=== PATIENT | female | born 1990 | race Caucasian/White ===

== ENCOUNTER 2016-03-23 18:29 | Inpatient (IN) | payer MEDICAID ==
[2016-03-23 19:55] LABS: APPEARANCE,URINE CLOUDY; BILIRUBIN,URINE NEGATIVE (NEGATIVE); GLUCOSE, URINE NEGATIVE (NEGATIVE); KETONES,URINE NEGATIVE (NEGATIVE); LEUKOCYTE ESTERASE,URINE LARGE (NEGATIVE); NITRITE,URINE NEGATIVE (NEGATIVE); PROTEIN,URINE NEGATIVE (NEGATIVE); UROBILINOGEN,URINE NEGATIVE mg/dL (<2.0)
--- NOTE | 2016-03-23 20:01 | L&D Flow Sheet ---
LD Flowsheet Datetime Report Generated by CPN: 03/23/2016 20:00 Datetime: 03/23/2016 19:44 Vital Signs NBP Sys/Elsa/Mean (mmHg): 134 (QS system process) : 83 (QS system process) : 102 (QS system process) Pulse: 101 (QS system process) Datetime: 03/23/2016 19:29 Vital Signs NBP Sys/[place]a/Mean (mmHg): 134 (QS system process) : 75 (QS system process) : 99 (QS system process) Pulse: 99 (QS system process) Datetime: 03/23/2016 19:22 Uterine Activity Monitor Interventions for UA: [place] Adjusted (Elizabeth Powell, RN) Assessment A Monitor Mode: External US (Elizabeth Paula, RN) Monitor Interventions for FHR: Ultrasound Adjusted (Elizabeth Powell, RN) FHR Baseline Rate : 130 (Elizabeth Paula, RN) Variability: Moderate 6-25 bpm (Elizabeth Powell, RN) Accelerations: 15X15 (Elizabeth Powell, RN) Decelerations: None (Elizabeth Powell, RN) Pain Pain Scale: 0 (Elizabeth Paula, RN) Pain Presence: None/Denies (Elizabeth Powell, RN) Pain Type: N/A (Elizabeth Powell, RN) Pain Goal: 1 (Elizabeth Powell, RN) Pain Relief Measures: Comfort Measures (Elizabeth Powell, RN) Vaginal Exam Vaginal Bleeding: None (Elizabeth Paula, RN) Maternal Assessment Level of Consciousness: Fully Conscious (Elizabeth Powell, RN) DTR's/Clonus: DTRs 2+; No Clonus (Elizabeth Powell, RN) Headache: Denies (Elizabeth Powell, RN) Breath Sounds, Left: Clear and Equal (Elizabeth Paula, RN) Breath Sounds, Right: Clear and Equal (Elizabeth Paula, RN) Nausea/Vomiting: Denies (Elizabeth Powell, RN) RUQ Epigastric Pain: Denies (Elizabeth Paula, RN) Patient Care IV/Blood Work: IV Started; IV Bolus Started; IV Bolus Given ml @; IV Infusing per Order; New IV Bag Hung (Annotations: 500 ml bolus of LR) (Elizabeth Mitchell, FLOR) Oxygen Method: Room Air (Elizabeth Mitchell, FLOR) Procedures: Consents Signed (Elizabeth Mitchell, RN) Patient Position/Activity: Right Tilt; Semi-Fowlers (Elizabeth Mitchell, RN) Comfort Measures: Breathing/Relaxation; Family Support (Elizabeth Mitchell, RN) I/O Interventions: Clear Liquids Given (Elizabeth Mitchell, RN) Teaching Instructional Method: Verbal; Patient Instructed; Family/Support Person Instructed; Verbalized Understanding (Elizabeth Mitchell, FLOR) Plan of Care: Plan of Care Discussed; Vaginal Delivery; Labor; Induction (Elizabeth Mitchell, RN) Unit Routine: [place] to Room; Call Maharaj; Bed; Visiting Policy; Waiting Areas; Infant Security; Phone/Cell Phone Use; Photography; Unit Personnel; Consents Signed; Handwashing; Flu/Illness Precautions; Monitoring; IV Pumps; Safety/Fall Risk Prevention; Diet/Nutrition Services; Bathroom Privileges; Routine Time Outs; Medications (Elizabeth Mitchell, RN) Labor/Induction: Labor Stages; Cervical Ripening; Augmentation; Induction; Antibiotic Use; Interventions (Elizabeth Mitchell, RN) Pain Management: Epidural; PRN Medications; Pain Scale/Goals; Comfort Measures (Elizabeth Mitchell, RN) Medications: Antibiotics; Cervical Ripening (Elizabeth Mitchell, RN) PTL/PROM: Expected Outcomes (Elizabeth Mitchell, RN) Related: Common Discomforts of ; Maternal Physical Changes; Maternal Emotional Changes; Nutrition; Hydration; Activity and Rest (Elizabeth Mitchell, FLOR)
[2016-03-23 20:09] LABS: ABSOLUTE EOSINOPHILS # (AUTO) 0.1 10^3/uL (0.0-0.6); ABSOLUTE LYMPHOCYTES (AUTO) 1.7 10^3/uL (0.5-4.7); ABSOLUTE MONOCYTES (AUTO) 0.8 10^3/uL (0.1-1.4); ABSOLUTE NEUT (AUTO) 7.6 10^3/uL (1.7-8.2); BASOPHILS % (AUTO) 0.2 % (0-2); EOSINOPHILS % (AUTO) 1.1 % (0-6); HEMATOCRIT 39.2 % (36.0-47.0); HEMOGLOBIN 13.2 g/dL (12.0-15.5); HGB HCT DIFFERENCE 0.4; LYMPHOCYTES % (AUTO) 16.3 % (13-45); MEAN CORPUSCULAR HGB CONC 33.7 g/dL (32.0-36.0); MEAN CORPUSCULAR VOLUME 92 fl (80-97); MONOCYTES % (AUTO) 7.7 % (3-13); RED BLOOD COUNT 4.26 10^6/uL (3.72-5.28); RED CELL DISTRIBUTION WIDTH 14.4 % (11.5-14.0); SEGMENTED NEUTROPHILS % (AUTO) 74.7 % (42-78); WHITE BLOOD COUNT 10.2 10^3/uL (4.0-10.5)
[2016-03-23 20:13] LABS: URINE BARBITURATES SCREEN NEGATIVE; URINE METHADONE SCREEN NEGATIVE; URINE PHENCYCLIDINE SCREEN NEGATIVE
[2016-03-23] MEDS ORDERED: DINOPROSTONE 10 MG VAGINAL INSERT.SR ONE (20:19)
[2016-03-23] MEDS ORDERED: PENICILLIN G-K 5 MILLION UNIT VIAL IV PRN (20:47)
[2016-03-23] MEDS ORDERED: ACETAMINOPHEN 325 MG TABLET PO PRN (20:53)
[2016-03-23] MEDS ORDERED: ZOLPIDEM TARTRATE 5 MG TABLET PO PRN (20:53)
[2016-03-23] MEDS ORDERED: MAG HYDROX/AL HYDROX/SIMETH SUSP 30 ML UDCUP PO PRN (20:54)
[2016-03-23] MEDS ORDERED: RINGERS SOLUTION,LACTATED 300 ML IV ONE (21:30)
--- NOTE | 2016-03-24 04:47 | L&D Admission Assessment ---
LD ADM ASMT Datetime Report Generated by CPN: 03/24/2016 04:45 PATIENT ASSESSMENT Assessment Type: Ongoing Assessment (03/23/2016 22:11:Elizabeth Mitchell, RN) Assessment Type: Admission Assessment (03/23/2016 19:22:Elizabeth Mitchell, RN) WEIGHT Weight (lb): 202 (03/23/2016 18:47:QS system process) Weight (kg): 91.8 (03/23/2016 18:47:QS system process) Total Wt Gain (lb): 67 (03/23/2016 18:47:QS system process) Wt Gain (kg): 30.6 (03/23/2016 18:47:QS system process) PAIN Pain Scale: 0 (03/23/2016 19:22:Elizabeth Mitchell RN) Pain Presence: None/Denies (03/23/2016 19:22:Elizabeth Mitchell RN) Pain Type: N/A (03/23/2016 19:22:Elizabeth Mitchell RN) Pain Goal: 1 (03/23/2016 19:22:Elizabeth Mitchell RN) Pain Related to Contraction: No (03/23/2016 19:22:Elizabeth Mitchell RN) CONTRACTIONS Frequency (min): 1-4 (03/24/2016 02:30:Francisca Gottlieb RN) Frequency (min): Irregular (03/24/2016 02:00:Francisca Gottlieb RN) Frequency (min): Irritability (03/24/2016 01:30:Francisca Gottlieb RN) Frequency (min): Irritability (03/24/2016 01:00:Francisca Chery, RN) Frequency (min): 4-9 (03/24/2016 00:30:Francisca Chery, RN) Frequency (min): 3-6 (03/24/2016 00:00:Francisca Chery, RN) Frequency (min): 4-11 (03/23/2016 23:30:Francisca Chery, RN) Frequency (min): 4-11 (03/23/2016 22:59:Francisca Chery, RN) Frequency (min): 4-6 (03/23/2016 22:30:Francisca Chery, RN) Frequency (min): x2 (03/23/2016 22:00:Elizabeth Worcester, RN) Frequency (min): 5-6 (03/23/2016 21:30:Elizabeth Worcester, RN) Frequency (min): x3 (03/23/2016 21:00:Elizabeth Paula, RN) Frequency (min): x2 (03/23/2016 20:30:Elizabeth Worcester, RN) Frequency (min): x2 (03/23/2016 20:00:Elizabeth Paula, RN) Frequency (min): x2 (03/23/2016 19:30:Elizabeth Paula, RN) Duration (sec): 50-80 (03/24/2016 02:30:Francisca Chery, RN) Duration (sec): 60-70 (03/24/2016 02:00:Francisca Chery, RN) Duration (sec): 40-120 (03/24/2016 00:30:Francisca Chery, RN) Duration (sec): 60-90 (03/24/2016 00:00:Francisca Chery, RN) Duration (sec): 60-140 (03/23/2016 23:30:Francisca Chery, RN) Duration (sec): 40-140 (03/23/2016 22:59:Francisca Chery, RN) Duration (sec): 40-130 (03/23/2016 22:30:Francisca Chery, RN) Duration (sec): 80/90 (03/23/2016 22:00:Elizabeth Worcester, RN) Duration (sec): 100-130 (03/23/2016 21:30:Elizabeth Mitchell RN) Duration (sec): 100-130 (03/23/2016 21:00:Elizabeth Mitchell RN) Duration (sec): 100/120 (03/23/2016 20:30:Elizabeth Mitchell RN) Duration (sec): 90/110 (03/23/2016 20:00:Elizabeth Mitchell RN) Duration (sec): 90/120 (03/23/2016 19:30:Elizabeth Mitchell RN) Quality: Mild/Moderate (03/24/2016 02:32:Francisca Gottlieb RN) Quality: Mild/Moderate (03/24/2016 02:30:Francisca Gottlieb RN) Quality: Mild/Moderate (03/24/2016 02:00:Francisca Gottlieb RN) Quality: Mild/Moderate (03/24/2016 01:30:Francisca Gottlieb RN) Quality: Mild/Moderate (03/24/2016 01:00:Francisca Gottlieb RN) Quality: Mild (03/24/2016 00:30:Francisca Gottlieb RN) Quality: Mild (03/24/2016 00:00:Francisca Gottlieb RN) Quality: Mild (03/23/2016 23:30:Francisca Gottlieb RN) Quality: Mild (03/23/2016 22:59:Francisca Gottlieb RN) Quality: Mild (03/23/2016 22:30:Francisca Gottlieb RN) Quality: Mild (03/23/2016 22:00:Elizabeth Mitchell RN) Quality: Mild (03/23/2016 21:30:Elizabeth Mitchell RN) Quality: Mild (03/23/2016 21:00:Elizabeth Mitchell RN) Quality: Mild (03/23/2016 20:30:Elizabeth Mitchell RN) Quality: Mild (03/23/2016 20:00:Elizabeth Mitchell RN) Quality: Mild (03/23/2016 19:30:Elizabeth Mitchell RN) Pattern: Normal: <= 5 Contractions in 10 Minutes (03/23/2016 19:30:Elizabeth Mitchell RN) Resting Tone [place]: Relaxed (03/24/2016 02:30:Francisca Gottlieb RN) Resting Tone [place]: Relaxed (03/24/2016 02:00:Francisca Gottlieb RN) Resting Tone [place]: Relaxed (03/24/2016 01:30:Francisca Gottlieb RN) Resting Tone [place]: Relaxed (03/24/2016 01:00:Francisca Gottlieb RN) Resting Tone [place]: Relaxed (03/24/2016 00:30:Francisca Gottlieb RN) Resting Tone [place]: Relaxed (03/24/2016 00:00:Francisca Gottlieb RN) Resting Tone [place]: Relaxed (03/23/2016 23:30:Francisca Gottlieb RN) Resting Tone [place]: Relaxed (03/23/2016 22:59:Francisca Gottlieb RN) Resting Tone [place]: Relaxed (03/23/2016 22:30:Francisca Gottlieb RN) Resting Tone [place]: Relaxed (03/23/2016 22:00:Elizabeth Mitchell RN) Resting Tone [place]: Relaxed (03/23/2016 21:30:Elizabeth Mitchell RN) Resting Tone [place]: Relaxed (03/23/2016 21:00:Elizabeth Mitchell RN) Resting Tone [place]: Relaxed (03/23/2016 20:30:Elizabeth Mitchell RN) Resting Tone [place]: Relaxed (03/23/2016 20:00:Elizabeth Mitchell RN) Resting Tone [place]: Relaxed (03/23/2016 19:30:Elizabeth Mitchell RN) Contraction Comments: Pt reporting "cramping," in no obvious distress. Ctx palpating mild/mod by RN (03/24/2016 02:32:Francisca Gottlieb RN) Contraction Comments: irregular pattern; patient denies feeling contractions (03/23/2016 21:30:Elizabeth Mitchell RN) Contraction Comments: patient denies feeling contractions at this time. (03/23/2016 21:00:Elizabeth Mitchell RN) Contraction Comments: irregular (03/23/2016 20:30:Elizabeth Mitchell RN) Contraction Comments: irregular (03/23/2016 19:30:Elizabeth Mitchell RN) VAGINAL EXAM Dilatation (cm): 1.0 (03/23/2016 20:34:Elizabeth Mitchell RN) Effacement (%): 50 (03/23/2016 20:34:Elizabeth Mitchell RN) Station: -3 (03/23/2016 20:34:Elizabeth Mitchell RN) NEURO Level of Consciousness: Fully Conscious (03/23/2016 19:22:Elizabeth Mitchell RN) DTR's/Clonus: DTRs 2+; No Clonus (03/23/2016 19:22:Elizabeth Mitchell RN) Headache: Denies (03/23/2016 19:22:Elizabeth Mitchell RN) Dizziness: No (03/23/2016 19:22:Elizabeth Mitchell RN) Blurred Vision: No (03/23/2016 19:22:Elizabeth Mitchell RN) Extremity Numbness/Tingling : None (03/23/2016 19:22:Elizabeth Mitchell RN) Extremity Movement: Full Range of Motion (03/23/2016 19:22:Elizabeth Mitchell RN) CARDIOVASCULAR Heart Rhythm: Regular (03/23/2016 19:22:Elizabeth Mitchell RN) Nailbeds: [place] (03/23/2016 19:22:Elizabeth Mitchell RN) Capillary Refill: Less than 3 Seconds (03/23/2016 19:22:Elizabeth Mitchell RN) Lower Extremities Edema: Bilateral Lower Extremities (03/23/2016 19:22:Elizabeth Mitchell RN) Lower Extremities Edema Degree: 1+ (03/23/2016 19:22:Elizabeth Mitchell RN) Upper Extremities Edema: None (03/23/2016 19:22:Elizabeth Mitchell RN) Upper Extremities Edema Degree: None (03/23/2016 19:22:Elizabeth Mitchell RN) Facial Edema: None (03/23/2016 19:22:Elizabeth Mitchell RN) Titus's Sign Left Leg: Negative (03/23/2016 19:22:Elizabeth Mitchell RN) Titus's Sign Right Leg: Negative (03/23/2016 19:22:Elizabeth Mitchell RN) DVT RISK ASSESSMENT DVT Risk Age: Age less than 41 years (03/23/2016 19:22:Elizabeth Mitchell RN) DVT Risk BMI: BMI<31 (03/23/2016 19:22:Elizabeth Mitchell RN) DVT Risk Surgery: None Applicable (03/23/2016 19:22:Elizabeth Mitchell RN) DVT Risk Other: Women Only- or (<1 month) (03/23/2016 19:22:Elizabeth Mitchell RN) DVT Risk Total: 1 (03/23/2016 19:22:QS system process) DVT Risk Text: Low Risk (<10%) No specific measures, early ambulation (03/23/2016 19:22:QS system process) RESPIRATORY Respiratory Effort: Unlabored; Regular Rhythm (03/23/2016 19:22:Elizabeth Mitchell RN) Breath Sounds, Left: Clear and Equal (03/23/2016 19:22:Elizabeth Mitchell RN) Breath Sounds, Right: Clear and Equal (03/23/2016 19:22:Elizabeth Mitchell RN) Cough Productivity: None (03/23/2016 19:22:Elizabeth Mitchell RN) GASTROINTESTINAL Nausea/Vomiting: Denies (03/23/2016 19:22:Elizabeth Mitchell RN) Bowel Sounds: Normoactive; All Quadrants (03/23/2016 19:22:Elizabeth Mitchell RN) RUQ Epigastric Pain: Denies (03/23/2016 19:22:Elizabeth Mitchell RN) Bowel Patterns: Soft, Formed Stool (03/23/2016 19:22:Elizabeth Mitchell RN) Hemorrhoids: Present (03/23/2016 19:22:Elizabeth Mitchell RN) Diet Type: Regular diet (03/23/2016 19:22:Elizabeth Mitchell RN) Last Meal: 03/23/2016 17:00 (03/23/2016 19:22:Elizabeth Mitchell RN) GENITOURINARY Bladder: Nondistended (03/23/2016 19:22:Elizabeth Mitchell RN) Frequency of Urination: No (03/23/2016 19:22:Elizabeth Mitchell RN) Urination Burning: No (03/23/2016 19:22:Elizabeth Mitchell RN) CVA Tenderness: No (03/23/2016 19:22:Elizabeth Mitchell RN) Vaginal Bleeding: None (03/23/2016 19:22:Elizabeth Mitchell RN) Vaginal Discharge Amount: Small (03/23/2016 19:22:Elizabeth Mitchell RN) Vaginal Discharge Color: White (03/23/2016 19:22:Elizabeth Mitchell RN) Vaginal Discharge Odor: Non-Odorous (03/23/2016 19:22:Elizabeth Mitchell RN) Vaginal Discharge Character: Thin (03/23/2016 19:22:Elizabeth Mitchell RN) INTEGUMENTARY Skin Color: Normal for Race (03/23/2016 19:22:Elizabeth Mitchell RN) Skin Temperature: Warm (03/23/2016 19:22:Elizabeth Mitchell RN) Skin Moisture: Dry (03/23/2016:22:Elizabeth Mitchell RN) HERIBERTO SKIN ASSESSMENT Heriberto Scale Sensory Perception: No Impairment- Responds to verbal commands. Has no sensory deficit which would limit ability to feel or voice pain or discomfort (03/23/2016 19:22:Elizabeth Mitchell RN) Heriberto Scale Moisture: Rarely Moist- Skin is usually dry. Linen only requires changing at routine intervals (03/23/2016 19:22:Elizabeth Mitchell RN) Heriberto Scale Activity: Walks Frequently- Walks outside the room at least twice a day and inside room at least every 2 hours during the day. (03/23/2016 19:22:Elizabeth Mitchell RN) Heriberto Scale Mobility: No Limitations- Makes major and frequent changes in position without assistance (03/23/2016 19:22:Elizabeth Mitchell RN) Heriberto Scale Nutrition: Excellent- Eats most of every meal. Never refuses a meal. Usually eats a total of 4 or more servings of meat and dairy products. Occasionally eats between meals. Does not require supplementation (03/23/2016 19:22:Elizabeth Mitchell RN) Heriberto Scale Friction and Shear: No Apparent Problem- Moves in bed and in chair independently and has sufficient muscle strength to lift up completely during move. Maintains good position in bed or chair at all times (03/23/2016 19:22:Elizabeth Mitchell RN) Heriberto Scale Total: 23 (03/23/2016 19:22:QS system process) Heriberto Scale Risk: No Risk of Pressure Ulcer Noted at this Time (03/23/2016 19:22:QS system process) SUPPORT Family Support: Significant Other supportive, at bedside frequently; Family supportive (03/23/2016 19:22:Elizabeth Mitchell RN) Emotional State: Calm/Relaxed (03/23/2016 19:22:Elizabeth Mitchell RN) SAFETY Call Maharaj Within Reach: Yes (03/23/2016 19:22:Elizabeth Mitchell RN) Side Rails Up: Yes (03/23/2016 19:22:Elizabeth Mitchell RN) Bed Wheels Locked: Yes (03/23/2016 19:22:Elizabeth Mitchell RN) Arm Bands Present: Yes (03/23/2016 19:22:Elizabeth Mitchell RN) Isolation: [place] (03/23/2016 19:22:Elizabeth Mitchell RN) FALL SCREEN Fall Risk History of Falling: (0) No (03/23/2016 19:22:Elizabeth Mitchell RN) Fall Risk Secondary Diagnosis: (0) No (03/23/2016 19:22:Elizabeth Mitchell RN) Fall Risk Ambulatory Aid: (0) None/Bedrest/Wheelchair/Nurse Assist (03/23/2016 19:22:Elizabeth Mitchell RN) Fall Risk IV Therapy: (20) Yes (03/23/2016 19:22:Elizabeth Mitchell RN) Fall Risk Gait: (0) Normal/Bedrest/Immobile (03/23/2016 19:22:Elizabeth Mitchell RN) Fall Risk Mental Status: (0) Oriented to Own Ability (03/23/2016 19:22:Elizabeth Mitchell RN) Fall Risk Score: 20 (03/23/2016 19:22:QS system process) Fall Risk Score Definition: No Risk: No action required (03/23/2016 19:22:QS system process) RECENT TRAVEL/INFECTIOUS DISEASE Recent Exp Communicable Disease: No (03/23/2016 19:22:Elizabeth Mitchell RN) Cough or Fever: No (03/23/2016 19:22:Elizabeth Mitchell RN) Foreign Travel Past 10 Days: No (03/23/2016 19:22:Elizabeth Mitchell RN) Open Wounds or Sores: No (03/23/2016 19:22:Elizabeth Mitchell RN) Prior Antibiotic Resistance Tx: No (03/23/2016 19:22:Elizabeth Mitchell RN) Cultures Obtained: Not Applicable (03/23/2016 19:22:Elizabeth Mitchell RN) Isolation Initiated: No (03/23/2016 19:22:Elizabeth Mitchell RN) Pt/Family Education: Not Applicable (03/23/2016 19:22:Elizabeth Mitchell RN) BABY A FHR Baseline Rate (bpm) Baby A: 145 (03/24/2016 02:30:Francisca Gottlieb RN) FHR Baseline Rate (bpm) Baby A: 135 (03/24/2016 02:00:Francisca Gottlieb RN) FHR Baseline Rate (bpm) Baby A: 140 (03/24/2016 01:30:Francisca Gottlieb RN) FHR Baseline Rate (bpm) Baby A: 125 (03/24/2016 01:00:Francisca Gottlieb RN) FHR Baseline Rate (bpm) Baby A: 145 (03/24/2016 00:30:Francisca Gottlieb RN) FHR Baseline Rate (bpm) Baby A: 135 (03/24/2016 00:00:Francisca Gottlieb RN) FHR Baseline Rate (bpm) Baby A: 120 (03/23/2016 23:30:Francisca Gottlieb RN) FHR Baseline Rate (bpm) Baby A: 120 (03/23/2016 22:59:Francisca Gottlieb RN) FHR Baseline Rate (bpm) Baby A: 130 (03/23/2016 22:30:Francisca Gottlieb RN) FHR Baseline Rate (bpm) Baby A: 135 (03/23/2016 22:00:Elizabeth Mitchell RN) FHR Baseline Rate (bpm) Baby A: 135 (03/23/2016 21:30:Elizabeth Mitchell RN) FHR Baseline Rate (bpm) Baby A: 130 (03/23/2016 21:00:Elizabeth Mitchell RN) FHR Baseline Rate (bpm) Baby A: 135 (03/23/2016 20:30:Elizabeth Mitchell RN) FHR Baseline Rate (bpm) Baby A: 130 (03/23/2016 20:00:Elizabeth Mitchell RN) FHR Baseline Rate (bpm) Baby A: 130 (03/23/2016 19:30:Elizabeth Mitchell RN) FHR Baseline Rate (bpm) Baby A: 130 (03/23/2016 19:22:Elizabeth Mitchell RN) Variability Baby A: Moderate 6-25 bpm (03/24/2016 02:30:Francisca Gottlieb RN) Variability Baby A: Moderate 6-25 bpm (03/24/2016 02:00:Francisca Gottlieb RN) Variability Baby A: Moderate 6-25 bpm (03/24/2016 01:30:Francisca Gottlieb RN) Variability Baby A: Moderate 6-25 bpm (03/24/2016 01:00:Francisca Gottlieb RN) Variability Baby A: Moderate 6-25 bpm (03/24/2016 00:30:Francisca Gottlieb RN) Variability Baby A: Moderate 6-25 bpm (03/24/2016 00:00:Francisca Gottlieb RN) Variability Baby A: Moderate 6-25 bpm (03/23/2016 23:30:Francisca Gottlieb RN) Variability Baby A: Moderate 6-25 bpm (03/23/2016 22:59:Francisca Gottlieb RN) Variability Baby A: Moderate 6-25 bpm (03/23/2016 22:30:Francisca Gottlieb RN) Variability Baby A: Moderate 6-25 bpm (03/23/2016 22:00:Elizabeth Mitchell RN) Variability Baby A: Moderate 6-25 bpm (03/23/2016 21:30:Elizabeth Mitchell RN) Variability Baby A: Moderate 6-25 bpm (03/23/2016 21:00:Elizabeth Mitchell RN) Variability Baby A: Moderate 6-25 bpm (03/23/2016 20:30:Elizabeth Mitchell RN) Variability Baby A: Moderate 6-25 bpm (03/23/2016 20:00:Elizabeth Mitchell RN) Variability Baby A: Moderate 6-25 bpm (03/23/2016 19:30:Elizabeth Mitchell RN) Variability Baby A: Moderate 6-25 bpm (03/23/2016 19:22:Elizabeth Mitchell RN) Accelerations Baby A: 15X15 (03/24/2016 02:30:Francisca Gottlieb RN) Accelerations Baby A: 15X15 (03/24/2016 02:00:Francisca Gottlieb RN) Accelerations Baby A: 10X10 (03/24/2016 01:30:Francisca Gottlieb RN) Accelerations Baby A: 15X15 (03/24/2016 01:00:Francisca Gottlieb RN) Accelerations Baby A: None (03/24/2016 00:30:Francisca Gottlieb RN) Accelerations Baby A: 15X15 (03/24/2016 00:00:Francisca Gottlieb RN) Accelerations Baby A: 15X15 (03/23/2016 23:30:Francisca Gottlieb RN) Accelerations Baby A: 15X15 (03/23/2016 22:59:Francisca Gottlieb RN) Accelerations Baby A: 15X15 (03/23/2016 22:30:Francisca Gottlieb RN) Accelerations Baby A: 15X15 (03/23/2016 22:00:Elizabeth Mitchell RN) Accelerations Baby A: 15X15 (03/23/2016 21:30:Elizabeth Mitchell RN) Accelerations Baby A: 15X15 (03/23/2016 21:00:Elizabeth Mitchell RN) Accelerations Baby A: 15X15 (03/23/2016 20:30:Elizabeth Mitchell RN) Accelerations Baby A: 15X15 (03/23/2016 20:00:Elizabeth Mitchlel RN) Accelerations Baby A: 15X15 (03/23/2016 19:30:Elizabeth Mitchell RN) Accelerations Baby A: 15X15 (03/23/2016 19:22:Elizabeth Mitchell RN) Decelerations Baby A: Variable (03/24/2016 02:30:Francisca Gottlieb RN) Decelerations Baby A: None (03/24/2016 02:00:Francisca Gottlieb RN) Decelerations Baby A: None (03/24/2016 01:30:Francisca Gottlieb RN) Decelerations Baby A: None (03/24/2016 01:00:Francisca Gottlieb RN) Decelerations Baby A: None (03/24/2016 00:30:Francisca Gottlieb RN) Decelerations Baby A: None (03/24/2016 00:00:Francisca Gottlieb RN) Decelerations Baby A: None (03/23/2016 23:30:Francisca Gottlieb RN) Decelerations Baby A: None (03/23/2016 22:59:Francisca Gottlieb RN) Decelerations Baby A: None (03/23/2016 22:30:Francisca Gottlieb RN) Decelerations Baby A: None (03/23/2016 22:00:Elizabeth Mitchell RN) Decelerations Baby A: None (03/23/2016 21:30:Elizabeth Mitchell RN) Decelerations Baby A: None (03/23/2016 21:00:Elizabeth Mitchell RN) Decelerations Baby A: None (03/23/2016 20:30:Elizabeth Mitchell RN) Decelerations Baby A: None (03/23/2016 20:00:Elizabeth Mitchell RN) Decelerations Baby A: None (03/23/2016 19:30:Elizabeth Mitchell RN) Decelerations Baby A: None (03/23/2016 19:22:Elizabeth Mitchell RN) ADDITIONAL COMMENTS Assessment Flag: Admission Assessment (03/23/2016 19:22:QS system process)
--- NOTE | 2016-03-24 04:47 | L&D Flow Sheet ---
LD Flowsheet Datetime Report Generated by CPN: 03/24/2016 04:45 Datetime: 03/24/2016 02:32 Quality: Mild/Moderate (Francisca Gottlieb RN) Contraction Comments: Pt reporting "cramping," in no obvious distress. Ctx palpating mild/mod by RN (Francisca Gottlieb RN) Monitor Interventions for FHR: Ultrasound Adjusted (Francisca Gottlieb RN) Pain Coping: Talking Through Contractions (Francisac Gottlieb, FLOR) Communication Communication: RN at Bedside (Francisca Chery, RN) Datetime: 03/24/2016 02:30 Uterine Activity Monitor Mode: External (Francisca Chery, RN) Frequency (min): 1-4 (Francisca Chery, RN) Quality: Mild/Moderate (Francisca Chery, RN) Duration (sec): 50-80 (Francisca Chery, RN) Resting Tone (Palpate): Relaxed (Francisca Chery, RN) Assessment A Monitor Mode: External US (Francisca Chery, RN) FHR Baseline Rate : 145 (Francisca Chery, RN) Variability: Moderate 6-25 bpm (Francisca Chery, RN) Accelerations: 15X15 (Francisca Chery, RN) Decelerations: Variable (Francisca Chery, RN) Datetime: 03/24/2016 02:00 Uterine Activity Monitor Mode: External (Francisca Chery, RN) Frequency (min): Irregular (Francisca Chery, RN) Quality: Mild/Moderate (Francisca Chery, RN) Duration (sec): 60-70 (Francisca Chery, RN) Resting Tone (Palpate): Relaxed (Francisca Chery, RN) Assessment A Monitor Mode: External US (Francisca Chery, RN) FHR Baseline Rate : 135 (Francisca Chery, RN) Variability: Moderate 6-25 bpm (Francisca Chery, RN) Accelerations: 15X15 (Francisca Chery, RN) Decelerations: None (Francisca Chery, RN) Datetime: 03/24/2016 01:30 Uterine Activity Monitor Mode: External (Francisca Chery, RN) Frequency (min): Irritability (Francisca Chery, RN) Quality: Mild/Moderate (Francisca Chery, RN) Resting Tone (Palpate): Relaxed (Francisca Chery, RN) Assessment A Monitor Mode: External US (Francisca Chery, RN) FHR Baseline Rate : 140 (Francisca Chery, RN) Variability: Moderate 6-25 bpm (Francisca Chery, RN) Accelerations: 10X10 (Francisca Chery, RN) Decelerations: None (Francisca Chery, RN) Datetime: 03/24/2016 01:22 I/O Interventions: Up to BR (Francisca Chery, RN) Datetime: 03/24/2016 01:00 Uterine Activity Monitor Mode: External (Francisca Chery, RN) Frequency (min): Irritability (Francisca Chery, RN) Quality: Mild/Moderate (Francisca Chery, RN) Resting Tone (Palpate): Relaxed (Francisca Chery, RN) Assessment A Monitor Mode: External US (Francisca Chery, RN) FHR Baseline Rate : 125 (Francisca Chery, RN) Variability: Moderate 6-25 bpm (Francisca Chery, RN) Accelerations: 15X15 (Francisca Chery, RN) Decelerations: None (Francisca Chery, RN) Datetime: 03/24/2016 00:41 Monitor Interventions for FHR: Ultrasound Adjusted (Francisca Chery, RN) I/O Interventions: Ice Chips Given (Francisca Chery, RN) Communication Communication: RN at Bedside (Francisca Chery, RN) Datetime: 03/24/2016 00:30 Uterine Activity Monitor Mode: External (Francisca Chery, RN) Frequency (min): 4-9 (Francisca Chery, RN) Quality: Mild (Francisca Chery, RN) Duration (sec): 40-120 (Francisca Chery, RN) Resting Tone (Palpate): Relaxed (Francisca Chery, RN) Assessment A Monitor Mode: External US (Francisca Chery, RN) FHR Baseline Rate : 145 (Francisca Chery, RN) Variability: Moderate 6-25 bpm (Francisca Chery, RN) Accelerations: None (Francisca Chery, RN) Decelerations: None (Francisca Chery, RN) Datetime: 03/24/2016 00:00 Uterine Activity Monitor Mode: External (Francisca Chery, RN) Frequency (min): 3-6 (Francisca Chery, RN) Quality: Mild (Francisca Chery, RN) Duration (sec): 60-90 (Francisca Chery, RN) Resting Tone (Palpate): Relaxed (Francisca Chery, RN) Assessment A Monitor Mode: External US (Francisca Chery, RN) FHR Baseline Rate : 135 (Francisca Chery, RN) Variability: Moderate 6-25 bpm (Francisca Chery, RN) Accelerations: 15X15 (Francisca Chery, RN) Decelerations: None (Francisca Chery, RN) Datetime: 03/23/2016 23:47 Monitor Interventions for FHR: Ultrasound Adjusted (Francisca Chery, RN) Communication Communication: RN at Bedside (Francisca Chery, RN) Datetime: 03/23/2016 23:46 Patient Care IV/Blood Work: New IV Bag Hung; IV Bag Number @ 2 (Francisca Chery, RN) Datetime: 03/23/2016 23:43 I/O Interventions: Up to BR (Francisca Chery, RN) Datetime: 03/23/2016 23:30 Uterine Activity Monitor Mode: External (Francisca Chery, RN) Frequency (min): 4-11 (Francisca Chery, RN) Quality: Mild (Francisca Chery, RN) Duration (sec): 60-140 (Francisca Chery, RN) Resting Tone (Palpate): Relaxed (Francisca Chery, RN) Assessment A Monitor Mode: External US (Francisca Chery, RN) FHR Baseline Rate : 120 (Francisca Chery, RN) Variability: Moderate 6-25 bpm (Francisca Chery, RN) Accelerations: 15X15 (Francisca Chery, RN) Decelerations: None (Francisca Chery, RN) Comments: prolonged accels (Francisca Chery, RN) Datetime: 03/23/2016 23:03 I/O Interventions: Up to BR (Francisca Chery, RN) Datetime: 03/23/2016 22:59 Uterine Activity Monitor Mode: External (Francisca Chery, RN) Frequency (min): 4-11 (Francisca Chery, RN) Quality: Mild (Francisca Chery, RN) Duration (sec): 40-140 (Francisca Chery, RN) Resting Tone (Palpate): Relaxed (Francisca Chery, RN) Assessment A Monitor Mode: External US (Francisca Chery, RN) FHR Baseline Rate : 120 (Francisca Chery, RN) Variability: Moderate 6-25 bpm (Francisca Chery, RN) Accelerations: 15X15 (Francisca Chery, RN) Decelerations: None (Francisca Chery, RN) Datetime: 03/23/2016 22:30 Uterine Activity Monitor Mode: External (Francisca Chery, RN) Frequency (min): 4-6 (Francisca Chery, RN) Quality: Mild (Francisca Chery, RN) Duration (sec): 40-130 (Francisca Chery, RN) Resting Tone (Palpate): Relaxed (Francisca Chery, RN) Assessment A Monitor Mode: External US (Francisca Chery, RN) FHR Baseline Rate : 130 (Francisca Chery, RN) Variability: Moderate 6-25 bpm (Francisca Chery, RN) Accelerations: 15X15 (Francisca Chery, RN) Decelerations: None (Francisca Chery, RN) Datetime: 03/23/2016 22:15 I/O Interventions: Up to BR (Francisca Chery, RN) Datetime: 03/23/2016 22:12 Communication Communication: RN at Bedside (Francisca Chery, RN) Communication Comments: Report from H Hornick RN, care assumed (Francisca Chery, RN) Datetime: 03/23/2016 22:00 Uterine Activity Monitor Mode: External (Elizabeth Paula, RN) Frequency (min): x2 (Elizabeth Hornick, RN) Quality: Mild (Elizabeth Paula, RN) Duration (sec): 80/90 (Elizabeth Paula, RN) Resting Tone (Palpate): Relaxed (Elizabeth Hornick, RN) Assessment A Monitor Mode: External US (Elizabeth Paula, RN) FHR Baseline Rate : 135 (Elizabeth Hornick, RN) FHR Baseline Changes: No Baseline Change (Elizabeth Hornick, RN) Variability: Moderate 6-25 bpm (Elizabeth Hornick, RN) Accelerations: 15X15 (Elizabeth Hornick, RN) Decelerations: None (Elizabeth Agrawalard, RN) Datetime: 03/23/2016 21:45 NBP Sys/Elsa/Mean (mmHg): 120 (QS system process) : 58 (QS system process) : 83 (QS system process) Pulse: 86 (QS system process) LaborFlag: Labor (QS system process) Datetime: 03/23/2016 21:30 Uterine Activity Monitor Mode: External (Elizabeth Mitchell, RN) Frequency (min): 5-6 (Elizabeth Mitchell, RN) Quality: Mild (Elizabeth Hornick, RN) Duration (sec): 100-130 (Elizabeth Paula, RN) Resting Tone (Palpate): Relaxed (Elizabeth Mitchell, RN) Contraction Comments: irregular pattern; patient denies feeling contractions (Elizabeth Paula, RN) Assessment A Monitor Mode: External US (Elizabeth Mitchell, RN) Monitor Interventions for FHR: Ultrasound Adjusted (Elizabeth Mitchell, RN) FHR Baseline Rate : 135 (Elizabeth Mitchell, RN) FHR Baseline Changes: No Baseline Change (Elizabeth Agrawalard, RN) Variability: Moderate 6-25 bpm (Elizabeth Paula, RN) Accelerations: 15X15 (Elizabeth Hornick, RN) Decelerations: None (Elizabeth Hornick, RN) Datetime: 03/23/2016 21:15 Vital Signs Stage of : Labor (Elizabeth Mitchell RN) NBP Sys/Elsa/Mean (mmHg): 121 (QS system process) : 58 (QS system process) : 84 (QS system process) Pulse: 85 (QS system process) Respirations: 12 (Elizabeth Mitchell RN) LaborFlag: Labor (QS system process) Datetime: 03/23/2016 21:00 Uterine Activity Monitor Mode: External (Elizabeth Mitchell RN) Frequency (min): x3 (Elizabeth Mitchell RN) Quality: Mild (Elizabeth Mitchell RN) Duration (sec): 100-130 (Elizabeth Mitchell RN) Resting Tone (Palpate): Relaxed (Elizabeth Mitchell RN) Contraction Comments: patient denies feeling contractions at this time. (Elizabeth Paula, RN) Assessment A Monitor Mode: External US (Elizabeth Paula, RN) FHR Baseline Rate : 130 (Elizabeth Paula, RN) FHR Baseline Changes: No Baseline Change (Elizabeth Paula, RN) Variability: Moderate 6-25 bpm (Elizabeth Hornick, RN) Accelerations: 15X15 (Elizabeth Hornick, RN) Decelerations: None (Elizabeth Paula, RN) Datetime: 03/23/2016 20:43 Vital Signs Stage of : Labor (Elizabeth Mitchell, FLOR) NBP Sys/Elsa/Mean (mmHg): 132 (QS system process) : 73 (QS system process) : 98 (QS system process) Pulse: 83 (QS system process) Respirations: 14 (Elizabeth Mitchell, FLOR) LaborFlag: Labor (QS system process) Datetime: 03/23/2016 20:34 Vaginal Exam Dilatation (cm): 1.0 (Elizabeth Mitchell RN) Effacement (%): 50 (Elizabeth Mitchell, FLOR) Station: -3 (Elizabeth Mitchell, FLOR) Exam by: Sha Mitchell RN (Elizabeth Mitchell, FLOR) Medications Cervical Ripening Agents: Cervidil (Elizabeth Agrawalard, RN) Datetime: 03/23/2016 20:30 Uterine Activity Monitor Mode: External (Elizabeth Mitchell, RN) Frequency (min): x2 (Elizabeth Mitchell, RN) Quality: Mild (Elizabeth Mitchell, RN) Duration (sec): 100/120 (Elizabeth Mitchell, RN) Resting Tone (Palpate): Relaxed (Elizabeth Mitchell, RN) Contraction Comments: irregular (Elizabeth Mitchell, RN) Assessment A Monitor Mode: External US (Elizabeth Hornick, RN) FHR Baseline Rate : 135 (Elizabeth Paula, RN) FHR Baseline Changes: No Baseline Change (Elizabeth Paula, RN) Variability: Moderate 6-25 bpm (Elizabeth Paula, RN) Accelerations: 15X15 (Elizabeth Hornick, RN) Decelerations: None (Elizabeth Hornick, RN) Datetime: 03/23/2016 20:21 I/O Interventions: Up to BR (Elizabeth Hornick, RN) Datetime: 03/23/2016 20:14 Vital Signs Stage of : Labor (Elizabeth Mitchell, RN) NBP Sys/Elsa/Mean (mmHg): 135 (QS system process) : 82 (QS system process) : 102 (QS system process) Pulse: 95 (QS system process) Respirations: 16 (Elizabeth Mitchell, RN) LaborFlag: Labor (QS system process) Datetime: 03/23/2016 20:00 Uterine Activity Monitor Mode: External (Elizabeth Mitchell, RN) Frequency (min): x2 (Elizabeth Mitchell, RN) Quality: Mild (Elizabeth Mitchell, RN) Duration (sec): 90/110 (Elizabeth Mitchell, RN) Resting Tone (Palpate): Relaxed (Elizabeth Mithcell, RN) Assessment A Monitor Mode: External US (Elizabeth Paula, RN) FHR Baseline Rate : 130 (Elizabeth Hornick, RN) FHR Baseline Changes: No Baseline Change (Elizabeth Hornick, RN) Variability: Moderate 6-25 bpm (Elizabeth Hornick, RN) Accelerations: 15X15 (Elizabeth Hornick, RN) Decelerations: None (Elizabeth Hornick, RN) Datetime: 03/23/2016 19:44 Vital Signs Stage of : Labor (Elizabeth Hornick, RN) NBP Sys/Elsa/Mean (mmHg): 134 (QS system process) : 83 (QS system process) : 102 (QS system process) Pulse: 101 (QS system process) Respirations: 14 (Elizabteh Hornick, RN) LaborFlag: Labor (QS system process) Datetime: 03/23/2016 19:41 Vital Signs Stage of : Labor (Elizabeth Hornick, RN) Datetime: 03/23/2016 19:30 Uterine Activity Monitor Mode: External; Palpation (Elizabeth Hornick, RN) Frequency (min): x2 (Elizabeth Hornick, RN) Quality: Mild (Elizabeth Hornick, RN) Duration (sec): 90/120 (Elizabeth Hornick, RN) Duration Criteria: Less than Two 120 Second Contractions (Elizabeth Hornick, RN) Pattern: Normal: <= 5 Contractions in 10 Minutes (Elizabeth Hornick, RN) Resting Tone (Palpate): Relaxed (Elizabeth Hornick, RN) Contraction Comments: irregular (Elizabeth Hornick, RN) Assessment A Monitor Mode: External US (Elizabeth Hornick, RN) FHR Baseline Rate : 130 (Elizabeth Paula, RN) FHR Baseline Changes: No Baseline Change (Elizabeth Hornick, RN) Variability: Moderate 6-25 bpm (Elizabeth Paula, RN) Accelerations: 15X15 (Elizabeth Hornick, RN) Decelerations: None (Elizabeth Hornick, RN) Comments: reports positive movement; audible movement noted (Elizabeth Paula, RN) Datetime: 03/23/2016 19:29 NBP Sys/Elsa/Mean (mmHg): 134 (QS system process) : 75 (QS system process) : 99 (QS system process) Pulse: 99 (QS system process) Datetime: 03/23/2016 19:22 Monitor Interventions for UA: [place] Adjusted (Elizabeth Mitchell, RN) Assessment A Monitor Mode: External US (Elizabeth Mitchell, RN) Monitor Interventions for FHR: Ultrasound Adjusted (Elizabeth Mitchell, RN) FHR Baseline Rate : 130 (Elizabeth Mitchell, RN) Variability: Moderate 6-25 bpm (Elizabeth Mitchell, RN) Accelerations: 15X15 (Elizabeth Hornick, RN) Decelerations: None (Elizabeth Hornick, RN) Pain Pain Scale: 0 (Elizabeth Hornick, RN) Pain Presence: None/Denies (Elizabeth Hornick, RN) Pain Type: N/A (Elizabeth Hornick, RN) Pain Goal: 1 (Elizabeth Paula, RN) Pain Relief Measures: Comfort Measures (Elizabeth Hornick, RN) Vaginal Bleeding: None (Elizabeth Hornick, RN) Maternal Assessment Level of Consciousness: Fully Conscious (Elizabeth Hornick, RN) DTR's/Clonus: DTRs 2+; No Clonus (Elizabeth Hornick, RN) Headache: Denies (Elizabeth Paula, RN) Breath Sounds, Left: Clear and Equal (Elizabeth Hornick, RN) Breath Sounds, Right: Clear and Equal (Elizabeth Paula, RN) Nausea/Vomiting: Denies (Elizabeth Paula, RN) RUQ Epigastric Pain: Denies (Elizabeth Hornick, RN) Patient Care IV/Blood Work: IV Started; IV Bolus Started; IV Bolus Given ml @; IV Infusing per Order; New IV Bag Hung (Annotations: 500 ml bolus of LR) (Elizabeth Mitchell, FLOR) Oxygen Method: Room Air (Elizabeth Mitchell, RN) Procedures: Consents Signed (Elizabeth Mitchell RN) Patient Position/Activity: Right Tilt; Semi-Fowlers (Elizabeth Mitchell, RN) Comfort Measures: Breathing/Relaxation; Family Support (Elizabeth Mitchell, RN) I/O Interventions: Clear Liquids Given (Elizabeth Mitchell, FLOR) Teaching Instructional Method: Verbal; Patient Instructed; Family/Support Person Instructed; Verbalized Understanding (Elizabeth Mitchell, FLOR) Plan of Care: Plan of Care Discussed; Vaginal Delivery; Labor; Induction (Elizabeth Mitchell, FLOR) Unit Routine: [place] to Room; Call Maharaj; Bed; Visiting Policy; Waiting Areas; Security; Phone/Cell Phone Use; Photography; Unit Personnel; Consents Signed; Handwashing; Flu/Illness Precautions; Monitoring; IV Pumps; Safety/Fall Risk Prevention; Diet/Nutrition Services; Bathroom Privileges; Routine Time Outs; Medications (Elizabeth Mitchell, FLOR) Labor/Induction: Labor Stages; Cervical Ripening; Augmentation; Induction; Antibiotic Use; Interventions (Elizabeth Mitchell RN) Pain Management: Epidural; PRN Medications; Pain Scale/Goals; Comfort Measures (Elizabeth Mitchell RN) Medications: Antibiotics; Cervical Ripening (Elizabeth Mitchell RN) PTL/PROM: Expected Outcomes (Elizabeth Mitchell RN) Related: Common Discomforts of ; Maternal Physical Changes; Maternal Emotional Changes; Nutrition; Hydration; Activity and Rest (Elizabeth Mitchell RN)
--- NOTE | 2016-03-24 04:47 | L&D Current Admission ---
Current Admit Datetime Report Generated by CPN: 03/24/2016 04:45 ADMISSION INFORMATION Current Admit Date/Time: 03/23/2016 18:45 (03/23/2016 19:20:Elizabeth Mitchell RN) Reason for Admission: Induction of Labor (03/23/2016 19:20:Elizabeth Mitchell RN) Chief Complaint: Scheduled Induction of Labor (03/23/2016 19:22:Elizabeth Mitchell RN) Chief Complaint: Scheduled Induction of Labor (03/23/2016 19:20:Elizabeth Mitchell RN) Medications During : Vitamin (03/23/2016 19:20:Elizabeth Mitchell RN) EGA per Dates: 41.1 (03/23/2016 19:20:QS system process) Method of Arrival: Ambulatory (03/23/2016 19:20:Elizabeth Mitchell RN) Admitted From: Home (03/23/2016 19:20:Elizabeth Mitchell RN) Reason for Induction: Postterm (03/23/2016 19:20:Elizabeth Mitchell RN) Records Available: Yes (03/23/2016 19:20:Elizabeth Mitchell RN) General Admission Information: Reviewed (03/23/2016 19:20:Elizabeth Mitchell RN) General Admission Reviewed By: Sha Mitchell RN (03/23/2016 19:20:Elizabeth Mitchell RN) BELONGINGS/ADVANCED DIRECTIVES Valuables/Personal Effects: Purse/Wallet; Cell Phone; Eyeglasses (03/23/2016 19:20:Elizabeth Mitchell RN) Other Belongings: See [facility] belongings form (03/23/2016 19:20:Elizabeth Mitchell RN) Disposition of Belongings: Kept with Patient (03/23/2016 19:20:Elizabeth Mitchell RN) Advance Direct for Healthcare: No, and Wants No Information (03/23/2016 19:20:Elizabeth Mitchell RN) Durable Power of Supervisor Scrap Preparation: No (03/23/2016 19:20:Elizabeth Mitchell RN) Living Will: No (03/23/2016 19:20:Elizabeth Mitchell RN) Organ Donor: No (03/23/2016 19:20:Elizabeth Mitchell RN) Pt Rights Information Given: Yes (03/23/2016 19:20:Elizabeth Mitchell RN) Pt Understands Pt Rights: Yes (03/23/2016 19:20:Elizabeth Mitchell RN) LEARNING ASSESSMENT Knowledge Level: Understands L_D Process; Understands Care Activities; Had Pre-Hospital Education; Understands Diagnosis (03/23/2016 19:20:Elizabeth Mitchell RN) Barriers to Learning: None (03/23/2016 19:20:Elizabeth Mitchell RN) Learning Readiness: Motivated (03/23/2016 19:20:Elizabeth Mitchell RN) Learns Best By: 1 to 1 Instruction (03/23/2016 19:20:Elizabeth Mitchell RN) Learning Needs: Labor and Delivery Process; Pain Management; Symptoms to Report; Treatment Plan; Medication; Diagnosis; Nutrition; Equipment; Infant Care; Community Resources (03/23/2016 19:20:Elizabeth Mitchell RN) DOMESTIC VIOLANCE SCREENING Dom Viol Threatened/Hurt: No (03/23/2016 19:20:Elizabeth Mitchell RN) Hx of Abuse/Neglect past 2yrs: No (03/23/2016 19:20:Elizabeth Mitchell RN) Feel Unsafe Going Home: No (03/23/2016 19:20:Elizabeth Mitchell RN) Addt'l Observ Indicating Abuse: No (03/23/2016 19:20:Elizabeth Mitchell RN) Reason Unable to Complete Screen: N/A, Screen Completed (03/23/2016 19:20:Elizabeth Mitchell RN) Considered Personal Harm/Suicide: No (03/23/2016 19:20:Elizabeth Mitchell RN) NUTRITIONAL/FUNCTIONAL SCREENING Problem with Appetite >5 Days: No (03/23/2016 19:20:Elizabeth Mitchell RN) Chew/Swallow Difficulties: No (03/23/2016 19:20:Elizabeth Mitchell RN) Inappropriate Wt Gain/Loss: No (03/23/2016 19:20:Elizabeth Mitchell RN) Presence Skin Breakdown/Ulcer: No (03/23/2016 19:20:Elizabeth Mitchell RN) Special Diet: No (03/23/2016 19:20:Elizabeth Mitchell RN) Pt Requests Technical Sales Engineer Visit: No (03/23/2016 19:20:Elizabeth Mitchell RN) Hx of Any of the Following?: N/A (03/23/2016 19:20:Elizabeth Mitchell RN) New Diagnosis of: N/A (03/23/2016 19:20:Elizabeth Mitchell RN) Requires Assist w/Ambulation: No (03/23/2016 19:20:Elizabeth Mitchell RN) Uses Assist Device to Ambulate: No (03/23/2016 19:20:Elizabeth Mitchell RN) Pt Requires Help w/ADL's: No (03/23/2016 19:20:Elizabeth Mitchell RN)
--- NOTE | 2016-03-24 04:47 | L&D Discharge Summary ---
OB Discharge Summary Datetime Report Generated by CPN: 03/24/2016 04:45 DISCHARGE DIAGNOSIS Gestation: 41.1 Number of Babies in Womb: 1 Parity: 0
--- NOTE | 2016-03-24 04:47 | L&D General Admission ---
General Admit Datetime Report Generated by CPN: 03/24/2016 04:45 INFORMATION Patient Age: 25 (03/23/2016 18:29:QS system process) EDC: 03/15/2016 00:00 (03/23/2016 18:43:Jessica Rodrigo, RNC) : 1 (03/23/2016 18:43:Jessica Camp, RNC) Para: 0 (03/23/2016 18:43:Jessica Camp, RNC) Term: 0 (03/23/2016 18:43:Jessica Camp, RNC) : 0 (03/23/2016 18:43:Jessica Camp, RNC) Spontaneous Abortions: 0 (03/23/2016 18:43:Jessica Camp, RNC) Induced Abortions: 0 (03/23/2016 18:43:Jessica Camp, RNC) Livin (03/23/2016 18:43:Jessica Camp, RNC) Cesareans: 0 (03/23/2016 18:43:Jessica Wallace RNC) VBACs: 0 (03/23/2016 18:43:Jessica Camp, RNC) [facility]: [facility] Multiple Births: 0 (03/23/2016 18:43:[facility]) Baby, Number in Womb: 1 (03/23/2016 [facility] CARE Primary Records Management Engineer[facility] (03/23/2016 18:43:Elizabeth Mitchell RN) Month of 1st Visit: August (03/23/2016 18:43:Elizabeth Mitchell RN) Adequate Care: Yes (03/23/2016 18:43:Elizabeth Mitchell RN) Prepregnancy Weight (lb): 135 (03/23/2016 18:43:Elizabeth Mitchell RN) Prepregnancy Weight (kg): 61.4 (03/23/2016 18:43:QS system process) Height (in): 64 (03/23/2016 18:47:QS system process) ALLERGIES Medication Allergy: No (03/23/2016 18:43:Elizabeth Mitchell RN) Medication Allergies: No Known Allergies (03/23/2016) (03/23/2016 18:45:QS system process) Medication Allergies: No Known Allergies (08/20/2013) (03/23/2016 18:29:QS system process) Latex Allergy: No Latex Allergies (03/23/2016 18:43:Elizabeth Mitchell RN) Food Allergies: denies (03/23/2016 18:43:Elizabeth Mitchell RN) Environmental Allergies: denies (03/23/2016 18:43:Elizabeth Mitchell RN) COMMUNICATION Primary Language: Slovenian (03/23/2016 18:43:Elizabeth Mitchell RN) Medical Tx Preferred Language: Slovenian (Annotations: Data stored by N on behalf of user) (03/23/2016 18:43:Francisca Gottlieb RN) Communication Barrier(s): None (03/23/2016 18:43:Elizabeth Mitchell RN) DEMOGRAPHICS Address: [address] [place] [address] (03/23/2016 18:29:QS system process) Zipcode: [address] (03/23/2016 18:29:QS system process) Home (03/23/2016 18:29:QS system process) SSN: [id number] (03/23/2016 18:29:QS system process) Next of Kin Name: GINO TUTTLE (03/23/2016 18:29:QS system process) Next of Kin (03/23/2016 18:29:QS system process) Next of Kin Relationship: OR (03/23/2016 18:29:QS system process) Date of : 1990 (03/23/2016 18:29:QS system process) Marital Status: Single (03/23/2016 18:29:QS system process) Sex: Female (03/23/2016 18:29:QS system process) Race: (03/23/2016 18:29:QS system process) Ethnicity: Non- or (03/23/2016 18:29:QS system process) Presybeterian: None (03/23/2016 18:29:QS system process) DRUG AND ALCOHOL USE Alcohol: No (03/23/2016 18:43:Elizabeth Mitchell RN) Cigarettes: Former Smoker. [id number] (03/23/2016 18:43:Elizabeth Mitchell RN) Marijuana: No (03/23/2016 18:43:Elizabeth Mitchell RN) Cocaine: No (03/23/2016 18:43:Elizabeth Mitchell RN) Other Illicit Drugs: No (03/23/2016 18:43:Elizabeth Mitchell RN) VACCINE HISTORY Influenza Vaccine: Yes (03/23/2016 18:43:Elizabeth Mitchell RN) Pneumococcal Vaccine: No (03/23/2016 18:43:Elizabeth Mitchell RN) Tdap Vaccine: Yes (03/23/2016 18:43:Elizabeth Mitchell RN) Hepatitis B Vaccine: Yes (03/23/2016 18:43:Elizabeth Mitchell RN) Houseperson: [facility] (03/23/2016 18:43:Elizabeth Mitchell RN) Feeding Preference: Formula (03/23/2016 18:43:Elizabeth Mitchell RN) Benefit of Breast Feed Discussed: Yes (03/23/2016 18:43:Elizabeth Mitchell RN) Circumcision: N/A (03/23/2016 18:43:Elizabeth Mitchell RN) Classes Attended: No (03/23/2016 18:43:Elizabeth Mitchell RN) Tubal Ligation: No (03/23/2016 18:43:Elizabeth Mitchell RN) Consent: N/A (03/23/2016 18:43:Elizabeth Mitchell RN) Consent Signed: N/A (03/23/2016 18:43:Elizabeth Mitchell RN) Pain Management Plans: Epidural (03/23/2016 18:43:Elizabeth Mitchell RN) Plans for Labor and Delivery: None (03/23/2016 18:43:Elizabeth Mitchell RN) Support Person: Nacho Corado (03/23/2016 18:43:Elizabeth Mitchell RN) Support Person Relationship: Significant Other (03/23/2016 18:43:Elizabeth Mitchell RN) Cultural/Spritual Practice: No (03/23/2016 18:43:Elizabeth Mitchell RN) Spir/Cult Dietary Needs: No (03/23/2016 18:43:Elizabeth Mitchell RN) LIVING SITUATION/DISCHARGE PLAN Living Arrangements: House (03/23/2016 18:43:Elizabeth Mitchell RN) Adequate Access to:: Electric; Heat; Refrigeration; Plumbing/Running water; Phone; Transportation (03/23/2016 18:43:Elizabeth Mitchell RN) WIC Program: Yes (03/23/2016 18:43:Elizabeth Mitchell RN) Discharge Standpipe Tender Person: Erik Corado (03/23/2016 18:43:Elizabeth Mitchell RN) Person to Help after Discharge: Erik Corado (03/23/2016 18:43:Elizabeth Mitchell RN) Currently Using Commun Resources: No (03/23/2016 18:43:Elizabeth Mitchell RN) Outside Agency/Community Recreation Coordinator: No (03/23/2016 18:43:Elizabeth Mitchell RN) Car Seat for Discharge: No (03/23/2016 18:43:Elizabeth Mitchell RN) Need Help to Obtain Car Seat: will have prior to discharge (03/23/2016 18:43:Elizabeth Mitchell RN) Adoption Requested: No (03/23/2016 18:43:Elizabeth Mitchell RN) Pt Contact w/infant Post : N/A (03/23/2016 18:43:Elizabeth Mitchell RN) LABS Blood Type: O Positive (03/23/2016 18:43:Elizabeth Mitchell RN) Antibody Screen: Negative (03/23/2016 18:43:Elizabeth Mitchell RN) Hemoglobin: 13.2 (03/23/2016 19:41:QS system process) Hematocrit: 39.2 (03/23/2016 19:41:QS system process) MCV: 92 (03/23/2016 19:41:QS system process) Group Beta Strep: POSITIVE (03/23/2016 18:43:Elizabeth Mitchell RN) Gonorrhea: Negative (03/23/2016 18:43:Elizabeth Mitchell RN) Chlamydia: Negative (03/23/2016 18:43:Elizabeth Mitchell RN) RPR/VDRL: Nonreactive (03/23/2016 18:43:Elizabeth Mitchell RN) HIV Exposure Test: Negative (03/23/2016 18:43:Elizabeth Mitchell RN) Hepatitis B: Negative (03/23/2016 18:43:Elizabeth Mitchell RN) Rubella: Immune (03/23/2016 18:43:Elizabeth Mitchell RN) Varicella: Non Susceptible (03/23/2016 18:43:Elizabeth Mitchell RN) OB/PREVIOUS HISTORY Previous Procedures: None (03/23/2016 18:43:Elizabeth Mitchell RN) Current Procedures: Ultrasound (03/23/2016 18:43:Elizabeth Mitchell RN) History of Previous : No (03/23/2016 18:43:Elizabeth Mitchell RN) History of Gestational Diabetes: No (03/23/2016 18:43:Elizabeth Mitchell RN) History of PIH: No (03/23/2016 18:43:Elizabeth Mitchell RN) History of Incompetent Cervix: No (03/23/2016 18:43:Elizabeth Mitchell RN) History of Placenta Previa/Abrup: No (03/23/2016 18:43:Elizabeth Mitchell RN) History of Macrosomia: No (03/23/2016 18:43:Elizabeth Mitchell RN) History of IUGR: No (03/23/2016 18:43:Elizabeth Mitchell RN) History of Hemorrhage: No (03/23/2016 18:43:Elizabeth Mitchell RN) History of Loss/Stillborn: No (03/23/2016 18:43:Elizabeth Mitchell RN) History of : No (03/23/2016 18:43:Elizabeth Mitchell RN) History of D (Rh) Sensitization: No (03/23/2016 18:43:Elizabeth Mitchell RN) History Recurrent Loss/Stillborn: No (03/23/2016 18:43:Elizabeth Mitchell RN) History Depression/PP Depression: No (03/23/2016 18:43:Elizabeth Mitchell RN) History of Uterine Anomaly/ANNA: No (03/23/2016 18:43:Elizabeth Mitchell RN) History of Infertility: No (03/23/2016 18:43:Elizabeth Mitchell RN) History of ART Treatment: No (03/23/2016 18:43:Elizabeth Mitchell RN) History of ANNA: No (03/23/2016 18:43:Elizabeth Mitchell RN) MEDICAL HISTORY Med Hx Diabetes: No (03/23/2016 18:43:Elizabeth Mitchell RN) Med Hx Hypertension: No (03/23/2016 18:43:Elizabeth Mitchell RN) Med Hx Heart Disease: No (03/23/2016 18:43:Elizabeth Mitchell RN) Med Hx Autoimmune Disorder: No (03/23/2016 18:43:Elizabeth Mitchell RN) Med Hx Kidney Disease/UTI: No (03/23/2016 18:43:Elizabeth Mitchell RN) Med Hx Neurologic/Epilepsy: No (03/23/2016 18:43:Elizabeth Mitchell RN) Med Hx Psychiatric Disorders: No (03/23/2016 18:43:Elizabeth Mitchell RN) Med Hx Hepatitis/Liver Disease: No (03/23/2016 18:43:Elizabeth Mitchell RN) Med Hx Varicosities/Phlebitis: No (03/23/2016 18:43:Elizabeth Mitchell RN) Med Hx Thyroid Dysfunction: No (03/23/2016 18:43:Elizabeth Mitchell RN) Med Hx Trauma/Violence: No (03/23/2016 18:43:Elizabeth Mitchell RN) Med Hx Blood Transfusion: No (03/23/2016 18:43:Elizabeth Mitchell RN) Med Hx Pulmonary (Asthma,TB): No (03/23/2016 18:43:Elizabeth Mitchell RN) Med Hx Breast: No (03/23/2016 18:43:Elizabeth Mitchell RN) Med Hx ELECTROMECHANICAL TECHNOLOGIST Surgery: No (03/23/2016 18:43:Elizabeth Mitchell RN) Med Hx Hospitalization/Surgery: No (03/23/2016 18:43:Elizabeth Mitchell RN) Med Hx Anesthetic Complications: No (03/23/2016 18:43:Elizabeth Mitchell RN) Med Hx Abnormal Pap Smear: No (03/23/2016 18:43:Elizabeth Mitchell RN) Other Medical Diseases: No (03/23/2016 18:43:Elizabeth Mitchell RN) Med Hx Significant Family Hx: No (03/23/2016 18:43:Elizabeth Mitchell RN) INFECTIOUS HISTORY Inf Hx Gonorrhea: No (03/23/2016 18:43:Elizabeth Mitchell RN) Inf Hx Chlamydia: No (03/23/2016 18:43:Elizabeth Mitchell RN) Inf Hx Syphilis: No (03/23/2016 18:43:Elizabeth Mitchell RN) Inf Hx HIV/AIDS: No (03/23/2016 18:43:Elizabeth Mitchell RN) Inf Hx Human Papilloma Virus: No (03/23/2016 18:43:Elizabeth Mitchell RN) Inf Hx Pt/Partner Genital Herpes: No (03/23/2016 18:43:Elizabeth Mitchell RN) Inf Hx Tuberculosis/Exposure: No (03/23/2016 18:43:Elizabeth Mitchell RN) Inf Hx Hepatitis B,C: No (03/23/2016 18:43:Elizabeth Mitchell RN) Inf Hx Rash or Viral Illness: No (03/23/2016 18:43:Elizabeth Mitchell RN) GENETIC HISTORY Gen Hx Age >=35 at [place]: No (03/23/2016 18:43:Elizabeth Mitchell RN) Gen Hx Thalassemia: No (03/23/2016 18:43:Elizabeth Mitchell RN) Gen Hx Congenital Heart Defect: No (03/23/2016 18:43:Elizabeth Mitchell RN) Gen Hx Neural Tube Defect: No (03/23/2016 18:43:Elizabeth Mitchell RN) Gen Hx Down's Syndrome: No (03/23/2016 18:43:Elizabeth Mitchell RN) Gen Hx Jesus-Sachs: No (03/23/2016 18:43:Elizabeth Mitchell RN) Gen Hx Fredis: No (03/23/2016 18:43:Elizabeth Mitchell RN) Gen Hx Familial Dysautonomia: No (03/23/2016 18:43:Elizabeth Mitchell RN) Gen Hx Sickle Cell Disease/Trait: No (03/23/2016 18:43:Elizabeth Mitchell RN) Gen Hx Hemophilia/Blood Disorder: No (03/23/2016 18:43:Elizabeth Mitchell RN) Gen Hx Muscular Dystrophy: No (03/23/2016 18:43:Elizabeth Mitchell RN) Gen Hx Cystic Fibrosis: No (03/23/2016 18:43:Elizabeth Mitchell RN) Gen Hx Huntingtons Chorea: No (03/23/2016 18:43:Elizabeth Mitchell RN) Gen Hx Mental Retardation/Autism: No (03/23/2016 18:43:Elizabeth Mitchell RN) Gen Hx Tested for Fragile X: No (03/23/2016 18:43:Elizabeth Mitchell RN) Gen Hx Other Inher/Chromosomal: No (03/23/2016 18:43:Elizabeth Mitchell RN) Gen Hx Maternal Metabolic DO: No (03/23/2016 18:43:Elizabeth Mitchell RN) Gen Hx Pt Father or FOB Defect: No (03/23/2016 18:43:Elizabeth Mitchell RN) Gen Hx Other Genetic History: No (03/23/2016 18:43:Elizabeth Mitchell RN) Gen Hx Drugs/Meds since LMP: No (03/23/2016 18:43:Elizabeth Mitchell RN)
[2016-03-24] MEDS ORDERED: NALBUPHINE HCL INJ 10 MG/1 ML AMPULE ONE (06:11)
[2016-03-24] MEDS ORDERED: PROMETHAZINE HCL INJ 25 MG/1 ML VIAL ONE (06:11)
--- NOTE | 2016-03-24 06:28 | L&D Current Admission ---
Current Admit Datetime Report Generated by CPN: 03/24/2016 06:00 ADMISSION INFORMATION Current Admit Date/Time: 03/23/2016 18:45 (03/23/2016 19:20:Elizabeth Mitchell RN) Reason for Admission: Induction of Labor (03/23/2016 19:20:Elizabeth Mitchell RN) Chief Complaint: Scheduled Induction of Labor (03/23/2016 19:22:Elizabeth Mitchell RN) Medications During : Vitamin (03/23/2016 19:20:Elizabeth Mitchell RN) EGA per Dates: 41.1 (03/23/2016 19:20:QS system process) Method of Arrival: Ambulatory (03/23/2016 19:20:Elizabeth Mitchell RN) Admitted From: Home (03/23/2016 19:20:Elizabeth Mitchell RN) Reason for Induction: Postterm (03/23/2016 19:20:Elizabeth Mitchell RN) Records Available: Yes (03/23/2016 19:20:Elizabeth Mitchell RN) General Admission Information: Reviewed (03/23/2016 19:20:Elizabeth Mitchell RN) General Admission Reviewed By: Sha Mitchell RN (03/23/2016 19:20:Elizabeth Mitchell RN) BELONGINGS/ADVANCED DIRECTIVES Valuables/Personal Effects: Purse/Wallet; Cell Phone; Eyeglasses (03/23/2016 19:20:Elizabeth Mitchell RN) Other Belongings: See [facility] belongings form (03/23/2016 19:20:Elizabeth Mitchell RN) Disposition of Belongings: Kept with Patient (03/23/2016 19:20:Elizabeth Mitchell RN) Advance Direct for Healthcare: No, and Wants No Information (03/23/2016 19:20:Elizabeth Mitchell RN) Durable Power of Micro Photographer: No (03/23/2016 19:20:Elizabeth Mitchell RN) Living Will: No (03/23/2016 19:20:Elizabeth Mitchell RN) Organ Donor: No (03/23/2016 19:20:Elizabeth Mitchell RN) Pt Rights Information Given: Yes (03/23/2016 19:20:Elizabeth Mitchell RN) Pt Understands Pt Rights: Yes (03/23/2016 19:20:Elizabeth Mitchell RN) LEARNING ASSESSMENT Knowledge Level: Understands L_D Process; Understands Care Activities; Had Pre-Hospital Education; Understands Diagnosis (03/23/2016 19:20:Elizabeth Mitchell RN) Barriers to Learning: None (03/23/2016 19:20:Elizabeth Mitchell RN) Learning Readiness: Motivated (03/23/2016 19:20:Elizabeth Mitchell RN) Learns Best By: 1 to 1 Instruction (03/23/2016 19:20:Elizabeth Mitchell RN) Learning Needs: Labor and Delivery Process; Pain Management; Symptoms to Report; Treatment Plan; Medication; Diagnosis; Nutrition; Equipment; Infant Care; Community Resources (03/23/2016 19:20:Elizabeth Mitchell RN) DOMESTIC VIOLANCE SCREENING Dom Viol Threatened/Hurt: No (03/23/2016 19:20:Elizabeth Mitchell RN) Hx of Abuse/Neglect past 2yrs: No (03/23/2016 19:20:Elizabeth Mitchell RN) Feel Unsafe Going Home: No (03/23/2016 19:20:Elizabeth Mitchell RN) Addt'l Observ Indicating Abuse: No (03/23/2016 19:20:Elizabeth Mitchell RN) Reason Unable to Complete Screen: N/A, Screen Completed (03/23/2016 19:20:Elizabeth Mitchell RN) Considered Personal Harm/Suicide: No (03/23/2016 19:20:Elizabeth Mitchell RN) NUTRITIONAL/FUNCTIONAL SCREENING Problem with Appetite >5 Days: No (03/23/2016 19:20:Elizabeth Mitchell RN) Chew/Swallow Difficulties: No (03/23/2016 19:20:Elizabeth Mitchell RN) Inappropriate Wt Gain/Loss: No (03/23/2016 19:20:Elizabeth Mitchell RN) Presence Skin Breakdown/Ulcer: No (03/23/2016 19:20:Elizabeth Mitchell RN) Special Diet: No (03/23/2016 19:20:Elizabeth Mitchell RN) Pt Requests Field Health Officer Visit: No (03/23/2016 19:20:Elizabeth Mitchell RN) Hx of Any of the Following?: N/A (03/23/2016 19:20:Elizabeth Mitchell RN) New Diagnosis of: N/A (03/23/2016 19:20:Elizabeth Mitchell RN) Requires Assist w/Ambulation: No (03/23/2016 19:20:Elizabeth Mitchell RN) Uses Assist Device to Ambulate: No (03/23/2016 19:20:Elizabeth Mitchell RN) Pt Requires Help w/ADL's: No (03/23/2016 19:20:Elizabeth Mitchell RN)
--- NOTE | 2016-03-24 06:28 | L&D General Admission ---
General Admit Datetime Report Generated by CPN: 03/24/2016 06:00 INFORMATION Patient Age: 25 (03/23/2016 18:29:QS system process) EDC: 03/15/2016 00:00 (03/23/2016 18:43:Jessica Rodrigo, RNC) : 1 (03/23/2016 18:43:Jessica Camp, RNC) Para: 0 (03/23/2016 18:43:Jessica Camp, RNC) Term: 0 (03/23/2016 18:43:Jessica Camp, RNC) : 0 (03/23/2016 18:43:Jessica Camp, RNC) Spontaneous Abortions: 0 (03/23/2016 18:43:Jessica Camp, RNC) Induced Abortions: 0 (03/23/2016 18:43:Jessica Camp, RNC) Livin (03/23/2016 18:43:Jessica Camp, RNC) Cesareans: 0 (03/23/2016 18:43:Jessica Wallace RNC) VBACs: 0 (03/23/2016 18:43:Jessica Camp, RNC) [facility]: [facility] Multiple Births: 0 (03/23/2016 18:43:[facility]) Baby, Number in Womb: 1 (03/23/2016 [facility] CARE [facility] (03/23/2016 18:43:Elizabeth Mitchell RN) Month of 1st Visit: August (03/23/2016 18:43:Elizabeth Mitchell RN) Adequate Care: Yes (03/23/2016 18:43:Elizabeth Mitchell RN) Prepregnancy Weight (lb): 135 (03/23/2016 18:43:Elizabeth Mitchell RN) Prepregnancy Weight (kg): 61.4 (03/23/2016 18:43:QS system process) Height (in): 64 (03/23/2016 18:47:QS system process) ALLERGIES Medication Allergy: No (03/23/2016 18:43:Elizabeth Mitchell RN) Medication Allergies: No Known Allergies (03/23/2016) (03/23/2016 18:45:QS system process) Latex Allergy: No Latex Allergies (03/23/2016 18:43:Elizabeth Mitchell RN) Food Allergies: denies (03/23/2016 18:43:Elizabeth Mitchell RN) Environmental Allergies: denies (03/23/2016 18:43:Elizabeth Mitchell RN) COMMUNICATION Primary Language: Spanish (03/23/2016 18:43:Elizabeth Mitchell RN) Medical Tx Preferred Language: Spanish (Annotations: Data stored by [facility] on behalf of user) (03/23/2016 18:43:Francisca Gottlieb RN) Communication Barrier(s): None (03/23/2016 18:43:Elizabeth Mitchell RN) DEMOGRAPHICS Address: [address] [place] [address] (03/23/2016 18:29:QS system process) Zipcode: [address] (03/23/2016 18:29:QS system process) Home (03/23/2016 18:29:QS system process) N: [id number] (03/23/2016 18:29:QS system process) Next of Kin Name: GINO TUTTLE (03/23/2016 18:29:QS system process) Next of Kin (03/23/2016 18:29:QS system process) Next of Kin Relationship: OR (03/23/2016 18:29:QS system process) Date of : 1990 (03/23/2016 18:29:QS system process) Marital Status: Single (03/23/2016 18:29:QS system process) Sex: Female (03/23/2016 18:29:QS system process) Race: (03/23/2016 18:29:QS system process) Ethnicity: Non- or (03/23/2016 18:29:QS system process) Mosque: None (03/23/2016 18:29:QS system process) DRUG AND ALCOHOL USE Alcohol: No (03/23/2016 18:43:Elizabeth Mitchell RN) Cigarettes: Former Smoker. [id number] (03/23/2016 18:43:Elizabeth Mitchell RN) Marijuana: No (03/23/2016 18:43:Elizabeth Mitchell RN) Cocaine: No (03/23/2016 18:43:Elizabeth Mitchell RN) Other Illicit Drugs: No (03/23/2016 18:43:Elizabeth Mitchell RN) VACCINE HISTORY Influenza Vaccine: Yes (03/23/2016 18:43:Elizabeth Mitchell RN) Pneumococcal Vaccine: No (03/23/2016 18:43:Elizabeth Mitchell RN) Tdap Vaccine: Yes (03/23/2016 18:43:Elizabeth Mitchell RN) Hepatitis B Vaccine: Yes (03/23/2016 18:43:Elizabeth Mitchell RN) Plaster Foreman: [facility] (03/23/2016 18:43:Elizabeth Mitchell RN) Feeding Preference: Formula (03/23/2016 18:43:Elizabeth Mitchell RN) Benefit of Breast Feed Discussed: Yes (03/23/2016 18:43:Elizabeth Mitchell RN) Circumcision: N/A (03/23/2016 18:43:Elizabeth Mitchell RN) Classes Attended: No (03/23/2016 18:43:Elizabeth Mitchell RN) Tubal Ligation: No (03/23/2016 18:43:Elizabeth Mitchell RN) Consent: N/A (03/23/2016 18:43:Elizabeth Mitchell RN) Consent Signed: N/A (03/23/2016 18:43:Elizabeth Mitchell RN) Pain Management Plans: Epidural (03/23/2016 18:43:Elizabeth Mitchell RN) Plans for Labor and Delivery: None (03/23/2016 18:43:Elizabeth Mitchell RN) Support Person: Nacho Corado (03/23/2016 18:43:Elizabeth Mitchell RN) Support Person Relationship: Significant Other (03/23/2016 18:43:Elizabeth Mitchell RN) Cultural/Spritual Practice: No (03/23/2016 18:43:Elizabeth Mitchell RN) Spir/Cult Dietary Needs: No (03/23/2016 18:43:Elizabeth Mitchell RN) LIVING SITUATION/DISCHARGE PLAN Living Arrangements: House (03/23/2016 18:43:Elizabeth Mitchell RN) Adequate Access to:: Electric; Heat; Refrigeration; Plumbing/Running water; Phone; Transportation (03/23/2016 18:43:Elizabeth Mitchell RN) WIC Program: Yes (03/23/2016 18:43:Elizabeth Mitchell RN) Discharge Vacuum Tank Tender Person: Erik Corado (03/23/2016 18:43:Elizabeth Mitchell RN) Person to Help after Discharge: Erik Corado (03/23/2016 18:43:Elizabeth Mitchell RN) Currently Using Commun Resources: No (03/23/2016 18:43:Elizabeth Mitchell RN) Outside Agency/Import/Export Administrator: No (03/23/2016 18:43:Elizabeth Mitchell RN) Car Seat for Discharge: No (03/23/2016 18:43:Elizabeth Mitchell RN) Need Help to Obtain Car Seat: will have prior to discharge (03/23/2016 18:43:Elizabeth Mitchell RN) Adoption Requested: No (03/23/2016 18:43:Elizabeth Mitchell RN) Pt Contact w/infant Post : N/A (03/23/2016 18:43:Elizabeth Mitchell RN) LABS Blood Type: O Positive (03/23/2016 18:43:Elizabeth Mitchell RN) Antibody Screen: Negative (03/23/2016 18:43:Elizabeth Mitchell RN) Hemoglobin: 13.2 (03/23/2016 19:41:QS system process) Hematocrit: 39.2 (03/23/2016 19:41:QS system process) MCV: 92 (03/23/2016 19:41:QS system process) Group Beta Strep: POSITIVE (03/23/2016 18:43:Elizabeth Mitchell RN) Gonorrhea: Negative (03/23/2016 18:43:Elizabeth Mitchell RN) Chlamydia: Negative (03/23/2016 18:43:Elizabeth Mitchell RN) RPR/VDRL: Nonreactive (03/23/2016 18:43:Elizabeth Mitchell RN) HIV Exposure Test: Negative (03/23/2016 18:43:Elizabeth Mitchell RN) Hepatitis B: Negative (03/23/2016 18:43:Elizabeth Mitchell RN) Rubella: Immune (03/23/2016 18:43:Elizabeth Mitchell RN) Varicella: Non Susceptible (03/23/2016 18:43:Elizabeth Mitchell RN) OB/PREVIOUS HISTORY Previous Procedures: None (03/23/2016 18:43:Elizabeth Mitchell RN) Current Procedures: Ultrasound (03/23/2016 18:43:Elizabeth Mitchell RN) History of Previous : No (03/23/2016 18:43:Elizabeth Mitchell RN) History of Gestational Diabetes: No (03/23/2016 18:43:Elizabeth Mitchell RN) History of PIH: No (03/23/2016 18:43:Elizabeth Mitchell RN) History of Incompetent Cervix: No (03/23/2016 18:43:Elizabeth Mitchell RN) History of Placenta Previa/Abrup: No (03/23/2016 18:43:Elizabeth Mitchell RN) History of Macrosomia: No (03/23/2016 18:43:Elizabeth Mitchell RN) History of IUGR: No (03/23/2016 18:43:Elizabeth Mitchell RN) History of Hemorrhage: No (03/23/2016 18:43:Elizabeth Mitchell RN) History of Loss/Stillborn: No (03/23/2016 18:43:Elizabeth Mitchell RN) History of : No (03/23/2016 18:43:Elizabeth Mitchell RN) History of D (Rh) Sensitization: No (03/23/2016 18:43:Elizabeth Mitchell RN) History Recurrent Loss/Stillborn: No (03/23/2016 18:43:Elizabeth Mitchell RN) History Depression/PP Depression: No (03/23/2016 18:43:Elizabeth iMtchell RN) History of Uterine Anomaly/ANNA: No (03/23/2016 18:43:Elizabeth Mitchell RN) History of Infertility: No (03/23/2016 18:43:Elizabeth Mitchell RN) History of ART Treatment: No (03/23/2016 18:43:Elizabeth Mitchell RN) History of ANNA: No (03/23/2016 18:43:Elizabeth Mitchell RN) Comments Obstetrical History: G1-Current (03/23/2016 18:43:Jacy Morris RN) MEDICAL HISTORY Med Hx Diabetes: No (03/23/2016 18:43:Elizabeth Mitchell RN) Med Hx Hypertension: No (03/23/2016 18:43:Elizabeth Mitchell RN) Med Hx Heart Disease: No (03/23/2016 18:43:Elizabeth Mitchell RN) Med Hx Autoimmune Disorder: No (03/23/2016 18:43:Elizabeth Mitchell RN) Med Hx Kidney Disease/UTI: No (03/23/2016 18:43:Elizabeth Mitchell RN) Med Hx Neurologic/Epilepsy: No (03/23/2016 18:43:Elizabeth Mitchell RN) Med Hx Psychiatric Disorders: No (03/23/2016 18:43:Elizabeth Mitchell RN) Med Hx Hepatitis/Liver Disease: No (03/23/2016 18:43:Elizabeth Mitchell RN) Med Hx Varicosities/Phlebitis: No (03/23/2016 18:43:Elizabeth Mitchell RN) Med Hx Thyroid Dysfunction: No (03/23/2016 18:43:Elizabeth Mitchell RN) Med Hx Trauma/Violence: No (03/23/2016 18:43:Elizabeth Mitchell RN) Med Hx Blood Transfusion: No (03/23/2016 18:43:Elizabeth Mitchell RN) Med Hx Pulmonary (Asthma,TB): No (03/23/2016 18:43:Elizabeth Mitchell RN) Med Hx Breast: No (03/23/2016 18:43:Elizabeth Mitchell RN) Med Hx REGISTERED NURSE MATERNAL CHILD Surgery: No (03/23/2016 18:43:Elizabeth Mitchell RN) Med Hx Hospitalization/Surgery: No (03/23/2016 18:43:Elizabeth Mitchell RN) Med Hx Anesthetic Complications: No (03/23/2016 18:43:Elizabeth Mitchell RN) Med Hx Abnormal Pap Smear: No (03/23/2016 18:43:Elizabeth Mitchell RN) Other Medical Diseases: No (03/23/2016 18:43:Elizabeth Mitchell RN) Med Hx Significant Family Hx: No (03/23/2016 18:43:Elizabeth Mitchell RN) INFECTIOUS HISTORY Inf Hx Gonorrhea: No (03/23/2016 18:43:Elizabeth Mitchell RN) Inf Hx Chlamydia: No (03/23/2016 18:43:Elizabeth Mitchell RN) Inf Hx Syphilis: No (03/23/2016 18:43:Elizabeth Mitchell RN) Inf Hx HIV/AIDS: No (03/23/2016 18:43:Elizabeth Mitchell RN) Inf Hx Human Papilloma Virus: No (03/23/2016 18:43:Elizabeth Mitchell RN) Inf Hx Pt/Partner Genital Herpes: No (03/23/2016 18:43:Elizabeth Mitchell RN) Inf Hx Tuberculosis/Exposure: No (03/23/2016 18:43:Elizabeth Mitchell RN) Inf Hx Hepatitis B,C: No (03/23/2016 18:43:Elizbaeth Mitchell RN) Inf Hx Rash or Viral Illness: No (03/23/2016 18:43:Elizabeth Mitchell RN) GENETIC HISTORY Gen Hx Age >=35 at [facility]: No (03/23/2016 18:43:Elizabeth Mitchell RN) Gen Hx Thalassemia: No (03/23/2016 18:43:Elizabeth Mitchell RN) Gen Hx Congenital Heart Defect: No (03/23/2016 18:43:Elizabeth Mitchell RN) Gen Hx Neural Tube Defect: No (03/23/2016 18:43:Elizabeth Mitchell RN) Gen Hx Down's Syndrome: No (03/23/2016 18:43:Elizabeth Mitchell RN) Gen Hx Jesus-Sachs: No (03/23/2016 18:43:Elizabeth Mitchell RN) Gen Hx Fredis: No (03/23/2016 18:43:Elizabeth Mitchell RN) Gen Hx Familial Dysautonomia: No (03/23/2016 18:43:Elizabeth Mitchell RN) Gen Hx Sickle Cell Disease/Trait: No (03/23/2016 18:43:Elizabeth Mitchell RN) Gen Hx Hemophilia/Blood Disorder: No (03/23/2016 18:43:Elizabeth Mitchell RN) Gen Hx Muscular Dystrophy: No (03/23/2016 18:43:Elizabeth Mitchell RN) Gen Hx Cystic Fibrosis: No (03/23/2016 18:43:Elizabeth Mitchell RN) Gen Hx Huntingtons Chorea: No (03/23/2016 18:43:Elizabeth Mitchell RN) Gen Hx Mental Retardation/Autism: No (03/23/2016 18:43:Elizabeth Mitchell RN) Gen Hx Tested for Fragile X: No (03/23/2016 18:43:Elizabeth Mitchell RN) Gen Hx Other Inher/Chromosomal: No (03/23/2016 18:43:Elizabeth Mitchell RN) Gen Hx Maternal Metabolic DO: No (03/23/2016 18:43:Elizabeth Mitchell RN) Gen Hx Pt Father or FOB Defect: No (03/23/2016 18:43:Elizabeth Mitchell RN) Gen Hx Other Genetic History: No (03/23/2016 18:43:Elizabeth Mitchell RN) Gen Hx Drugs/Meds since LMP: No (03/23/2016 18:43:Elizabeth Mitchell RN)
--- NOTE | 2016-03-24 08:01 | L&D Flow Sheet ---
LD Flowsheet Datetime Report Generated by CPN: 03/24/2016 08:00 Datetime: 03/24/2016 07:30 Stage of : Labor (Lola Schofield RN) Respirations: 18 (Lola Schofield RN) Temperature (F): 98.1 (Lola Schofield RN) Temperature (C): 36.7 (QS system process) Monitor Mode: External (Lola Schofield RN) Monitor Interventions for UA: Story Adjusted (Lola Schofield RN) Frequency (min): 1-4 (Lola Schofield RN) Quality: Mild/Moderate (Lola Schofield RN) Duration (sec): 40-60 (Lola Schofield RN) Resting Tone (Palpate): Relaxed (Lola Schofield RN) Monitor Mode: External US (Lola Schofield RN) Monitor Interventions for FHR: Ultrasound Adjusted (Lola Schofield RN) FHR Baseline Rate : 125 (Lola Schofield RN) FHR Baseline Changes: No Baseline Change (Lola Schofield RN) Variability: Minimal - Undetectable to <=5 bpm (Lola Schofield RN) Accelerations: 10X10 (Lola Schofield RN) Decelerations: None (Lola Schofield RN) Pain Scale: 2 (Lola Schofield RN) Pain Presence: Intermittent (Lola Schofield RN) Pain Type: Contraction (Lola Schofield RN) Pain Location: Abdomen (Lola Schofield RN) Pain Relief Measures: Comfort Measures (Lola Schofield RN) Pain Coping: Breathing Through Contractions (Lola Schofield RN) Vaginal Bleeding: None (Lola Schofield RN) Level of Consciousness: Fully Conscious (Lola Schofield RN) DTR's/Clonus: DTRs 1+; No Clonus (Lola Schofield RN) Headache: Denies (Lola Schofield RN) Breath Sounds, Left: Clear and Equal (Lola Schofield RN) Breath Sounds, Right: Clear and Equal (Lola Schofield RN) Nausea/Vomiting: Denies (Lola Schofield, FLOR) RUQ Epigastric Pain: Denies (Lola Schofield, FLOR) IV/Blood Work: IV Infusing per Order (Lola Schofield RN) Oxygen Method: Room Air (Lola Schofield RN) Patient Position/Activity: Right Tilt; Low Fowlers (Lola Schofield, FLOR) Comfort Measures: Breathing/Relaxation; Coaching; Family Support (Lola Schofield, FLOR) I/O Interventions: Popsicle (Lola Shcofield RN) Instructional Method: Verbal; Patient Instructed; Family/Support Person Instructed; Verbalized Understanding (Lola Schofield RN) Plan of Care: Plan of Care Discussed; Induction (Lola Schofield RN) Labor/Induction: Induction (Lola Schofield RN) Pain Management: Pain Scale/Goals; Comfort Measures (Lola Schofield RN) Medications: Antibiotics; Pitocin (Lola Schofield RN) Communication: RN at Bedside; RN Reviewed Strip (Lola Schofield RN) LaborFlag: Labor (QS system process) Datetime: 03/24/2016 07:14 I/O Interventions: Up to BR (Lola Schofield RN) Datetime: 03/24/2016 06:30 Monitor Mode: External (Francisca Gottlieb RN) Frequency (min): 1-3 (Francisca Gottlieb RN) Quality: Mild/Moderate (Francisca Gottlieb RN) Duration (sec): 50-90 (Francisca Gottlieb RN) Pattern: Tachysystole: > 5 Contractions in 10 Minutes (Francisca Gottlieb RN) Resting Tone (Palpate): Relaxed (Francisca Gottlieb RN) Monitor Mode: External US (Francisca Gottlieb RN) FHR Baseline Rate : 140 (Francisca Gottlieb RN) Variability: Moderate 6-25 bpm (Francisca Chery, RN) Accelerations: None (Francisca Chery, RN) Decelerations: None (Francisca Chery, RN) Datetime: 03/24/2016 06:20 Medication Comments: nubain 10 mg IVP, phenergan 12.5 mg IVP (Francisca Chery, RN) Datetime: 03/24/2016 06:17 I/O Interventions: Up to BR (Francisca Chery, RN) Datetime: 03/24/2016 06:08 Communication: Provider Orders Received; Call/Page Placed to Provider; Report Given to @ Dr Rosas (Francisca Gottlieb RN) Communication Comments: Call placed to Dr Rosas, report given re: pt pain, pain coping, ctx, SVE, request for pain medication. Orders for 10 mg nubain IV and phenergan 12.5 mg IV (Francisca Gottlieb RN) Datetime: 03/24/2016 06:07 NBP Sys/Elsa/Mean (mmHg): 139 (QS system process) : 74 (QS system process) : 100 (QS system process) Pulse: 85 (QS system process) Respirations: 17 (Francisca Gottlieb RN) Temperature (F): 98.2 (Francisca Gottlieb RN) Temperature (C): 36.8 (QS system process) Pain Scale: 5 (Francisca Gottlieb RN) Pain Goal: 2 (Francisca Gottlieb RN) Pain Coping: Breathing Through Contractions; Requesting Pain Medication or Epidural; Crying (Francisca Gottlieb RN) LaborFlag: Labor (QS system process) Datetime: 03/24/2016 06:06 Dilatation (cm): 2.5 (Francisca Gottlieb RN) Effacement (%): 50 (Francisca Gottlieb RN) Station: -2 (Francisca Gottlieb RN) Exam by: Shasta Gottlieb RN (Francisca Gottlieb RN) Vaginal Bleeding: None (Francisca Gottlieb RN) Cervix, Consistency: Moderate (Francisca Gottlieb RN) Cervix, Position: Midposition (Francisca Gottlieb RN) Vaginal Exam Comments: Pt requesting pain medication (Francisca Gottlieb RN) Dilatation (cm): 3-4 cms (Francisca Gottlieb RN) Effacement: 40-50_ effaced (Francisca Gottlieb RN) Station: minus 2 (Francisca Gottlieb RN) Consistency: Medium (Francisca Gottlieb RN) Position: Midposition (Francisca Gottlieb RN) Total Shah's Score: 6 (QS system process) : 5-8 = Small percentage of induction failure (QS system process) Datetime: 03/24/2016 06:00 Monitor Mode: External (Francisca Gottlieb RN) Frequency (min): 1-4 (Francisca Gottlieb RN) Quality: Mild/Moderate (Francisca Gottlieb RN) Duration (sec): 50-80 (Francisca Gottlieb RN) Pattern: Normal: <= 5 Contractions in 10 Minutes (Francisca Gottlieb RN) Resting Tone (Palpate): Relaxed (Francisca Gottlieb RN) Monitor Mode: External US (Francisca Gottlieb RN) FHR Baseline Rate : 140 (Francisca Chery, RN) Variability: Moderate 6-25 bpm (Francisca Chery, RN) Accelerations: 10X10 (Francisca Chery, RN) Decelerations: None (Francisca Chery, RN) Datetime: 03/24/2016 05:47 Monitor Interventions for FHR: Ultrasound Adjusted (Francisca Gottlieb RN) Comments: Pt sitting up on edge of bed, maternal HR clearly auscultated by RN (Francisca Gottlieb RN) Pain Presence: Intermittent (Francisca Gottlieb RN) Pain Type: Cramping; Contraction (Francisca Gottlieb RN) Pain Location: Back (Francisca Gottlieb RN) Pain Assessment Comments: Pt sitting up on side of bed for pain relief, declines pain medication at this time (Francisca Gottlieb RN) Communication: RN at Bedside (Francisca Gottlieb RN) LaborFlag: Labor (QS system process) Datetime: 03/24/2016 05:30 Monitor Mode: External (Francisca Chery, RN) Frequency (min): 1-3 (Francisca Chery, RN) Quality: Mild/Moderate (Francisca Hcery, RN) Duration (sec): 50-90 (Francisca Chery, RN) Pattern: Tachysystole: > 5 Contractions in 10 Minutes (Francisca Chery, RN) Resting Tone (Palpate): Relaxed (Francisca Chery, RN) Monitor Mode: External US (Francisca Chery, RN) FHR Baseline Rate : 140 (Francisca Chery, RN) Variability: Moderate 6-25 bpm (Francisca Chery, RN) Accelerations: None (Francisca Chery, RN) Decelerations: None (Francisca Chery, RN) Datetime: 03/24/2016 05:08 I/O Interventions: Up to BR (Francisca Chery, RN) Datetime: 03/24/2016 05:00 Monitor Mode: External (Francisca Chery, RN) Frequency (min): 1-7 (Francisca Chery, RN) Quality: Mild/Moderate (Francisca Chery, RN) Duration (sec): 50-90 (Francisca Chery, RN) Resting Tone (Palpate): Relaxed (Francisca Chery, RN) Monitor Mode: External US (Franicsca Chery, RN) FHR Baseline Rate : 140 (Francisca Chery, RN) Variability: Moderate 6-25 bpm (Francisca Chery, RN) Accelerations: 10X10 (Francisca Chery, RN) Decelerations: None (Francisca Chery, RN) Datetime: 03/24/2016 04:30 Monitor Mode: External (Francisca Chery, RN) Frequency (min): 1-7 (Francisca Chery, RN) Quality: Mild/Moderate (Francisca Chery, RN) Duration (sec): 50-90 (Francisca Chery, RN) Resting Tone (Palpate): Relaxed (Francisca Chery, RN) Monitor Mode: External US (Francisca Chery, RN) FHR Baseline Rate : 145 (Francisca Chery, RN) Variability: Moderate 6-25 bpm (Francisca Chery, RN) Accelerations: None (Francisca Chery, RN) Decelerations: None (Francisca Chery, RN) Datetime: 03/24/2016 04:00 Monitor Mode: External (Francisca Chery, RN) Frequency (min): 1-2 (Francisca Chery, RN) Quality: Mild/Moderate (Francisca Chery, RN) Duration (sec): 60-100 (Francisca Chery, RN) Resting Tone (Palpate): Relaxed (Francisca Chery, RN) Comments: Unable to assess FHR d/t broken strip, RN adjusted u/s (Francisca Chery, RN) Datetime: 03/24/2016 03:35 I/O Interventions: Up to BR (Francisca Chery, RN) Datetime: 03/24/2016 03:30 Monitor Mode: External (Francisca Chery, RN) Frequency (min): 1-3 (Francisca Chery, RN) Quality: Mild/Moderate (Francisca Chery, RN) Duration (sec): 50-90 (Francisca Chery, RN) Resting Tone (Palpate): Relaxed (Francisca Chery, RN) Monitor Mode: External US (Francisca Chery, RN) FHR Baseline Rate : 135 (Francisca Chery, RN) Variability: Moderate 6-25 bpm (Francisca Chery, RN) Accelerations: 15X15 (Francisca Chery, RN) Decelerations: None (Francisca Chery, RN) Datetime: 03/24/2016 03:00 Monitor Mode: External (Francisca Chery, RN) Frequency (min): 1-4 (Francisca Chery, RN) Quality: Mild/Moderate (Francisca Chery, RN) Duration (sec): 40-140 (Francisca Chery, RN) Resting Tone (Palpate): Relaxed (Francisca Chery, RN) Monitor Mode: External US (Francisca Chery, RN) FHR Baseline Rate : 130 (Francisca Chery, RN) Variability: Moderate 6-25 bpm (Francisca Chery, RN) Accelerations: 15X15 (Francisca Chery, RN) Decelerations: Late (Francisca Chery, RN) Datetime: 03/24/2016 02:32 Quality: Mild/Moderate (Francisca Gottlieb, RN) Contraction Comments: Pt reporting "cramping," in no obvious distress. Ctx palpating mild/mod by RN (Francisca Gottlieb RN) Monitor Interventions for FHR: Ultrasound Adjusted (Francisca Gottlieb RN) Pain Coping: Talking Through Contractions (Francisca Gottlieb RN) Communication: RN at Bedside (Francisca Gottlieb RN) Datetime: 03/24/2016 02:30 Monitor Mode: External (Francisca Chery, RN) Frequency (min): 1-4 (Francisca Chery, RN) Quality: Mild/Moderate (Francisca Chery, RN) Duration (sec): 50-80 (Francisca Chery, RN) Resting Tone (Palpate): Relaxed (Francisca Gottlieb, RN) Monitor Mode: External US (Francisca Gottlieb, RN) FHR Baseline Rate : 145 (Francisca Chery, RN) Variability: Moderate 6-25 bpm (Francisca Chery, RN) Accelerations: 15X15 (Francisca Chery, RN) Decelerations: Variable (Francisca Chery, RN) Datetime: 03/24/2016 02:00 Monitor Mode: External (Francisca Chery, RN) Frequency (min): Irregular (Francisca Chery, RN) Quality: Mild/Moderate (Francisca Chery, RN) Duration (sec): 60-70 (Francisca Chery, RN) Resting Tone (Palpate): Relaxed (Francisca Chery, RN) Monitor Mode: External US (Francisca Chery, RN) FHR Baseline Rate : 135 (Francisca Chery, RN) Variability: Moderate 6-25 bpm (Francisca Chery, RN) Accelerations: 15X15 (Francisca Chery, RN) Decelerations: None (Francisca Chery, RN) Datetime: 03/24/2016 01:30 Monitor Mode: External (Francisca Chery, RN) Frequency (min): Irritability (Francisca Chery, RN) Quality: Mild/Moderate (Francisca Chery, RN) Resting Tone (Palpate): Relaxed (Francisca Chery, RN) Monitor Mode: External US (Francisca Chery, RN) FHR Baseline Rate : 140 (Francisca Chery, RN) Variability: Moderate 6-25 bpm (Francisca Chery, RN) Accelerations: 10X10 (Francisca Chery, RN) Decelerations: None (Francisca Chery, RN) Datetime: 03/24/2016 01:22 I/O Interventions: Up to BR (Francisca Chery, RN) Datetime: 03/24/2016 01:00 Monitor Mode: External (Francisca Chery, RN) Frequency (min): Irritability (Francisca Chery, RN) Quality: Mild/Moderate (Francisca Chery, RN) Resting Tone (Palpate): Relaxed (Francisca Chery, RN) Monitor Mode: External US (Francisca Chery, RN) FHR Baseline Rate : 125 (Francisca Chery, RN) Variability: Moderate 6-25 bpm (Francisca Chery, RN) Accelerations: 15X15 (Francisca Chery, RN) Decelerations: None (Francisca Chery, RN) Datetime: 03/24/2016 00:41 Monitor Interventions for FHR: Ultrasound Adjusted (Francisca Chery, RN) I/O Interventions: Ice Chips Given (Francisca Chery, RN) Communication: RN at Bedside (Francisca Chery, RN) Datetime: 03/24/2016 00:30 Monitor Mode: External (Francisca Chery, RN) Frequency (min): 4-9 (Francisca Chery, RN) Quality: Mild (Francisca Chery, RN) Duration (sec): 40-120 (Francisca Chery, RN) Resting Tone (Palpate): Relaxed (Francisca Chery, RN) Monitor Mode: External US (Francisca Chery, RN) FHR Baseline Rate : 145 (Francisca Chery, RN) Variability: Moderate 6-25 bpm (Francisca Chery, RN) Accelerations: None (Francisca Chery, RN) Decelerations: None (Francisca Chery, RN) Datetime: 03/24/2016 00:00 Monitor Mode: External (Francisca Chery, RN) Frequency (min): 3-6 (Francisca Chery, RN) Quality: Mild (Francisca Chery, RN) Duration (sec): 60-90 (Francisca Chery, RN) Resting Tone (Palpate): Relaxed (Francisca Chery, RN) Monitor Mode: External US (Francisca Chery, RN) FHR Baseline Rate : 135 (Francisca Chery, RN) Variability: Moderate 6-25 bpm (Francisca Chery, RN) Accelerations: 15X15 (Francisca Chery, RN) Decelerations: None (Francisca Chery, RN) Datetime: 03/23/2016 23:47 Monitor Interventions for FHR: Ultrasound Adjusted (Francisca Chery, RN) Communication: RN at Bedside (Francisca Chery, RN) Datetime: 03/23/2016 23:46 IV/Blood Work: New IV Bag Hung; IV Bag Number @ 2 (Francisca Chery, RN) Datetime: 03/23/2016 23:43 I/O Interventions: Up to BR (Francisca Chery, RN) Datetime: 03/23/2016 23:30 Monitor Mode: External (Francisca Chery, RN) Frequency (min): 4-11 (Francisca Chery, RN) Quality: Mild (Francisca Chery, RN) Duration (sec): 60-140 (Francisca Chery, RN) Resting Tone (Palpate): Relaxed (Francisca Chery, RN) Monitor Mode: External US (Francisca Chery, RN) FHR Baseline Rate : 120 (Francisca Chery, RN) Variability: Moderate 6-25 bpm (Francisca Chery, RN) Accelerations: 15X15 (Francisca Chery, RN) Decelerations: None (Francisca Chery, RN) Comments: prolonged accels (Francisca Chery, RN) Datetime: 03/23/2016 23:03 I/O Interventions: Up to BR (Francisca Chery, RN) Datetime: 03/23/2016 22:59 Monitor Mode: External (Francisca Chery, RN) Frequency (min): 4-11 (Francisca Chery, RN) Quality: Mild (Francisca Chery, RN) Duration (sec): 40-140 (Francisca Chery, RN) Resting Tone (Palpate): Relaxed (Francisca Chery, RN) Monitor Mode: External US (Francisca Chery, RN) FHR Baseline Rate : 120 (Francisca Chery, RN) Variability: Moderate 6-25 bpm (Francisca Chery, RN) Accelerations: 15X15 (Francisca Chery, RN) Decelerations: None (Francisca Chery, RN) Datetime: 03/23/2016 22:30 Monitor Mode: External (Francisca Chery, RN) Frequency (min): 4-6 (Francisca Chery, RN) Quality: Mild (Francisca Chery, RN) Duration (sec): 40-130 (Francisca Chery, RN) Resting Tone (Palpate): Relaxed (Francisca Chery, RN) Monitor Mode: External US (Francisca Chery, RN) FHR Baseline Rate : 130 (Francisca Chery, RN) Variability: Moderate 6-25 bpm (Francisca Chery, RN) Accelerations: 15X15 (Francisca Chery, RN) Decelerations: None (Francisca Chery, RN) Datetime: 03/23/2016 22:15 I/O Interventions: Up to BR (Francisca Chery, RN) Datetime: 03/23/2016 22:12 Communication: RN at Bedside (Francisca Gottlieb RN) Communication Comments: Report from Octavio Mitchell RN, care assumed (Francisca Chery, RN) Datetime: 03/23/2016 22:00 Monitor Mode: External (Elizabeth Mitchell RN) Frequency (min): x2 (Elizabeth Mitchell RN) Quality: Mild (Elizabeth Mitchell RN) Duration (sec): 80/90 (Elizabeth Mitchell RN) Resting Tone (Palpate): Relaxed (Elizabeth Mitchell RN) Monitor Mode: External US (Elizabeth Mitchell RN) FHR Baseline Rate : 135 (Elizabeth Mitchell RN) FHR Baseline Changes: No Baseline Change (Elizabeth Mitchell RN) Variability: Moderate 6-25 bpm (Elizabeth Mitchell RN) Accelerations: 15X15 (Elizabeth Mitchell RN) Decelerations: None (Elizabeth Mitchell RN) Datetime: 03/23/2016 21:45 NBP Sys/Elsa/Mean (mmHg): 120 (QS system process) : 58 (QS system process) : 83 (QS system process) Pulse: 86 (QS system process) LaborFlag: Labor (QS system process) Datetime: 03/23/2016 21:30 Monitor Mode: External (Elizabeth Mitchell RN) Frequency (min): 5-6 (Elizabeth Mitchell RN) Quality: Mild (Elizabeth Mitchell RN) Duration (sec): 100-130 (Elizabeth Mitchell RN) Resting Tone (Palpate): Relaxed (Elizabeth Mitchell RN) Contraction Comments: irregular pattern; patient denies feeling contractions (Elizabeth Mitchell RN) Monitor Mode: External US (Elizabeth Mitchell RN) Monitor Interventions for FHR: Ultrasound Adjusted (Elizabeth Canóvanas, RN) FHR Baseline Rate : 135 (Elizabeth Mitchell, RN) FHR Baseline Changes: No Baseline Change (Elizabeth Mitchell, RN) Variability: Moderate 6-25 bpm (Elizabeth Mitchell, RN) Accelerations: 15X15 (Elizabeth Mitchell, RN) Decelerations: None (Elizabeth Mitchell, RN) Datetime: 03/23/2016 21:15 Stage of : Labor (Elizabeth Mitchell RN) NBP Sys/Elsa/Mean (mmHg): 121 (QS system process) : 58 (QS system process) : 84 (QS system process) Pulse: 85 (QS system process) Respirations: 12 (Elizabeth Mitchell, RN) LaborFlag: Labor (QS system process) Datetime: 03/23/2016 21:00 Monitor Mode: External (Elizabeth Mitchell, RN) Frequency (min): x3 (Elizabeth Mitchell, RN) Quality: Mild (Elizabeth Mitchell, RN) Duration (sec): 100-130 (Elizabeth Mitchell, RN) Resting Tone (Palpate): Relaxed (Elizabeth Mitchell, RN) Contraction Comments: patient denies feeling contractions at this time. (Elizabeth Mitchell RN) Monitor Mode: External US (Elizabeth Mitchell RN) FHR Baseline Rate : 130 (Elizabeth Mitchell RN) FHR Baseline Changes: No Baseline Change (Elizabeth Mitchell RN) Variability: Moderate 6-25 bpm (Elizabeth Mitchell RN) Accelerations: 15X15 (Elizabeth Mitchell, FLOR) Decelerations: None (Elizabeth Mitchell RN) Datetime: 03/23/2016 20:43 Stage of : Labor (Elizabeth Mitchell RN) NBP Sys/Elsa/Mean (mmHg): 132 (QS system process) : 73 (QS system process) : 98 (QS system process) Pulse: 83 (QS system process) Respirations: 14 (Elizabeth Mitchell RN) LaborFlag: Labor (QS system process) Datetime: 03/23/2016 20:34 Dilatation (cm): 1.0 (Elizabeth Mitchell RN) Effacement (%): 50 (Elizabeth Mitchell RN) Station: -3 (Elizabeth Mitchell RN) Exam by: Sha Mitchell RN (Elizabeth Mitchell RN) Cervical Ripening Agents: Cervidil (Elizabeth Mitchell RN) Datetime: 03/23/2016 20:30 Monitor Mode: External (Elizabeth Mitchell RN) Frequency (min): x2 (Elizabeth Mitchell, FLOR) Quality: Mild (Elizabeth Mitchell RN) Duration (sec): 100/120 (Elizabeth Mitchell RN) Resting Tone (Palpate): Relaxed (Elizabeth Mitchell RN) Contraction Comments: irregular (Elizabeth Mitchell RN) Monitor Mode: External US (Elizabeth Mitchell RN) FHR Baseline Rate : 135 (Elizabeth Mitchell RN) FHR Baseline Changes: No Baseline Change (Elizabeth Mitchell RN) Variability: Moderate 6-25 bpm (Elizabeth Mitchell RN) Accelerations: 15X15 (Elizabeth Mitchell RN) Decelerations: None (Elizabeth Mitchell, FLOR) Datetime: 03/23/2016 20:21 I/O Interventions: Up to BR (Elizabeth Mitchell, FLOR) Datetime: 03/23/2016 20:14 Stage of : Labor (Elizabeth Mitchell RN) NBP Sys/Elsa/Mean (mmHg): 135 (QS system process) : 82 (QS system process) : 102 (QS system process) Pulse: 95 (QS system process) Respirations: 16 (Elizabeth Mitchell RN) LaborFlag: Labor (QS system process) Datetime: 03/23/2016 20:00 Monitor Mode: External (Elizabeth Mitchell RN) Frequency (min): x2 (Elizabeth Mitchell, FLOR) Quality: Mild (Elizabeth Mitchell, RN) Duration (sec): 90/110 (Elizabeth Mitchell, RN) Resting Tone (Palpate): Relaxed (Elizabeth Mitchell RN) Monitor Mode: External US (Elizabeth Mitchell RN) FHR Baseline Rate : 130 (Elizabeth Mitchell RN) FHR Baseline Changes: No Baseline Change (Elizabeth Mitchell RN) Variability: Moderate 6-25 bpm (Elizabeth Mitchell, RN) Accelerations: 15X15 (Elizabeth Mitchell, RN) Decelerations: None (Elizabeth Mitchell, RN)
[2016-03-24] MEDS ORDERED: LIDOCAINE 1% INJ-PF (10 MG/ML) 30 ML SDV ONE (08:46)
[2016-03-24] MEDS ORDERED: MISOPROSTOL 0.2 MG TABLET ONE (08:46)
[2016-03-24] MEDS ORDERED: PENICILLIN G-K 5 MILLION UNIT VIAL ONE ×3 (08:46→17:10)
[2016-03-24] MEDS ORDERED: OXYTOCIN/NORMAL SALINE 20 UNIT/1,000 ML RTUINJ ONE ×3 (08:46→21:50)
--- NOTE | 2016-03-24 08:54 | L&D Progress Notes ---
PROGRESS NOTES Datetime Report Generated by CPN: 03/24/2016 08:54 PROGRESS NOTE Impression: Reassuring Heart Rate Plan: Continue Present Management; Induction Vital Signs : Reviewed; Within Normal Limits Comment: OOB, took a shower, c/o of UC's, family at BS, Cat 1 strip Discussed POC, will Tx for GBS and start Pitocin VAGINAL EXAM Dilatation: 1 Effacement: 50 Station: -3 MEMBRANES Pooling: Negative Membranes: Intact FETUS A FHR - Baseline: 125 Monitoring: External US Variability: Moderate 6-25bpm Decelerations: None : 41.1 Estimated Weight (gm): 4000 Presentation: Vertex SIGNATURE SIGNATURE: [id number] Assignment: Lissy Ramirez MD Signature: with User ID: [email or web address] : with User ID: [email or web address]
[2016-03-24] MEDS ORDERED: SUCCINYLCHOLINE CHLORIDE INJ 200 MG/10 ML VIAL ONE (08:58)
[2016-03-24] MEDS ORDERED: FENTANYL CITRATE INJ/PF 100 MCG/2 ML AMPUL ONE ×2 (10:22→19:43)
[2016-03-24] MEDS ORDERED: EPHEDRINE SULFATE INJ 50 MG/1 ML AMPULE ONE ×2 (10:23→19:43)
[2016-03-24] MEDS ORDERED: FENTANYL/BUPIVACAINE/NS/PF 200 MCG/100 ML RTUINJ EPI ONE (10:23)
[2016-03-24] MEDS ORDERED: BUPIVACAINE HCL 0.25 % INJ/PF (2.5 MG/1 ML) 30 ML VIAL ONE (10:23)
[2016-03-24] MEDS ORDERED: PHENYLEPHRINE HCL INJ/PF 10 MG/1 ML SDV ONE (10:23)
[2016-03-24] MEDS ORDERED: BENZOIN/ALOE VERA/STORAX/TOLU TINCTURE 60 ML TP PRN (10:31)
[2016-03-24] MEDS ORDERED: BUPIVACAINE HCL 0.25 % INJ/PF (2.5 MG/1 ML) 30 ML VIAL INFIL ONE (10:31)
--- NOTE | 2016-03-24 12:00 | L&D Flow Sheet ---
LD Flowsheet Datetime Report Generated by CPN: 03/24/2016 12:00 Datetime: 03/24/2016 11:56 NBP Sys/Elsa/Mean (mmHg): 128 (QS system process) : 59 (QS system process) : 85 (QS system process) Pulse: 81 (QS system process) LaborFlag: Labor (QS system process) Datetime: 03/24/2016 11:52 NBP Sys/[place]lsa/Mean (mmHg): 129 (QS system process) : 67 (QS system process) : 93 (QS system process) Pulse: 83 (QS system process) LaborFlag: Labor (QS system process) Datetime: 03/24/2016 11:45 Stage of : Labor (Lola Schofield RN) NBP Sys/[place]lsa/Mean (mmHg): 119 (QS system process) : 62 (QS system process) : 85 (QS system process) Pulse: 79 (QS system process) Respirations: 18 (Lola Schofield RN) Monitor Mode: External (Lola Schofield RN) Frequency (min): 1.5-4 (Lola Schofield RN) Quality: Moderate (Lola Schofield RN) Duration (sec): 60-80 (Lola Schofield RN) Resting Tone (Palpate): Relaxed (Lola Schofield RN) Monitor Mode: External US (Lola Schofield RN) FHR Baseline Rate : 125 (Lola Schofield RN) FHR Baseline Changes: No Baseline Change (Lola Schofield RN) Variability: Moderate 6-25 bpm (Lola Schofield RN) Accelerations: 15X15 (Lola Schofield RN) Decelerations: None (Lola Schofield RN) Pain Relief Measures: Comfort Measures (Lola Schofield RN) Pain Coping: Talking Through Contractions (Lola Schofield RN) Pitocin (milliunit): Pitocin Remains (milliunits) @ 2 (Lola Schofield RN) Patient Position/Activity: Left Tilt; Low Fowlers (Lola Schofield RN) Comfort Measures: Family Support (Lola Schofield RN) Communication: RN at Bedside; RN Reviewed Strip (Lola Schofield RN) LaborFlag: Labor (QS system process) Datetime: 03/24/2016 11:40 NBP Sys/[place]lsa/Mean (mmHg): 117 (QS system process) : 59 (QS system process) : 81 (QS system process) Pulse: 88 (QS system process) LaborFlag: Labor (QS system process) Datetime: 03/24/2016 11:36 NBP Sys/[place]lsa/Mean (mmHg): 118 (QS system process) : 57 (QS system process) : 81 (QS system process) Pulse: 75 (QS system process) LaborFlag: Labor (QS system process) Datetime: 03/24/2016 11:35 Stage of : Labor (Lola Schofield RN) Pitocin (milliunit): Pitocin Started (milliunits) @ 2 (CHRISTINE Moore) Pitocin (milliunit): Pitocin Started (milliunits) @ 2 @ 1135 (Lola Schofield RN) Communication: RN at Bedside; RN Reviewed Strip (Lola Schofield RN) Datetime: 03/24/2016 11:30 Stage of : Labor (Lola Schofield RN) NBP Sys/Elsa/Mean (mmHg): 120 (QS system process) : 58 (QS system process) : 84 (QS system process) Pulse: 79 (QS system process) Respirations: 18 (Lola Schofield RN) Temperature (F): 98.2 (Lola Schofield RN) Temperature (C): 36.8 (QS system process) Monitor Mode: External (Lola Schofield RN) Monitor Interventions for UA: [place] Adjusted (Lola Schofield RN) Frequency (min): 1.5-2.5 (Lola Schofield RN) Quality: Moderate (Lola Schofield RN) Duration (sec): 55-70 (Lola Schofield, RN) Pattern: Tachysystole: > 5 Contractions in 10 Minutes (Lola Schofield, RN) Resting Tone (Palpate): Relaxed (Lola Schofield, FLOR) Monitor Mode: External US (Lola Schofield RN) Monitor Interventions for FHR: Ultrasound Adjusted (Lola Schofield RN) FHR Baseline Changes: No Baseline Change (Lola Schofield RN) Variability: Moderate 6-25 bpm (Lola Schofield, RN) Accelerations: 15X15 (Lola Schofield, RN) Decelerations: None (Lola Schofield, RN) Pain Scale: 0 (Lola Schofield RN) Pain Presence: None/Denies (Lola Schofield, FLOR) Pain Type: N/A (Lola Schofield, RN) Pain Relief Measures: Epidural Given; Comfort Measures (Lola Schofield, FLOR) Pain Coping: Talking Through Contractions (Lola Schofield RN) IV/Blood Work: IV Infusing per Order (Lola Schofield, RN) Patient Position/Activity: Left Tilt; Low Fowlers (Lola Schofield, RN) Comfort Measures: Family Support (Lola Schofield, FLOR) Instructional Method: Verbal; Patient Instructed; Family/Support Person Instructed; Verbalized Understanding (Lola Schofield, FLOR) Plan of Care: Plan of Care Discussed; Labor (Lola Schofield, FLOR) Labor/Induction: Labor Stages (Lola Schofield, FLOR) Pain Management: Pain Scale/Goals; Comfort Measures (Lola Schofield, RN) Related: Nutrition; Hydration (Lola Scohfield, RN) Communication: RN at Bedside; RN Reviewed Strip (Lola Schofield RN) LaborFlag: Labor (QS system process) Datetime: 03/24/2016 11:29 NBP Sys/[place]ls[place]/Mean (mmHg): 127 (QS system process) : 59 (QS system process) : 85 (QS system process) Pulse: 86 (QS system process) LaborFlag: Labor (QS system process) Datetime: 03/24/2016 11:28 NBP Sys/[place]ls[place]/Mean (mmHg): 124 (QS system process) : 59 (QS system process) : 85 (QS system process) Pulse: 86 (QS system process) LaborFlag: Labor (QS system process) Datetime: 03/24/2016 11:27 NBP Sys/[place]ls[place]/Mean (mmHg): 125 (QS system process) : 58 (QS system process) : 84 (QS system process) Pulse: 88 (QS system process) LaborFlag: Labor (QS system process) Datetime: 03/24/2016 11:26 NBP Sys/[place]ls[place]/Mean (mmHg): 131 (QS system process) : 60 (QS system process) : 87 (QS system process) Pulse: 86 (QS system process) LaborFlag: Labor (QS system process) Datetime: 03/24/2016 11:25 NBP Sys/[place]ls[place]/Mean (mmHg): 131 (QS system process) : 62 (QS system process) : 89 (QS system process) Pulse: 85 (QS system process) I/O Interventions: Meehan Cath Inserted (Lola Schofield RN) LaborFlag: Labor (QS system process) Datetime: 03/24/2016 11:24 NBP Sys/[place]ls[place]/Mean (mmHg): 130 (QS system process) : 61 (QS system process) : 88 (QS system process) Pulse: 81 (QS system process) LaborFlag: Labor (QS system process) Datetime: 03/24/2016 11:23 NBP Sys/[place]/Mean (mmHg): 132 (QS system process) : 60 (QS system process) : 87 (QS system process) Pulse: 88 (QS system process) LaborFlag: Labor (QS system process) Datetime: 03/24/2016 11:22 NBP Sys/[place]ls[place]/Mean (mmHg): 135 (QS system process) : 65 (QS system process) : 93 (QS system process) Pulse: 82 (QS system process) Anesthesia Level Check: T10- Umbilicus (Lola Schofield RN) LaborFlag: Labor (QS system process) Datetime: 03/24/2016 11:21 NBP Sys/[place]ls[place]/Mean (mmHg): 151 (QS system process) : 70 (QS system process) : 100 (QS system process) Pulse: 86 (QS system process) LaborFlag: Labor (QS system process) Datetime: 03/24/2016 11:20 Epidural Procedure Other: Pump Started (Lola Isabel Roulund, RN) Datetime: 03/24/2016 11:19 NBP Sys/[place]ls[place]/Mean (mmHg): 144 (QS system process) : 83 (QS system process) : 106 (QS system process) Pulse: 96 (QS system process) LaborFlag: Labor (QS system process) Datetime: 03/24/2016 11:17 NBP Sys/[place]ls[place]/Mean (mmHg): 140 (QS system process) : 80 (QS system process) : 105 (QS system process) Pulse: 86 (QS system process) LaborFlag: Labor (QS system process) Datetime: 03/24/2016 11:16 NBP Sys/[place]lsa/Mean (mmHg): 153 (QS system process) : 87 (QS system process) : 114 (QS system process) Pulse: 86 (QS system process) Epidural Procedure: Cath Placed (Lola Schofield RN) LaborFlag: Labor (QS system process) Datetime: 03/24/2016 11:15 NBP Sys/[place]lsa/Mean (mmHg): 154 (QS system process) : 89 (QS system process) : 116 (QS system process) Pulse: 96 (QS system process) Pulse: 91 (QS system process) SpO2 (%): 97 (QS system process) Epidural Procedure: Test Dose (Lola Schofield RN) LaborFlag: Labor (QS system process) Datetime: 03/24/2016 11:11 Stage of : Labor (Lola Schofield RN) Procedure Verify: Correct Patient Identity; Accurate Procedure Consent Form; Agreement on Procedure to be Done; Correct Patient Position; Relevant Images and Results are Properly Labeled and Displayed (Lola Schofield RN) Anesthesia Plans: Epidural (Lola Schofield RN) Epidural Positioning: Sitting (Lola Schofield RN) Anesthesia Comments: DR TORRES@ BS (Lola Schofield RN) Communication: RN at Bedside; RN Reviewed Strip; Provider at Bedside (Lola Schofield RN) Datetime: 03/24/2016 11:00 Stage of : Labor (Lola Schofield RN) Respirations: 20 (Lola Schofield RN) Monitor Mode: External (Lola Schofield RN) Monitor Interventions for UA: [place] Adjusted (Lola Schofield RN) Frequency (min): 1-3.5 (Lola Schofield RN) Quality: Moderate (Lola Schofield RN) Duration (sec): 60-70 (Lola Schofield, FLOR) Pattern: Tachysystole: > 5 Contractions in 10 Minutes (Lola Schofield, FLOR) Resting Tone (Palpate): Relaxed (Lola Schofield RN) Monitor Mode: External US (Lola Schofield RN) Monitor Interventions for FHR: Ultrasound Adjusted (Lola Schofield RN) FHR Baseline Rate : 125 (Lola Schofield RN) FHR Baseline Changes: No Baseline Change (Lola Schofield RN) Variability: Moderate 6-25 bpm (Lola Schofield, FLOR) Accelerations: 15X15 (Lola Schofield, FLOR) Decelerations: None (Lola Schofield RN) Pain Scale: 5 (Lola Schofield RN) Pain Presence: Intermittent (Lola Schofield RN) Pain Type: Contraction (oLla Schofield, FLOR) Pain Location: Abdomen (Lola Schofield, FLOR) Pain Relief Measures: Comfort Measures (Lola Schofield RN) Pain Coping: Breathing Through Contractions (Lola Schofield, FLOR) IV/Blood Work: New IV Bag Hung (Lola Schofield, RN) Comfort Measures: Breathing/Relaxation; Rocking Chair; Family Support (Lola Schofield, FLOR) I/O Interventions: Up to BR (Lola Schofield RN) Procedure Type: EPIDURAL (Lola Schofield RN) Procedure Verify: Correct Patient Identity; Agreement on Procedure to be Done (Lola Schofield RN) Anesthesia Plans: Epidural (Lola Schofield RN) Anesthesia Comments: DR TORRES NOTIFIED OF PT REQUEST FOR EPIDURAL (Lola Schofield, RN) Communication: RN at Bedside; RN Reviewed Strip; Report Given to @ Ayaka KNIGHT CNM (Lola Schofield RN) Notification Reason: Status Update (Lola Schofield RN) LaborFlag: Labor (QS system process) Datetime: 03/24/2016 10:39 NBP Sys/[place]lsa/Mean (mmHg): 149 (QS system process) : 87 (QS system process) : 112 (QS system process) Pulse: 83 (QS system process) LaborFlag: Labor (QS system process) Datetime: 03/24/2016 10:30 Stage of : Labor (Lola Schofield RN) Respirations: 20 (Lola Schofield RN) Monitor Mode: External (Lola Schofield RN) Frequency (min): 1-2.5 (Lola Schofield RN) Quality: Moderate (Lola Schofield RN) Duration (sec): 50-70 (Lola Schofield RN) Pattern: Tachysystole: > 5 Contractions in 10 Minutes (Lola Schofield RN) Resting Tone (Palpate): Relaxed (Lola Schofield RN) Monitor Mode: External US (Lola Schofield RN) FHR Baseline Rate : 125 (Lola Schofield RN) FHR Baseline Changes: No Baseline Change (Lola Schofield RN) Variability: Moderate 6-25 bpm (Lloa Schofield RN) Accelerations: None (Lola Schofield RN) Decelerations: None (Lola Schofield RN) Pain Scale: 4 (Lola Schofield RN) Pain Presence: Intermittent (Lola Schofield RN) Pain Type: Contraction (Lola Schofield RN) Pain Location: Abdomen (Lola Schofield RN) Pain Relief Measures: Comfort Measures (Lola Schofield RN) Pain Coping: Breathing Through Contractions; Crying (Lola Schofield RN) Comfort Measures: Breathing/Relaxation; Rocking Chair; Family Support (Lola Schofield RN) Communication: RN at Bedside; RN Reviewed Strip (Lola Schofiedl RN) LaborFlag: Labor (QS system process) Datetime: 03/24/2016 10:16 Stage of : Labor (Lola Schofield, FLOR) Monitor Interventions for FHR: Ultrasound Adjusted (Lola Schofield RN) Pain Scale: 4 (Lola Schofield, RN) Pain Presence: Intermittent (Lola Schofield RN) Pain Type: Contraction (Lola Schofield, RN) Pain Location: Back (Lola Schofield, RN) Pain Relief Measures: Comfort Measures (Lola Schofield, RN) Pain Coping: Breathing Through Contractions; Requesting Pain Medication or Epidural; Crying (Lola Schofield, RN) IV/Blood Work: IV Bolus Started (Lola Schofield, RN) Comfort Measures: Breathing/Relaxation; Rocking Chair; Family Support (Lola Schofield, FLOR) Procedure Type: EPIDURAL (Lola Schofield, FLOR) Procedure Verify: Correct Patient Identity; Agreement on Procedure to be Done; Relevant Images and Results are Properly Labeled and Displayed (Lola Schofield, FLOR) Anesthesia Plans: Epidural (Lola Schofield, RN) Instructional Method: Verbal; Patient Instructed; Family/Support Person Instructed; Verbalized Understanding (Lola Schofield, FLOR) Pain Management: Epidural; Pain Scale/Goals; Comfort Measures (Lola Schofield, FLOR) Communication: RN at Bedside; RN Reviewed Strip (Lola Schofield RN) LaborFlag: Labor (QS system process) Datetime: 03/24/2016 10:09 NBP Sys/[place]lsa/Mean (mmHg): 138 (QS system process) : 102 (QS system process) : 116 (QS system process) Pulse: 97 (QS system process) LaborFlag: Labor (QS system process) Datetime: 03/24/2016 10:03 Stage of : Labor (Lola Schofield RN) Respirations: 18 (Lola Schofield RN) Monitor Mode: External (Lola Schofield RN) Monitor Interventions for UA: [place] Adjusted (Lola Schofield RN) Frequency (min): 1-3 (Lola Schofield RN) Quality: Moderate (Lola Schofield RN) Duration (sec): 50-80 (Lola Schofield, FLOR) Pattern: Tachysystole: > 5 Contractions in 10 Minutes (Lola Schofield RN) Monitor Mode: External US (Lola Schofield RN) Monitor Interventions for FHR: Ultrasound Adjusted (Lola Schofield RN) FHR Baseline Rate : 125 (Lola Schofield RN) FHR Baseline Changes: No Baseline Change (Lola Schofield, FLOR) Variability: Moderate 6-25 bpm (Lola Schofield, RN) Accelerations: 10X10 (Lola Schofield, FLOR) Decelerations: None (Lola Schofield RN) Pain Scale: 3 (Lola Schofield RN) Pain Presence: Intermittent (Lola Schofield RN) Pain Type: Contraction (Lola Schofield RN) Pain Location: Abdomen (Lola Isabel Roulund, RN) Pain Relief Measures: Comfort Measures (Lola Schofield RN) Pain Coping: Breathing Through Contractions (Lola Schofield, FLOR) IV/Blood Work: IV Infusing per Order (Lola Schofield RN) Comfort Measures: Breathing/Relaxation; Rocking Chair; Family Support (Lola Schofield, FLOR) I/O Interventions: Up to BR (Lola Schofield, FLOR) Communication: RN at Bedside; RN Reviewed Strip (Lola Schofield RN) LaborFlag: Labor (QS system process) Datetime: 03/24/2016 09:30 Stage of : Labor (Lola Schofield RN) Respirations: 18 (Lola Schofield RN) Monitor Mode: External (Lola Schofield, FLOR) Monitor Interventions for UA: [place] Adjusted (Lola Schofield RN) Frequency (min): 1-2.5 (Lola Schofield RN) Quality: Moderate (Lola Schofield RN) Duration (sec): 50-70 (Lola Schofield, RN) Pattern: Tachysystole: > 5 Contractions in 10 Minutes (Lola Schofield, FLOR) Resting Tone (Palpate): Relaxed (Lola Schofield, FLOR) Monitor Mode: External US (Lola Schofield RN) FHR Baseline Rate : 130 (Lola Schofield RN) FHR Baseline Changes: No Baseline Change (Lola Schofield RN) Variability: Minimal - Undetectable to <=5 bpm (Lola Schofield, FLOR) Accelerations: None (Lola Schofield RN) Decelerations: None (Lola Schofield, FLOR) Pain Scale: 3 (Lola Schofield RN) Pain Presence: Intermittent (Lola Schofield RN) Pain Type: Contraction (Lola Schofield RN) Pain Location: Abdomen (Lola Schofield, FLOR) Pain Relief Measures: Comfort Measures (Lola Schofield RN) Pain Coping: Breathing Through Contractions (Lola Schofield RN) Pitocin (milliunit): Pitocin Discontinued (Lola Schofield, FLOR) Comfort Measures: Rocking Chair (Lola Schofield RN) Comfort Measures: Breathing/Relaxation; Family Support (Lola Schofield RN) I/O Interventions: Ice Chips Given; Clear Liquids Given (Lola Schofield, FLOR) Communication: RN at Bedside; RN Reviewed Strip; Report Given to @ Ayaka KNIGHT [facility] @ [phone] (Lola Schofield RN) Notification Reason: Status Update; Labor Status; Uterine Activity; Pain (Lola Schofield RN) LaborFlag: Labor (QS system process) Datetime: 03/24/2016 09:09 Stage of : Labor (Lola Schofield RN) NBP Sys/Elsa/Mean (mmHg): 131 (QS system process) : 86 (QS system process) : 102 (QS system process) Pulse: 84 (QS system process) Respirations: 18 (Lola Schofield RN) Monitor Mode: External; Palpation (Lola Schofield RN) Quality: Moderate (Lola Schofield RN) Resting Tone (Palpate): Relaxed (Lola Schofield, FLOR) Monitor Mode: External US (Lola Schofield RN) Monitor Interventions for FHR: Ultrasound Adjusted (Lola Schofield RN) FHR Baseline Rate : 135 (Lola Schofield, RN) Pain Scale: 3 (Lola Schofield RN) Pain Presence: Intermittent (Lola Schofield RN) Pain Type: Contraction (Lola Schofield RN) Pain Location: Abdomen (Lola Schofield RN) Pain Relief Measures: Comfort Measures (Lola Schofield RN) Pain Coping: Breathing Through Contractions (Lola Schofield RN) Dilatation (cm): 3.0 (Lola Schofield RN) Effacement (%): 60 (Lola Schofield, FLOR) Station: -2 (Lola Schofield RN) Exam by: GEREMIAS SCHOFIELD RN (Lola Schofield, FLOR) Membrane Status: Intact (Lola Schofield RN) Vaginal Bleeding: None (Lola Schofield RN) Cervix, Consistency: Soft (Lola Schofield RN) Cervix, Position: Midposition (Lola Schofield, FLOR) Pitocin (milliunit): Pitocin Started (milliunits) @ 5,000,000 @ 0905 (Lola Schofield, FLOR) Antibiotics: Penicillin IV (Units) @ 5,000,000 @ 0905 (Lola Schofield, FLOR) IV/Blood Work: IV Infusing per Order (Lola Schofield, FLOR) Procedures: Sterile Vag Exam (Lola Schofield, FLOR) Patient Position/Activity: Left Tilt; Low Fowlers (Lola Schofield, FLOR) Comfort Measures: Breathing/Relaxation; Coaching; Family Support (Lola Schofield, FLOR) Instructional Method: Verbal; Patient Instructed; Family/Support Person Instructed; Verbalized Understanding (Lola Schofield RN) Plan of Care: Plan of Care Discussed; Induction (Lola Schofield RN) Labor/Induction: Induction (Lola Schofield, RN) Pain Management: Comfort Measures (Lola Schofield, FLOR) Medications: Antibiotics; Pitocin (Lola Schofield, RN) Communication: RN at Bedside; RN Reviewed Strip (Lola Schofield RN) LaborFlag: Labor (QS system process) Datetime: 03/24/2016 08:16 Stage of : Labor (Lola Schofield, FLOR) Monitor Interventions for UA: [place] Adjusted (Lola Schofield RN) Monitor Interventions for FHR: Ultrasound Adjusted (Lola Schofield, FLOR) Pain Scale: 3 (Lola Schofield RN) Pain Presence: Intermittent (Lola Schofield, FLOR) Pain Type: Contraction (Lola Schofield, FLOR) Pain Location: Abdomen (Lola Schofield, RN) Pain Relief Measures: Comfort Measures (Lola Schofield RN) Pain Coping: Breathing Through Contractions (Lola Schofield, RN) IV/Blood Work: IV Saline Locked (Lola Schofield, RN) Comfort Measures: Breathing/Relaxation; Family Support (Lola Schofield, FLOR) Hygiene: Oral Care; Shower; Underpad Changed; Gown Changed (Lola Schofield, RN) I/O Interventions: Ice Chips Given; Clear Liquids Given; Up to BR (Lola Schofield, FLOR) Instructional Method: Verbal; Patient Instructed; Family/Support Person Instructed; Verbalized Understanding (Lola Schofield RN) Plan of Care: Plan of Care Discussed (Lola Schofield, RN) Pain Management: Comfort Measures (Lola Schofield, RN) Communication: RN at Bedside; RN Reviewed Strip (Lola Schofield RN) LaborFlag: Labor (QS system process) Datetime: 03/24/2016 08:00 Stage of : Labor (Lola Schofield RN) Respirations: 20 (Lola Schofield RN) Monitor Mode: External (Lola Schofield RN) Monitor Interventions for UA: [place] Adjusted (Lola Schofield, FLOR) Frequency (min): 1-2.5 (Lola Schofield, FLOR) Quality: Mild/Moderate (Lola Schofield, FLOR) Duration (sec): 55-80 (Lola Schofield, RN) Resting Tone (Palpate): Relaxed (Lola Schofield, RN) Monitor Mode: External US (Lola Schofield RN) Monitor Interventions for FHR: Ultrasound Adjusted (Lola Schofield RN) FHR Baseline Rate : 130 (Lola Schofield, RN) FHR Baseline Changes: No Baseline Change (Lola Schofield, FLOR) Variability: Minimal - Undetectable to <=5 bpm (Lola Schofield, FLOR) Accelerations: 10X10 (Lola Schofield, RN) Decelerations: None (Lola Schofield RN) Pain Scale: 3 (Lola Schofield RN) Pain Presence: Intermittent (Lola Schofield RN) Pain Type: Contraction (Lola Schofield RN) Pain Location: Abdomen (Lola Schofield RN) Pain Relief Measures: Comfort Measures (Lola Schofield RN) Pain Coping: Breathing Through Contractions (Lola Schofield RN) Patient Position/Activity: Right Tilt; Low Fowlers (Lola Schofield RN) Comfort Measures: Breathing/Relaxation; Family Support (Lola Schofield RN) Communication: RN Reviewed Strip (Lola Schofield RN) LaborFlag: Labor (QS system process)
--- NOTE | 2016-03-24 12:38 | L&D Progress Notes ---
PROGRESS NOTES Datetime Report Generated by CPN: 03/24/2016 12:38 PROGRESS NOTE Impression: Reassuring Heart Rate Plan: Continue Present Management; Induction Vital Signs : Reviewed; Within Normal Limits Comment: Pt comfortable with epidural, irreg uc's, Cat 1 strip, vs stable Will AROM around 1 PM FETUS A FHR - Baseline: 130 Monitoring: External US Variability: Moderate 6-25bpm Accelerations: 15X15 Decelerations: Variable FETUS C SIGNATURE: [id number] Assignment: Lissy Ramirez MD Signature: with User ID: [place] : with User ID: [place]
[2016-03-24] MEDS: PENICILLIN G-K 5 MILLION UNIT VIAL IV PRN ×3 (12:58→17:19)
[2016-03-24] MEDS: RINGERS SOLUTION,LACTATED 1,000 ML IV PRN ×3 (13:22→22:12)
[2016-03-24] MEDS: OXYTOCIN/NORMAL SALINE 20 UNIT/1,000 ML RTUINJ IV PRN ×3 (13:32→22:12)
[2016-03-24] MEDS: FENTANYL/BUPIVACAINE/NS/PF 100 ML EPI PRN ×3 (13:32→22:12)
--- NOTE | 2016-03-24 13:47 | L&D Progress Notes ---
PROGRESS NOTES Datetime Report Generated by CPN: 03/24/2016 13:46 PROGRESS NOTE Impression: Reassuring Heart Rate Procedures: Artificial ROM; Sterile Vag Exam Plan: Continue Present Management; Induction Vital Signs : Reviewed; Within Normal Limits Comment: VE= 8/vtx/0, bulging BOW, AROM, mod mec, Cat 1 Monitor closely FETUS C SIGNATURE: [id number] Assignment: Lissy Ramirez MD Signature: with User ID: [email or web address] : with User ID: [email or web address]
[2016-03-24] MEDS ORDERED: LIDOCAINE 2%/EPINEPHRINE INJ 20 ML VIAL ONE (14:40)
[2016-03-24] MEDS ORDERED: SODIUM BICARBONATE 8.4% INJ 50 MEQ/50 ML DISP.SYRIN ONE (14:41)
--- NOTE | 2016-03-24 15:33 | L&D Progress Notes ---
PROGRESS NOTES Datetime Report Generated by CPN: 03/24/2016 15:32 PROGRESS NOTE Procedures: Scalp Electrode; Sterile Vag Exam Comment: having repetitive late decelerations, moderate variability, VE, /vtx/0-1, Pitocin off, increased IVF, repositioned, Oxygen started, Dr. Cardozo on unit, Ephedrine given, FSE applied, afebrile FETUS C SIGNATURE: [id number] Assignment: Lissy Ramirez MD Signature: with User ID: [email or web address] : with User ID: [email or web address]
--- NOTE | 2016-03-24 16:01 | L&D Flow Sheet ---
LD Flowsheet Datetime Report Generated by CPN: 03/24/2016 16:00 Datetime: 03/24/2016 15:58 NBP Sys/Elsa/Mean (mmHg): 138 (QS system process) : 81 (QS system process) : 104 (QS system process) Pulse: 97 (QS system process) LaborFlag: Labor (QS system process) Datetime: 03/24/2016 15:53 NBP Sys/Elsa/Mean (mmHg): 130 (QS system process) : 77 (QS system process) : 99 (QS system process) Pulse: 92 (QS system process) LaborFlag: Labor (QS system process) Datetime: 03/24/2016 15:49 NBP Sys/Elsa/Mean (mmHg): 131 (QS system process) : 68 (QS system process) : 92 (QS system process) Pulse: 83 (QS system process) LaborFlag: Labor (QS system process) Datetime: 03/24/2016 15:45 Stage of : Labor (Lola Schofield RN) Respirations: 18 (Lola Schofield RN) Monitor Mode: External (Lola Schofield RN) Frequency (min): 2.5-3 (Lola Schofield RN) Quality: Moderate to Strong (Lola Schofield RN) Duration (sec): 55-70 (Lola Schofield RN) Resting Tone (Palpate): Relaxed (Lola Schofield RN) Monitor Mode: Internal Scalp Electrode (Lola Schofield RN) FHR Baseline Rate : 140 (Lola Schofield RN) FHR Baseline Changes: No Baseline Change (Lola Schofield RN) Variability: Minimal - Undetectable to <=5 bpm (Lola Schofield RN) Accelerations: None (Lola Schofield RN) Decelerations: None (Lola Schofield RN) Pain Relief Measures: Comfort Measures (Lola Schofield RN) Pain Coping: Breathing Through Contractions (Lola Schofield RN) IV/Blood Work: IV Infusing per Order (Lola Schofield, FLOR) Oxygen Method: Non-Rebreather (Lola Schofield, RN) Patient Position/Activity: Right Lateral; Peanut Ball (Lola Schofield, FLOR) Comfort Measures: Hot/Cold Pack (Lola Schofield, FLOR) Comfort Measures: Breathing/Relaxation; Family Support (Lola Schofield, FLOR) Communication: RN at Bedside; RN Reviewed Strip (Lola Schofield RN) LaborFlag: Labor (QS system process) Datetime: 03/24/2016 15:42 NBP Sys/Elsa/Mean (mmHg): 134 (QS system process) : 73 (QS system process) : 98 (QS system process) Pulse: 93 (QS system process) LaborFlag: Labor (QS system process) Datetime: 03/24/2016 15:37 NBP Sys/Elsa/Mean (mmHg): 135 (QS system process) : 71 (QS system process) : 97 (QS system process) Pulse: 91 (QS system process) LaborFlag: Labor (QS system process) Datetime: 03/24/2016 15:36 NBP Sys/Elsa/Mean (mmHg): 136 (QS system process) : 73 (QS system process) : 98 (QS system process) Pulse: 91 (QS system process) LaborFlag: Labor (QS system process) Datetime: 03/24/2016 15:34 NBP Sys/Elsa/Mean (mmHg): 122 (QS system process) : 85 (QS system process) : 100 (QS system process) Pulse: 93 (QS system process) LaborFlag: Labor (QS system process) Datetime: 03/24/2016 15:33 NBP Sys/Elsa/Mean (mmHg): 144 (QS system process) : 79 (QS system process) : 104 (QS system process) Pulse: 96 (QS system process) LaborFlag: Labor (QS system process) Datetime: 03/24/2016 15:32 NBP Sys/Elsa/Mean (mmHg): 160 (QS system process) : 84 (QS system process) : 110 (QS system process) Pulse: 88 (QS system process) LaborFlag: Labor (QS system process) Datetime: 03/24/2016 15:31 NBP Sys/Elsa/Mean (mmHg): 161 (QS system process) : 86 (QS system process) : 116 (QS system process) Pulse: 92 (QS system process) LaborFlag: Labor (QS system process) Datetime: 03/24/2016 15:30 Stage of : Labor (Lola Schofield RN) Respirations: 20 (Lola Schofield RN) Monitor Mode: External; Palpation (Lola Schofield RN) Monitor Interventions for UA: Alanreed Adjusted (Lola Schofield RN) Frequency (min): 1.5-2.5 (Lola Schofield RN) Quality: Moderate to Strong (Lola Schofield RN) Duration (sec): 60-70 (Lola Schofield RN) Resting Tone (Palpate): Relaxed (Lola Schofield RN) Monitor Mode: Internal Scalp Electrode (Lola Schofield RN) FHR Baseline Rate : 150 (Lola Schofield RN) FHR Baseline Changes: No Baseline Change (Lola Schofield RN) Variability: Minimal - Undetectable to <=5 bpm (Lola Schofield RN) Accelerations: None (Lola Schofield RN) Decelerations: Late (Lola Schofield RN) Pain Presence: Intermittent (Lola Schofield RN) Pain Type: Pressure (Lola Schofield RN) Pain Location: Abdomen; Back; Perineum (Lola Schofield, FLOR) Pain Relief Measures: Comfort Measures (Lola Schofield, RN) Pain Coping: Breathing Through Contractions (Lola Schofield, RN) Oxygen Method: Non-Rebreather (Lola Schofield, RN) Patient Position/Activity: Right Lateral; Peanut Ball (Lola Schofield, RN) Comfort Measures: Breathing/Relaxation; Family Support (Lola Schofield, RN) Provider Reviewed Strip: Yes (Lola Schofield RN) Anesthesia Interventions Other: Ephedrine (Lola Schofield, RN) Anesthesia Comments: 5 MG (Lola Schofield, RN) Instructional Method: Verbal; Patient Instructed; Family/Support Person Instructed; Verbalized Understanding (Lola Schofield RN) Plan of Care: Plan of Care Discussed (Lola Schofield, FLOR) Labor/Induction: Interventions (Lola Schofield, FLOR) Communication: RN at Bedside; RN Reviewed Strip (Lola Schofield RN) Communication Comments: dr rodriguez on unit- reviewed strip (Lola Schofield RN) LaborFlag: Labor (QS system process) Datetime: 03/24/2016 15:21 Stage of : Labor (Lola Schofield, FLOR) Actions for Decelerations: Oxygen Applied (Lola Schofield, FLOR) Dilatation (cm): 9.0 (Lola Schofield RN) Effacement (%): 90 (Lola Schofield RN) Station: -1 (Lola Schofield RN) Exam by: Ayaka KNIGHT CNM (Lola Schofield RN) IV/Blood Work: New IV Bag Hung (Lola Schofield, FLOR) Oxygen Method: Non-Rebreather (Lola Schofield RN) Procedures: Sterile Vag Exam (Lola Schofield RN) Provider Reviewed Strip: Yes (Lola Schofield RN) Communication: RN at Bedside; RN Reviewed Strip; Provider at Bedside (Lola Schofield RN) Datetime: 03/24/2016 15:17 NBP Sys/Elsa/Mean (mmHg): 116 (QS system process) : 57 (QS system process) : 82 (QS system process) Pulse: 86 (QS system process) LaborFlag: Labor (QS system process) Datetime: 03/24/2016 15:16 Stage of : Labor (Lola Schofield RN) Respirations: 18 (Lola Schofield RN) Monitor Mode: External; Palpation (Lola Schofield RN) Monitor Interventions for UA: Alanreed Adjusted (Lola Schofield RN) Frequency (min): 2-2.5 (Lola Schofield, FLOR) Quality: Moderate to Strong (Lola Schofield RN) Duration (sec): 60-70 (Lola Schofield, RN) Resting Tone (Palpate): Relaxed (Lola Schofield, RN) Monitor Mode: External US (Lola Schofield RN) FHR Baseline Rate : 150 (Lola Schofield RN) FHR Baseline Changes: No Baseline Change (Lola Schofield, FLOR) Variability: Minimal - Undetectable to <=5 bpm (Lola Schofield, RN) Accelerations: None (Lola Schofield RN) Decelerations: Late (Lola Schofield, RN) Actions for Decelerations: Pitocin Off (Lola Schofield, FLOR) Pain Scale: 0 (Lola Schofield RN) Pain Presence: None/Denies (Lola Schofield RN) Pain Type: N/A (Lola Schofield, FLOR) Pain Relief Measures: Comfort Measures (Lola Schofield, FLOR) Pain Coping: Talking Through Contractions (Lola Schofield, FLOR) Pitocin (milliunit): Pitocin Discontinued (Lola Schofield, RN) Patient Position/Activity: Left Lateral; Peanut Ball (Lola Schofield, FLOR) Comfort Measures: Family Support (Lola Schofield, FLOR) Provider Reviewed Strip: Yes (Lola Schofield RN) Communication: RN at Bedside; RN Reviewed Strip; Provider at Bedside (Lola Schofield, FLOR) LaborFlag: Labor (QS system process) Datetime: 03/24/2016 15:02 Stage of : Labor (Lola Schofield RN) NBP Sys/Elsa/Mean (mmHg): 132 (QS system process) : 68 (QS system process) : 93 (QS system process) Pulse: 102 (QS system process) Respirations: 18 (Lola Schofield RN) Temperature (F): 97.9 (Lola Schofield RN) Temperature (C): 36.6 (QS system process) Monitor Mode: External; Palpation (Lola Schofield RN) Monitor Interventions for UA: Alanreed Adjusted (Lola Schofield RN) Frequency (min): 1.5-3 (Lola Schofield RN) Quality: Moderate to Strong (Lola Schofield RN) Duration (sec): 60-70 (Lola Schofield RN) Resting Tone (Palpate): Relaxed (Lola Schofield RN) Monitor Mode: External US (Lola Schofield RN) FHR Baseline Rate : 145 (Lola Schofield RN) FHR Baseline Changes: No Baseline Change (Lola Schofield RN) Variability: Minimal - Undetectable to <=5 bpm (Lola Schofield RN) Accelerations: None (Lola Schofield RN) Decelerations: Late (Lola Schofield RN) Actions for Decelerations: Side to Side; IV Bolus (Lola Schofield RN) Pain Scale: 0 (Lola Schofield RN) Pain Presence: None/Denies (Lola Schofield RN) Pain Type: N/A (Lola Schofield RN) Pain Relief Measures: Comfort Measures (Lola Schofield RN) Pain Coping: Talking Through Contractions (Lola Schofield RN) Pitocin (milliunit): Pitocin Remains (milliunits) @ 10 (Lola Schofield RN) IV/Blood Work: IV Bolus Started (Lola Schofield, RN) Patient Position/Activity: Left Lateral; Peanut Ball (Lola Schofield, RN) Comfort Measures: Family Support (Lola Schofield, RN) Communication: RN at Bedside; RN Reviewed Strip (Lola Schofield RN) LaborFlag: Labor (QS system process) Datetime: 03/24/2016 14:46 Stage of : Labor (Lola Schofield RN) NBP Sys/Elsa/Mean (mmHg): 130 (QS system process) : 73 (QS system process) : 97 (QS system process) Pulse: 80 (QS system process) Respirations: 18 (Lola Schofield, FLOR) Monitor Mode: External; Palpation (Lola Schofield, FLOR) Monitor Interventions for UA: Alanreed Adjusted (Lola Schofield, FLOR) Frequency (min): 1.5-3 (Lola Schofield, FLOR) Quality: Moderate to Strong (Lola Schofield RN) Duration (sec): 60-80 (Lola Schofield, RN) Resting Tone (Palpate): Relaxed (Lola Schofield, RN) Monitor Mode: External US (Lola Schofield RN) FHR Baseline Rate : 140 (Lola Schofield RN) FHR Baseline Changes: No Baseline Change (Lola Schofield RN) Variability: Moderate 6-25 bpm (Lola Schofield RN) Accelerations: None (Lola Schofield RN) Decelerations: Early (Lola Schofield RN) Pain Scale: 3 (Lola Schofield RN) Pain Presence: Intermittent (Lola Schofield RN) Pain Type: Pressure (Lola Schofield RN) Pain Location: Abdomen; Perineum (Lola Schofield, FLOR) Pain Relief Measures: Comfort Measures (Lola Schofield, FLOR) Pain Coping: Breathing Through Contractions (Lola Schofield RN) Pitocin (milliunit): Pitocin Remains (milliunits) @ 10 (Lola Schofield, FLOR) IV/Blood Work: IV Infusing per Order (Lola Schofield, FLOR) Patient Position/Activity: Low Fowlers (Lola Schofield, FLOR) Comfort Measures: Breathing/Relaxation; Coaching; Family Support (Lola Schofield, FLOR) Epidural Procedure Other: Redose (Lola Schofield, FLOR) Anesthesia Comments: DR TORRES @ BS TO BOLUS EPIDURAL (Lola Schofield, FLOR) Communication: RN at Bedside; RN Reviewed Strip; Provider at Bedside (Lola Schofield RN) LaborFlag: Labor (QS system process) Datetime: 03/24/2016 14:32 Stage of : Labor (Lola Schofield RN) NBP Sys/Elsa/Mean (mmHg): 142 (QS system process) : 78 (QS system process) : 105 (QS system process) Pulse: 92 (QS system process) Respirations: 18 (Lola Schofield RN) Monitor Mode: External (Lola Schofield RN) Frequency (min): 1.5-3 (Lola Schofield RN) Quality: Moderate to Strong (Lola Schofield RN) Resting Tone (Palpate): Relaxed (Lola Schofield RN) Monitor Mode: External US (Lola Schofield RN) FHR Baseline Rate : 130 (Lola Schofield RN) FHR Baseline Changes: No Baseline Change (Lola Schofield RN) Variability: Moderate 6-25 bpm (Lola Schofield RN) Accelerations: 15X15 (Lola Schofield RN) Decelerations: None (Lola Schofield RN) Pain Scale: 3 (Lola Schofield RN) Pain Presence: Intermittent (Lola Schofield RN) Pain Type: Pressure (Lola Schofield RN) Pain Location: Abdomen; Perineum (Lola Schofield RN) Pain Relief Measures: Comfort Measures (Lola Schofield RN) Pain Coping: Breathing Through Contractions; Requesting Pain Medication or Epidural (Lola Schofield RN) Dilatation (cm): 8.0 (Lola Schofield RN) Effacement (%): 90 (Lola Schofield RN) Station: 2 (Lola Schofield RN) Exam by: GEREMIAS SCHOFIELD RN (Lola Schofield, FLOR) Vaginal Bleeding: Normal Show (Lola Schofield RN) Cervix, Consistency: Soft (Lola Schofield RN) Cervix, Position: Anterior (Lola Schofield RN) Pitocin (milliunit): Pitocin Remains (milliunits) @ 10 (Lola Schofield, FLOR) IV/Blood Work: IV Infusing per Order (Lola Schofield RN) Procedures: Sterile Vag Exam (Lola Schofield RN) Patient Position/Activity: Tailors (Lola Schofield RN) Comfort Measures: Breathing/Relaxation; Family Support (Lola Schofield RN) Communication: RN at Bedside; RN Reviewed Strip (Lola Schofield RN) LaborFlag: Labor (QS system process) Datetime: 03/24/2016 14:17 Stage of : Labor (Lola Schofield RN) NBP Sys/Elsa/Mean (mmHg): 138 (QS system process) : 81 (QS system process) : 104 (QS system process) Pulse: 85 (QS system process) Respirations: 18 (Lola Schofield RN) Monitor Mode: External (Lola Schofield RN) Frequency (min): 1.5-2.5 (Lola Schofield RN) Quality: Moderate to Strong (Lola Schofield RN) Duration (sec): 60-70 (Lola Schofield RN) Resting Tone (Palpate): Relaxed (Lola Schofield RN) Monitor Mode: External US (Lola Schofield RN) FHR Baseline Rate : 135 (Lola Schofield RN) FHR Baseline Changes: No Baseline Change (Lola Schofield RN) Variability: Minimal - Undetectable to <=5 bpm (Lola Schofield RN) Accelerations: None (Lola Schofield RN) Decelerations: None (Lola Schofield RN) Pain Scale: 3 (Lola Schofield RN) Pain Presence: Intermittent (Lola Schofield RN) Pain Type: Pressure (Lola Schofield RN) Pain Location: Abdomen (Lola Schofield RN) Pain Relief Measures: Comfort Measures (Lola Schofield, RN) Pain Coping: Breathing Through Contractions (Lola Schofield, RN) Pitocin (milliunit): Pitocin Remains (milliunits) @ 10 (Lola Schofield, RN) IV/Blood Work: IV Infusing per Order (Lola Schofield, RN) Patient Position/Activity: Tailors (Lola Schofield, RN) Comfort Measures: Breathing/Relaxation; Family Support (Lola Schofield, RN) I/O Interventions: Clear Liquids Given (Lola Schofield, RN) Communication: RN at Bedside; RN Reviewed Strip (Lola Schofield, RN) LaborFlag: Labor (QS system process) Datetime: 03/24/2016 14:01 Stage of : Labor (Lola Schofield, FLOR) NBP Sys/Elsa/Mean (mmHg): 139 (QS system process) : 88 (QS system process) : 108 (QS system process) Pulse: 95 (QS system process) Respirations: 18 (Lola Schofield, FLOR) Monitor Mode: External US (Lola Schofield, FLOR) Monitor Interventions for FHR: Ultrasound Adjusted (Lola Schofield, RN) FHR Baseline Rate : 135 (Lola Schofield, FLOR) FHR Baseline Changes: No Baseline Change (Lola Schofield, FLOR) Variability: Moderate 6-25 bpm (Lola Schofield, RN) Accelerations: None (Lola Schofield, FLOR) Decelerations: None (Lola Schofield, FLOR) Pain Presence: Intermittent (Lola Schofield, FLOR) Pain Type: Pressure (Lola Schofield, RN) Pain Location: Abdomen (Lola Schofield, RN) Pain Relief Measures: Comfort Measures (Lola Schofield, RN) Pain Coping: Talking Through Contractions (Lola Schofield, RN) Pitocin (milliunit): Pitocin Remains (milliunits) @ 10 (Lola Schofield, RN) IV/Blood Work: IV Infusing per Order (Lola Schofield, RN) Patient Position/Activity: Tailors (Lola Schofield, RN) Comfort Measures: Family Support (Lola Schofield, RN) I/O Interventions: Clear Liquids Given (Lola Schofield, FLOR) Communication: RN at Bedside; RN Reviewed Strip (Lola Schofield, FLOR) LaborFlag: Labor (QS system process) Datetime: 03/24/2016 13:46 Stage of : Labor (Lola Schofield RN) NBP Sys/Elsa/Mean (mmHg): 135 (QS system process) : 87 (QS system process) : 105 (QS system process) Pulse: 85 (QS system process) Respirations: 18 (Lola Schofield, FLOR) Monitor Mode: External; Palpation (Lola Schofield, FLOR) Monitor Interventions for UA: Alanreed Adjusted (Lola Schofield, FLOR) Frequency (min): 1.5-2.5 (Lola Schofield, FLOR) Quality: Moderate to Strong (Lola Schofield RN) Duration (sec): 60-80 (Lola Schofield RN) Resting Tone (Palpate): Relaxed (Lola Schofield RN) Monitor Mode: External US (Lola Schofield RN) Monitor Interventions for FHR: Ultrasound Adjusted (Lola Schofield RN) FHR Baseline Rate : 135 (Lola Schofield RN) FHR Baseline Changes: No Baseline Change (Lola Schofield RN) Variability: Moderate 6-25 bpm (Lola Schofield RN) Accelerations: 15X15 (Lola Schofield RN) Decelerations: None (Lola Schofield RN) Pain Scale: 0 (Lola Schofield RN) Pain Presence: None/Denies (Lola Schofield RN) Pain Type: N/A (Lola Schofield RN) Pain Relief Measures: Comfort Measures (Lola Schofield RN) Pain Coping: Talking Through Contractions (Lola Schofield RN) Dilatation (cm): 8.0 (Lola Schofield RN) Effacement (%): 90 (Lola Schofield RN) Station: 0 (Lola Schofield RN) Exam by: Ayaka KNIGHT CNM (Lola Schofield RN) Membrane Status: Ruptured (Lola Schofield RN) Membranes Rupture Method: Artificial (Lola Schofield RN) Amniotic Fluid Color: Light Meconium (Lola Schofield RN) Amniotic Fluid Amount: Small (Lola Schofield RN) Vaginal Bleeding: Normal Show (Lola Schofield RN) Cervix, Consistency: Soft (Lola Schofield RN) Cervix, Position: Anterior (Lola Schofield RN) Pitocin (milliunit): Pitocin Remains (milliunits) @ 10 (Lola Schofield RN) IV/Blood Work: IV Infusing per Order (Lola Schofield RN) Patient Position/Activity: Peanut Ball; Right Extreme (Lola Schofield RN) Comfort Measures: Family Support (Lola Schofield RN) Communication: RN at Bedside; RN Reviewed Strip; Provider at Bedside (Lola Schofield RN) LaborFlag: Labor (QS system process) Datetime: 03/24/2016 13:31 NBP Sys/Elsa/Mean (mmHg): 133 (QS system process) : 84 (QS system process) : 103 (QS system process) Pulse: 91 (QS system process) LaborFlag: Labor (QS system process) Datetime: 03/24/2016 13:30 Stage of : Labor (Lola Schofield RN) Respirations: 18 (Lola Schofield RN) Monitor Mode: External (Lola Schofield RN) Monitor Interventions for UA: Alanreed Adjusted (Lola Schofield RN) Frequency (min): 1.5-3 (Lola Schofield RN) Quality: Moderate to Strong (Lola Schofield RN) Duration (sec): 60-180 (Lola Isabel Roulund, RN) Resting Tone (Palpate): Relaxed (Lola Schofield, FLOR) Monitor Mode: External US (Lola Schofield RN) FHR Baseline Rate : 135 (Lola Schofield RN) FHR Baseline Changes: No Baseline Change (Lola Schofield RN) Variability: Moderate 6-25 bpm (Lola Schofield, RN) Accelerations: 15X15 (Lola Schofield, RN) Decelerations: None (Lola Schofield, FLOR) Pain Scale: 0 (Lola Schofield, FLOR) Pain Presence: None/Denies (Lola Schofield, RN) Pain Type: N/A (Lola Schofield, RN) Pain Relief Measures: Comfort Measures (Lola Schofield, FLOR) Pain Coping: Talking Through Contractions (Lola Schofield, FLOR) Pitocin (milliunit): Pitocin Remains (milliunits) @ 10 (Lola Schofield, RN) IV/Blood Work: IV Infusing per Order (Lola Schofield, RN) Patient Position/Activity: Peanut Ball; Right Extreme (Lola Schofield, RN) Comfort Measures: Family Support (Lola Schofield, RN) Communication: RN at Bedside; RN Reviewed Strip (Lola Schofield, RN) LaborFlag: Labor (QS system process) Datetime: 03/24/2016 13:17 Stage of : Labor (Lola Schofield, FLOR) NBP Sys/Elsa/Mean (mmHg): 130 (QS system process) : 84 (QS system process) : 102 (QS system process) Pulse: 81 (QS system process) Respirations: 18 (Lola Schofield, FLOR) Monitor Mode: External (Lola Schofield, RN) Monitor Interventions for UA: Alanreed Adjusted (Lola Schofield, RN) Frequency (min): 1-6 (Lola Schofield, RN) Quality: Moderate to Strong (Lola Schofield RN) Duration (sec): 60-150 (Lola Schofield, RN) Resting Tone (Palpate): Relaxed (Lola Schofield, RN) Monitor Mode: External US (Lola Schofield RN) FHR Baseline Rate : 135 (Lola Schofield, FLOR) FHR Baseline Changes: No Baseline Change (Lola Schofield, FLOR) Variability: Moderate 6-25 bpm (Lola Schofield, FLOR) Accelerations: 15X15 (Lola Schofield, RN) Decelerations: Variable (Lola Schofield, FLOR) Pain Relief Measures: Comfort Measures (Lola Schofield, RN) Pain Coping: Talking Through Contractions (Lola Schofield, FLOR) Pitocin (milliunit): Pitocin Increased to (milliunits) @ 10 (Lola Schofield, RN) IV/Blood Work: IV Infusing per Order (Lola Schofield, RN) Patient Position/Activity: Peanut Ball; Right Extreme (Lola Schofield, RN) Comfort Measures: Family Support (Lola Schofield, FLOR) Communication: RN at Bedside; RN Reviewed Strip (Lola Schofield, FLOR) LaborFlag: Labor (QS system process) Datetime: 03/24/2016 13:03 NBP Sys/Elsa/Mean (mmHg): 119 (QS system process) : 69 (QS system process) : 88 (QS system process) Pulse: 76 (QS system process) LaborFlag: Labor (QS system process) Datetime: 03/24/2016 13:00 Stage of : Labor (Lola Schofield RN) Respirations: 18 (Lola Schofield RN) Monitor Mode: External (Lola Schofield RN) Monitor Interventions for UA: Alanreed Adjusted (Lola Schofield RN) Frequency (min): 1.5-2 (Lola Schofield RN) Quality: Moderate (Lola Schofield RN) Duration (sec): 60-80 (Lola Schofield, RN) Resting Tone (Palpate): Relaxed (Lola Schofield RN) Monitor Mode: External US (Lola Schofield RN) Monitor Interventions for FHR: Ultrasound Adjusted (Lola Schofield RN) FHR Baseline Rate : 130 (Lola Schofield RN) FHR Baseline Changes: No Baseline Change (Lola Schofield RN) Variability: Minimal - Undetectable to <=5 bpm (Lola Schofield, RN) Accelerations: 15X15 (Lola Schofield, FLOR) Decelerations: None (Lola Schofield RN) Pain Scale: 0 (Lola Schofield RN) Pain Presence: None/Denies (Lola Schofield RN) Pain Type: N/A (Lola Schofield, FLOR) Pain Relief Measures: Comfort Measures (Lola Schofield, FLOR) Pain Coping: Talking Through Contractions (Lola Schofield, FLOR) Pitocin (milliunit): Pitocin Increased to (milliunits) @ 8 (Lola cShofield, RN) IV/Blood Work: IV Infusing per Order (Lola Schofield, RN) Patient Position/Activity: Peanut Ball; Right Extreme (Lola Schofield, RN) Comfort Measures: Family Support (Lola Schofield, RN) Communication: RN at Bedside; RN Reviewed Strip (Lola Schofield RN) LaborFlag: Labor (QS system process) Datetime: 03/24/2016 12:46 NBP Sys/Elsa/Mean (mmHg): 128 (QS system process) : 75 (QS system process) : 96 (QS system process) Pulse: 78 (QS system process) LaborFlag: Labor (QS system process) Datetime: 03/24/2016 12:45 Stage of : Labor (Lola Schofield RN) Respirations: 18 (Lola Schofield RN) Monitor Mode: External (Lola Schofield RN) Frequency (min): 1.5-2 (Lola Schofield RN) Quality: Moderate (Lola Schofield RN) Duration (sec): 60-70 (Lola Schofield RN) Pattern: Tachysystole: > 5 Contractions in 10 Minutes (Lola Schofield RN) Resting Tone (Palpate): Relaxed (Lola Schofield RN) Monitor Mode: External US (Lola Schofield RN) FHR Baseline Rate : 125 (Lola Schofield RN) FHR Baseline Changes: No Baseline Change (Lola Schofield RN) Variability: Minimal - Undetectable to <=5 bpm (Lola Schofield RN) Accelerations: 15X15 (Lola Schofield, FLOR) Decelerations: None (Lola Schofield, FLOR) Pain Relief Measures: Comfort Measures (Lola Schofield RN) Pain Coping: Talking Through Contractions (Lola Schofield RN) Pitocin (milliunit): Pitocin Increased to (milliunits) @ 8 (Lola Schofield, FLOR) IV/Blood Work: IV Infusing per Order (Lola Schofield, FLOR) Patient Position/Activity: Left Tilt; Low Fowlers (Lola Schofield, RN) Comfort Measures: Family Support (Lola Schofield, FLOR) Communication: RN at Bedside; RN Reviewed Strip (Lola Schofield RN) LaborFlag: Labor (QS system process) Datetime: 03/24/2016 12:31 Stage of : Labor (Lola Schofield RN) NBP Sys/Elsa/Mean (mmHg): 135 (QS system process) : 80 (QS system process) : 101 (QS system process) Pulse: 81 (QS system process) Respirations: 18 (Lola Schofield, RN) Monitor Mode: External; Palpation (Lola Schofield, FLOR) Monitor Interventions for UA: Alanreed Adjusted (Lola Schofield RN) Frequency (min): 1.5-2 (Lola Schofield, FLOR) Quality: Moderate (Lola Schofield RN) Duration (sec): 60-70 (Lola Schofield, RN) Pattern: Tachysystole: > 5 Contractions in 10 Minutes (Lola Schofield, FLOR) Resting Tone (Palpate): Relaxed (Lola Schofield, FLOR) Monitor Mode: External US (Lola Schofield, FLOR) FHR Baseline Rate : 130 (Lola Schofield RN) FHR Baseline Changes: No Baseline Change (Lola Schofield, FLOR) Variability: Minimal - Undetectable to <=5 bpm (Lola Schofield, FLOR) Accelerations: None (Lola Schofield, FLOR) Decelerations: Variable (Lola Schofield, FLOR) Pain Scale: 0 (Lola Schofield RN) Pain Presence: None/Denies (Lola Schofield, FLOR) Pain Type: N/A (Lola Schofield, FLOR) Pain Relief Measures: Comfort Measures (Lola Schofield RN) Pain Coping: Talking Through Contractions (Lola Schofield, FLOR) Pitocin (milliunit): Pitocin Increased to (milliunits) @ 6 (Lola Schofield, FLOR) IV/Blood Work: IV Infusing per Order (Lola Schofield RN) Patient Position/Activity: Peanut Ball; Right Extreme (Lola Schofield RN) Comfort Measures: Family Support (Lola Schofield RN) Communication: RN at Bedside; RN Reviewed Strip (Lola Schofield RN) LaborFlag: Labor (QS system process) Datetime: 03/24/2016 12:17 NBP Sys/[place]/Mean (mmHg): 126 (QS system process) : 76 (QS system process) : 96 (QS system process) Pulse: 78 (QS system process) LaborFlag: Labor (QS system process) Datetime: 03/24/2016 12:15 Stage of : Labor (Lola Schofield RN) Respirations: 18 (Lola Schofield RN) Monitor Mode: External (Lola Schofield RN) Frequency (min): 1.5-6.5 (oLla Schofield RN) Quality: Moderate (Lola Schofield RN) Duration (sec): 55-120 (Lola Schofield, FLOR) Resting Tone (Palpate): Relaxed (Lola Schofield, RN) Monitor Mode: External US (Lola Schofield RN) FHR Baseline Rate : 130 (Lola Schofield RN) FHR Baseline Changes: No Baseline Change (Lola Schofield RN) Variability: Moderate 6-25 bpm (Lola Schofield, RN) Accelerations: 15X15 (Lola Schofield, RN) Decelerations: None (Lola Schofield, RN) Pain Relief Measures: Comfort Measures (Lola Schofield, RN) Pain Coping: Talking Through Contractions (Lola Schofield, RN) Pitocin (milliunit): Pitocin Increased to (milliunits) @ 4 (Lola Schofield, RN) IV/Blood Work: IV Infusing per Order (Lola Schofield, RN) Patient Position/Activity: Left Tilt; Low Fowlers (Lola Schofield, RN) Comfort Measures: Family Support (Lola Schofield, RN) Communication: RN at Bedside; RN Reviewed Strip (Lola Schofield, RN) LaborFlag: Labor (QS system process) Datetime: 03/24/2016 12:02 NBP Sys/[place]/Mean (mmHg): 112 (QS system process) : 55 (QS system process) : 56 (QS system process) : 79 (QS system process) : 78 (QS system process) Pulse: 82 (QS system process) Pulse: 76 (QS system process) LaborFlag: Labor (QS system process) Datetime: 03/24/2016 12:00 Stage of : Labor (Lola Schofield RN) Respirations: 18 (Lola Schofield RN) Monitor Mode: External (Lola Schofield RN) Frequency (min): 1-6.5 (Lola Schofield RN) Quality: Moderate (Lloa Scohfield RN) Duration (sec): 60-80 (Lola Schofield RN) Pattern: Tachysystole: > 5 Contractions in 10 Minutes (Lola Schofield RN) Resting Tone (Palpate): Relaxed (Lola Schofield RN) Monitor Mode: External US (Lola Schofield RN) FHR Baseline Rate : 125 (Lola Schofield RN) FHR Baseline Changes: No Baseline Change (Lola Schofield RN) Variability: Moderate 6-25 bpm (Lola Schofield RN) Accelerations: 15X15 (Lola Schofield RN) Decelerations: None (Lola Schofield RN) Pain Scale: 0 (Lola Schofield RN) Pain Presence: None/Denies (Lola Schofield RN) Pain Type: N/A (Lola Schofield RN) Pain Relief Measures: Comfort Measures (Lola Schofield RN) Pitocin (milliunit): Pitocin Remains (milliunits) @ 2 (Lola Schofield RN) Patient Position/Activity: Left Tilt; Low Fowlers (Lola Schofield, RN) Comfort Measures: Family Support (Lola Schofield, RN) Communication: RN at Bedside; RN Reviewed Strip (Lola Schofield, FLOR) LaborFlag: Labor (QS system process)
[2016-03-24] MEDS ORDERED: DIPHENHYDRAMINE HCL 50 MG/ML VIAL ONE (17:35)
[2016-03-24] MEDS ORDERED: CEFAZOLIN 2 GM/D5W RTU 2 GM/50 ML RTUPB IV ONE (19:16)
[2016-03-24] MEDS ORDERED: CITRIC ACID/SODIUM CITRATE ORAL SOLN 15 ML UDCUP ONE (19:16)
[2016-03-24] MEDS ORDERED: LIDOCAINE 2% INJ-PF (20 MG/ML) 10 ML AMPUL ONE (19:32)
[2016-03-24] MEDS ORDERED: OXYTOCIN 10 UNIT/ML VIAL ONE (19:42)
[2016-03-24] MEDS ORDERED: KETOROLAC TROMETHAMINE INJ/PF 30 MG/1 ML SDV ONE (19:42)
[2016-03-24] MEDS ORDERED: MIDAZOLAM 2 MG/2 ML INJ ONE (19:43)
[2016-03-24] MEDS ORDERED: FENTANYL CITRATE INJ/PF 250 MCG/5 ML AMPULE ONE (19:43)
[2016-03-24] MEDS ORDERED: ACETAMINOPHEN 100 ML IV ONE (19:43)
[2016-03-24] MEDS ORDERED: ONDANSETRON HCL INJ/PF 4 MG/2 ML SDV ONE (19:44)
--- NOTE | 2016-03-24 20:01 | L&D Flow Sheet ---
LD Flowsheet Datetime Report Generated by CPN: 03/24/2016 20:00 Datetime: 03/24/2016 19:30 IV/Blood Work: New IV Bag Hung (Primo Cochranahan, RN) Patient Care Comments: LR infusing at bolus rate (Rucsmurtaza Cochranahan, RN) Datetime: 03/24/2016 19:27 Maternal Comments: ady prep completed (Rucsmurtaza Cochranahan, RN) Datetime: 03/24/2016 19:24 Maternal Comments: ady prep (Rucsandra Mame, RN) Datetime: 03/24/2016 19:23 Maternal Comments: shave prep completed (Rucsandra Mame, RN) Datetime: 03/24/2016 19:21 Maternal Comments: Meehan emptied 600ml of clear yellow urine. (Rucsandra Mame, RN) Datetime: 03/24/2016 19:20 NBP Sys/Elsa/Mean (mmHg): 134 (QS system process) : 71 (QS system process) : 97 (QS system process) Pulse: 90 (QS system process) LaborFlag: Labor (QS system process) Datetime: 03/24/2016 19:19 Communication Comments: 2 South notified of impending Section. (Ele Olivia, RN) Datetime: 03/24/2016 19:18 Maternal Comments: SCDs and TEDs applied. (Rucsandra Mame, RN) Datetime: 03/24/2016 19:16 Communication Comments: KMcDowell, DOUBLE NEEDLE OPERATOR informed of impending . (Ele Olivia, RN) Datetime: 03/24/2016 19:15 Communication Comments: Nursing Check Writer Salesperson, Elidia informed of impending . (Ele Olivia, RN) Datetime: 03/24/2016 19:14 Communication Comments: NBN notified of impending . (Ele Olivia, RN) Datetime: 03/24/2016 19:04 NBP Sys/Elsa/Mean (mmHg): 125 (QS system process) : 84 (QS system process) : 101 (QS system process) Pulse: 100 (QS system process) LaborFlag: Labor (QS system process) Datetime: 03/24/2016 19:00 Stage of : Labor (Lola Schofield RN) Respirations: 20 (Lola Schofield RN) Monitor Mode: Internal (Lola Schofield RN) Frequency (min): 2-3 (Lola Schofield RN) Quality: Moderate to Strong (Lola Schofield RN) Duration (sec): 70-90 (Lola Schofield RN) Resting Tone (Palpate): Relaxed (Lola Schofield RN) Monitor Mode: External US (Lola Schofield RN) FHR Baseline Rate : 130 (Lola Schofield RN) FHR Baseline Changes: No Baseline Change (Lola Schofield RN) Variability: Moderate 6-25 bpm (Lola Schofield RN) Accelerations: 15X15 (Lola Schofield RN) Decelerations: None (Lola Schofield RN) Pain Scale: 3 (Lola Schofield RN) Pain Presence: Intermittent (Lola Schofield RN) Pain Type: Pressure (Lola Schofield RN) Pain Location: Back (Lola Schofield RN) Pain Relief Measures: Comfort Measures (Lola Schofield RN) Pain Coping: Breathing Through Contractions (Lola Schofield RN) IV/Blood Work: IV Infusing per Order (Lola Schofield, FLOR) Patient Position/Activity: Peanut Ball; Right Extreme (Lola Schofield, FLOR) Comfort Measures: Breathing/Relaxation; Family Support (Lola Schofield RN) Communication: RN Reviewed Strip (Lola Schofield RN) LaborFlag: Labor (QS system process) Datetime: 03/24/2016 18:50 NBP Sys/Elsa/Mean (mmHg): 136 (QS system process) : 90 (QS system process) : 108 (QS system process) Pulse: 93 (QS system process) LaborFlag: Labor (QS system process) Datetime: 03/24/2016 18:45 Stage of : Labor (Lola Schofield RN) Respirations: 20 (Lola Schofield RN) Monitor Mode: Internal; Palpation (Lola Schofield RN) Frequency (min): 2-3.5 (Lola Schofield RN) Quality: Moderate to Strong (Lola Schofield RN) Duration (sec): 80-110 (Lola Schofield RN) Resting Tone (Palpate): Relaxed (Lola Schofield RN) Intensity IUP (mmHg): 75-100 (Lola Schofield RN) Monitor Mode: Internal Scalp Electrode (Lola Schofield RN) FHR Baseline Rate : 125 (Lola Schofield RN) FHR Baseline Changes: No Baseline Change (Lola Schofield RN) Variability: Moderate 6-25 bpm (Lola Schofield RN) Accelerations: 15X15 (Lola Schofield RN) Decelerations: None (Lola Schofield RN) Pain Relief Measures: Comfort Measures (Lola Schofield RN) Pain Coping: Breathing Through Contractions (Lola Schofield RN) IV/Blood Work: IV Infusing per Order (Lola Schofield, FLOR) Patient Position/Activity: Peanut Ball; Right Extreme (Lola Schofield RN) Comfort Measures: Breathing/Relaxation; Family Support (Lola Schofield, FLOR) Communication: RN at Bedside; RN Reviewed Strip (Lola Schofield RN) LaborFlag: Labor (QS system process) Datetime: 03/24/2016 18:34 NBP Sys/Elsa/Mean (mmHg): 138 (QS system process) : 83 (QS system process) : 105 (QS system process) Pulse: 89 (QS system process) LaborFlag: Labor (QS system process) Datetime: 03/24/2016 18:30 Stage of : Labor (Lola Schofield RN) Temperature (F): 97.9 (Lola Schofield RN) Temperature (C): 36.6 (QS system process) Temperature Route: Oral (Lola Schofield RN) Monitor Mode: External (Lola Schofield RN) Monitor Interventions for UA: IUPC Inserted (Lola Schofield RN) Frequency (min): 2-2.5 (Lola Schofield RN) Quality: Moderate to Strong (Lola Schofield RN) Duration (sec): 60-80 (Lola Schofield, FLOR) Resting Tone (Palpate): Relaxed (Lola Schofield RN) Monitor Mode: External US (Lola Schofield RN) FHR Baseline Rate : 125 (Lola Schofield RN) FHR Baseline Changes: No Baseline Change (Lola Schofield RN) Variability: Moderate 6-25 bpm (Lola Schofield RN) Accelerations: 15X15 (Lola Schofield RN) Decelerations: None (Lola Schofield, RN) Comments: SCALP STIM WITH PROLONGED ACCEL (Lola Schofield, RN) Pain Scale: 2 (Lola Schofield, RN) Pain Presence: Intermittent (Lola Schofield, RN) Pain Type: Pressure (Lola Schofield, RN) Pain Location: Back (Lola Schofield, RN) Pain Relief Measures: Comfort Measures (Lola Schofield, RN) Pain Coping: Breathing Through Contractions (Lola Schofield, RN) Exam by: DR GARSIA (Lola Schofield, RN) Vaginal Exam Comments: UNCHANGED; MOLDING NOTED @ +2 (Lola Schofield, RN) IV/Blood Work: IV Infusing per Order (Lola Schofield, RN) Procedures: Sterile Vag Exam (Lola Schofield, RN) Patient Position/Activity: Low Fowlers (Lola Schofield, RN) Comfort Measures: Breathing/Relaxation; Family Support (Lola Schofield, RN) Provider Reviewed Strip: Yes (Lola Schofield, FLOR) Instructional Method: Verbal; Patient Instructed; Family/Support Person Instructed; Verbalized Understanding (Lola Schofield, RN) Plan of Care: Plan of Care Discussed; C/S Delivery; Labor (Lola Schofield, RN) Labor/Induction: Labor Stages (Lola Schofield, RN) Teaching Comments: DISCUSSED VAGINAL VS C/SECTION DELIVERY- PT OPTED FOR IUPC AND CONTINUE FOR A LITTLE LONGER TO ESTABLISH ADEQUATE LABOR. (Lola Schofield, RN) Communication: RN at Bedside; RN Reviewed Strip; Provider at Bedside (Lola Schofield, RN) LaborFlag: Labor (QS system process) Datetime: 03/24/2016 18:29 NBP Sys/Elsa/Mean (mmHg): 139 (QS system process) : 87 (QS system process) : 107 (QS system process) Pulse: 95 (QS system process) LaborFlag: Labor (QS system process) Datetime: 03/24/2016 18:00 Stage of : Labor (Lola Schofield RN) Respirations: 18 (Lola Schofield RN) Monitor Mode: External (Lola Schofield RN) Monitor Mode: External; Palpation (Jessica Wallace RNIbis) Monitor Interventions for UA: Fairway Adjusted (Lola Schofield RN) Monitor Interventions for UA: Fairway Adjusted (Jessica [place], RNC) Frequency (min): 2-2.5 (Lola Schofield RN) Frequency (min): 1.5-3 (Jessica Wallace, RNC) Quality: Moderate to Strong (Lola Schofield RN) Quality: Moderate (Jessica Wallace, RNC) Duration (sec): 60-80 (Lola Schofield RN) Duration (sec): 70-100 (Jessica Camp, RNC) Duration Criteria: Less than Two 120 Second Contractions (Jessica Wallace, RNC) Resting Tone (Palpate): Relaxed (Lola Schofield RN) Resting Tone (Palpate): Relaxed (Jessica Wallace, RNC) Monitor Mode: Internal Scalp Electrode (Lola Schofield RN) Monitor Mode: Internal Scalp Electrode (Jessica Wallace, RNC) FHR Baseline Rate : 130 (Lola Schofield RN) FHR Baseline Rate : 130 (Jessica Wallace, RNC) FHR Baseline Changes: No Baseline Change (Lola Schofield RN) FHR Baseline Changes: No Baseline Change (Jessica Wallace, RNC) Variability: Moderate 6-25 bpm (Lola Schofield, FLOR) Variability: Moderate 6-25 bpm (Jessica Rodrigo, RNC) Accelerations: 15X15 (Lola Schofield RN) Accelerations: 15X15 (Jessicasree Wallace, RNC) Decelerations: None (Lola Schofield RN) Decelerations: None (Jessica Wallace, RNC) Pain Scale: 2 (Lola Schofield RN) Pain Presence: Intermittent (Lola Schofield, FLOR) Pain Type: Pressure (Lola Schofield RN) Pain Location: Back (Lola Schofield RN) Pain Relief Measures: Comfort Measures (Lola Schofield RN) Pain Coping: Breathing Through Contractions (Lola Schofield, FLOR) IV/Blood Work: IV Infusing per Order (Lola Schofield, FLOR) Patient Position/Activity: Hands-Knees (Lola Schofield, FLOR) Comfort Measures: Family Support (Lola Schofield, FLOR) Communication: RN at Bedside; RN Reviewed Strip (Lola Schofield, FLOR) LaborFlag: Labor (QS system process) Datetime: 03/24/2016 17:54 Patient Position/Activity: Trendelenburg (Jessica Camp, RNC) Patient Position/Activity: Hands-Knees (Jessica Camp, RNC) Datetime: 03/24/2016 17:51 NBP Sys/Elsa/Mean (mmHg): 129 (QS system process) : 61 (QS system process) : 83 (QS system process) Pulse: 96 (QS system process) LaborFlag: Labor (QS system process) Datetime: 03/24/2016 17:45 Monitor Mode: External; Palpation (Jessica Camp, RNC) Frequency (min): 1.5-3 (Jessica Camp, RNC) Quality: Moderate (Jessica Camp, RNC) Duration (sec): 60-100 (Jessica Camp, RNC) Resting Tone (Palpate): Relaxed (Jessica Camp, RNC) Monitor Mode: Internal Scalp Electrode (Jessica Camp, RNC) FHR Baseline Rate : 130 (Jessica Camp, RNC) FHR Baseline Changes: No Baseline Change (Jessica Camp, RNC) Variability: Minimal - Undetectable to <=5 bpm (Jessica Camp, RNC) Accelerations: None (Jessica Camp, RNC) Decelerations: None (Jessica [place], RN) Datetime: 03/24/2016 17:37 Stage of : Labor (Lola Schofield RN) NBP Sys/Elsa/Mean (mmHg): 123 (QS system process) : 59 (QS system process) : 83 (QS system process) Pulse: 93 (QS system process) Analgesics/Sedatives: Benadryl (mg) @ 25 @ 1737 (Lola Schofield RN) Communication: RN at Bedside (Lola Schofield RN) LaborFlag: Labor (QS system process) Datetime: 03/24/2016 17:32 Stage of : Labor (Lola Schofield RN) Respirations: 18 (Lola Schofield RN) Monitor Mode: External; Palpation (Lola Schofield RN) Frequency (min): 2-2.5 (Loal Schofield RN) Quality: Moderate to Strong (Lola Schofield RN) Duration (sec): 60-80 (Lola Schofield, FLOR) Resting Tone (Palpate): Relaxed (Lola Schofield, FLOR) Monitor Mode: Internal Scalp Electrode (Lola Schofield RN) FHR Baseline Rate : 130 (Lola Schofield RN) FHR Baseline Changes: No Baseline Change (Lola Schofield RN) Variability: Moderate 6-25 bpm (Lola Schofield, FLOR) Accelerations: 15X15 (Lola Schofield RN) Decelerations: None (Lola Schofield RN) Pain Scale: 2 (Lola Schofield, FLOR) Pain Presence: Intermittent (Lola Schofield, FLOR) Pain Type: Pressure (Lola Schofield, FLOR) Pain Location: Back (Lola Schofield, FLOR) Pain Relief Measures: Comfort Measures (Lola Schofield RN) Pain Coping: Breathing Through Contractions (Lola Schofield, FLOR) Dilatation (cm): 9.0 (Lola Schofield, FLOR) Station: 1 (Lola Schofield, RN) Exam by: DR GARSIA (Lola Schofield, RN) Vaginal Bleeding: Normal Show (Lola Schofield, RN) Vaginal Exam Comments: THICK CERVIX NOTED FROM 0600 TO 1400 (Lola Schofield, RN) IV/Blood Work: IV Infusing per Order (Lola Schofield, RN) Procedures: Sterile Vag Exam (Lola Schofield, RN) Patient Position/Activity: Left Extreme; Peanut Ball (Lola Schofield, RN) Comfort Measures: Family Support (Lola Schofield, RN) Provider Reviewed Strip: Yes (Lola Schofield, FLOR) Communication: RN at Bedside; RN Reviewed Strip; Provider at Bedside (Lola Schofield, FLOR) LaborFlag: Labor (QS system process) Datetime: 03/24/2016 17:19 NBP Sys/Elsa/Mean (mmHg): 113 (QS system process) : 55 (QS system process) : 79 (QS system process) Pulse: 90 (QS system process) LaborFlag: Labor (QS system process) Datetime: 03/24/2016 17:17 Stage of : Labor (Lola Schofield RN) Antibiotics: Penicillin IV (Units) @ 2,500,000 (Lola Schofield RN) Communication: RN at Bedside (Lola Schofield RN) Datetime: 03/24/2016 17:15 Stage of : Labor (Lola Schofield RN) Respirations: 18 (Lola Schofield RN) Monitor Mode: External (Lola Schofield RN) Monitor Interventions for UA: Fairway Adjusted (Lola Schofield RN) Frequency (min): 2-3 (Lola Schofield RN) Quality: Moderate to Strong (Lola Schofield RN) Duration (sec): 60-80 (Lola Schofield RN) Resting Tone (Palpate): Relaxed (Lola Schofield RN) Monitor Mode: Internal Scalp Electrode (Lola Schofield RN) FHR Baseline Rate : 130 (Lola Schofield RN) FHR Baseline Changes: No Baseline Change (Lola Schofield RN) Variability: Moderate 6-25 bpm (Lola Schofield RN) Accelerations: 15X15 (Lola Schofield, FLOR) Decelerations: None (Lola Schofield RN) Pain Relief Measures: Comfort Measures (Lola Schofield RN) IV/Blood Work: IV Infusing per Order (Lola Schofield RN) Patient Position/Activity: Left Extreme; Peanut Ball (Lola Schofield, FLOR) Comfort Measures: Family Support (Lola Schofield, FLOR) Communication: RN at Bedside; RN Reviewed Strip (Lola Schofield RN) LaborFlag: Labor (QS system process) Datetime: 03/24/2016 17:13 NBP Sys/Elsa/Mean (mmHg): 112 (QS system process) : 58 (QS system process) : 79 (QS system process) Pulse: 95 (QS system process) LaborFlag: Labor (QS system process) Datetime: 03/24/2016 17:09 NBP Sys/Elsa/Mean (mmHg): 132 (QS system process) : 61 (QS system process) : 88 (QS system process) Pulse: 92 (QS system process) LaborFlag: Labor (QS system process) Datetime: 03/24/2016 17:03 NBP Sys/Elsa/Mean (mmHg): 138 (QS system process) : 78 (QS system process) : 101 (QS system process) Pulse: 88 (QS system process) LaborFlag: Labor (QS system process) Datetime: 03/24/2016 17:00 Stage of : Labor (Lola Schofield RN) Respirations: 18 (Lola Schofield RN) Monitor Mode: External (Lola Schofield RN) Monitor Interventions for UA: Fairway Adjusted (Lola Schofield RN) Frequency (min): 2-3 (Lola Schofield RN) Quality: Moderate to Strong (Lola Schofield RN) Duration (sec): 60-80 (Lola Schofield RN) Resting Tone (Palpate): Relaxed (Lola Schofield RN) Monitor Mode: Internal Scalp Electrode (Lola Schofield RN) FHR Baseline Rate : 130 (Lola Schofield RN) FHR Baseline Changes: No Baseline Change (Lola Schofield RN) Variability: Moderate 6-25 bpm (Lola Schofield RN) Accelerations: 15X15 (Lola Schofield RN) Decelerations: None (Lola Schofield RN) Pain Scale: 2 (Lola Schofield RN) Pain Presence: Intermittent (Lola Schofield RN) Pain Type: Pressure (Lola Schofield RN) Pain Location: Back (Lola Schofield RN) Pain Relief Measures: Comfort Measures (Lola Schofield RN) IV/Blood Work: IV Infusing per Order (Lola Schofield RN) Patient Position/Activity: Hands-Knees (Lola Schofield, FLRO) Comfort Measures: Family Support (Lola Schofield RN) Communication: RN at Bedside; RN Reviewed Strip (Lola Schofield RN) LaborFlag: Labor (QS system process) Datetime: 03/24/2016 16:57 NBP Sys/Elsa/Mean (mmHg): 123 (QS system process) : 91 (QS system process) : 104 (QS system process) Pulse: 94 (QS system process) LaborFlag: Labor (QS system process) Datetime: 03/24/2016 16:53 Stage of : Labor (Lola Schofield RN) Patient Position/Activity: Hands-Knees (Lola Schofield RN) I/O Interventions: Clear Liquids Given (Lola Schofield RN) Communication: RN at Bedside; RN Reviewed Strip (Lola Schofield RN) Datetime: 03/24/2016 16:48 NBP Sys/Elsa/Mean (mmHg): 129 (QS system process) : 67 (QS system process) : 88 (QS system process) Pulse: 98 (QS system process) LaborFlag: Labor (QS system process) Datetime: 03/24/2016 16:44 Stage of : Labor (Lola Schofield RN) Respirations: 18 (Lola Schofield RN) Monitor Mode: External (Lola Schofield RN) Monitor Interventions for UA: Fairway Adjusted (Lola Schofield RN) Frequency (min): 2-3 (Lola Schofield RN) Quality: Moderate to Strong (Lola Schofield RN) Duration (sec): 60-70 (Lloa Schofield, FLOR) Resting Tone (Palpate): Relaxed (Lola Schofield RN) Monitor Mode: Internal Scalp Electrode (Lola Schofield RN) FHR Baseline Rate : 135 (Lola Schofield RN) FHR Baseline Changes: No Baseline Change (Lola Schofield RN) Variability: Moderate 6-25 bpm (Lola Schofield RN) Accelerations: 10X10 (Lola Schofield, FLOR) Decelerations: None (Lola Schofield RN) Pain Relief Measures: Comfort Measures (Lola Schofield RN) IV/Blood Work: IV Infusing per Order (Lola Schofield RN) Patient Position/Activity: Right Lateral; Peanut Ball (Lola Schofield RN) Comfort Measures: Family Support (Lola Schofield RN) I/O Interventions: Clear Liquids Given (Lola Schofield RN) Communication: RN at Bedside; RN Reviewed Strip (Lola Schofield RN) LaborFlag: Labor (QS system process) Datetime: 03/24/2016 16:43 NBP Sys/Elsa/Mean (mmHg): 136 (QS system process) : 83 (QS system process) : 104 (QS system process) Pulse: 96 (QS system process) LaborFlag: Labor (QS system process) Datetime: 03/24/2016 16:38 NBP Sys/Elsa/Mean (mmHg): 130 (QS system process) : 73 (QS system process) : 94 (QS system process) Pulse: 98 (QS system process) LaborFlag: Labor (QS system process) Datetime: 03/24/2016 16:33 NBP Sys/Elsa/Mean (mmHg): 125 (QS system process) : 60 (QS system process) : 83 (QS system process) Pulse: 97 (QS system process) LaborFlag: Labor (QS system process) Datetime: 03/24/2016 16:30 Stage of : Labor (Lola Schofield RN) Respirations: 18 (Lola Schofield RN) Monitor Mode: External (Lola Schofield RN) Frequency (min): 2-2.5 (Lola Schofield RN) Quality: Moderate to Strong (Lola Schofield RN) Duration (sec): 60-70 (Lola Schofield RN) Resting Tone (Palpate): Relaxed (Lola Schofield RN) Monitor Mode: External US (Lola Schofield RN) FHR Baseline Rate : 135 (Lola Schofield RN) FHR Baseline Changes: No Baseline Change (Lola Schofield RN) Variability: Moderate 6-25 bpm (Lola Schofield RN) Accelerations: 10X10 (Lola Schofield RN) Decelerations: None (Lola Schofield RN) Pain Scale: 2 (Lola Schofield RN) Pain Presence: Intermittent (Lola Schofield RN) Pain Type: Pressure (Lola Schofield RN) Pain Location: Back (Lola Schofield RN) Pain Relief Measures: Comfort Measures (Lola Schofield RN) Pain Coping: Breathing Through Contractions (Lola Schofield RN) IV/Blood Work: IV Infusing per Order (Lola Schofield RN) Oxygen Method: Room Air (Lola Schofield RN) Patient Position/Activity: Right Lateral; Peanut Ball (Lola Schofield, FLOR) Comfort Measures: Hot/Cold Pack; Family Support (Lola Schofield, FLOR) Communication: RN at Bedside; RN Reviewed Strip (Lola Schofield RN) LaborFlag: Labor (QS system process) Datetime: 03/24/2016 16:22 NBP Sys/Elsa/Mean (mmHg): 131 (QS system process) : 80 (QS system process) : 101 (QS system process) Pulse: 96 (QS system process) LaborFlag: Labor (QS system process) Datetime: 03/24/2016 16:17 NBP Sys/Elsa/Mean (mmHg): 136 (QS system process) : 74 (QS system process) : 99 (QS system process) Pulse: 101 (QS system process) LaborFlag: Labor (QS system process) Datetime: 03/24/2016 16:14 Stage of : Labor (Lola Schofield RN) Respirations: 18 (Lola Schofield RN) Monitor Mode: External (Lola Schofield RN) Frequency (min): 2-3 (Lola Schofield RN) Quality: Moderate to Strong (Lola Schofield RN) Duration (sec): 60-70 (Lola Schofield RN) Resting Tone (Palpate): Relaxed (Lola Schofield RN) Monitor Mode: Internal Scalp Electrode (Lola Schofield RN) FHR Baseline Rate : 130 (Lola Schofield RN) FHR Baseline Changes: No Baseline Change (Lola Schofield RN) Variability: Moderate 6-25 bpm (Lola Schofield RN) Accelerations: 15X15 (Lola Schofield RN) Decelerations: None (Lola Schofield RN) Pain Scale: 2 (Lola Schofield RN) Pain Presence: Intermittent (Lola Schofield RN) Pain Type: Pressure (Lola Schofield RN) Pain Location: Back (Lola Schofield RN) Pain Relief Measures: Comfort Measures (Lola Schofield RN) IV/Blood Work: IV Infusing per Order (Lola Schofield RN) Oxygen Method: Room Air (Lola Schofield RN) Patient Position/Activity: Right Lateral; Peanut Ball (Lola Schofield RN) Comfort Measures: Family Support (Lola Schofield RN) Communication: RN Reviewed Strip (Lola Schofield RN) LaborFlag: Labor (QS system process) Datetime: 03/24/2016 16:13 NBP Sys/Elsa/Mean (mmHg): 132 (QS system process) : 72 (QS system process) : 94 (QS system process) Pulse: 104 (QS system process) LaborFlag: Labor (QS system process) Datetime: 03/24/2016 16:08 NBP Sys/Elsa/Mean (mmHg): 139 (QS system process) : 83 (QS system process) : 105 (QS system process) Pulse: 101 (QS system process) LaborFlag: Labor (QS system process) Datetime: 03/24/2016 16:04 Stage of : Labor (Lola Schofield RN) Pain Scale: 2 (Lola Schofield RN) Pain Presence: Intermittent (Lola Schofield RN) Pain Type: Pressure (Lola Schofield, FLOR) Pain Location: Back (Lola Schofield, FLOR) Pain Relief Measures: Comfort Measures (Lola Schofield, FLOR) Pain Coping: Breathing Through Contractions (Lola Schofield, FLOR) Dilatation (cm): 9.0 (Lola Schofield RN) Effacement (%): 90 (Lola Schofield, FLOR) Station: 0 (Lola Schofield, FLOR) Exam by: Ayaka KNIGHT CNM (Lola Schofield, RN) Vaginal Bleeding: Normal Show (Lola Schofield RN) Cervix, Consistency: Soft (Lola Schofield, FLOR) Cervix, Position: Anterior (Lola Schofield, RN) Vaginal Exam Comments: SL EDEMA OF POSTERIOR CERVIX NOTED (Lola Schofield, RN) Procedures: Sterile Vag Exam (Lola Schofield, FLOR) Comfort Measures: Family Support (Lola Schofield, FLOR) Provider Reviewed Strip: Yes (Lola Schofield, FLOR) Communication: RN at Bedside; RN Reviewed Strip; Provider at Bedside (Lola Schofield, RN) Communication Comments: CNM @ BS; STRIP REVIEWED BY MD Davida BERNARD (Lola Schofield, FLOR) LaborFlag: Labor (QS system process) Datetime: 03/24/2016 16:03 NBP Sys/Elsa/Mean (mmHg): 128 (QS system process) : 85 (QS system process) : 101 (QS system process) Pulse: 101 (QS system process) LaborFlag: Labor (QS system process) Datetime: 03/24/2016 16:00 Stage of : Labor (Lola Schofield RN) Respirations: 18 (Lola Schofield RN) Monitor Mode: External (Lola Schofield RN) Frequency (min): 2-3 (Lola Schofield RN) Quality: Moderate to Strong (Lola Schofield RN) Duration (sec): 60-80 (Lola Schofield RN) Resting Tone (Palpate): Relaxed (Lola Schofield RN) Monitor Mode: Internal Scalp Electrode (Lola Schofield RN) FHR Baseline Rate : 135 (Lola Schofield RN) FHR Baseline Changes: No Baseline Change (Lola Schofield RN) Variability: Moderate 6-25 bpm (Lola Schofield RN) Accelerations: 15X15 (Lola Isabel Roulund, RN) Decelerations: None (Lola Schofield, FLOR) IV/Blood Work: IV Infusing per Order (Lola Schofield, FLOR) Oxygen Method: Room Air (Lola Schofield, FLOR) Patient Position/Activity: Right Lateral; Low Fowlers (Lola Schofield, FLOR) Communication: RN at Bedside; RN Reviewed Strip (Lola Schofield RN) LaborFlag: Labor (QS system process)
[2016-03-24] MEDS ORDERED: PROMETHAZINE HCL INJ 25 MG/1 ML VIAL IV PRN (22:37)
[2016-03-24] MEDS ORDERED: OXYTOCIN/NORMAL SALINE 20 UNIT/1,000 ML RTUINJ IV PRN (22:37)
[2016-03-24] MEDS ORDERED: MEASLES,MUMPS&RUBELLA VACC/PF 0.5 ML VIAL SUBCUT PRN (22:37)
[2016-03-24] MEDS ORDERED: SIMETHICONE 80 MG TAB.CHEW PO PRN (22:37)
[2016-03-24] MEDS ORDERED: OXYCODONE-ACETAMINOPHEN 5-325 MG TABLET PO PRN (22:37)
[2016-03-24] MEDS ORDERED: DIPH/PERTUSS(ACELL)/TETANUS VAC/PF 0.5 ML SYR (>=10YO) IM PRN (22:37)
[2016-03-24] MEDS ORDERED: ACETAMINOPHEN 100 ML IV PRN (22:37)
[2016-03-24] MEDS ORDERED: RINGERS SOLUTION,LACTATED 1,000 ML IV PRN (22:37)
[2016-03-24] MEDS ORDERED: ACETAMINOPHEN 325 MG TABLET PO PRN (22:37)
--- NOTE | 2016-03-24 22:41 | Admission Physical ---
Datetime Report Generated by CPN: 03/24/2016 22:41 CURRENT ADMISSION Chief Complaint: Scheduled Induction of Labor Indication for Induction: Post Dates Admit Plan: Admit to Unit; Initiate Labor Induction Protocol ALLERGIES Medication Allergies: No Medication Allergies: No Known Allergies (03/23/2016) Latex: No Latex Allergies Food Allergies: denies Environmental Allergies: denies OBSTETRICAL HISTORY EDC: 03/15/2016 00:00 : 1 Para: 0 Term: 0 : 0 SAB: 0 IAB: 0 Ectopic: 0 Livin Cesareans: 0 VBACs: 0 Multiple Births: 0 Gestational Diabetes: No Rh Sensitization: No Incompetent Cervix: No ANNA: No Infertility: No ART Treatment: No Uterine Anomaly: No IUGR: No Hx Previous C/S: No Macrosomia: No Hx Loss/Stillborn: No PIH: No Hx : No Placenta Previa/Abruption: No Depression/PP Depression: No PTL/PROM: No Post Hemorrhage: No Current Procedures: Ultrasound Obstetrical History Comments: G1-Current SEE RECORDS Alcohol: No Marijuana : No Cocaine: No Other Illicit Drugs: No Cigarettes: Former Smoker. [id number] MEDICAL HISTORY Diabetes: No Blood Transfusion: No Pulmonary Disease (Asthma, TB): No Breast Disease: No Hypertension: No Dough Raiser Surgery: No Heart Disease: No Hosp/Surgery: No Autoimmune Disorder: No Anesthetic Complications: No Kidney Disease: No Abnormal Pap Smear: No Neuro/Epilepsy: No Psychiatric Disorders: No Other Medical Diseases: No Hepatitis/Liver Disease: No Significant Family History: No Varicosities/Phlebitis: No Trauma/Violence : No Thyroid Dysfunction: No INFECTIOUS HISTORY Gonorrhea: No Genital Herpes: No Chlamydia: No Tuberculosis: No Syphilis: No Hepatitis: No HIV/AIDS Exposure: No Rash or Viral Illness: No HPV: No PHYSICAL EXAM General: Normal HEENT: Normal Neurologic: Normal Thyroid: Normal Heart: Normal Lungs: Normal Breast: Normal Back: Normal Abdomen: Normal Genitourinary Exam: Normal Extremities: Normal DTRs: Normal Pelvic Type: Adequate Vital Signs: Reviewed VAGINAL EXAM Dilatation: 1 Effacement: 50 Station: -3 MEMBRANES Pooling: Negative Membranes: Intact FETUS A EGA: 41.1 Monitoring: External US FHR- Baseline: 140 Variability: Moderate 6-25bpm Accelerations: 15X15 FHR Category: Category I Estimated Weight (gm): 4000 Presentation: Vertex Admit Comment: cervidil for tonight. reassess in AM for continued managment PLANS FOR LABOR AND DELIVERY Labor and Delivery: None Pain Management: Epidural Feeding Preference: Formula Benefit of Breast Feed Discussed: Yes Circumcision: N/A INFORMED CONSENT Signature: with User ID: [email or web address]
[2016-03-24] MEDS ORDERED: KETOROLAC TROMETHAMINE INJ/PF 30 MG/1 ML SDV IV ONE (22:45)
[2016-03-25] MEDS: HYDROMORPHONE HCL INJ/PF 2 MG/ML AMPULE IV PRN ×2 (00:07→03:48)
[2016-03-25] MEDS: KETOROLAC TROMETHAMINE INJ/PF 30 MG/1 ML SDV IV SCH ×2 (05:53→13:46)
--- NOTE | 2016-03-25 06:24 | L&D General Admission ---
General Admit Datetime Report Generated by CPN: 03/25/2016 06:00 INFORMATION Patient Age: 25 (03/23/2016 18:29:QS system process) EDC: 03/15/2016 00:00 (03/23/2016 18:43:Jessica Rodrigo, RNC) : 1 (03/23/2016 18:43:Jessica Camp, RNC) Para: 0 (03/23/2016 18:43:Jessica Camp, RNC) Term: 0 (03/23/2016 18:43:Jessica Camp, RNC) : 0 (03/23/2016 18:43:Jessica Camp, RNC) Spontaneous Abortions: 0 (03/23/2016 18:43:Jessica Camp, RNC) Induced Abortions: 0 (03/23/2016 18:43:Jessica Camp, RNC) Livin (03/23/2016 18:43:Jessica Camp, RNC) Cesareans: 0 (03/23/2016 18:43:Jessica Wallace RNC) VBACs: 0 (03/23/2016 18:43:Jessica Camp, RNC) [facility]: [facility] Multiple Births: 0 (03/23/2016 18:43:[facility]) Baby, Number in Womb: 1 (03/23/2016 [facility] CARE Primary Machine Tool Electrician: [facility] (03/23/2016 18:43:Elizabeth Mitchell RN) Month of 1st Visit: August (03/23/2016 18:43:Elizabeth Mitchell RN) Adequate Care: Yes (03/23/2016 18:43:Elizabeth Mitchell RN) Prepregnancy Weight (lb): 135 (03/23/2016 18:43:Elizabeth Mitchell RN) Prepregnancy Weight (kg): 61.4 (03/23/2016 18:43:QS system process) Height (in): 64 (03/24/2016 22:40:QS system process) ALLERGIES Medication Allergy: No (03/23/2016 18:43:Elizabeth Mitchell RN) Medication Allergies: No Known Allergies (03/23/2016) (03/23/2016 18:45:QS system process) Latex Allergy: No Latex Allergies (03/23/2016 18:43:Elizabeth Mitchell RN) Food Allergies: denies (03/23/2016 18:43:Elizabeth Mitchell RN) Environmental Allergies: denies (03/23/2016 18:43:Elizabeth Mitchell RN) COMMUNICATION Primary Language: Angolan (03/23/2016 18:43:Elizabeth Mitchell RN) Medical Tx Preferred Language: Angolan (Annotations: Data stored by [facility] on behalf of user) (03/23/2016 18:43:Francisca Gottlieb RN) Communication Barrier(s): None (03/23/2016 18:43:Elizabeth Mitchell RN) DEMOGRAPHICS Address: [address] [place] [address] (03/23/2016 18:29:QS system process) Zipcode: [address] (03/23/2016 18:29:QS system process) Home (03/23/2016 18:29:QS system process) N: [phone] (03/23/2016 18:29:QS system process) Next of Kin Name: GINO TUTTLE (03/23/2016 18:29:QS system process) Next of Kin (03/23/2016 18:29:QS system process) Next of Kin Relationship: OR (03/23/2016 18:29:QS system process) Date of : 1990 (03/23/2016 18:29:QS system process) Marital Status: Single (03/23/2016 18:29:QS system process) Sex: Female (03/23/2016 18:29:QS system process) Race: (03/23/2016 18:29:QS system process) Ethnicity: Non- or (03/23/2016 18:29:QS system process) Anglican: None (03/23/2016 18:29:QS system process) DRUG AND ALCOHOL USE Alcohol: No (03/23/2016 18:43:Elizabeth Mitchell RN) Cigarettes: Former Smoker. [id number] (03/23/2016 18:43:Elizabeth Mitchell RN) Marijuana: No (03/23/2016 18:43:Elizabeth Mitchell RN) Cocaine: No (03/23/2016 18:43:Elizabeth Mitchell RN) Other Illicit Drugs: No (03/23/2016 18:43:Elizabeth Mitchell RN) VACCINE HISTORY Influenza Vaccine: Yes (03/23/2016 18:43:Elizabeth Mitchell RN) Pneumococcal Vaccine: No (03/23/2016 18:43:Elizabeth Mitchell RN) Tetanus Vaccine: Yes (03/23/2016 18:43:Lola Schofield RN) Tdap Vaccine: Yes (03/23/2016 18:43:Elizabeth Mitchell RN) Hepatitis B Vaccine: Yes (03/23/2016 18:43:Elizabeth Mitchell RN) Low Pressure Boiler Operator: [facility] (03/23/2016 18:43:Elizabeth Mitchell RN) Feeding Preference: Formula (03/23/2016 18:43:Elizabeth Mitchell RN) Benefit of Breast Feed Discussed: Yes (03/23/2016 18:43:Elizabeth Mitchell RN) Circumcision: N/A (03/23/2016 18:43:Elizabeth Mitchell RN) Classes Attended: No (03/23/2016 18:43:Elizabeth Mitchell RN) Tubal Ligation: No (03/23/2016 18:43:Elizabeth Mitchell RN) Consent: N/A (03/23/2016 18:43:Elizabeth Mitchell RN) Consent Signed: N/A (03/23/2016 18:43:Elizabeth Mitchell RN) Pain Management Plans: Epidural (03/23/2016 18:43:Elizabeth Mitchell RN) Plans for Labor and Delivery: None (03/23/2016 18:43:Elizabeth Mitchell RN) Support Person: Nacho Corado (03/23/2016 18:43:Elizabeth Mitchell RN) Support Person Relationship: Significant Other (03/23/2016 18:43:Elizabeth Mitchell RN) Cultural/Spritual Practice: No (03/23/2016 18:43:Elizabeth Mitchell RN) Spir/Cult Dietary Needs: No (03/23/2016 18:43:Elizabeth Mitchell RN) LIVING SITUATION/DISCHARGE PLAN Living Arrangements: House (03/23/2016 18:43:Elizabeth Mitchell RN) Adequate Access to:: Electric; Heat; Refrigeration; Plumbing/Running water; Phone; Transportation (03/23/2016 18:43:Elizabeth Mitchell RN) WIC Program: Yes (03/23/2016 18:43:Elizabeth Mitchell RN) Discharge Senior Construction Project Manager Person: Erik Corado (03/23/2016 18:43:Elizabeth Mitchell RN) Person to Help after Discharge: Erik Corado (03/23/2016 18:43:Elizabeth Mitchell RN) Currently Using Commun Resources: No (03/23/2016 18:43:Elizabeth Mitchell RN) Outside Agency/French Translator: No (03/23/2016 18:43:Elizabeth Mitchell RN) Car Seat for Discharge: No (03/23/2016 18:43:Elizabeth Mitchell RN) Need Help to Obtain Car Seat: will have prior to discharge (03/23/2016 18:43:Elizabeth Mitchell RN) Adoption Requested: No (03/23/2016 18:43:Elizabeth Mitchell RN) Pt Contact w/ Post : N/A (03/23/2016 18:43:Elizabeth Mitchell RN) LABS Blood Type: O Positive (03/23/2016 18:43:Elizabeth Mitchell RN) Antibody Screen: Negative (03/23/2016 18:43:Elizabeth Mitchell RN) Hemoglobin: 13.2 (03/23/2016 19:41:QS system process) Hematocrit: 39.2 (03/23/2016 19:41:QS system process) MCV: 92 (03/23/2016 19:41:QS system process) Group Beta Strep: POSITIVE (03/23/2016 18:43:Elizabeth Mitchell RN) Gonorrhea: Negative (03/23/2016 18:43:Elizabeth Mitchell RN) Chlamydia: Negative (03/23/2016 18:43:Elizabeth Mitchell RN) RPR/VDRL: Nonreactive (03/23/2016 18:43:Elizabeth Mitchell RN) HIV Exposure Test: Negative (03/23/2016 18:43:Elizabeth Mitchell RN) Hepatitis B: Negative (03/23/2016 18:43:Elizabeth Mitchell RN) Rubella: Immune (03/23/2016 18:43:Elizabeth Mitchell RN) Varicella: Non Susceptible (03/23/2016 18:43:Elizabeth iMtchell RN) OB/PREVIOUS HISTORY Previous Procedures: None (03/23/2016 18:43:Elizabeth Mitchell RN) Current Procedures: Ultrasound (03/23/2016 18:43:Elizabeth Mitchell RN) History of Previous : No (03/23/2016 18:43:Elizabeth Mitchell RN) History of Gestational Diabetes: No (03/23/2016 18:43:Elizabeth Mitchell RN) History of PIH: No (03/23/2016 18:43:Elizabeth Mitchell RN) History of Incompetent Cervix: No (03/23/2016 18:43:Elizabeth Mitchell RN) History of Placenta Previa/Abrup: No (03/23/2016 18:43:Elizabeth Mitchell RN) History of Macrosomia: No (03/23/2016 18:43:Elizabeth Mitchell RN) History of IUGR: No (03/23/2016 18:43:Elizabeth Mitchell RN) History of Hemorrhage: No (03/23/2016 18:43:Elizabeth Mitchell RN) History of Loss/Stillborn: No (03/23/2016 18:43:Elizabeth Mitchell RN) History of : No (03/23/2016 18:43:Elizabeth Mitchell RN) History of D (Rh) Sensitization: No (03/23/2016 18:43:Elizabeth Mitchell RN) History Recurrent Loss/Stillborn: No (03/23/2016 18:43:Elizabeth Mitchell RN) History Depression/PP Depression: No (03/23/2016 18:43:Elizabeth Mitchell RN) History of Uterine Anomaly/ANNA: No (03/23/2016 18:43:Elizabeth Mitchell RN) History of Infertility: No (03/23/2016 18:43:Elizabeth Mitchell RN) History of ART Treatment: No (03/23/2016 18:43:Elizabeth Mitchell RN) History of ANNA: No (03/23/2016 18:43:Elizabeth Mitchell RN) Comments Obstetrical History: G1-Current (03/23/2016 18:43:Jacy Morris RN) MEDICAL HISTORY Med Hx Diabetes: No (03/23/2016 18:43:Elizabeth Mitchell RN) Med Hx Hypertension: No (03/23/2016 18:43:Elizabeth Mitchell RN) Med Hx Heart Disease: No (03/23/2016 18:43:Elizabeth Mitchell RN) Med Hx Autoimmune Disorder: No (03/23/2016 18:43:Elizabeth Mitchell RN) Med Hx Kidney Disease/UTI: No (03/23/2016 18:43:Elizabeth Mitchell RN) Med Hx Neurologic/Epilepsy: No (03/23/2016 18:43:Elizabeth Mitchell RN) Med Hx Psychiatric Disorders: No (03/23/2016 18:43:Elizabeth Mitchell RN) Med Hx Hepatitis/Liver Disease: No (03/23/2016 18:43:Elizabeth Mitchell RN) Med Hx Varicosities/Phlebitis: No (03/23/2016 18:43:Elizabeth Mitchell RN) Med Hx Thyroid Dysfunction: No (03/23/2016 18:43:Elizabeth Mitchell RN) Med Hx Trauma/Violence: No (03/23/2016 18:43:Elizabeth Mitchell RN) Med Hx Blood Transfusion: No (03/23/2016 18:43:Elizabeth Mitchell RN) Med Hx Pulmonary (Asthma,TB): No (03/23/2016 18:43:Elizabeth Mitchell RN) Med Hx Breast: No (03/23/2016 18:43:Elizabeth Mitchell RN) Med Hx BEHAVIORAL PSYCHOLOGIST Surgery: No (03/23/2016 18:43:Elizabeth Mitchell RN) Med Hx Hospitalization/Surgery: No (03/23/2016 18:43:Elizabeth Mitchell RN) Med Hx Anesthetic Complications: No (03/23/2016 18:43:Elizabeth Mitchell RN) Med Hx Abnormal Pap Smear: No (03/23/2016 18:43:Elizabeth Mitchell RN) Other Medical Diseases: No (03/23/2016 18:43:Elizabeth Mitchell RN) Med Hx Significant Family Hx: No (03/23/2016 18:43:Elizabeth Mitchell RN) INFECTIOUS HISTORY Inf Hx Gonorrhea: No (03/23/2016 18:43:Elizabeth Mitchell RN) Inf Hx Chlamydia: No (03/23/2016 18:43:Elizabeth Mitchell RN) Inf Hx Syphilis: No (03/23/2016 18:43:Elizabeth Mitchell RN) Inf Hx HIV/AIDS: No (03/23/2016 18:43:Elizabeth Mitchell RN) Inf Hx Human Papilloma Virus: No (03/23/2016 18:43:Elizabeth Mitchell RN) Inf Hx Pt/Partner Genital Herpes: No (03/23/2016 18:43:Elizabeth Mitchell RN) Inf Hx Tuberculosis/Exposure: No (03/23/2016 18:43:Elizabeth Mitchell RN) Inf Hx Hepatitis B,C: No (03/23/2016 18:43:Elizabeth Mitchell RN) Inf Hx Rash or Viral Illness: No (03/23/2016 18:43:Elizabeth Mitchell RN) GENETIC HISTORY Gen Hx Age >=35 at [place]: No (03/23/2016 18:43:Elizabeth Mitchell RN) Gen Hx Thalassemia: No (03/23/2016 18:43:Elizabeth Mitchell RN) Gen Hx Congenital Heart Defect: No (03/23/2016 18:43:Elizabeth Mitchell RN) Gen Hx Neural Tube Defect: No (03/23/2016 18:43:Elizabeth Mitchell RN) Gen Hx Down's Syndrome: No (03/23/2016 18:43:Elizabeth Mitchell RN) Gen Hx Jesus-Sachs: No (03/23/2016 18:43:Elizabeth Mitchell RN) Gen Hx Fredis: No (03/23/2016 18:43:Elizabeth Mitchell RN) Gen Hx Familial Dysautonomia: No (03/23/2016 18:43:Elizabeth Mitchell RN) Gen Hx Sickle Cell Disease/Trait: No (03/23/2016 18:43:Elizabeth Mitchell RN) Gen Hx Hemophilia/Blood Disorder: No (03/23/2016 18:43:Elizabeth Mitchell RN) Gen Hx Muscular Dystrophy: No (03/23/2016 18:43:Elizabeth Mitchell RN) Gen Hx Cystic Fibrosis: No (03/23/2016 18:43:Elizabeth Mitchell RN) Gen Hx Huntingtons Chorea: No (03/23/2016 18:43:Elizabeth Mitchell RN) Gen Hx Mental Retardation/Autism: No (03/23/2016 18:43:Elizabeth Mitchell RN) Gen Hx Tested for Fragile X: No (03/23/2016 18:43:Elizabeth Mitchell RN) Gen Hx Other Inher/Chromosomal: No (03/23/2016 18:43:Elizabeth Mitchell RN) Gen Hx Maternal Metabolic DO: No (03/23/2016 18:43:Elizabeth Mithcell RN) Gen Hx Pt Father or FOB Defect: No (03/23/2016 18:43:Elizabeth Mitchell RN) Gen Hx Other Genetic History: No (03/23/2016 18:43:Elizabeth Mitchell RN) Gen Hx Drugs/Meds since LMP: No (03/23/2016 18:43:Elizabeth Mitchell RN)
--- NOTE | 2016-03-25 06:24 | L&D Current Admission ---
Current Admit Datetime Report Generated by CPN: 03/25/2016 06:00 ADMISSION INFORMATION Current Admit Date/Time: 03/23/2016 18:45 (03/23/2016 19:20:Elizabeth Mitchell RN) Reason for Admission: Induction of Labor (03/23/2016 19:20:Elizabeth Mitchell RN) Chief Complaint: Scheduled Induction of Labor (03/23/2016 19:22:Elizabeth Mitchell RN) Medications During : Vitamin (03/23/2016 19:20:Elizabeth Mitchell RN) EGA per Dates: 41.1 (03/23/2016 19:20:QS system process) Method of Arrival: Ambulatory (03/23/2016 19:20:Elizabeth Mitchell RN) Admitted From: Home (03/23/2016 19:20:Elizabeth Mitchell RN) Reason for Induction: Postterm (03/23/2016 19:20:Elizabeth Mitchell RN) Records Available: Yes (03/23/2016 19:20:Elizabeth Mitchell RN) General Admission Information: Reviewed (03/23/2016 19:20:Elizabeth Mitchell RN) General Admission Reviewed By: Sha Mitchell RN (03/23/2016 19:20:Elizabeth Mitchell RN) BELONGINGS/ADVANCED DIRECTIVES Valuables/Personal Effects: Purse/Wallet; Cell Phone; Eyeglasses (03/23/2016 19:20:Elizabeth Mitchell RN) Other Belongings: See [facility] belongings form (03/23/2016 19:20:Elizabeth Mitchell RN) Disposition of Belongings: Kept with Patient (03/23/2016 19:20:Elizabeth Mitchell RN) Advance Direct for Healthcare: No, and Wants No Information (03/23/2016 19:20:Elizabeth Mitchell RN) Durable Power of Selling Manager: No (03/23/2016 19:20:Elizabeth Mitchell RN) Living Will: No (03/23/2016 19:20:Elizabeth Mitchell RN) Organ Donor: No (03/23/2016 19:20:Elizabeth Mitchell RN) Pt Rights Information Given: Yes (03/23/2016 19:20:Elizabeth Mitchell RN) Pt Understands Pt Rights: Yes (03/23/2016 19:20:Elizabeth Mitchell RN) LEARNING ASSESSMENT Knowledge Level: Understands L_D Process; Understands Care Activities; Had Pre-Hospital Education; Understands Diagnosis (03/23/2016 19:20:Elizabeth Mitchell RN) Barriers to Learning: None (03/23/2016 19:20:Elizabeth Mitchell RN) Learning Readiness: Motivated (03/23/2016 19:20:Elizabeth Mitchell RN) Learns Best By: 1 to 1 Instruction (03/23/2016 19:20:Elizabeth Mitchell RN) Learning Needs: Labor and Delivery Process; Pain Management; Symptoms to Report; Treatment Plan; Medication; Diagnosis; Nutrition; Equipment; Infant Care; Community Resources (03/23/2016 19:20:Elizabeth Mitchell RN) DOMESTIC VIOLANCE SCREENING Dom Viol Threatened/Hurt: No (03/23/2016 19:20:Elizabeth Mitchell RN) Hx of Abuse/Neglect past 2yrs: No (03/23/2016 19:20:Elizabeth Mitchell RN) Feel Unsafe Going Home: No (03/23/2016 19:20:Elizabeth Mitchell RN) Addt'l Observ Indicating Abuse: No (03/23/2016 19:20:Elizabeth Mitchell RN) Reason Unable to Complete Screen: N/A, Screen Completed (03/23/2016 19:20:Elizabeth Mitchell RN) Considered Personal Harm/Suicide: No (03/23/2016 19:20:Elizabeth Mitchell RN) NUTRITIONAL/FUNCTIONAL SCREENING Problem with Appetite >5 Days: No (03/23/2016 19:20:Elizabeth Mitchell RN) Chew/Swallow Difficulties: No (03/23/2016 19:20:Elizabeth Mitchell RN) Inappropriate Wt Gain/Loss: No (03/23/2016 19:20:Elizabeth Mitchell RN) Presence Skin Breakdown/Ulcer: No (03/23/2016 19:20:Elizabeth Mitchell RN) Special Diet: No (03/23/2016 19:20:Elizabeth Mitchell RN) Pt Requests Geodetic Computator Visit: No (03/23/2016 19:20:Elizabeth Mitchell RN) Hx of Any of the Following?: N/A (03/23/2016 19:20:Elizabeth Mitchell RN) New Diagnosis of: N/A (03/23/2016 19:20:Elizabeth Mitchell RN) Requires Assist w/Ambulation: No (03/23/2016 19:20:Elizabeth Mitchell RN) Uses Assist Device to Ambulate: No (03/23/2016 19:20:Elizabeth Mitchell RN) Pt Requires Help w/ADL's: No (03/23/2016 19:20:Elizabteh Mitchell RN)
--- NOTE | 2016-03-25 07:01 | L&D Flow Sheet ---
LD Flowsheet Datetime Report Generated by CPN: 03/25/2016 07:00 Datetime: 03/24/2016 22:31 Pulse: 88 (QS system process) SpO2 (%): 97 (QS system process) Datetime: 03/24/2016 22:30 Temperature (F): 97.7 (Anna Alcazar) Temperature (C): 36.5 (QS system process) Temperature Route: Oral (Anna Alcazar) Datetime: 03/24/2016 22:26 Pulse: 92 (QS system process) SpO2 (%): 96 (QS system process) Datetime: 03/24/2016 22:23 NBP Sys/Elsa/Mean (mmHg): 126 (QS system process) : 64 (QS system process) : 88 (QS system process) Pulse: 92 (QS system process) Datetime: 03/24/2016 22:21 Pulse: 89 (QS system process) SpO2 (%): 96 (QS system process) Datetime: 03/24/2016 22:16 Pulse: 93 (QS system process) SpO2 (%): 97 (QS system process) Datetime: 03/24/2016 22:11 Pulse: 93 (QS system process) SpO2 (%): 96 (QS system process) Datetime: 03/24/2016 22:08 NBP Sys/Elsa/Mean (mmHg): 134 (QS system process) : 68 (QS system process) : 92 (QS system process) Pulse: 95 (QS system process) Datetime: 03/24/2016 22:06 Pulse: 88 (QS system process) SpO2 (%): 97 (QS system process) Datetime: 03/24/2016 22:01 Pulse: 100 (QS system process) SpO2 (%): 97 (QS system process) Datetime: 03/24/2016 22:00 Stage of : Recovery (Anna Alcazar) Pain Scale: 0 (Anna Alcazar) Pain Presence: None/Denies (Anna Alcazar) Datetime: 03/24/2016 21:56 Pulse: 85 (QS system process) SpO2 (%): 98 (QS system process) Datetime: 03/24/2016 21:54 NBP Sys/Elsa/Mean (mmHg): 132 (QS system process) : 74 (QS system process) : 96 (QS system process) Pulse: 85 (QS system process) Datetime: 03/24/2016 21:51 Pulse: 89 (QS system process) SpO2 (%): 98 (QS system process) Datetime: 03/24/2016 21:46 Pulse: 94 (QS system process) SpO2 (%): 97 (QS system process) Datetime: 03/24/2016 21:41 Pulse: 91 (QS system process) SpO2 (%): 97 (QS system process) Datetime: 03/24/2016 21:39 NBP Sys/Elsa/Mean (mmHg): 134 (QS system process) : 74 (QS system process) : 96 (QS system process) Pulse: 86 (QS system process) Datetime: 03/24/2016 21:36 Pulse: 94 (QS system process) SpO2 (%): 98 (QS system process) Datetime: 03/24/2016 21:33 Pulse: 110 (QS system process) SpO2 (%): 93 (QS system process) Datetime: 03/24/2016 21:31 Pulse: 104 (QS system process) SpO2 (%): 97 (QS system process) Datetime: 03/24/2016 21:26 Pulse: 96 (QS system process) SpO2 (%): 97 (QS system process) Datetime: 03/24/2016 21:24 NBP Sys/Elsa/Mean (mmHg): 139 (QS system process) : 91 (QS system process) : 108 (QS system process) Pulse: 105 (QS system process) Datetime: 03/24/2016 21:21 Pulse: 94 (QS system process) SpO2 (%): 98 (QS system process) Datetime: 03/24/2016 21:16 Pulse: 101 (QS system process) SpO2 (%): 97 (QS system process) Datetime: 03/24/2016 21:11 Pulse: 108 (QS system process) SpO2 (%): 96 (QS system process) Datetime: 03/24/2016 21:10 NBP Sys/Elsa/Mean (mmHg): 151 (QS system process) : 77 (QS system process) : 107 (QS system process) Pulse: 105 (QS system process) Datetime: 03/24/2016 21:06 Pulse: 95 (QS system process) SpO2 (%): 96 (QS system process) Datetime: 03/24/2016 21:01 Pulse: 102 (QS system process) SpO2 (%): 96 (QS system process) Datetime: 03/24/2016 20:56 Pulse: 103 (QS system process) SpO2 (%): 96 (QS system process) Datetime: 03/24/2016 20:53 Pulse: 108 (QS system process) SpO2 (%): 94 (QS system process) Datetime: 03/24/2016 20:51 Pulse: 111 (QS system process) SpO2 (%): 95 (QS system process) Datetime: 03/24/2016 20:46 Pulse: 112 (QS system process) SpO2 (%): 94 (QS system process) Datetime: 03/24/2016 20:45 Pulse: 119 (QS system process) SpO2 (%): 94 (QS system process) Datetime: 03/24/2016 20:42 NBP Sys/Elsa/Mean (mmHg): 133 (QS system process) : 64 (QS system process) : 90 (QS system process) Pulse: 122 (QS system process) Datetime: 03/24/2016 20:41 Stage of : Recovery (Anna Alcazar) Pulse: 125 (QS system process) SpO2 (%): 95 (QS system process) Datetime: 03/24/2016 20:39 Temperature (F): 97.9 (Anna Alcazar) Temperature (C): 36.6 (QS system process) Pain Scale: 0 (Anna Alcazar) Pain Presence: None/Denies (Anna Alcazar) LaborFlag: Labor (QS system process) Datetime: 03/24/2016 20:09 Patient Care Comments: delivery of viable baby girl via . (Anna Alcazar) Datetime: 03/24/2016 19:43 Patient Care Comments: patient transported to OR via hospital bed in stable condition. (Anna Alcazar) Datetime: 03/24/2016 19:40 Antibiotics: Ancef IV (Gm) @ (Annotations: 2gm) (Anna Alcazar) Datetime: 03/24/2016 19:35 Antiemetics/Antacids: Bicitra 15 ml PO (Anna Alcazar) Datetime: 03/24/2016 19:30 IV/Blood Work: New IV Bag Hung (Primo Vilchis, RN) Patient Care Comments: LR infusing at bolus rate (Primo Vilchis, RN) Datetime: 03/24/2016 19:27 Maternal Comments: ady prep completed (Rucsandra Mame, RN) Datetime: 03/24/2016 19:24 Maternal Comments: ady prep (Rucsandra Mame, RN) Datetime: 03/24/2016 19:23 Maternal Comments: shave prep completed (Rucsandra Mame, RN) Datetime: 03/24/2016 19:21 Maternal Comments: Meehan emptied 600ml of clear yellow urine. (Rucsandra Mame, RN) Datetime: 03/24/2016 19:20 NBP Sys/Elsa/Mean (mmHg): 134 (QS system process) : 71 (QS system process) : 97 (QS system process) Pulse: 90 (QS system process) LaborFlag: Labor (QS system process) Datetime: 03/24/2016 19:19 Communication Comments: 2 South notified of impending Section. (Ele Olivia, RN) Datetime: 03/24/2016 19:18 Maternal Comments: SCDs and TEDs applied. (Rucsandra Mame, RN) Datetime: 03/24/2016 19:16 Communication Comments: KMcDowell, DOUGHNUT ICER informed of impending . (Ele Olivia, RN) Datetime: 03/24/2016 19:15 Communication Comments: Nursing Turret Punch Operator, Elidia informed of impending . (Ele Olivia, RN) Datetime: 03/24/2016 19:14 Communication Comments: NBN notified of impending . (Ele Baker, RN) Datetime: 03/24/2016 19:10 Dilatation (cm): 9.0 (Annotations: thick lip all around) (Anna Alcazar) Effacement (%): 90 (Anna Alcazar) Station: 1 ([facility]) Exam by: Dr Ramirez ([facility]) Patient Care Comments: Dr Ramirez in to eval the patient. No change in the cervix. discussed with the patient and called. (Anna Alcazar) Datetime: 03/24/2016 19:04 NBP Sys/Elsa/Mean (mmHg): 125 (QS system process) : 84 (QS system process) : 101 (QS system process) Pulse: 100 (QS system process) LaborFlag: Labor (QS system process) Datetime: 03/24/2016 19:00 Stage of : Labor (Lola Schofield RN) Respirations: 20 (Lola Schofield RN) Monitor Mode: Internal (Lola Schofield RN) Frequency (min): 2-3 (Lola Schofield RN) Quality: Moderate to Strong (Lola Schofield RN) Duration (sec): 70-90 (Lola Schofield RN) Resting Tone (Palpate): Relaxed (Lola Schofield RN) Monitor Mode: External US (Lola Schofield RN) FHR Baseline Rate : 130 (Lola Schofield RN) FHR Baseline Changes: No Baseline Change (Lola Schofield RN) Variability: Moderate 6-25 bpm (Lola Schofield, FLOR) Accelerations: 15X15 (Lola Schofield RN) Decelerations: None (Lola Schofield RN) Pain Scale: 3 (Lola Schofield RN) Pain Presence: Intermittent (Lola Schofield RN) Pain Type: Pressure (Lola Schofield RN) Pain Location: Back (Lola Schofield RN) Pain Relief Measures: Comfort Measures (Lola Schofield RN) Pain Coping: Breathing Through Contractions (Lola Schofield RN) IV/Blood Work: IV Infusing per Order (Lola Schofield RN) Patient Position/Activity: Peanut Ball; Right Extreme (Lola Schofield, FLOR) Comfort Measures: Breathing/Relaxation; Family Support (Lola Schofield, FLOR) Communication: RN Reviewed Strip (Lola Schofield, FLOR) LaborFlag: Labor (QS system process)
[2016-03-25 07:35] LABS: HEMATOCRIT 34.4 % (36.0-47.0); HEMOGLOBIN 11.4 g/dL (12.0-15.5); HGB HCT DIFFERENCE -0.2; MEAN CORPUSCULAR HEMOGLOBIN 30.4 pg (27.0-33.4); MEAN CORPUSCULAR HGB CONC 33.1 g/dL (32.0-36.0); MEAN CORPUSCULAR VOLUME 92 fl (80-97); RED BLOOD COUNT 3.75 10^6/uL (3.72-5.28); RED CELL DISTRIBUTION WIDTH 14.1 % (11.5-14.0); WHITE BLOOD COUNT 16.4 10^3/uL (4.0-10.5)
[2016-03-25] MEDS: OXYCODONE-ACETAMINOPHEN 5-325 MG TABLET PO PRN ×4 (08:24→22:25)
[2016-03-25] MEDS: PRENATAL VITAMIN W-O CA NO5/FE FUMARATE/FA CAPSULE PO SCH (10:46)
[2016-03-25] MEDS: DOCUSATE SODIUM 100 MG CAPSULE PO SCH ×2 (10:46→17:52)
--- NOTE | 2016-03-25 13:11 | PDOC PROGRESS REPORT ---
Subjective-OB Subjective: Post Delivery Day:1 25 year old s/p primary . Ambulating, voiding, passing gas. Denies any needs at this time Physical Exam (OB) Vital Signs: Temp Pulse Resp BP Pulse Ox 98.3 F 91 17 122/63 95 03/25/16 08:25 03/25/16 08:25 03/25/16 08:25 03/25/16 08:25 03/25/16 08:25 Intake & Output 03/24/16 03/25/16 03/26/16 06:59 06:59 06:59 Output Total 1600 850 Balance -1600 -850 Weight 91.65 kg - General General Appearance: Appears well In distress: None - Dressing Removed: No - boby in place Incision: Dressing Closure Type: Boby - Lochia Lochia Amount: Scant < 10 ml Lochia Color: Rubra/Red - Abdomen Description: Soft, Round Hernia Present: No Fundal Description: Firm, Midline Fundal Height: u/u - u/2 - Respiratory Respiratory Status: No respiratory distress - Extremities Upper extremity: Normal inspection Lower extremities: Normal inspection - Neurological Orientation: AAOx4 - Psychological Associated symptoms: Normal affect, Normal mood - bonding well with baby, helpful at bedside Objective-Diagnostic Laboratory: 03/25/16 06:53 03/25/16 06:53 WBC 16.4 H RBC 3.75 Hgb 11.4 L Hct 34.4 L MCV 92 MCH 30.4 MCHC 33.1 RDW 14.1 H Plt Count 174 Assessment and Plan(PN) - Assessment and Plan (1) Status post primary low transverse section Is this a current diagnosis for this admission?: YesPlan: continue stay - Time Spent with Patient Time with patient: Less than 15 minutes Medications reviewed and adjusted accordingly: Yes - Disposition Anticipated Discharge: Home Within: within 24 hours
--- NOTE | 2016-03-25 16:19 | Delivery Summary ---
Del Sum A-C Datetime Report Generated by CPN: 03/25/2016 16:19 ADMISSION DATA Chief Complaint: Scheduled Induction of Labor Indication for Induction: Post Dates Admission Impression: Term, Intrauterine ; Induction of Labor Admit Provider Comments: cervidil for tonight. reassess in AM for continued managment DELIVERY PERSONNEL Delivery Doctor:: Lissy Ramirez MD Anesthesiologist:: Sabrina Chavez MD FOXER:: Marcelo Kilgore CRNA Labor and Delivery Nurse:: Anna Alcazar RNhose turner Nurse:: Primo Vilchis RN (Annotations: Data stored by CPN on behalf of user) Nurse Practitioner:: SHARMILA Cam Nursery Nurse:: Vandana Walker RN Nursery Nurse:: Maren Silva Teacher Preschool/COCOA ROASTER: Shanta Royal CST Teacher Preschool/COCOA ROASTER: Hillary Celestin, Additional Personnel: : Chantal Frias CNA MATERNAL INFORMATION Delivery Anesthesia: Epidural Medications After Delivery: Pitocin Bolus-Please Comment; Pitocin Drip 20 Units/1000ml NSS Estimated Blood Loss (ml): 600 Maternal Complications: None Provider Comments: Primary LTCS for failure to progress/arrest of dilatation. live female ap 8. thin mec noted in fluid. occiput posterior slightly asynclitic LABOR SUMMARY EDC: 03/15/2016 00:00 No. Babies in Womb: 1 Attempted: No Labor Anesthesia: Epidural LABOR INFORMATION Reason for Induction: Post Dates Onset of Labor: 03/24/2016 06:00 Cervical Ripening Agents: Cervidil Oxytocin: Induction Group B Beta Strep: POSITIVE Antibiotics # of Doses: 3 Antibiotics Time of Last Dose: 1717 Name of Antibiotic Given: PENICILLIN G Steroids Given: None Reason Steroids Not Administered: Not Applicable MEMBRANES Membranes Rupture Method: Artificial Rupture of Membranes: 03/24/2016 13:45 Length of Rupture (hr): 6.40 Amniotic Fluid Color: Light Meconium Amniotic Fluid Amount: Small STAGES OF LABOR Stage 3 hr: 0 Stage 3 min: 0 Total Time in Labor hr: 14 Total Time in Labor min: 9 VAGINAL DELIVERY Episiotomy: None Laceration Extension: N/A Laceration Type: None Sponge Count Correct: N/A Sharps Count Correct: N/A CSECTION DELIVERY Primary Indication: Secondary Arrest of Dilatation Secondary Indication: N/A CSection Urgency: Non-Scheduled CSection Incidence: Primary Labor: Labor Elective: Nonelective CSection Incision: Lower Uterine Transverse Uterine Closure: Double-layer closure BABY A INFORMATION Delivery Date/Time: 03/24/2016 20:09 Method of Delivery: Born in Route : No : N/A Forceps: N/A Vacuum Extraction: N/A Shoulder Dystocia : No PRESENTATION/POSITION BABY A Presentation: Cephalic Cephalic Presentation: Vertex Vertex Position: OP Breech Presentation: N/A PLACENTA INFORMATION BABY A Placenta Delivery Time : 03/24/2016 20:09 Placenta Method of Delivery: Manual Removal Placenta Status: Delivered SCORES BABY A Heart Rate 1 min: >100 bpm Resp Effort 1 min: Slow, Irregular Reflex Irritability 1 min: Cough or Sneeze or Pulls Away Muscle Tone 1 min: Active Motion Color 1 min: Body [place], Extremities Blue SCORE 1 MIN: 8 Heart Rate 5 min: >100 bpm Resp Effort 5 min: Good Cry Reflex Irritability 5 min: Cough or Sneeze or Pulls Away Muscle Tone 5 min: Active Motion Color 5 min: Body [place], Extremities Blue SCORE 5 MIN: 9 INFANT INFORMATION BABY A Gestational Age at Delivery: 41.2 Gestational Status: Late Term- 41- 41.6 Weeks Outcome : Liveborn Condition : Stable Infant Sex: Female IDENTIFICATION BABY A Infant Verification Date/Time: 03/24/2016 20:30 ID Band Number: [id number] Mother's Name Verified: Yes Infant RN Verifying : Anu Alcazar Rn Additional Verifying Personnel: Liv Vilchis RN WEIGHT/LENGTH BABY A Birthweight (gm): 3605 Weight (lb): 7 Weight (oz): 15 Infant Length (in): 21.00 Infant Length (cm): 53.34 CORD INFORMATION BABY A No. Cord Vessels: 3 Nuchal Cord : N/A Cord Blood Taken: Yes-For Eval (Mom's Blood Type - or O+) Suction: Mouth ASSESSMENT BABY A Complications: Multiple Late Decels; Multiple Variable Decels; Meconium; Other Complications- Other: nubain/phenergan @ 0620; BENADRYL @ 2219 Physical Findings at Delivery: Other Physical Findings- Other: see nursery notes Infant Respirations: Appears Normal Skin to Skin: No Hadoop Administrator/ALS Called : No Infant Care By: Ayaka Magallon Rn Transferred To: [facility] BABY B INFORMATION : N/A SIGNATURES Signature: with User ID: [email or web address]
[2016-03-26] MEDS: IBUPROFEN 800 MG TABLET PO SCH ×3 (00:52→11:37)
--- NOTE | 2016-03-26 06:24 | L&D General Admission ---
General Admit Datetime Report Generated by CPN: 03/26/2016 06:00 INFORMATION Patient Age: 25 (03/23/2016 18:29:QS system process) EDC: 03/15/2016 00:00 (03/23/2016 18:43:Jessica Rodrigo, RNC) : 1 (03/23/2016 18:43:Jessica Camp, RNC) Para: 0 (03/23/2016 18:43:Jessica Camp, RNC) Term: 0 (03/23/2016 18:43:Jessica Camp, RNC) : 0 (03/23/2016 18:43:Jessica Camp, RNC) Spontaneous Abortions: 0 (03/23/2016 18:43:Jessica Camp, RNC) Induced Abortions: 0 (03/23/2016 18:43:Jessica Camp, RNC) Livin (03/23/2016 18:43:Jessica Camp, RNC) Cesareans: 0 (03/23/2016 18:43:Jessica Wallace RNC) VBACs: 0 (03/23/2016 18:43:Jessica Camp, RNC) [facility]: [facility] Multiple Births: 0 (03/23/2016 18:43:[facility]) Baby, Number in Womb: 1 (03/23/2016 [facility] CARE Primary Silo Painter[facility] (03/23/2016 18:43:Elizabeth Mitchell RN) Month of 1st Visit: August (03/23/2016 18:43:Elizabeth Mitchell RN) Adequate Care: Yes (03/23/2016 18:43:Elizabeth Mitchell RN) Prepregnancy Weight (lb): 135 (03/23/2016 18:43:Elizabeth Mitchell RN) Prepregnancy Weight (kg): 61.4 (03/23/2016 18:43:QS system process) Height (in): 64 (03/24/2016 22:40:QS system process) ALLERGIES Medication Allergy: No (03/23/2016 18:43:Elizabeth Mitchell RN) Medication Allergies: No Known Allergies (03/23/2016) (03/23/2016 18:45:QS system process) Latex Allergy: No Latex Allergies (03/23/2016 18:43:Elizabeth Mitchell RN) Food Allergies: denies (03/23/2016 18:43:Elizabeth Mitchell RN) Environmental Allergies: denies (03/23/2016 18:43:Elizabeth Mitchell RN) COMMUNICATION Primary Language: Uzbek (03/23/2016 18:43:Elizabeth Mitchell RN) Medical Tx Preferred Language: Uzbek (Annotations: Data stored by [facility] on behalf of user) (03/23/2016 18:43:Francisca Gottlieb RN) Communication Barrier(s): None (03/23/2016 18:43:Elizabeth Mitchell RN) DEMOGRAPHICS Address: [address] [place] [address] (03/23/2016 18:29:QS system process) Zipcode: [address] (03/23/2016 18:29:QS system process) Home (03/23/2016 18:29:QS system process) N: [phone] (03/23/2016 18:29:QS system process) Next of Kin Name: GINO TUTTLE (03/23/2016 18:29:QS system process) Next of Kin (03/23/2016 18:29:QS system process) Next of Kin Relationship: OR (03/23/2016 18:29:QS system process) Date of : 1990 (03/23/2016 18:29:QS system process) Marital Status: Single (03/23/2016 18:29:QS system process) Sex: Female (03/23/2016 18:29:QS system process) Race: (03/23/2016 18:29:QS system process) Ethnicity: Non- or (03/23/2016 18:29:QS system process) Yazidi: None (03/23/2016 18:29:QS system process) DRUG AND ALCOHOL USE Alcohol: No (03/23/2016 18:43:Elizabeth Mitchell RN) Cigarettes: Former Smoker. [id number] (03/23/2016 18:43:Elizabeth Mitchell RN) Marijuana: No (03/23/2016 18:43:Elizabeth Mitchell RN) Cocaine: No (03/23/2016 18:43:Elizabeth Mitchell RN) Other Illicit Drugs: No (03/23/2016 18:43:Elizabeth Mitchell RN) VACCINE HISTORY Influenza Vaccine: Yes (03/23/2016 18:43:Elizabeth Mitchell RN) Pneumococcal Vaccine: No (03/23/2016 18:43:Elizabeth Mitchell RN) Tetanus Vaccine: Yes (03/23/2016 18:43:Lola Schofield RN) Tdap Vaccine: Yes (03/23/2016 18:43:Elizabeth Mitchell RN) Hepatitis B Vaccine: Yes (03/23/2016 18:43:Elizabeth Mitchell RN) Ink Printer: [facility] (03/23/2016 18:43:Elizabeth Mitchell RN) Feeding Preference: Formula (03/23/2016 18:43:Elizabeth Mitchell RN) Benefit of Breast Feed Discussed: Yes (03/23/2016 18:43:Elizabeth Mitchell RN) Circumcision: N/A (03/23/2016 18:43:Elizabeth Mitchell RN) Classes Attended: No (03/23/2016 18:43:Elizabeth Mitchell RN) Tubal Ligation: No (03/23/2016 18:43:Elizabeth Mitchell RN) Consent: N/A (03/23/2016 18:43:Elizabeth Mitchell RN) Consent Signed: N/A (03/23/2016 18:43:Elizabeth Mitchell RN) Pain Management Plans: Epidural (03/23/2016 18:43:Elizabeth Mitchell RN) Plans for Labor and Delivery: None (03/23/2016 18:43:Elizabeth Mitchell RN) Support Person: Nacho Corado (03/23/2016 18:43:Elizabeth Mitchell RN) Support Person Relationship: Significant Other (03/23/2016 18:43:Elizabeth Mitchell RN) Cultural/Spritual Practice: No (03/23/2016 18:43:Elizabeth Mitchell RN) Spir/Cult Dietary Needs: No (03/23/2016 18:43:Elizabeth Mitchell RN) LIVING SITUATION/DISCHARGE PLAN Living Arrangements: House (03/23/2016 18:43:Elizabeth Mitchell RN) Adequate Access to:: Electric; Heat; Refrigeration; Plumbing/Running water; Phone; Transportation (03/23/2016 18:43:Elizabeth Mitchell RN) WIC Program: Yes (03/23/2016 18:43:Elizabeth Mitchell RN) Discharge State Historical Society Director Person: Erik Corado (03/23/2016 18:43:Elizabeth Mitchell RN) Person to Help after Discharge: Erik Corado (03/23/2016 18:43:Elizabeth Mitchell RN) Currently Using Commun Resources: No (03/23/2016 18:43:Elizabeth Mitchell RN) Outside Agency/Government Guard: No (03/23/2016 18:43:Elizabeth Mitchell RN) Car Seat for Discharge: No (03/23/2016 18:43:Elizabeth Mitchell RN) Need Help to Obtain Car Seat: will have prior to discharge (03/23/2016 18:43:Elizabeth Mitchell RN) Adoption Requested: No (03/23/2016 18:43:Elizabeth Mitchell RN) Pt Contact w/ Post : N/A (03/23/2016 18:43:Elizabeth Mitchell RN) LABS Blood Type: O Positive (03/23/2016 18:43:Elizabeth Mitchell RN) Antibody Screen: Negative (03/23/2016 18:43:Elizabeth Mitchell RN) Hemoglobin: 11.4 L (03/25/2016 06:53:QS system process) Hematocrit: 34.4 L (03/25/2016 06:53:QS system process) MCV: 92 (03/25/2016 06:53:QS system process) Group Beta Strep: POSITIVE (03/23/2016 18:43:Elizabeth Mitchell RN) Gonorrhea: Negative (03/23/2016 18:43:Elizabeth Mitchell RN) Chlamydia: Negative (03/23/2016 18:43:Elizabeth Mitchell RN) RPR/VDRL: Nonreactive (03/23/2016 18:43:Elizabeth Mitchell RN) HIV Exposure Test: Negative (03/23/2016 18:43:Elizabeth Mitchell RN) Hepatitis B: Negative (03/23/2016 18:43:Elizabeth Mitchell RN) Rubella: Immune (03/23/2016 18:43:Elizabeth Mitchell RN) Varicella: Non Susceptible (03/23/2016 18:43:Elizabeth Mitchell RN) OB/PREVIOUS HISTORY Previous Procedures: None (03/23/2016 18:43:Elizabeth Mitchell RN) Current Procedures: Ultrasound (03/23/2016 18:43:Elizabeth Mitchell RN) History of Previous : No (03/23/2016 18:43:Elizabeth Mitchell RN) History of Gestational Diabetes: No (03/23/2016 18:43:Elizabeth Mitchell RN) History of PIH: No (03/23/2016 18:43:Elizabeth Mitchell RN) History of Incompetent Cervix: No (03/23/2016 18:43:Elizabeth Mitchell RN) History of Placenta Previa/Abrup: No (03/23/2016 18:43:Elizabeth Mitchell RN) History of Macrosomia: No (03/23/2016 18:43:Elizabeth Mitchell RN) History of IUGR: No (03/23/2016 18:43:Elizabeth Mitchell RN) History of Hemorrhage: No (03/23/2016 18:43:Elizabeth Mitchell RN) History of Loss/Stillborn: No (03/23/2016 18:43:Elizabeth Mitchell RN) History of : No (03/23/2016 18:43:Elizabeth Mitchell RN) History of D (Rh) Sensitization: No (03/23/2016 18:43:Elizabeth Mitchell RN) History Recurrent Loss/Stillborn: No (03/23/2016 18:43:Elizabeth Mitchell RN) History Depression/PP Depression: No (03/23/2016 18:43:Elizabeth Mitchell RN) History of Uterine Anomaly/ANNA: No (03/23/2016 18:43:Elizabeth Mitchell RN) History of Infertility: No (03/23/2016 18:43:Elizabeth Mitchell RN) History of ART Treatment: No (03/23/2016 18:43:Elizabeth Mitchell RN) History of ANNA: No (03/23/2016 18:43:Elizabeth Mitchell RN) Comments Obstetrical History: G1-Current (03/23/2016 18:43:Jacy Morris RN) MEDICAL HISTORY Med Hx Diabetes: No (03/23/2016 18:43:Elizabeth Mitchell RN) Med Hx Hypertension: No (03/23/2016 18:43:Elizabeth Mitchell RN) Med Hx Heart Disease: No (03/23/2016 18:43:Elizabeth Mitchell RN) Med Hx Autoimmune Disorder: No (03/23/2016 18:43:Elizabeth Mitchell RN) Med Hx Kidney Disease/UTI: No (03/23/2016 18:43:Elizabeth Mitchell RN) Med Hx Neurologic/Epilepsy: No (03/23/2016 18:43:Elizabeth Mitchell RN) Med Hx Psychiatric Disorders: No (03/23/2016 18:43:Elizabeth Mitchell RN) Med Hx Hepatitis/Liver Disease: No (03/23/2016 18:43:Elizabeth Mitchell RN) Med Hx Varicosities/Phlebitis: No (03/23/2016 18:43:Elizabeth Mitchell RN) Med Hx Thyroid Dysfunction: No (03/23/2016 18:43:Elizabeth Mitchell RN) Med Hx Trauma/Violence: No (03/23/2016 18:43:Elizabeth Mitchell RN) Med Hx Blood Transfusion: No (03/23/2016 18:43:Elizabeth Mitchell RN) Med Hx Pulmonary (Asthma,TB): No (03/23/2016 18:43:Elizabeth Mitchell RN) Med Hx Breast: No (03/23/2016 18:43:Elizabeth Mitchell RN) Med Hx PATIENT SUPPORT SPECIALIST Surgery: No (03/23/2016 18:43:Elizabeth Mitchell RN) Med Hx Hospitalization/Surgery: No (03/23/2016 18:43:Elizabeth Mitchell RN) Med Hx Anesthetic Complications: No (03/23/2016 18:43:Elizabeth Mitchell RN) Med Hx Abnormal Pap Smear: No (03/23/2016 18:43:Elizabeth Mitchell RN) Other Medical Diseases: No (03/23/2016 18:43:Elizabeth Mitchell RN) Med Hx Significant Family Hx: No (03/23/2016 18:43:Elizabeth Mitchell RN) INFECTIOUS HISTORY Inf Hx Gonorrhea: No (03/23/2016 18:43:Elizabeth Mitchell RN) Inf Hx Chlamydia: No (03/23/2016 18:43:Elizabeth Mitchell RN) Inf Hx Syphilis: No (03/23/2016 18:43:Elizabeth Mitchell RN) Inf Hx HIV/AIDS: No (03/23/2016 18:43:Elizabeth Mitchell RN) Inf Hx Human Papilloma Virus: No (03/23/2016 18:43:Elizabeth Mitchell RN) Inf Hx Pt/Partner Genital Herpes: No (03/23/2016 18:43:Elizabeth Mitchell RN) Inf Hx Tuberculosis/Exposure: No (03/23/2016 18:43:Elizabeth Mitchell RN) Inf Hx Hepatitis B,C: No (03/23/2016 18:43:Elizabeth Mitchell RN) Inf Hx Rash or Viral Illness: No (03/23/2016 18:43:Elizabeth Mitchell RN) GENETIC HISTORY Gen Hx Age >=35 at [place]: No (03/23/2016 18:43:Elizabeth Mitchell RN) Gen Hx Thalassemia: No (03/23/2016 18:43:Elizabeth Mitchell RN) Gen Hx Congenital Heart Defect: No (03/23/2016 18:43:Elizabeth Mitchell RN) Gen Hx Neural Tube Defect: No (03/23/2016 18:43:Elizabeth Mitchell RN) Gen Hx Down's Syndrome: No (03/23/2016 18:43:Elizabeth Mitchell RN) Gen Hx Jesus-Sachs: No (03/23/2016 18:43:Elizabeth Mitchell RN) Gen Hx Fredis: No (03/23/2016 18:43:Elizabeth Mitchell RN) Gen Hx Familial Dysautonomia: No (03/23/2016 18:43:Elizabeth Mitchell RN) Gen Hx Sickle Cell Disease/Trait: No (03/23/2016 18:43:Elizabeth Mitchell RN) Gen Hx Hemophilia/Blood Disorder: No (03/23/2016 18:43:Elizabeth Mitchell RN) Gen Hx Muscular Dystrophy: No (03/23/2016 18:43:Elizabeth Mitchell RN) Gen Hx Cystic Fibrosis: No (03/23/2016 18:43:Elizabeth Mitchell RN) Gen Hx Huntingtons Chorea: No (03/23/2016 18:43:Elizabeth Mitchell RN) Gen Hx Mental Retardation/Autism: No (03/23/2016 18:43:Elizabeth Mitchell RN) Gen Hx Tested for Fragile X: No (03/23/2016 18:43:Elizabeth Mitchell RN) Gen Hx Other Inher/Chromosomal: No (03/23/2016 18:43:Elizabeth Mitchell RN) Gen Hx Maternal Metabolic DO: No (03/23/2016 18:43:Elizabeth Mitchell RN) Gen Hx Pt Father or FOB Defect: No (03/23/2016 18:43:Elizabeth Mitchell RN) Gen Hx Other Genetic History: No (03/23/2016 18:43:Elizabeth Mitchell RN) Gen Hx Drugs/Meds since LMP: No (03/23/2016 18:43:Elizabeth Mitchell RN)
--- NOTE | 2016-03-26 06:24 | L&D Current Admission ---
Current Admit Datetime Report Generated by CPN: 03/26/2016 06:00 ADMISSION INFORMATION Current Admit Date/Time: 03/23/2016 18:45 (03/23/2016 19:20:Elizabeth Mitchell RN) Reason for Admission: Induction of Labor (03/23/2016 19:20:Elizabeth Mitchell RN) Chief Complaint: Scheduled Induction of Labor (03/23/2016 19:22:Elizabeth Mitchell RN) Medications During : Vitamin (03/23/2016 19:20:Elizabeth Mitchell RN) EGA per Dates: 41.1 (03/23/2016 19:20:QS system process) Method of Arrival: Ambulatory (03/23/2016 19:20:Elizabeth Mitchell RN) Admitted From: Home (03/23/2016 19:20:Elizabeth Mitchell RN) Reason for Induction: Postterm (03/23/2016 19:20:Elizabeth Mitchell RN) Records Available: Yes (03/23/2016 19:20:Elizabeth Mitchell RN) General Admission Information: Reviewed (03/23/2016 19:20:Elizabeth Mitchell RN) General Admission Reviewed By: Sha Mitchell RN (03/23/2016 19:20:Elizabeth Mitchell RN) BELONGINGS/ADVANCED DIRECTIVES Valuables/Personal Effects: Purse/Wallet; Cell Phone; Eyeglasses (03/23/2016 19:20:Elizabeth Mitchell RN) Other Belongings: See [facility] belongings form (03/23/2016 19:20:Elizabeth Mitchell RN) Disposition of Belongings: Kept with Patient (03/23/2016 19:20:Elizabeth Mitchell RN) Advance Direct for Healthcare: No, and Wants No Information (03/23/2016 19:20:Elizabeth Mitchell RN) Durable Power of Orthotic/Prosthetic Practitioner: No (03/23/2016 19:20:Elizabeth Mitchell RN) Living Will: No (03/23/2016 19:20:Elizabeth Mitchell RN) Organ Donor: No (03/23/2016 19:20:Elizabeth Mitchell RN) Pt Rights Information Given: Yes (03/23/2016 19:20:Elizabeth Mitchell RN) Pt Understands Pt Rights: Yes (03/23/2016 19:20:Elizabeth Mitchell RN) LEARNING ASSESSMENT Knowledge Level: Understands L_D Process; Understands Care Activities; Had Pre-Hospital Education; Understands Diagnosis (03/23/2016 19:20:Elizabeth Mitchell RN) Barriers to Learning: None (03/23/2016 19:20:Elizabeth Mitchell RN) Learning Readiness: Motivated (03/23/2016 19:20:Elizabeth Mitchell RN) Learns Best By: 1 to 1 Instruction (03/23/2016 19:20:Elizabeth Mitchell RN) Learning Needs: Labor and Delivery Process; Pain Management; Symptoms to Report; Treatment Plan; Medication; Diagnosis; Nutrition; Equipment; Infant Care; Community Resources (03/23/2016 19:20:Elizabeth Mitchell RN) DOMESTIC VIOLANCE SCREENING Dom Viol Threatened/Hurt: No (03/23/2016 19:20:Elizabeth Mitchell RN) Hx of Abuse/Neglect past 2yrs: No (03/23/2016 19:20:Elizabeth Mitchell RN) Feel Unsafe Going Home: No (03/23/2016 19:20:Elizabeth Mitchell RN) Addt'l Observ Indicating Abuse: No (03/23/2016 19:20:Elizabeth Mitchell RN) Reason Unable to Complete Screen: N/A, Screen Completed (03/23/2016 19:20:Elizabeth Mitchell RN) Considered Personal Harm/Suicide: No (03/23/2016 19:20:Elizabeth Mitchell RN) NUTRITIONAL/FUNCTIONAL SCREENING Problem with Appetite >5 Days: No (03/23/2016 19:20:Elizabeth Mitchell RN) Chew/Swallow Difficulties: No (03/23/2016 19:20:Elizabeth Mitchell RN) Inappropriate Wt Gain/Loss: No (03/23/2016 19:20:Elizabeth Mitchell RN) Presence Skin Breakdown/Ulcer: No (03/23/2016 19:20:Elizabeth Mitchell RN) Special Diet: No (03/23/2016 19:20:Elizabeth Mitchell RN) Pt Requests Tv [employer] Director Visit: No (03/23/2016 19:20:Elizabeth Mitchell RN) Hx of Any of the Following?: N/A (03/23/2016 19:20:Elizabeth Mitchell RN) New Diagnosis of: N/A (03/23/2016 19:20:Elizabeth Mitchell RN) Requires Assist w/Ambulation: No (03/23/2016 19:20:Elizabeth Mitchell RN) Uses Assist Device to Ambulate: No (03/23/2016 19:20:Elizabeth Mitchell RN) Pt Requires Help w/ADL's: No (03/23/2016 19:20:Elizabeth Mitchell RN)
--- NOTE | 2016-03-26 06:25 | L&D Care Plan ---
LD CARE PLANS Datetime Report Generated by CPN: 03/26/2016 06:15 Datetime: 03/23/2016 18:43 Pain State: Risk For (Akosua Velazquez RN) Related To: Labor and Delivery Process; Treatment and Procedures; Post (Akosua Velazquez RN) Goal(s): Patients Pain will be Assessed and Managed; Patient will Verbalize Adequate Relief of Pain or the Ability to [place] with Current Pain (Akosua Velazquez RN) Interventions: Assess Pain Severity on Scale of 0 (None) to 5 (Severe); Assess Type, Location and Intensity of Pain Each Time Client Reports Discomfort and Notify Provider if Unusal Pain Develops; Encourage Proper Breathing and Relaxation Techniques; Offer Alternatives Such as Repositioning, Calm Environment, Massages, Diversional Activities, Ice Pack, Splinting, and Ambulation; Administer Analgesics as Ordered; Assist with Epidural Placement as Appropriate; Evaluate Therapeutic Effectiveness of Medication and Treatments (Akosua Velazquez RN) Outcome: Patient will Report Absence or Relief of Pain Consistent with Established Pain Goal (Akosua Velazquez RN) Status: Ongoing (Akosua Velazquez RN) Outcome: Patient will have a Decrease in Signs and Symptoms of Discomfort (Akosua Velazquez RN) Status: Ongoing (Akosua Velazquez RN) Outcome: Pain will be Controlled During Procedures (Akosua Velazquez RN) Status: Ongoing (Akosua Velazquez RN) Anxiety State: Risk For (Akosua Velazquez RN) Related To: Labor and Delivery Process; Fear of Unknown; Situational Crisis; Medical Interventions; Significant Life Event (Akosua Velazquez RN) Goal(s): Patient will have Decreased Anxiety and be able to Function at Acceptable Levels (Akosua Velazquez RN) Interventions: Assess Verbal and Nonverbal Behavioral Indicators of Anxiety; Assist Patient to Identify and Verbalize Symptoms of Anxiety; Identify and Demonstrate Techniques to Control Anxiety; Assist Patient with Coping Mechanisms to Manage Anxiety; Provide Theraputic Touch for the Patient; Explain to Patient, Using a Calm Reassuring Approach and Nonmedical Terms, All Activities, Procedures, and Concerns; Instruct Patient and Family about Post Discharge Care, Limitations, Symptoms to Report and Resources Available (Akosua Vleazquez RN) Outcome: Patient will Identify, Verbalize and Demonstrate Techniques to Control Anxiety (Akosua Velazquez RN) Status: Ongoing (Akosua Velazquez RN) Outcome: Patient's Posture, Facial Expressions, Gestures and Activity Level will Reflect Decreased Anxiety (Akosua Velazquez RN) Status: Ongoing (Akosua Velazquez RN) Outcome: Patient will Verbalize a Sense of Control and/or Acceptance of the Situation (Akosua Velazquez RN) Status: Ongoing (Akosua Velazquez RN) Outcome: Patient will Identify and Utilize Support Person (Akosua Velazquez RN) Status: Ongoing (Akosua Velazquez RN) Knowledge Deficit State: Risk For (Akosua Velazquez RN) Related To: Labor and Delivery Process; Treatment and Procedures; Community Resources and Available Support Mechanisms (Akosua Velazquez RN) Goal(s): Patient will Accurately Verbalize Understanding of Plan of Care and Treatment; Patient and Family will Accurately Verbalize Understanding of the Disease Process (Akosua Velazquez RN) Interventions: Assess Motivation and Willingness of Patient/Family to Learn; Assess Preferred Learning Mode: One to One Instruction, Reading, Videos, Group Discussion or Demonstration; Assess Barriers to Learning: Pain, Emotional State, Language Barrier, Cognitive Impairment, Visual or Hearing Deficits; Assess Patient and Family Knowledge of Disease Process, Medications and Treatment; Discuss Therapy and/or Treatment Options, Describe Rationale Behind Management, Therapy and Treatment Recommendations; Instruct Patient and Family on Signs and Symptoms to Report; Instruct Patient and Family on Medication Effects and Side Effects; Provide Appropriate and Timely Education Using Multiple Techniques; Provide Patient and Family with Support Group Information and Resources; Give Clear and Thorough Explanations and Demonstrations (Akosua Velazquez RN) Outcome: Patient and Family will Verbalize Understanding of Condition, Treatment and Signs and Symptoms to Report (Akosua Velazquez RN) Status: Ongoing (Akosua Velazquez RN) Outcome: Patient will Identify Perceived Learning Needs and Express Motivation to Learn (Akosua Velazquez RN) Status: Ongoing (Akosua Velazquez RN) Outcome: Patient will Verbalize Understanding of Desired Content, and/or Performs Desired Skill Prior to Discharge (Akosua Velazquez RN) Status: Ongoing (Akosua Velazquez RN) Infection State: Risk For (Akosua Velazquez RN) Related To: Prolonged Labor or Induction; Invasive Procedures (Akosua Velazquez RN) Goal(s): The Patient will be Free of Infection, Vital Signs Stable and Lab Work within Normal Parameters (Akosua Velazquez RN) Interventions: Instruct and Reinforce Proper Handwashing, Hygiene, and Care Techniques to Patient and Family; Monitor Vital Signs; Monitor Patient for the Following Signs of Infection: Fever, Abdominal Tenderness, Unusual Discharge; Monitor Aminiotic Fluid, Urine and Lochia for Color and Odor; Observe Wounds, Incisions and Invasive Line Sites for Redness, Drainage and Edema; Assess IV Sites per Hospital Policy; Monitor Lab and Test Results and Notify Provider of Abnormal Findings; Assess Nutritional Status and Promote Good Nutrition (Akosua Velazquez RN) Outcome: Patient will Remain Free of Infection (Akosua Velazquez RN) Status: Ongoing (Akosua Velazquez RN) Outcome: Infection will be Recognized Early to Allow for Prompt Treatment (Akosua Velazquez RN) Status: Ongoing (Akosua Velazquez RN) Outcome: Patient will have Vital Signs Within Expected Range (Akosua Velazquez RN) Status: Ongoing (Akosua Velazquez RN) Fluid Volume State: Risk For (Akosua Velazquez RN) Related To: Prolonged Labor or Induction; Hemorrhage (Akosua Velazquez RN) Goal(s): Patient will Achieve and Maintain a Balanced Fluid Volume Status; Hemodynamically Stable (Akosua Velazquez RN) Interventions: Monitor Vital Signs; Auscultate Breath Sounds; Monitor Patient for Skin Turgor, Mucous Membranes, Dry Skin, Weakness, Headaches and Confusion; Provide Oral Fluids as Ordered; Initiate and Maintain Intravenous Fluids as Ordered; Monitor Intake and Output as Indicated Per Patient Status; Accurately Measure Blood Loss; Monitor Lab and Test Results as Obtained and Notify Provider of Abnormal Findings; Monitor Patient's Weight (Akosua Velazquez RN) Outcome: Patient will have Clear Lung Sounds (Akosua Velazquez RN) Status: Ongoing (Akosua Velazquez RN) Outcome: Patient will have Vital Signs within Expected Range (Akosua Velazquez RN) Status: Ongoing (Akosua Velazquez RN) Outcome: Urine Output will be within Expected Range (Akosua Velazquez, RN) Status: Ongoing (Akosua Velazquez, RN) Outcome: Patient will have Minimal Generalized or Upper Extremity Edema (Akosua Velazquez, RN) Status: Ongoing (Akosua Velazquez RN) Injury State: Risk For (Akosua Velazquez RN) Related To: Labor and Delivery Process (Akosua Velazquez RN) Goal(s): Patient will Remain Free from Injury (Akosua Velazquez RN) Interventions: Monitoring as per Hospital Protocol; Assess Neurological Status; Perform Risk Assessment of Patients with Induction and ; Perform Fall Risk Assessment and Prevention per Hospital Protocol; Perform DVT Risk Assessment and Prophylaxis per Hospital Protocol; Ensure that Oxygen, Suction, and Resuscitation Medications and Equipment are Readily Available; Confirm Patient ID Prior to Procedure(s) and Medication Administration per Hospital Policy (Akosua Velazquez RN) Outcome: Successful Fall Risk Prevention (Akosua Velazquez RN) Status: Ongoing (Akosua Velazquez RN) Outcome: Patient will Deliver without Adverse [place] (Akosua Velazquez RN) Status: Ongoing (Akosua Velazquez RN) Outcome: Patient's Neurological Status will Remain Stable (Akosua Velazquez RN) Status: Ongoing (Akosua Velazquez RN) Impaired Skin Integrity State: Risk For (Akosua Velazquez RN) Related To: Vaginal Delivery; Prolonged Bedrest; Invasive Procedures (Akosua Velazquez, RN) Goal(s): Patient will Maintain Optimal Skin Integrity, Free of Breakdown, Injury or Infection (Akosua Velazquez, RN) Interventions: Complete Screening for Pressure Ulcer Risk and Initiate Protocol per Hospital Policy; Monitor Site of Skin Impairment for Color Changes, Redness, Swelling, Warmth, Pain or Other Signs of Infection; Encourage and Assist with Position Changes; Monitor Patient's Mobility Status; Provide Adequate Nutrition and Fluids; Teach Patient Appropriate Hygienic Care; Teach Patient/Family Skin Care Management (Akosua Velazquez, RN) Outcome: Patient will not have Evidence of Injury Such as Skin Breakdown, Scrapes, Cuts, or Bruising (Akosua Velazquez, RN) Status: Ongoing (Akosua Velazquez RN) Outcome: Patient will Report Any Altered Sensation or Pain at Site of Skin Impairment (Akosua Velazquez RN) Status: Ongoing (Akosua Velazquez, RN) Outcome: Patients Incisions and Wounds will be without Signs or Symptoms of Infection (Akosua Velazquez RN) Status: Ongoing (Akosua Velazquez, RN) Outcome: Patient will Demonstrate Understanding of Plan to Heal Skin and Prevent Reinjury and Verbalize Risk Factors (Akosua Velazquez RN) Status: Ongoing (Akosua Velazquez RN) Parenting Impaired State: Not Applicable (Akosua Velazquez RN) Nutrition State: Risk For (Akosua Velazquez RN) Related To: ; ; Nausea or Vomiting; Prolonged Bedrest (Akosua Velazquez RN) Goal(s): Patient will have an Intake of Nutrients Sufficient to Meet Metabolic Needs (Akosua Velazquez RN) Interventions: Nutritional Screening and Assessment per Hospital Policy; Consult Director Of Vital Statistics for Further Assessment and Recommendations Regarding Food Preferences and Nutritional Support; Allow Patient to Plan and Order Diet when Possible; Monitor Laboratory Values That Indicate Nutritional Well-being; Consult Safe And Vault Mechanic for Nutritional Support Regarding Requirements; Document Actual Weight Initially and Weekly (Do Not Estimate); Encourage Patient Participation in Maintaining a Food Log as Indicated; Educate Patient on the Importance of Maintaining an Adequate Caloric Intake (Akosua Velazquez RN) Outcome: Patient will Receive Adequate Calories and Fluid Volume to Meet Metabolic Needs (Akosua Velazquez RN) Status: Ongoing (Akosua Velazquez, RN) Outcome: Patient will Select Foods or Meals that Support Adequate Nutrition (Akosuapinky Velazquez, RN) Status: Ongoing (Akosua Velazquez, RN) Grieving State: Not Applicable (Akosua Velazquez, RN) Additional Care Plan State: Not Applicable (Akosua Velazquez, RN)
[2016-03-26] MEDS: OXYCODONE-ACETAMINOPHEN 5-325 MG TABLET PO PRN (08:07)
[2016-03-26] MEDS: PRENATAL VITAMIN W-O CA NO5/FE FUMARATE/FA CAPSULE PO SCH (10:46)
[2016-03-26] MEDS: DOCUSATE SODIUM 100 MG CAPSULE PO SCH (10:46)
--- NOTE | 2016-03-26 11:02 | PDOC DISCHARGE SUMMARY ---
Discharge Summary-OB Discharge Date: 03/26/16 - Discharge Medication Home Medications: Pnv95/Ferrous Fumarate/FA [ Caplet] 1 each PO DAILY 03/23/16 Reason(s) for Admission: Induction of Labor, Ceasarean Section-Primary Procedures: NST, Management of Obstetric Complications Intrapartum Procedure(s): : Low Cervical, Transverse - Diagnosis Test Laboratory: Temp Pulse Resp BP Pulse Ox 98.0 F 85 17 135/87 H 98 03/26/16 07:43 03/26/16 07:43 03/26/16 07:43 03/26/16 07:43 03/26/16 07:43 03/23/16 03/23/16 03/25/16 18:50 19:41 06:53 RBC 4.26 3.75 Hgb 13.2 11.4 L Hct 39.2 34.4 L Urine Opiates Screen NEGATIVE - Discharge information/Instructions Discharge Activity: Activity As Tolerated, Balance Activity w/Rest, No Driving, No Lifting Over 10 Pounds, No Lifting/Push/Pulling, Pelvic Rest, No tub bath Discharge Diet: Regular Disposition: HOME, SELF-CARE Follow up with: [facility] in: 4, Days
[2016-03-26 11:14] VITALS: BP 130/68
--- NOTE | 2016-03-27 06:23 | L&D Current Admission ---
Current Admit Datetime Report Generated by CPN: 03/27/2016 06:00 ADMISSION INFORMATION Current Admit Date/Time: 03/23/2016 18:45 (03/23/2016 19:20:Elizabeth Mitchell RN) Reason for Admission: Induction of Labor (03/23/2016 19:20:Elizabeth Mitchell RN) Chief Complaint: Scheduled Induction of Labor (03/23/2016 19:22:Elizabeth Mitchell RN) Medications During : Vitamin (03/23/2016 19:20:Elizabeth Mitchell RN) EGA per Dates: 41.1 (03/23/2016 19:20:QS system process) Method of Arrival: Ambulatory (03/23/2016 19:20:Elizabeth Mitchell RN) Admitted From: Home (03/23/2016 19:20:Elizabeth Mitchell RN) Reason for Induction: Postterm (03/23/2016 19:20:Elizabeth Mitchell RN) Records Available: Yes (03/23/2016 19:20:Elizabeth Mitchell RN) General Admission Information: Reviewed (03/23/2016 19:20:Elizabeth Mitchell RN) General Admission Reviewed By: Sha Mitchell RN (03/23/2016 19:20:Elizabeth Mitchell RN) BELONGINGS/ADVANCED DIRECTIVES Valuables/Personal Effects: Purse/Wallet; Cell Phone; Eyeglasses (03/23/2016 19:20:Elizabeth Mitchell RN) Other Belongings: See [facility] belongings form (03/23/2016 19:20:Elizabeth Mitchell RN) Disposition of Belongings: Kept with Patient (03/23/2016 19:20:Elizabeth Mitchell RN) Advance Direct for Healthcare: No, and Wants No Information (03/23/2016 19:20:Elizabeth Mitchell RN) Durable Power of Milk Receiver Tank Truck: No (03/23/2016 19:20:Elizabeth Mitchell RN) Living Will: No (03/23/2016 19:20:Elizabeth Mitchell RN) Organ Donor: No (03/23/2016 19:20:Elizabeth Mitchell RN) Pt Rights Information Given: Yes (03/23/2016 19:20:Elizabeth Mitchell RN) Pt Understands Pt Rights: Yes (03/23/2016 19:20:Elizabeth Mitchell RN) LEARNING ASSESSMENT Knowledge Level: Understands L_D Process; Understands Care Activities; Had Pre-Hospital Education; Understands Diagnosis (03/23/2016 19:20:Elizabeth Mitchell RN) Barriers to Learning: None (03/23/2016 19:20:Elizabeth Mitchell RN) Learning Readiness: Motivated (03/23/2016 19:20:Elizabeth Mitchell RN) Learns Best By: 1 to 1 Instruction (03/23/2016 19:20:Elizabeth Mitchell RN) Learning Needs: Labor and Delivery Process; Pain Management; Symptoms to Report; Treatment Plan; Medication; Diagnosis; Nutrition; Equipment; Infant Care; Community Resources (03/23/2016 19:20:Elizabeth Mitchell RN) DOMESTIC VIOLANCE SCREENING Dom Viol Threatened/Hurt: No (03/23/2016 19:20:Elizabeth Mitchell RN) Hx of Abuse/Neglect past 2yrs: No (03/23/2016 19:20:Elizabeth Mitchell RN) Feel Unsafe Going Home: No (03/23/2016 19:20:Elizabeth Mitchell RN) Addt'l Observ Indicating Abuse: No (03/23/2016 19:20:Elizabeth Mitchell RN) Reason Unable to Complete Screen: N/A, Screen Completed (03/23/2016 19:20:Elizabeth Mitchell RN) Considered Personal Harm/Suicide: No (03/23/2016 19:20:Elizabeth Mitchell RN) NUTRITIONAL/FUNCTIONAL SCREENING Problem with Appetite >5 Days: No (03/23/2016 19:20:Elizabeth Mitchell RN) Chew/Swallow Difficulties: No (03/23/2016 19:20:Elizabeth Mitchell RN) Inappropriate Wt Gain/Loss: No (03/23/2016 19:20:Elizabeth Mitchell RN) Presence Skin Breakdown/Ulcer: No (03/23/2016 19:20:Elizabeth Mitchell RN) Special Diet: No (03/23/2016 19:20:Elizabeth Mitchell RN) Pt Requests Monkey Keeper Visit: No (03/23/2016 19:20:Elizabeth Mitchell RN) Hx of Any of the Following?: N/A (03/23/2016 19:20:Elizabeth Mitchell RN) New Diagnosis of: N/A (03/23/2016 19:20:Elizabeth Mitchell RN) Requires Assist w/Ambulation: No (03/23/2016 19:20:Elizabeth Mitchell RN) Uses Assist Device to Ambulate: No (03/23/2016 19:20:Elizabeth Mitchell RN) Pt Requires Help w/ADL's: No (03/23/2016 19:20:Elizabeth Mitchell RN)
--- NOTE | 2016-03-27 06:23 | L&D General Admission ---
General Admit Datetime Report Generated by CPN: 03/27/2016 06:00 INFORMATION Patient Age: 25 (03/23/2016 18:29:QS system process) EDC: 03/15/2016 00:00 (03/23/2016 18:43:Jessica Rodrigo, RNC) : 1 (03/23/2016 18:43:Jessica Camp, RNC) Para: 0 (03/23/2016 18:43:Jessica Camp, RNC) Term: 0 (03/23/2016 18:43:Jessica Camp, RNC) : 0 (03/23/2016 18:43:Jessica Camp, RNC) Spontaneous Abortions: 0 (03/23/2016 18:43:Jessica Camp, RNC) Induced Abortions: 0 (03/23/2016 18:43:Jessica Camp, RNC) Livin (03/23/2016 18:43:Jessica Camp, RNC) Cesareans: 0 (03/23/2016 18:43:Jessica Wallace RNC) VBACs: 0 (03/23/2016 18:43:Jessica Camp, RNC) [facility]: [facility] Multiple Births: 0 (03/23/2016 18:43:[facility]) Baby, Number in Womb: 1 (03/23/2016 18:[facility] CARE Primary Sand Cutting Machine Operator[facility] (03/23/2016 18:43:Elizabeth Mitchell RN) Month of 1st Visit: August (03/23/2016 18:43:Elizabeth Mitchell RN) Adequate Care: Yes (03/23/2016 18:43:Elizabeth Mitchell RN) Prepregnancy Weight (lb): 135 (03/23/2016 18:43:Elizabeth Mitchell RN) Prepregnancy Weight (kg): 61.4 (03/23/2016 18:43:QS system process) Height (in): 64 (03/26/2016 11:02:QS system process) ALLERGIES Medication Allergy: No (03/23/2016 18:43:Elizabeth Mitchell RN) Medication Allergies: No Known Allergies (03/23/2016) (03/23/2016 18:45:QS system process) Latex Allergy: No Latex Allergies (03/23/2016 18:43:Elizabeth Mitchell RN) Food Allergies: denies (03/23/2016 18:43:Elizabeth Mitchell RN) Environmental Allergies: denies (03/23/2016 18:43:Elizabeth Mitchell RN) COMMUNICATION Primary Language: Surinamese (03/23/2016 18:43:Elizabeth Mitchell RN) Medical Tx Preferred Language: Surinamese (Annotations: Data stored by [facility] on behalf of user) (03/23/2016 18:43:Francisca Gottlieb RN) Communication Barrier(s): None (03/23/2016 18:43:Elizabeth Mitchell RN) DEMOGRAPHICS Address: [address] [place] [address] (03/23/2016 18:29:QS system process) Zipcode: [address] (03/23/2016 18:29:QS system process) Home (03/23/2016 18:29:QS system process) N: [phone] (03/23/2016 18:29:QS system process) Next of Kin Name: GINO TUTTLE (03/23/2016 18:29:QS system process) Next of Kin (03/23/2016 18:29:QS system process) Next of Kin Relationship: OR (03/23/2016 18:29:QS system process) Date of : 1990 (03/23/2016 18:29:QS system process) Marital Status: Single (03/23/2016 18:29:QS system process) Sex: Female (03/23/2016 18:29:QS system process) Race: (03/23/2016 18:29:QS system process) Ethnicity: Non- or (03/23/2016 18:29:QS system process) Nondenominational: None (03/23/2016 18:29:QS system process) DRUG AND ALCOHOL USE Alcohol: No (03/23/2016 18:43:Elizabeth Mitchell RN) Cigarettes: Former Smoker. [id number] (03/23/2016 18:43:Elizabeth Mitchell RN) Marijuana: No (03/23/2016 18:43:Elizabeth Mitchell RN) Cocaine: No (03/23/2016 18:43:Elizabeth Mitchell RN) Other Illicit Drugs: No (03/23/2016 18:43:Elizabeth Mitchell RN) VACCINE HISTORY Influenza Vaccine: Yes (03/23/2016 18:43:Elizabeth Mitchell RN) Pneumococcal Vaccine: No (03/23/2016 18:43:Elizabeth Mitchell RN) Tetanus Vaccine: Yes (03/23/2016 18:43:Lola Schofield RN) Tdap Vaccine: Yes (03/23/2016 18:43:Elizabeth Mitchell RN) Hepatitis B Vaccine: Yes (03/23/2016 18:43:Elizabeth Mitchell RN) Paper Goods Machine Operator: [facility] (03/23/2016 18:43:Elizabeth Mitchell RN) Feeding Preference: Formula (03/23/2016 18:43:Elizabeth Mitchell RN) Benefit of Breast Feed Discussed: Yes (03/23/2016 18:43:Elizabeth Mitchell RN) Circumcision: N/A (03/23/2016 18:43:Elizabeth Mitchell RN) Classes Attended: No (03/23/2016 18:43:Elizabeth Mitchell RN) Tubal Ligation: No (03/23/2016 18:43:Elizabeth Mitchell RN) Consent: N/A (03/23/2016 18:43:Elizabeth Mitchell RN) Consent Signed: N/A (03/23/2016 18:43:Elizabeth Mitchell RN) Pain Management Plans: Epidural (03/23/2016 18:43:Elizabeth Mitchell RN) Plans for Labor and Delivery: None (03/23/2016 18:43:Elizabeth Mitchell RN) Support Person: Nacho Corado (03/23/2016 18:43:Elizabeth Mitchell RN) Support Person Relationship: Significant Other (03/23/2016 18:43:Elizabeth Mitchell RN) Cultural/Spritual Practice: No (03/23/2016 18:43:Elizabeth Mitchell RN) Spir/Cult Dietary Needs: No (03/23/2016 18:43:Elizabeth Mitchell RN) LIVING SITUATION/DISCHARGE PLAN Living Arrangements: House (03/23/2016 18:43:Elizabeth Mitchell RN) Adequate Access to:: Electric; Heat; Refrigeration; Plumbing/Running water; Phone; Transportation (03/23/2016 18:43:Elizabeth Mitchell RN) WIC Program: Yes (03/23/2016 18:43:Elizbaeth Mitchell RN) Discharge Company Miner Blasting Person: Erik Corado (03/23/2016 18:43:Elizabeth Mitchell RN) Person to Help after Discharge: Erik Corado (03/23/2016 18:43:Elizabeth Mitchell RN) Currently Using Commun Resources: No (03/23/2016 18:43:Elizabeth Mitchell RN) Outside Agency/Eyewear Manufacturing Tech: No (03/23/2016 18:43:Elizabeth Mitchell RN) Car Seat for Discharge: No (03/23/2016 18:43:Elizabeth Mitchell RN) Need Help to Obtain Car Seat: will have prior to discharge (03/23/2016 18:43:Elizabeth Mitchell RN) Adoption Requested: No (03/23/2016 18:43:Elizabeth Mitchell RN) Pt Contact w/ Post : N/A (03/23/2016 18:43:Elizabeth Mitchell RN) LABS Blood Type: O Positive (03/23/2016 18:43:Elizabeth Mitchell RN) Antibody Screen: Negative (03/23/2016 18:43:Elizabeth Mitchell RN) Hemoglobin: 11.4 L (03/25/2016 06:53:QS system process) Hematocrit: 34.4 L (03/25/2016 06:53:QS system process) MCV: 92 (03/25/2016 06:53:QS system process) Group Beta Strep: POSITIVE (03/23/2016 18:43:Elizabeth Mitchell RN) Gonorrhea: Negative (03/23/2016 18:43:Elizabeth Mitchell RN) Chlamydia: Negative (03/23/2016 18:43:Elizabeth Mitchell RN) RPR/VDRL: Nonreactive (03/23/2016 18:43:Elizabeth Mitchell RN) HIV Exposure Test: Negative (03/23/2016 18:43:Elizabeth Mitchell RN) Hepatitis B: Negative (03/23/2016 18:43:Elizabeth Mitchell RN) Rubella: Immune (03/23/2016 18:43:Elizabeth Mitchell RN) Varicella: Non Susceptible (03/23/2016 18:43:Elizabeth Mitchell RN) OB/PREVIOUS HISTORY Previous Procedures: None (03/23/2016 18:43:Elizabeth Mitchell RN) Current Procedures: Ultrasound (03/23/2016 18:43:Elizabeth Mitchell RN) History of Previous : No (03/23/2016 18:43:Elizabeth Mitchell RN) History of Gestational Diabetes: No (03/23/2016 18:43:Elizabeth Mitchell RN) History of PIH: No (03/23/2016 18:43:Elizabeth Mitchell RN) History of Incompetent Cervix: No (03/23/2016 18:43:Elizabeth Mitchell RN) History of Placenta Previa/Abrup: No (03/23/2016 18:43:Elizabeth Mitchell RN) History of Macrosomia: No (03/23/2016 18:43:Elizabeth Mitchell RN) History of IUGR: No (03/23/2016 18:43:Elizabeth Mitchell RN) History of Hemorrhage: No (03/23/2016 18:43:Elizabeth Mitchell RN) History of Loss/Stillborn: No (03/23/2016 18:43:Elizabeth Mitchell RN) History of : No (03/23/2016 18:43:Elizabeth Mitchell RN) History of D (Rh) Sensitization: No (03/23/2016 18:43:Elizabeth Mitchell RN) History Recurrent Loss/Stillborn: No (03/23/2016 18:43:Elizabeth Mitchell RN) History Depression/PP Depression: No (03/23/2016 18:43:Elizabeth Mitchell RN) History of Uterine Anomaly/ANNA: No (03/23/2016 18:43:Elizabeth Mitchell RN) History of Infertility: No (03/23/2016 18:43:Elizabeth Mitchell RN) History of ART Treatment: No (03/23/2016 18:43:Elizabeth Mitchell RN) History of ANNA: No (03/23/2016 18:43:Elizabeth Mitchell RN) Comments Obstetrical History: G1-Current (03/23/2016 18:43:Jacy Morris RN) MEDICAL HISTORY Med Hx Diabetes: No (03/23/2016 18:43:Elizabeth Mitchell RN) Med Hx Hypertension: No (03/23/2016 18:43:Elizabeth Mitchell RN) Med Hx Heart Disease: No (03/23/2016 18:43:Elizabeth Mitchell RN) Med Hx Autoimmune Disorder: No (03/23/2016 18:43:Elizabeth Mitchell RN) Med Hx Kidney Disease/UTI: No (03/23/2016 18:43:Elizabeth Mitchell RN) Med Hx Neurologic/Epilepsy: No (03/23/2016 18:43:Elizabeth Mitchell RN) Med Hx Psychiatric Disorders: No (03/23/2016 18:43:Elizabeth Mitchell RN) Med Hx Hepatitis/Liver Disease: No (03/23/2016 18:43:Elizabeth Mitchell RN) Med Hx Varicosities/Phlebitis: No (03/23/2016 18:43:Elizabeth Mitchell RN) Med Hx Thyroid Dysfunction: No (03/23/2016 18:43:Elizabeth Mitchell RN) Med Hx Trauma/Violence: No (03/23/2016 18:43:Elizabeth Mitchell RN) Med Hx Blood Transfusion: No (03/23/2016 18:43:Elizabeth Mitchell RN) Med Hx Pulmonary (Asthma,TB): No (03/23/2016 18:43:Elizabeth Mitchell RN) Med Hx Breast: No (03/23/2016 18:43:Elizabeth Mitchell RN) Med Hx AUDIO SPECIALIST Surgery: No (03/23/2016 18:43:Elizabeth Mitchell RN) Med Hx Hospitalization/Surgery: No (03/23/2016 18:43:Elizabeth Mitchell RN) Med Hx Anesthetic Complications: No (03/23/2016 18:43:Elizabeth Mitchell RN) Med Hx Abnormal Pap Smear: No (03/23/2016 18:43:Elizabeth Mitchell RN) Other Medical Diseases: No (03/23/2016 18:43:Elizabeth Mitchell RN) Med Hx Significant Family Hx: No (03/23/2016 18:43:Elizabeth Mitchell RN) INFECTIOUS HISTORY Inf Hx Gonorrhea: No (03/23/2016 18:43:Elizabeth Mitchell RN) Inf Hx Chlamydia: No (03/23/2016 18:43:Elizabeth Mitchell RN) Inf Hx Syphilis: No (03/23/2016 18:43:Elizabeth Mitchell RN) Inf Hx HIV/AIDS: No (03/23/2016 18:43:Elizabeth Mitchell RN) Inf Hx Human Papilloma Virus: No (03/23/2016 18:43:Elizabeth Mitchell RN) Inf Hx Pt/Partner Genital Herpes: No (03/23/2016 18:43:Elizabeth Mitchell RN) Inf Hx Tuberculosis/Exposure: No (03/23/2016 18:43:Elizabeth Mitchell RN) Inf Hx Hepatitis B,C: No (03/23/2016 18:43:Elizabeth Mitchell RN) Inf Hx Rash or Viral Illness: No (03/23/2016 18:43:Elizabeth Mitchell RN) GENETIC HISTORY Gen Hx Age >=35 at [facility]: No (03/23/2016 18:43:Elizabeth Mitchell RN) Gen Hx Thalassemia: No (03/23/2016 18:43:Elizabeth Mitchell RN) Gen Hx Congenital Heart Defect: No (03/23/2016 18:43:Elizabeth Mitchell RN) Gen Hx Neural Tube Defect: No (03/23/2016 18:43:Elizabeth Mitchell RN) Gen Hx Down's Syndrome: No (03/23/2016 18:43:Elizabeth Mitchell RN) Gen Hx Jesus-Sachs: No (03/23/2016 18:43:Elizabeth Mitchell RN) Gen Hx Fredis: No (03/23/2016 18:43:Elizabeth Mitchell RN) Gen Hx Familial Dysautonomia: No (03/23/2016 18:43:Elizabeth Mitchell RN) Gen Hx Sickle Cell Disease/Trait: No (03/23/2016 18:43:Elizabeth Mitchell RN) Gen Hx Hemophilia/Blood Disorder: No (03/23/2016 18:43:Elizabeth Mitchell RN) Gen Hx Muscular Dystrophy: No (03/23/2016 18:43:Elizabeth Mitchell RN) Gen Hx Cystic Fibrosis: No (03/23/2016 18:43:Elizabeth Mitchell RN) Gen Hx Huntingtons Chorea: No (03/23/2016 18:43:Elizabeth Mitchell RN) Gen Hx Mental Retardation/Autism: No (03/23/2016 18:43:Elizabeth Mitchell RN) Gen Hx Tested for Fragile X: No (03/23/2016 18:43:Elizabeth Mitchell RN) Gen Hx Other Inher/Chromosomal: No (03/23/2016 18:43:Elizabeth Mitchell RN) Gen Hx Maternal Metabolic DO: No (03/23/2016 18:43:Elizabeth Mitchell RN) Gen Hx Pt Father or FOB Defect: No (03/23/2016 18:43:Elizabeth Mitchell RN) Gen Hx Other Genetic History: No (03/23/2016 18:43:Elizabeth Mitchell RN) Gen Hx Drugs/Meds since LMP: No (03/23/2016 18:43:Elizabeth Mitchell RN)
--- NOTE | 2016-03-28 06:23 | L&D Current Admission ---
Current Admit Datetime Report Generated by CPN: 03/28/2016 06:00 ADMISSION INFORMATION Current Admit Date/Time: 03/23/2016 18:45 (03/23/2016 19:20:Elizabeth Mitchell RN) Reason for Admission: Induction of Labor (03/23/2016 19:20:Elizabeth Mitchell RN) Chief Complaint: Scheduled Induction of Labor (03/23/2016 19:22:Elizabeth Mitchell RN) Medications During : Vitamin (03/23/2016 19:20:Elizabeth Mitchell RN) EGA per Dates: 41.1 (03/23/2016 19:20:QS system process) Method of Arrival: Ambulatory (03/23/2016 19:20:Elizabeth Mitchell RN) Admitted From: Home (03/23/2016 19:20:Elizabeth Mitchell RN) Reason for Induction: Postterm (03/23/2016 19:20:Elizabeth Mitchell RN) Records Available: Yes (03/23/2016 19:20:Elizabeth Mitchell RN) General Admission Information: Reviewed (03/23/2016 19:20:Elizabeth Mitchell RN) General Admission Reviewed By: Sha Mitchell RN (03/23/2016 19:20:Elizabeth Mitchell RN) BELONGINGS/ADVANCED DIRECTIVES Valuables/Personal Effects: Purse/Wallet; Cell Phone; Eyeglasses (03/23/2016 19:20:Elizabeth Mitchell RN) Other Belongings: See [facility] belongings form (03/23/2016 19:20:Elizabeth Mitchell RN) Disposition of Belongings: Kept with Patient (03/23/2016 19:20:Elizabeth Mitchell RN) Advance Direct for Healthcare: No, and Wants No Information (03/23/2016 19:20:Elizabeth Mitchell RN) Durable Power of Reception Interviewer: No (03/23/2016 19:20:Elizabeth Mitchell RN) Living Will: No (03/23/2016 19:20:Elizabeth Mitchell RN) Organ Donor: No (03/23/2016 19:20:Elizabeth Mitchell RN) Pt Rights Information Given: Yes (03/23/2016 19:20:Elizabeth Mitchell RN) Pt Understands Pt Rights: Yes (03/23/2016 19:20:Elizabeth Mitchell RN) LEARNING ASSESSMENT Knowledge Level: Understands L_D Process; Understands Care Activities; Had Pre-Hospital Education; Understands Diagnosis (03/23/2016 19:20:Elizabeth Mitchell RN) Barriers to Learning: None (03/23/2016 19:20:Elizabeth Mitchell RN) Learning Readiness: Motivated (03/23/2016 19:20:Elizabeth Mitchell RN) Learns Best By: 1 to 1 Instruction (03/23/2016 19:20:Elizabeth Mitchell RN) Learning Needs: Labor and Delivery Process; Pain Management; Symptoms to Report; Treatment Plan; Medication; Diagnosis; Nutrition; Equipment; Infant Care; Community Resources (03/23/2016 19:20:Elizabeth Mitchell RN) DOMESTIC VIOLANCE SCREENING Dom Viol Threatened/Hurt: No (03/23/2016 19:20:Elizabeth Mitchell RN) Hx of Abuse/Neglect past 2yrs: No (03/23/2016 19:20:Elizabeth Mitchell RN) Feel Unsafe Going Home: No (03/23/2016 19:20:Elizabeth Mitchell RN) Addt'l Observ Indicating Abuse: No (03/23/2016 19:20:Elizabeth Mitchell RN) Reason Unable to Complete Screen: N/A, Screen Completed (03/23/2016 19:20:Elizabeth Mitchell RN) Considered Personal Harm/Suicide: No (03/23/2016 19:20:Elizabeth Mitchell RN) NUTRITIONAL/FUNCTIONAL SCREENING Problem with Appetite >5 Days: No (03/23/2016 19:20:Elizabeth Mitchell RN) Chew/Swallow Difficulties: No (03/23/2016 19:20:Elizabeth Mitchell RN) Inappropriate Wt Gain/Loss: No (03/23/2016 19:20:Elizabeth Mitchell RN) Presence Skin Breakdown/Ulcer: No (03/23/2016 19:20:Elizabeth Mitchell RN) Special Diet: No (03/23/2016 19:20:Elizabeth Mitchell RN) Pt Requests Physician Anesthesiologist Visit: No (03/23/2016 19:20:Elizabeth Mitchell RN) Hx of Any of the Following?: N/A (03/23/2016 19:20:Elizabeth Mitchell RN) New Diagnosis of: N/A (03/23/2016 19:20:Elizabeth Mitchell RN) Requires Assist w/Ambulation: No (03/23/2016 19:20:Elizabeth Mitchell RN) Uses Assist Device to Ambulate: No (03/23/2016 19:20:Elizabeth Mitchell RN) Pt Requires Help w/ADL's: No (03/23/2016 19:20:Elizabeth Mitchell RN)
--- NOTE | 2016-03-28 06:23 | L&D General Admission ---
General Admit Datetime Report Generated by CPN: 03/28/2016 06:00 INFORMATION Patient Age: 25 (03/23/2016 18:29:QS system process) EDC: 03/15/2016 00:00 (03/23/2016 18:43:Jessica Rodrigo, RNC) : 1 (03/23/2016 18:43:Jessica Camp, RNC) Para: 0 (03/23/2016 18:43:Jessica Camp, RNC) Term: 0 (03/23/2016 18:43:Jessica Camp, RNC) : 0 (03/23/2016 18:43:Jessica Camp, RNC) Spontaneous Abortions: 0 (03/23/2016 18:43:Jessica Camp, RNC) Induced Abortions: 0 (03/23/2016 18:43:Jessica Camp, RNC) Livin (03/23/2016 18:43:Jessica Camp, RNC) Cesareans: 0 (03/23/2016 18:43:Jessica Wallace RNC) VBACs: 0 (03/23/2016 18:43:Jessica Camp, RNC) [facility]: [facility] Multiple Births: 0 (03/23/2016 18:43:[facility]) Baby, Number in Womb: 1 (03/23/2016 18:[facility]) CARE Primary Client Support Professional: [facility] (03/23/2016 18:43:Elizabeth Mitchell RN) Month of 1st Visit: August (03/23/2016 18:43:Elizabeth Mitchell RN) Adequate Care: Yes (03/23/2016 18:43:Elizabeth Mitchell RN) Prepregnancy Weight (lb): 135 (03/23/2016 18:43:Elizabeth Mitchell RN) Prepregnancy Weight (kg): 61.4 (03/23/2016 18:43:QS system process) Height (in): 64 (03/26/2016 11:02:QS system process) ALLERGIES Medication Allergy: No (03/23/2016 18:43:Elizabeth Mitchell RN) Medication Allergies: No Known Allergies (03/23/2016) (03/23/2016 18:45:QS system process) Latex Allergy: No Latex Allergies (03/23/2016 18:43:Elizabeth Mitchell RN) Food Allergies: denies (03/23/2016 18:43:Elizabeth Mitchell RN) Environmental Allergies: denies (03/23/2016 18:43:Elizabeth Mitchell RN) COMMUNICATION Primary Language: Cuban (03/23/2016 18:43:Elizabeth Mitchell RN) Medical Tx Preferred Language: Cuban (Annotations: Data stored by [facility] on behalf of user) (03/23/2016 18:43:Francisca Gottlieb RN) Communication Barrier(s): None (03/23/2016 18:43:Elizabeth Mitchell RN) DEMOGRAPHICS Address: [address] [place] [address] (03/23/2016 18:29:QS system process) Zipcode: [address] (03/23/2016 18:29:QS system process) Home (03/23/2016 18:29:QS system process) N: [phone] (03/23/2016 18:29:QS system process) Next of Kin Name: GINO TUTTLE (03/23/2016 18:29:QS system process) Next of Kin (03/23/2016 18:29:QS system process) Next of Kin Relationship: OR (03/23/2016 18:29:QS system process) Date of : 1990 (03/23/2016 18:29:QS system process) Marital Status: Single (03/23/2016 18:29:QS system process) Sex: Female (03/23/2016 18:29:QS system process) Race: (03/23/2016 18:29:QS system process) Ethnicity: Non- or (03/23/2016 18:29:QS system process) Mormonism: None (03/23/2016 18:29:QS system process) DRUG AND ALCOHOL USE Alcohol: No (03/23/2016 18:43:Elizabeth Mitchell RN) Cigarettes: Former Smoker. [id number] (03/23/2016 18:43:Elizabeth Mitchell RN) Marijuana: No (03/23/2016 18:43:Elizabeth Mitchell RN) Cocaine: No (03/23/2016 18:43:Elizabeth Mitchell RN) Other Illicit Drugs: No (03/23/2016 18:43:Elizabeth Mitchell RN) VACCINE HISTORY Influenza Vaccine: Yes (03/23/2016 18:43:Elizabeth Mitchell RN) Pneumococcal Vaccine: No (03/23/2016 18:43:Elizabeth Mitchell RN) Tetanus Vaccine: Yes (03/23/2016 18:43:Lola Schofield RN) Tdap Vaccine: Yes (03/23/2016 18:43:Elizabeth Mitchell RN) Hepatitis B Vaccine: Yes (03/23/2016 18:43:Elizabeth Mitchell RN) Labor Arbitrator Hearing Office: [facility] (03/23/2016 18:43:Elizabeth Mitchell RN) Feeding Preference: Formula (03/23/2016 18:43:Elizabeth Mitchell RN) Benefit of Breast Feed Discussed: Yes (03/23/2016 18:43:Elizabeth Mitchell RN) Circumcision: N/A (03/23/2016 18:43:Elziabeth Mitchell RN) Classes Attended: No (03/23/2016 18:43:Elizabeth Mitchell RN) Tubal Ligation: No (03/23/2016 18:43:Elizabeth Mitchell RN) Consent: N/A (03/23/2016 18:43:Elizabeth Mitchell RN) Consent Signed: N/A (03/23/2016 18:43:Elizabeth Mitchell RN) Pain Management Plans: Epidural (03/23/2016 18:43:Elizabeth Mitchell RN) Plans for Labor and Delivery: None (03/23/2016 18:43:Elizabeth Mitchell RN) Support Person: Nacho Corado (03/23/2016 18:43:Elizabeth Mitchell RN) Support Person Relationship: Significant Other (03/23/2016 18:43:Elizabeth Mitchell RN) Cultural/Spritual Practice: No (03/23/2016 18:43:Elizabeth Mitchell RN) Spir/Cult Dietary Needs: No (03/23/2016 18:43:Elizabeth Mitchell RN) LIVING SITUATION/DISCHARGE PLAN Living Arrangements: House (03/23/2016 18:43:Elizabeth Mitchell RN) Adequate Access to:: Electric; Heat; Refrigeration; Plumbing/Running water; Phone; Transportation (03/23/2016 18:43:Elizabeth Mitchell RN) WIC Program: Yes (03/23/2016 18:43:Elizabeth Mitchell RN) Discharge Manager Audio Person: Erik Corado (03/23/2016 18:43:Elizabeth Mitchell RN) Person to Help after Discharge: Erik Corado (03/23/2016 18:43:Elizabeth Mitchell RN) Currently Using Commun Resources: No (03/23/2016 18:43:Elizabeth Mitchell RN) Outside Agency/Clarity Specialists: No (03/23/2016 18:43:Elizabeth Mitchell RN) Car Seat for Discharge: No (03/23/2016 18:43:Elizabeth Mitchell RN) Need Help to Obtain Car Seat: will have prior to discharge (03/23/2016 18:43:Elizabeth Mitchell RN) Adoption Requested: No (03/23/2016 18:43:Elizabeth Mitchell RN) Pt Contact w/ Post : N/A (03/23/2016 18:43:Elizabeth Mitchell RN) LABS Blood Type: O Positive (03/23/2016 18:43:Elizabeth Mitchell RN) Antibody Screen: Negative (03/23/2016 18:43:Elizabeth Mitchell RN) Hemoglobin: 11.4 L (03/25/2016 06:53:QS system process) Hematocrit: 34.4 L (03/25/2016 06:53:QS system process) MCV: 92 (03/25/2016 06:53:QS system process) Group Beta Strep: POSITIVE (03/23/2016 18:43:Elizabeth Mitchell RN) Gonorrhea: Negative (03/23/2016 18:43:Elizabeth Mitchell RN) Chlamydia: Negative (03/23/2016 18:43:Elizabeth Mitchell RN) RPR/VDRL: Nonreactive (03/23/2016 18:43:Elizabeth Mitchell RN) HIV Exposure Test: Negative (03/23/2016 18:43:Elizabeth Mitchell RN) Hepatitis B: Negative (03/23/2016 18:43:Elizabeth Mitchell RN) Rubella: Immune (03/23/2016 18:43:Elizabeth Mitchell RN) Varicella: Non Susceptible (03/23/2016 18:43:Elizabeth Mitchell RN) OB/PREVIOUS HISTORY Previous Procedures: None (03/23/2016 18:43:Elizabeth Mitchell RN) Current Procedures: Ultrasound (03/23/2016 18:43:Elizabeth Mitchell RN) History of Previous : No (03/23/2016 18:43:Elizabeth Mitchell RN) History of Gestational Diabetes: No (03/23/2016 18:43:Elizabeth Mitchell RN) History of PIH: No (03/23/2016 18:43:Elizabeth Mitchell RN) History of Incompetent Cervix: No (03/23/2016 18:43:Elizabeth Mitchell RN) History of Placenta Previa/Abrup: No (03/23/2016 18:43:Elizabeth Mitchell RN) History of Macrosomia: No (03/23/2016 18:43:Elizabeth Mitchell RN) History of IUGR: No (03/23/2016 18:43:Elizabeth Mitchell RN) History of Hemorrhage: No (03/23/2016 18:43:Elizabeth Mitchell RN) History of Loss/Stillborn: No (03/23/2016 18:43:Elizabeth Mitchell RN) History of : No (03/23/2016 18:43:Elizabeth Mitchell RN) History of D (Rh) Sensitization: No (03/23/2016 18:43:Elizabeth Mitchell RN) History Recurrent Loss/Stillborn: No (03/23/2016 18:43:Elizabeth Mitchell RN) History Depression/PP Depression: No (03/23/2016 18:43:Elizabeth Mitchell RN) History of Uterine Anomaly/ANNA: No (03/23/2016 18:43:Elizabeth Mitchell RN) History of Infertility: No (03/23/2016 18:43:Elizabeth Mitchell RN) History of ART Treatment: No (03/23/2016 18:43:Elizabeth Mitchell RN) History of ANNA: No (03/23/2016 18:43:Elizabeth Mitchell RN) Comments Obstetrical History: G1-Current (03/23/2016 18:43:Jacy Morris RN) MEDICAL HISTORY Med Hx Diabetes: No (03/23/2016 18:43:Elizabeth Mitchell RN) Med Hx Hypertension: No (03/23/2016 18:43:Elizabeth Mitchell RN) Med Hx Heart Disease: No (03/23/2016 18:43:Elizabeth Mitchell RN) Med Hx Autoimmune Disorder: No (03/23/2016 18:43:Elizabeth Mitchell RN) Med Hx Kidney Disease/UTI: No (03/23/2016 18:43:Elizabeth Mitchell RN) Med Hx Neurologic/Epilepsy: No (03/23/2016 18:43:Elizabeth Mitchell RN) Med Hx Psychiatric Disorders: No (03/23/2016 18:43:Elizabeth Mitchell RN) Med Hx Hepatitis/Liver Disease: No (03/23/2016 18:43:Elizabeth Mitchell RN) Med Hx Varicosities/Phlebitis: No (03/23/2016 18:43:Elizabeth Mitchell RN) Med Hx Thyroid Dysfunction: No (03/23/2016 18:43:Elizabeth Mitchell RN) Med Hx Trauma/Violence: No (03/23/2016 18:43:Elizabeth Mitchell RN) Med Hx Blood Transfusion: No (03/23/2016 18:43:Elizabeth Mitchell RN) Med Hx Pulmonary (Asthma,TB): No (03/23/2016 18:43:Elizabeth Mitchell RN) Med Hx Breast: No (03/23/2016 18:43:Elizabeth Mitchell RN) Med Hx SUPERVISOR PAPER TESTING Surgery: No (03/23/2016 18:43:Elizabeth Mitchell RN) Med Hx Hospitalization/Surgery: No (03/23/2016 18:43:Elizabeth Mitchell RN) Med Hx Anesthetic Complications: No (03/23/2016 18:43:Elizabeth Mitchell RN) Med Hx Abnormal Pap Smear: No (03/23/2016 18:43:Elizabeth Mitchell RN) Other Medical Diseases: No (03/23/2016 18:43:Elizabeth Mitchell RN) Med Hx Significant Family Hx: No (03/23/2016 18:43:Elizabeth Mitchell RN) INFECTIOUS HISTORY Inf Hx Gonorrhea: No (03/23/2016 18:43:Elizabeth Mitchell RN) Inf Hx Chlamydia: No (03/23/2016 18:43:Elizabeth Mitchell RN) Inf Hx Syphilis: No (03/23/2016 18:43:Elizabeth Mitchell RN) Inf Hx HIV/AIDS: No (03/23/2016 18:43:Elizabeth Mitchell RN) Inf Hx Human Papilloma Virus: No (03/23/2016 18:43:Elizabeth Mitchell RN) Inf Hx Pt/Partner Genital Herpes: No (03/23/2016 18:43:Elizabeth Mitchell RN) Inf Hx Tuberculosis/Exposure: No (03/23/2016 18:43:Elizabeth Mitchell RN) Inf Hx Hepatitis B,C: No (03/23/2016 18:43:Elizabeth Mitchell RN) Inf Hx Rash or Viral Illness: No (03/23/2016 18:43:Elizabeth Mitchell RN) GENETIC HISTORY Gen Hx Age >=35 at [place]: No (03/23/2016 18:43:Elizabeth Mitchell RN) Gen Hx Thalassemia: No (03/23/2016 18:43:Elizabeth Mitchell RN) Gen Hx Congenital Heart Defect: No (03/23/2016 18:43:Elizabeth Mitchell RN) Gen Hx Neural Tube Defect: No (03/23/2016 18:43:Elizabeth Mitchell RN) Gen Hx Down's Syndrome: No (03/23/2016 18:43:Elizabeth Mitchell RN) Gen Hx Jesus-Sachs: No (03/23/2016 18:43:Elizabeth Mitchell RN) Gen Hx Fredis: No (03/23/2016 18:43:Elizabeth Mitchell RN) Gen Hx Familial Dysautonomia: No (03/23/2016 18:43:Elizabeth Mitchell RN) Gen Hx Sickle Cell Disease/Trait: No (03/23/2016 18:43:Elizabeth Mitchell RN) Gen Hx Hemophilia/Blood Disorder: No (03/23/2016 18:43:Elizabeth Mitchell RN) Gen Hx Muscular Dystrophy: No (03/23/2016 18:43:Elizabeth Mitchell RN) Gen Hx Cystic Fibrosis: No (03/23/2016 18:43:Elizabeth Mitchell RN) Gen Hx Huntingtons Chorea: No (03/23/2016 18:43:Elizabeth Mitchell RN) Gen Hx Mental Retardation/Autism: No (03/23/2016 18:43:Elizabeth Mitchell RN) Gen Hx Tested for Fragile X: No (03/23/2016 18:43:Elizabeth Mitchell RN) Gen Hx Other Inher/Chromosomal: No (03/23/2016 18:43:Elizabeth Mitchell RN) Gen Hx Maternal Metabolic DO: No (03/23/2016 18:43:Elizabeth Mitchell RN) Gen Hx Pt Father or FOB Defect: No (03/23/2016 18:43:Elizabeth Mitchell RN) Gen Hx Other Genetic History: No (03/23/2016 18:43:Elizabeth Mitchell RN) Gen Hx Drugs/Meds since LMP: No (03/23/2016 18:43:Elizabeth Mitchell RN)
--- NOTE | 2016-03-29 06:23 | L&D Current Admission ---
Current Admit Datetime Report Generated by CPN: 03/29/2016 06:00 ADMISSION INFORMATION Current Admit Date/Time: 03/23/2016 18:45 (03/23/2016 19:20:Elizabeth Mitchell RN) Reason for Admission: Induction of Labor (03/23/2016 19:20:Elizabeth Mitchell RN) Chief Complaint: Scheduled Induction of Labor (03/23/2016 19:22:Elizabeth Mitchell RN) Medications During : Vitamin (03/23/2016 19:20:Elizabeth Mitchell RN) EGA per Dates: 41.1 (03/23/2016 19:20:QS system process) Method of Arrival: Ambulatory (03/23/2016 19:20:Elizabeth Mitchell RN) Admitted From: Home (03/23/2016 19:20:Elizabeth Mitchell RN) Reason for Induction: Postterm (03/23/2016 19:20:Elizabeth Mitchell RN) Records Available: Yes (03/23/2016 19:20:Elizabeth Mitchell RN) General Admission Information: Reviewed (03/23/2016 19:20:Elizabeth Mitchell RN) General Admission Reviewed By: Sha Mitchell RN (03/23/2016 19:20:Elizabeth Mitchell RN) BELONGINGS/ADVANCED DIRECTIVES Valuables/Personal Effects: Purse/Wallet; Cell Phone; Eyeglasses (03/23/2016 19:20:Elizabeth Mitchell RN) Other Belongings: See [facility] belongings form (03/23/2016 19:20:Elizabeth Mitchell RN) Disposition of Belongings: Kept with Patient (03/23/2016 19:20:Elizabeth Mitchell RN) Advance Direct for Healthcare: No, and Wants No Information (03/23/2016 19:20:Elizabeth Mitchell RN) Durable Power of High School Coach: No (03/23/2016 19:20:Elizabeth Mitchell RN) Living Will: No (03/23/2016 19:20:Elizabeth Mitchell RN) Organ Donor: No (03/23/2016 19:20:Elizabeth Mitchell RN) Pt Rights Information Given: Yes (03/23/2016 19:20:Elizabeth Mitchell RN) Pt Understands Pt Rights: Yes (03/23/2016 19:20:Elizabeth Mitchell RN) LEARNING ASSESSMENT Knowledge Level: Understands L_D Process; Understands Care Activities; Had Pre-Hospital Education; Understands Diagnosis (03/23/2016 19:20:Elizabeth Mitchell RN) Barriers to Learning: None (03/23/2016 19:20:Elizabeth Mitchell RN) Learning Readiness: Motivated (03/23/2016 19:20:Elizabeth Mitchell RN) Learns Best By: 1 to 1 Instruction (03/23/2016 19:20:Elizabeth Mitchell RN) Learning Needs: Labor and Delivery Process; Pain Management; Symptoms to Report; Treatment Plan; Medication; Diagnosis; Nutrition; Equipment; Infant Care; Community Resources (03/23/2016 19:20:Elizabeth Mitchell RN) DOMESTIC VIOLANCE SCREENING Dom Viol Threatened/Hurt: No (03/23/2016 19:20:Elizabeth Mitchell RN) Hx of Abuse/Neglect past 2yrs: No (03/23/2016 19:20:Elizabeth Mitchell RN) Feel Unsafe Going Home: No (03/23/2016 19:20:Elizabeth Mitchell RN) Addt'l Observ Indicating Abuse: No (03/23/2016 19:20:Elizabeth Mitchell RN) Reason Unable to Complete Screen: N/A, Screen Completed (03/23/2016 19:20:Elizabeth Mitchell RN) Considered Personal Harm/Suicide: No (03/23/2016 19:20:Elizabeth Mitchell RN) NUTRITIONAL/FUNCTIONAL SCREENING Problem with Appetite >5 Days: No (03/23/2016 19:20:Elizabeth Mitchell RN) Chew/Swallow Difficulties: No (03/23/2016 19:20:Elizabeth Mitchell RN) Inappropriate Wt Gain/Loss: No (03/23/2016 19:20:Elizabeth Mitchell RN) Presence Skin Breakdown/Ulcer: No (03/23/2016 19:20:Elizabeth Mitchell RN) Special Diet: No (03/23/2016 19:20:Elizabeth Mitchell RN) Pt Requests Grinding Wheel Inspector Visit: No (03/23/2016 19:20:Elizabeth Mitchell RN) Hx of Any of the Following?: N/A (03/23/2016 19:20:Elizabeth Mitchell RN) New Diagnosis of: N/A (03/23/2016 19:20:Elizabeth Mitchell RN) Requires Assist w/Ambulation: No (03/23/2016 19:20:Elizabeth Mitchell RN) Uses Assist Device to Ambulate: No (03/23/2016 19:20:Elizabeth Mitchell RN) Pt Requires Help w/ADL's: No (03/23/2016 19:20:Elizabeth Mitchell RN)
--- NOTE | 2016-03-29 06:23 | L&D General Admission ---
General Admit Datetime Report Generated by CPN: 03/29/2016 06:00 INFORMATION Patient Age: 25 (03/23/2016 18:29:QS system process) EDC: 03/15/2016 00:00 (03/23/2016 18:43:Jessica Rodrigo, RNC) : 1 (03/23/2016 18:43:Jessica Camp, RNC) Para: 0 (03/23/2016 18:43:Jessica Camp, RNC) Term: 0 (03/23/2016 18:43:Jessica Camp, RNC) : 0 (03/23/2016 18:43:Jessica Camp, RNC) Spontaneous Abortions: 0 (03/23/2016 18:43:Jessica Camp, RNC) Induced Abortions: 0 (03/23/2016 18:43:Jessica Camp, RNC) Livin (03/23/2016 18:43:Jessica Camp, RNC) Cesareans: 0 (03/23/2016 18:43:Jessica Wallace RNC) VBACs: 0 (03/23/2016 18:43:Jessica Camp, RNC) [facility]: [facility] Multiple Births: 0 (03/23/2016 18:43:[facility]) Baby, Number in Womb: 1 (03/23/2016 [facility] CARE Primary White Washer Piler[facility] (03/23/2016 18:43:Elizabeth Mitchell RN) Month of 1st Visit: August (03/23/2016 18:43:Elizabeth Mitchell RN) Adequate Care: Yes (03/23/2016 18:43:Elizabeth Mitchell RN) Prepregnancy Weight (lb): 135 (03/23/2016 18:43:Elizabeth Mitchell RN) Prepregnancy Weight (kg): 61.4 (03/23/2016 18:43:QS system process) Height (in): 64 (03/26/2016 11:02:QS system process) ALLERGIES Medication Allergy: No (03/23/2016 18:43:Elizabeth Mitchell RN) Medication Allergies: No Known Allergies (03/23/2016) (03/23/2016 18:45:QS system process) Latex Allergy: No Latex Allergies (03/23/2016 18:43:Elizabeth Mitchell RN) Food Allergies: denies (03/23/2016 18:43:Elizabeth Mitchell RN) Environmental Allergies: denies (03/23/2016 18:43:Elizabeth Mitchell RN) COMMUNICATION Primary Language: Dominican (03/23/2016 18:43:Elizabeth Mitchell RN) Medical Tx Preferred Language: Dominican (Annotations: Data stored by [facility] on behalf of user) (03/23/2016 18:43:Francisca Gottlieb RN) Communication Barrier(s): None (03/23/2016 18:43:Elizabeth Mitchell RN) DEMOGRAPHICS Address: [address] [place] [address] (03/23/2016 18:29:QS system process) Zipcode: [address] (03/23/2016 18:29:QS system process) Home (03/23/2016 18:29:QS system process) N: [phone] (03/23/2016 18:29:QS system process) Next of Kin Name: GINO TUTTLE (03/23/2016 18:29:QS system process) Next of Kin (03/23/2016 18:29:QS system process) Next of Kin Relationship: OR (03/23/2016 18:29:QS system process) Date of : 1990 (03/23/2016 18:29:QS system process) Marital Status: Single (03/23/2016 18:29:QS system process) Sex: Female (03/23/2016 18:29:QS system process) Race: (03/23/2016 18:29:QS system process) Ethnicity: Non- or (03/23/2016 18:29:QS system process) Holiness: None (03/23/2016 18:29:QS system process) DRUG AND ALCOHOL USE Alcohol: No (03/23/2016 18:43:Elizabeth Mitchell RN) Cigarettes: Former Smoker. [id number] (03/23/2016 18:43:Elizabeth Mitchell RN) Marijuana: No (03/23/2016 18:43:Elizabeth Mitchell RN) Cocaine: No (03/23/2016 18:43:Elizabeth Mitchell RN) Other Illicit Drugs: No (03/23/2016 18:43:Elizabeth Mitchell RN) VACCINE HISTORY Influenza Vaccine: Yes (03/23/2016 18:43:Elizabeth Mitchell RN) Pneumococcal Vaccine: No (03/23/2016 18:43:Elizabeth Mitchell RN) Tetanus Vaccine: Yes (03/23/2016 18:43:Lola Schofield RN) Tdap Vaccine: Yes (03/23/2016 18:43:Elizabeth Mitchell RN) Hepatitis B Vaccine: Yes (03/23/2016 18:43:Elizabeth Mitchell RN) Security Shift Supervisor: [facility] (03/23/2016 18:43:Elizabeth Mitchell RN) Feeding Preference: Formula (03/23/2016 18:43:Elizabeth Mitchell RN) Benefit of Breast Feed Discussed: Yes (03/23/2016 18:43:Elizabeth Mitchell RN) Circumcision: N/A (03/23/2016 18:43:Elizabeth Mitchell RN) Classes Attended: No (03/23/2016 18:43:Elizabeth Mitchell RN) Tubal Ligation: No (03/23/2016 18:43:Elizabeth Mitchell RN) Consent: N/A (03/23/2016 18:43:Elizabeth Mitchell RN) Consent Signed: N/A (03/23/2016 18:43:Elizabeth Mitchell RN) Pain Management Plans: Epidural (03/23/2016 18:43:Elizabeth Mitchell RN) Plans for Labor and Delivery: None (03/23/2016 18:43:Elizabeth Mitchell RN) Support Person: Nacho Corado (03/23/2016 18:43:Elizabeth Mitchell RN) Support Person Relationship: Significant Other (03/23/2016 18:43:Elizabeth Mitchell RN) Cultural/Spritual Practice: No (03/23/2016 18:43:Elizabeth Mitchell RN) Spir/Cult Dietary Needs: No (03/23/2016 18:43:Elizabeth Mitchell RN) LIVING SITUATION/DISCHARGE PLAN Living Arrangements: House (03/23/2016 18:43:Elizabeth Mitchell RN) Adequate Access to:: Electric; Heat; Refrigeration; Plumbing/Running water; Phone; Transportation (03/23/2016 18:43:Elizabeth Mitchell RN) WIC Program: Yes (03/23/2016 18:43:Elizabeth Mitchell RN) Discharge Biofuels Product Manager Person: Erik Corado (03/23/2016 18:43:Elizabeth Mitchell RN) Person to Help after Discharge: Erik Corado (03/23/2016 18:43:Elizabeth Mitchell RN) Currently Using Commun Resources: No (03/23/2016 18:43:Elizabeth Mitchell RN) Outside Agency/Technician: No (03/23/2016 18:43:Elizabeth Mitchell RN) Car Seat for Discharge: No (03/23/2016 18:43:Elizabeth Mitchell RN) Need Help to Obtain Car Seat: will have prior to discharge (03/23/2016 18:43:Elizabeth Mitchell RN) Adoption Requested: No (03/23/2016 18:43:Elizabeth Mitchell RN) Pt Contact w/ Post : N/A (03/23/2016 18:43:Elizabeth Mitchell RN) LABS Blood Type: O Positive (03/23/2016 18:43:Elizabeth Mitchell RN) Antibody Screen: Negative (03/23/2016 18:43:Elizabteh Mitchell RN) Hemoglobin: 11.4 L (03/25/2016 06:53:QS system process) Hematocrit: 34.4 L (03/25/2016 06:53:QS system process) MCV: 92 (03/25/2016 06:53:QS system process) Group Beta Strep: POSITIVE (03/23/2016 18:43:Elizabeth Mitchell RN) Gonorrhea: Negative (03/23/2016 18:43:Elizabeth Mitchell RN) Chlamydia: Negative (03/23/2016 18:43:Elizabeth Mitchell RN) RPR/VDRL: Nonreactive (03/23/2016 18:43:Elizabeth Mitchell RN) HIV Exposure Test: Negative (03/23/2016 18:43:Elizabeth Mitchell RN) Hepatitis B: Negative (03/23/2016 18:43:Elizabeth Mitchell RN) Rubella: Immune (03/23/2016 18:43:Elizabeth Mitchell RN) Varicella: Non Susceptible (03/23/2016 18:43:Elizabeth Mitchell RN) OB/PREVIOUS HISTORY Previous Procedures: None (03/23/2016 18:43:Elizabeth Mitchell RN) Current Procedures: Ultrasound (03/23/2016 18:43:Elizabeth Mitchell RN) History of Previous : No (03/23/2016 18:43:Elizabeth Mitchell RN) History of Gestational Diabetes: No (03/23/2016 18:43:Elizabeth Mitchell RN) History of PIH: No (03/23/2016 18:43:Elizabeth Mitchell RN) History of Incompetent Cervix: No (03/23/2016 18:43:Elizabeth Mitchell RN) History of Placenta Previa/Abrup: No (03/23/2016 18:43:Elizabeth Mitchell RN) History of Macrosomia: No (03/23/2016 18:43:Elizabeth Mitchell RN) History of IUGR: No (03/23/2016 18:43:Elizabeth Mitchell RN) History of Hemorrhage: No (03/23/2016 18:43:Elizabeth Mitchell RN) History of Loss/Stillborn: No (03/23/2016 18:43:Elizabeth Mitchell RN) History of : No (03/23/2016 18:43:Elizabeth Mitchell RN) History of D (Rh) Sensitization: No (03/23/2016 18:43:Elizabeth Mitchell RN) History Recurrent Loss/Stillborn: No (03/23/2016 18:43:Elizabeth Mitchell RN) History Depression/PP Depression: No (03/23/2016 18:43:Elizabeth Mitchell RN) History of Uterine Anomaly/ANNA: No (03/23/2016 18:43:Elizabeth Mitchell RN) History of Infertility: No (03/23/2016 18:43:Elizabeth Mitchell RN) History of ART Treatment: No (03/23/2016 18:43:Elizabeth Mitchell RN) History of ANNA: No (03/23/2016 18:43:Elizabeth Mitchell RN) Comments Obstetrical History: G1-Current (03/23/2016 18:43:Jacy Morris RN) MEDICAL HISTORY Med Hx Diabetes: No (03/23/2016 18:43:Elizabeth Mitchell RN) Med Hx Hypertension: No (03/23/2016 18:43:Elizabeth Mitchell RN) Med Hx Heart Disease: No (03/23/2016 18:43:Elizabeth Mitchell RN) Med Hx Autoimmune Disorder: No (03/23/2016 18:43:Elizabeth Mitchell RN) Med Hx Kidney Disease/UTI: No (03/23/2016 18:43:Elizabeth Mitchell RN) Med Hx Neurologic/Epilepsy: No (03/23/2016 18:43:Elizabeth Mitchell RN) Med Hx Psychiatric Disorders: No (03/23/2016 18:43:Elizabeth Mitchell RN) Med Hx Hepatitis/Liver Disease: No (03/23/2016 18:43:Elizabeth Mitchell RN) Med Hx Varicosities/Phlebitis: No (03/23/2016 18:43:Elizabeth Mitchell RN) Med Hx Thyroid Dysfunction: No (03/23/2016 18:43:Elizabeth Mitchell RN) Med Hx Trauma/Violence: No (03/23/2016 18:43:Elizabeth Mitchell RN) Med Hx Blood Transfusion: No (03/23/2016 18:43:Elizabeth Mitchell RN) Med Hx Pulmonary (Asthma,TB): No (03/23/2016 18:43:Elizabeth Mitchell RN) Med Hx Breast: No (03/23/2016 18:43:Elizabeth Mitchell RN) Med Hx DAIRY TESTER Surgery: No (03/23/2016 18:43:Elizabeth Mitchell RN) Med Hx Hospitalization/Surgery: No (03/23/2016 18:43:Elizabeth Mitchell RN) Med Hx Anesthetic Complications: No (03/23/2016 18:43:Elizabeth Mitchell RN) Med Hx Abnormal Pap Smear: No (03/23/2016 18:43:Elizabeth Mitchell RN) Other Medical Diseases: No (03/23/2016 18:43:Elizabeth Mitchell RN) Med Hx Significant Family Hx: No (03/23/2016 18:43:Elizabeth Mitchell RN) INFECTIOUS HISTORY Inf Hx Gonorrhea: No (03/23/2016 18:43:Elizabeth Mitchell RN) Inf Hx Chlamydia: No (03/23/2016 18:43:Elizabeth Mitchell RN) Inf Hx Syphilis: No (03/23/2016 18:43:Elizabeth Mitchell RN) Inf Hx HIV/AIDS: No (03/23/2016 18:43:Elizabeth Mitchell RN) Inf Hx Human Papilloma Virus: No (03/23/2016 18:43:Elizabeth Mitchell RN) Inf Hx Pt/Partner Genital Herpes: No (03/23/2016 18:43:Elizabeth Mitchell RN) Inf Hx Tuberculosis/Exposure: No (03/23/2016 18:43:Elizabeth Mitchell RN) Inf Hx Hepatitis B,C: No (03/23/2016 18:43:Elizabeth Mitchell RN) Inf Hx Rash or Viral Illness: No (03/23/2016 18:43:Elizabeth Mitchell RN) GENETIC HISTORY Gen Hx Age >=35 at LIBERT[place]: No (03/23/2016 18:43:Elizabeth Mitchell RN) Gen Hx Thalassemia: No (03/23/2016 18:43:Elizabeth Mitchell RN) Gen Hx Congenital Heart Defect: No (03/23/2016 18:43:Elizabeth Mitchell RN) Gen Hx Neural Tube Defect: No (03/23/2016 18:43:Elizabeth Mitchell RN) Gen Hx Down's Syndrome: No (03/23/2016 18:43:Elizabeth Mitchell RN) Gen Hx Jesus-Sachs: No (03/23/2016 18:43:Elizabeth Mitchell RN) Gen Hx Fredis: No (03/23/2016 18:43:Elizabeth Mitchell RN) Gen Hx Familial Dysautonomia: No (03/23/2016 18:43:Elizabeth Mitchell RN) Gen Hx Sickle Cell Disease/Trait: No (03/23/2016 18:43:Elizabeth Mitchell RN) Gen Hx Hemophilia/Blood Disorder: No (03/23/2016 18:43:Elizabeth Mitchell RN) Gen Hx Muscular Dystrophy: No (03/23/2016 18:43:Elizabeth Mitchell RN) Gen Hx Cystic Fibrosis: No (03/23/2016 18:43:Elizabeth Mitchell RN) Gen Hx [place] Chorea: No (03/23/2016 18:43:Elizabeth Mitchell RN) Gen Hx Mental Retardation/Autism: No (03/23/2016 18:43:Elizabeth Mitchell RN) Gen Hx Tested for Fragile X: No (03/23/2016 18:43:Elizabeth Mitchell RN) Gen Hx Other Inher/Chromosomal: No (03/23/2016 18:43:Elizabeth Mitchell RN) Gen Hx Maternal Metabolic DO: No (03/23/2016 18:43:Elizabeth Mitchell RN) Gen Hx Pt Father or FOB Defect: No (03/23/2016 18:43:Elizabeth Mitchell RN) Gen Hx Other Genetic History: No (03/23/2016 18:43:Elizabeth Mitchell RN) Gen Hx Drugs/Meds since LMP: No (03/23/2016 18:43:Elizabeth Mitchell RN)
--- NOTE | 2016-03-29 18:28 | L&D General Admission ---
General Admit Datetime Report Generated by CPN: 03/29/2016 18:00 INFORMATION Patient Age: 25 (03/23/2016 18:29:QS system process) EDC: 03/15/2016 00:00 (03/23/2016 18:43:Jessica Rodrigo, RNC) : 1 (03/23/2016 18:43:Jessica Camp, RNC) Para: 0 (03/23/2016 18:43:Jessica Camp, RNC) Term: 0 (03/23/2016 18:43:Jessica Camp, RNC) : 0 (03/23/2016 18:43:Jessica Camp, RNC) Spontaneous Abortions: 0 (03/23/2016 18:43:Jessica Camp, RNC) Induced Abortions: 0 (03/23/2016 18:43:Jessica Camp, RNC) Livin (03/23/2016 18:43:Jessica Camp, RNC) Cesareans: 0 (03/23/2016 18:43:Jessica Wallace RNC) VBACs: 0 (03/23/2016 18:43:Jessica Camp, RNC) [facility]: [facility] Multiple Births: 0 (03/23/2016 18:43:[facility]) Baby, Number in Womb: 1 [facility]23/2016 [facility] CARE Primary Hat Presser[facility] (03/23/2016 18:43:Elizabeth Mitchell RN) Month of 1st Visit: August (03/23/2016 18:43:Elizabeth Mitchell RN) Adequate Care: Yes (03/23/2016 18:43:Elizabeth Mitchell RN) Prepregnancy Weight (lb): 135 (03/23/2016 18:43:Elizabeth Mitchell RN) Prepregnancy Weight (kg): 61.4 (03/23/2016 18:43:QS system process) Height (in): 64 (03/26/2016 11:02:QS system process) ALLERGIES Medication Allergy: No (03/23/2016 18:43:Elizabeth Mitchell RN) Medication Allergies: No Known Allergies (03/23/2016) (03/23/2016 18:45:QS system process) Latex Allergy: No Latex Allergies (03/23/2016 18:43:Elizabeth Mitchell RN) Food Allergies: denies (03/23/2016 18:43:Elizabeth Mitchell RN) Environmental Allergies: denies (03/23/2016 18:43:Elizabeth Mitchell RN) COMMUNICATION Primary Language: Montenegrin (03/23/2016 18:43:Elizabeth Mitchell RN) Medical Tx Preferred Language: Montenegrin (Annotations: Data stored by [facility] on behalf of user) (03/23/2016 18:43:Francisca Gottlieb RN) Communication Barrier(s): None (03/23/2016 18:43:Elizabeth Mitchell RN) DEMOGRAPHICS Address: [address] [place] [address] (03/23/2016 18:29:QS system process) Zipcode: [address] (03/23/2016 18:29:QS system process) Home (03/23/2016 18:29:QS system process) N: [phone] (03/23/2016 18:29:QS system process) Next of Kin Name: GINO TUTTLE (03/23/2016 18:29:QS system process) Next of Kin (03/23/2016 18:29:QS system process) Next of Kin Relationship: OR (03/23/2016 18:29:QS system process) Date of : 1990 (03/23/2016 18:29:QS system process) Marital Status: Single (03/23/2016 18:29:QS system process) Sex: Female (03/23/2016 18:29:QS system process) Race: (03/23/2016 18:29:QS system process) Ethnicity: Non- or (03/23/2016 18:29:QS system process) Yarsanism: None (03/23/2016 18:29:QS system process) DRUG AND ALCOHOL USE Alcohol: No (03/23/2016 18:43:Elizabeth Mitchell RN) Cigarettes: Former Smoker. [id number] (03/23/2016 18:43:Elizabeth Mitchell RN) Marijuana: No (03/23/2016 18:43:Elizabeth Mitchell RN) Cocaine: No (03/23/2016 18:43:Elizabeth Mitchell RN) Other Illicit Drugs: No (03/23/2016 18:43:Elizabeth Mitchell RN) VACCINE HISTORY Influenza Vaccine: Yes (03/23/2016 18:43:Elizabeth Mitchell RN) Pneumococcal Vaccine: No (03/23/2016 18:43:Elizabeth Mitchell RN) Tetanus Vaccine: Yes (03/23/2016 18:43:Lola Schofield RN) Tdap Vaccine: Yes (03/23/2016 18:43:Elizabeth Mitchell RN) Hepatitis B Vaccine: Yes (03/23/2016 18:43:Elizabeth Mitchell RN) Study Assistant: [facility] (03/23/2016 18:43:Elizabeth Mitchell RN) Feeding Preference: Formula (03/23/2016 18:43:Elizabeth Mitchell RN) Benefit of Breast Feed Discussed: Yes (03/23/2016 18:43:Elizabeth Mitchell RN) Circumcision: N/A (03/23/2016 18:43:Elizabeth Mitchell RN) Classes Attended: No (03/23/2016 18:43:Elizabeth Mitchell RN) Tubal Ligation: No (03/23/2016 18:43:Elizabeth Mitchell RN) Consent: N/A (03/23/2016 18:43:Elizabeth Mitchell RN) Consent Signed: N/A (03/23/2016 18:43:Elizabeth Mitchell RN) Pain Management Plans: Epidural (03/23/2016 18:43:Elizabeth Mitchell RN) Plans for Labor and Delivery: None (03/23/2016 18:43:Elizabeth Mitchell RN) Support Person: Nacho Corado (03/23/2016 18:43:Elizabeth Mitchell RN) Support Person Relationship: Significant Other (03/23/2016 18:43:Elizabeth Mitchell RN) Cultural/Spritual Practice: No (03/23/2016 18:43:Elizabeth Mitchell RN) Spir/Cult Dietary Needs: No (03/23/2016 18:43:Elizabeth Mitchell RN) LIVING SITUATION/DISCHARGE PLAN Living Arrangements: House (03/23/2016 18:43:Elizabeth Mitchell RN) Adequate Access to:: Electric; Heat; Refrigeration; Plumbing/Running water; Phone; Transportation (03/23/2016 18:43:Elizabeth Mitchell RN) WIC Program: Yes (03/23/2016 18:43:Elizabeth Mitchell RN) Discharge Special Services Coordinator Person: Erik Corado (03/23/2016 18:43:Elizabeth Mitchell RN) Person to Help after Discharge: Erik Corado (03/23/2016 18:43:Elizabeth Mitchell RN) Currently Using Commun Resources: No (03/23/2016 18:43:Elizabeth Mitchell RN) Outside Agency/Abrasive Worker: No (03/23/2016 18:43:Elizabeth Mitchell RN) Car Seat for Discharge: No (03/23/2016 18:43:Elizabeth Mitchell RN) Need Help to Obtain Car Seat: will have prior to discharge (03/23/2016 18:43:Elizabeth Mitchell RN) Adoption Requested: No (03/23/2016 18:43:Elizabeth Mitchell RN) Pt Contact w/ Post : N/A (03/23/2016 18:43:Elizabeth Mitchell RN) LABS Blood Type: O Positive (03/23/2016 18:43:Elizabeth Mitchell RN) Antibody Screen: Negative (03/23/2016 18:43:Elizabeth Mitchell RN) Hemoglobin: 11.4 L (03/25/2016 06:53:QS system process) Hematocrit: 34.4 L (03/25/2016 06:53:QS system process) MCV: 92 (03/25/2016 06:53:QS system process) Group Beta Strep: POSITIVE (03/23/2016 18:43:Elizabeth Mitchell RN) Gonorrhea: Negative (03/23/2016 18:43:Elizabeth Mitchell RN) Chlamydia: Negative (03/23/2016 18:43:Elizabeth Mitchell RN) RPR/VDRL: Nonreactive (03/23/2016 18:43:Elizabeth Mitchell RN) HIV Exposure Test: Negative (03/23/2016 18:43:Elizabeth Mitchell RN) Hepatitis B: Negative (03/23/2016 18:43:Elizabeth Mitchell RN) Rubella: Immune (03/23/2016 18:43:Elizabeth Mitchell RN) Varicella: Non Susceptible (03/23/2016 18:43:Elizabeth Mitchell RN) OB/PREVIOUS HISTORY Previous Procedures: None (03/23/2016 18:43:Elizabeth Mitchell RN) Current Procedures: Ultrasound (03/23/2016 18:43:Elizabeth Mitchell RN) History of Previous : No (03/23/2016 18:43:Elizabeth Mitchell RN) History of Gestational Diabetes: No (03/23/2016 18:43:Elizabeth Mitchell RN) History of PIH: No (03/23/2016 18:43:Elizabeth Mitchell RN) History of Incompetent Cervix: No (03/23/2016 18:43:Elizabeth Mitchell RN) History of Placenta Previa/Abrup: No (03/23/2016 18:43:Elizabeth Mitchell RN) History of Macrosomia: No (03/23/2016 18:43:Elizabeth Mitchell RN) History of IUGR: No (03/23/2016 18:43:Elizabeth Mitchell RN) History of Hemorrhage: No (03/23/2016 18:43:Elizabeth Mitchell RN) History of Loss/Stillborn: No (03/23/2016 18:43:Elizabeth Mitchell RN) History of : No (03/23/2016 18:43:Elizabeth Mitchell RN) History of D (Rh) Sensitization: No (03/23/2016 18:43:Elizabeth Mitchell RN) History Recurrent Loss/Stillborn: No (03/23/2016 18:43:Elizabeth Mitchell RN) History Depression/PP Depression: No (03/23/2016 18:43:Elizabeth Mitchell RN) History of Uterine Anomaly/ANNA: No (03/23/2016 18:43:Elizabeth Mitchell RN) History of Infertility: No (03/23/2016 18:43:Elizabeth Mitchell RN) History of ART Treatment: No (03/23/2016 18:43:Elizabeth Mitchell RN) History of ANNA: No (03/23/2016 18:43:Elizabeth Mitchell RN) Comments Obstetrical History: G1-Current (03/23/2016 18:43:Jacy Morris RN) MEDICAL HISTORY Med Hx Diabetes: No (03/23/2016 18:43:Elizabeth Mitchell RN) Med Hx Hypertension: No (03/23/2016 18:43:Elizabeth Mitchell RN) Med Hx Heart Disease: No (03/23/2016 18:43:Elizabeth Mitchell RN) Med Hx Autoimmune Disorder: No (03/23/2016 18:43:Elizabeth Mitchell RN) Med Hx Kidney Disease/UTI: No (03/23/2016 18:43:Elizabeth Mitchell RN) Med Hx Neurologic/Epilepsy: No (03/23/2016 18:43:Elizabeth Mitchell RN) Med Hx Psychiatric Disorders: No (03/23/2016 18:43:Elizabeth Mitchell RN) Med Hx Hepatitis/Liver Disease: No (03/23/2016 18:43:Elizabeth Mitchell RN) Med Hx Varicosities/Phlebitis: No (03/23/2016 18:43:Elizabeth Mitchell RN) Med Hx Thyroid Dysfunction: No (03/23/2016 18:43:Elizabeth Mitchell RN) Med Hx Trauma/Violence: No (03/23/2016 18:43:Elizabeth Mitchell RN) Med Hx Blood Transfusion: No (03/23/2016 18:43:Elizabeth Mitchell RN) Med Hx Pulmonary (Asthma,TB): No (03/23/2016 18:43:Elizabeth Mitchell RN) Med Hx Breast: No (03/23/2016 18:43:Elizabeth Mitchell RN) Med Hx CLERICAL ADVISER Surgery: No (03/23/2016 18:43:Elizabeth Mitchell RN) Med Hx Hospitalization/Surgery: No (03/23/2016 18:43:Elizabeth Mitchell RN) Med Hx Anesthetic Complications: No (03/23/2016 18:43:Elizabeth Mitchell RN) Med Hx Abnormal Pap Smear: No (03/23/2016 18:43:Elizabeth Mitchell RN) Other Medical Diseases: No (03/23/2016 18:43:Elizabeth Mitchell RN) Med Hx Significant Family Hx: No (03/23/2016 18:43:Elizabeth Mitchell RN) INFECTIOUS HISTORY Inf Hx Gonorrhea: No (03/23/2016 18:43:Elizabeth Mitchell RN) Inf Hx Chlamydia: No (03/23/2016 18:43:Elizabeth Mitchell RN) Inf Hx Syphilis: No (03/23/2016 18:43:Elizabeth Mitchell RN) Inf Hx HIV/AIDS: No (03/23/2016 18:43:Elizabeth Mitchell RN) Inf Hx Human Papilloma Virus: No (03/23/2016 18:43:Elizabeth Mitchell RN) Inf Hx Pt/Partner Genital Herpes: No (03/23/2016 18:43:Elizabeth Mitchell RN) Inf Hx Tuberculosis/Exposure: No (03/23/2016 18:43:Elizabeth Mitchell RN) Inf Hx Hepatitis B,C: No (03/23/2016 18:43:Elizabeth Mitchell RN) Inf Hx Rash or Viral Illness: No (03/23/2016 18:43:Elizabeth Mitchell RN) GENETIC HISTORY Gen Hx Age >=35 at LIBERT[place]: No (03/23/2016 18:43:Elizabeth Mitchell RN) Gen Hx Thalassemia: No (03/23/2016 18:43:Elizabeth Mitchell RN) Gen Hx Congenital Heart Defect: No (03/23/2016 18:43:Elizabeth Mitchell RN) Gen Hx Neural Tube Defect: No (03/23/2016 18:43:Elizabeth Mitchell RN) Gen Hx Down's Syndrome: No (03/23/2016 18:43:Elizabeth Mitchell RN) Gen Hx Jesus-Sachs: No (03/23/2016 18:43:Elizabeth Mitchell RN) Gen Hx Fredis: No (03/23/2016 18:43:Elizabeth Mitchell RN) Gen Hx Familial Dysautonomia: No (03/23/2016 18:43:Elizabeth Mitchell RN) Gen Hx Sickle Cell Disease/Trait: No (03/23/2016 18:43:Elizabeth Mitchell RN) Gen Hx Hemophilia/Blood Disorder: No (03/23/2016 18:43:Elizabeth Mitchell RN) Gen Hx Muscular Dystrophy: No (03/23/2016 18:43:Elizabeth Mitchell RN) Gen Hx Cystic Fibrosis: No (03/23/2016 18:43:Elizabeth Mitchell RN) Gen Hx [place] Chorea: No (03/23/2016 18:43:Elizabeth Mitchell RN) Gen Hx Mental Retardation/Autism: No (03/23/2016 18:43:Elizabeth Mitchell RN) Gen Hx Tested for Fragile X: No (03/23/2016 18:43:Elizabeth Mitchell RN) Gen Hx Other Inher/Chromosomal: No (03/23/2016 18:43:Elizabeth Mitchell RN) Gen Hx Maternal Metabolic DO: No (03/23/2016 18:43:Elizabeth Mitchell RN) Gen Hx Pt Father or FOB Defect: No (03/23/2016 18:43:Elizabeth Mitchell RN) Gen Hx Other Genetic History: No (03/23/2016 18:43:Elizabeth Mitchell RN) Gen Hx Drugs/Meds since LMP: No (03/23/2016 18:43:Elizabeth Mitchell RN)
--- NOTE | 2016-03-29 18:28 | L&D Current Admission ---
Current Admit Datetime Report Generated by CPN: 03/29/2016 18:00 ADMISSION INFORMATION Current Admit Date/Time: 03/23/2016 18:45 (03/23/2016 19:20:Elizabeth Mitchell RN) Reason for Admission: Induction of Labor (03/23/2016 19:20:Elizabeth Mitchell RN) Chief Complaint: Scheduled Induction of Labor (03/23/2016 19:22:Elizabeth Mitchell RN) Medications During : Vitamin (03/23/2016 19:20:Elizabeth Mitchell RN) EGA per Dates: 41.1 (03/23/2016 19:20:QS system process) Method of Arrival: Ambulatory (03/23/2016 19:20:Elizabeth Mitchell RN) Admitted From: Home (03/23/2016 19:20:Elizabeth Mitchell RN) Reason for Induction: Postterm (03/23/2016 19:20:Elizabeth Mitchell RN) Records Available: Yes (03/23/2016 19:20:Elizabeth Mitchell RN) General Admission Information: Reviewed (03/23/2016 19:20:Elizabeth Mitchell RN) General Admission Reviewed By: Sha Mitchell RN (03/23/2016 19:20:Elizabeth Mitchell RN) BELONGINGS/ADVANCED DIRECTIVES Valuables/Personal Effects: Purse/Wallet; Cell Phone; Eyeglasses (03/23/2016 19:20:Elizabeth Mitchell RN) Other Belongings: [facility] belongings form (03/23/2016 19:20:Elizabeth Mitchell RN) Disposition of Belongings: Kept with Patient (03/23/2016 19:20:Elizabeth Mitchell RN) Advance Direct for Healthcare: No, and Wants No Information (03/23/2016 19:20:Elizabeth Mitchell RN) Durable Power of Die Cast Technician: No (03/23/2016 19:20:Elizabeth Mitchell RN) Living Will: No (03/23/2016 19:20:Elizabeth Mitchell RN) Organ Donor: No (03/23/2016 19:20:Elizabeth Mitchell RN) Pt Rights Information Given: Yes (03/23/2016 19:20:Elizabeth Mitchell RN) Pt Understands Pt Rights: Yes (03/23/2016 19:20:Elizabeth Mitchell RN) LEARNING ASSESSMENT Knowledge Level: Understands L_D Process; Understands Care Activities; Had Pre-Hospital Education; Understands Diagnosis (03/23/2016 19:20:Elizabeth Mitchell RN) Barriers to Learning: None (03/23/2016 19:20:Elizabeth Mitchell RN) Learning Readiness: Motivated (03/23/2016 19:20:Elizabeth Mitchell RN) Learns Best By: 1 to 1 Instruction (03/23/2016 19:20:Elizabeth Mitchell RN) Learning Needs: Labor and Delivery Process; Pain Management; Symptoms to Report; Treatment Plan; Medication; Diagnosis; Nutrition; Equipment; Infant Care; Community Resources (03/23/2016 19:20:Elizabeth Mitchell RN) DOMESTIC VIOLANCE SCREENING Dom Viol Threatened/Hurt: No (03/23/2016 19:20:Elizabeth Mitchell RN) Hx of Abuse/Neglect past 2yrs: No (03/23/2016 19:20:Elizabeth Mitchell RN) Feel Unsafe Going Home: No (03/23/2016 19:20:Elizabeth Mitchell RN) Addt'l Observ Indicating Abuse: No (03/23/2016 19:20:Elizabeth Mitchell RN) Reason Unable to Complete Screen: N/A, Screen Completed (03/23/2016 19:20:Elizabeth Mitchell RN) Considered Personal Harm/Suicide: No (03/23/2016 19:20:Elizabeth Mitchell RN) NUTRITIONAL/FUNCTIONAL SCREENING Problem with Appetite >5 Days: No (03/23/2016 19:20:Elizabeth Mitchell RN) Chew/Swallow Difficulties: No (03/23/2016 19:20:Elizabeth Mitchell RN) Inappropriate Wt Gain/Loss: No (03/23/2016 19:20:Elizabeth Mitchell RN) Presence Skin Breakdown/Ulcer: No (03/23/2016 19:20:Elizabeth Mitchell RN) Special Diet: No (03/23/2016 19:20:Elizabeth Mitchell RN) Pt Requests Relays Draftsperson Visit: No (03/23/2016 19:20:Elizabeth Mitchell RN) Hx of Any of the Following?: N/A (03/23/2016 19:20:Elizabeth Mitchell RN) New Diagnosis of: N/A (03/23/2016 19:20:Elizabeth Mitchell RN) Requires Assist w/Ambulation: No (03/23/2016 19:20:Elizabeth Mitchell RN) Uses Assist Device to Ambulate: No (03/23/2016 19:20:Elizabeth Mitchell RN) Pt Requires Help w/ADL's: No (03/23/2016 19:20:Elizabeth Mitchell RN)
--- NOTE | 2016-03-30 06:29 | L&D Current Admission ---
Current Admit Datetime Report Generated by CPN: 03/30/2016 06:00 ADMISSION INFORMATION Current Admit Date/Time: 03/23/2016 18:45 (03/23/2016 19:20:Elizabeth Mitchell RN) Reason for Admission: Induction of Labor (03/23/2016 19:20:Elizabeth Mitchell RN) Chief Complaint: Scheduled Induction of Labor (03/23/2016 19:22:Elizabeth Mitchell RN) Medications During : Vitamin (03/23/2016 19:20:Elizabeth Mitchell RN) EGA per Dates: 41.1 (03/23/2016 19:20:QS system process) Method of Arrival: Ambulatory (03/23/2016 19:20:Elizabeth Mitchell RN) Admitted From: Home (03/23/2016 19:20:Elizabeth Mitchell RN) Reason for Induction: Postterm (03/23/2016 19:20:Elizabeth Mitchell RN) Records Available: Yes (03/23/2016 19:20:Elizabeth Mitchell RN) General Admission Information: Reviewed (03/23/2016 19:20:Elizabeth Mitchell RN) General Admission Reviewed By: Sha Mitchell RN (03/23/2016 19:20:Elizabeth Mitchell RN) BELONGINGS/ADVANCED DIRECTIVES Valuables/Personal Effects: Purse/Wallet; Cell Phone; Eyeglasses (03/23/2016 19:20:Elizabeth Mitchell RN) Other Belongings: See [facility] belongings form (03/23/2016 19:20:Elizabeth Mitchell RN) Disposition of Belongings: Kept with Patient (03/23/2016 19:20:Elizabeth Mitchell RN) Advance Direct for Healthcare: No, and Wants No Information (03/23/2016 19:20:Elizabeth Mitchell RN) Durable Power of Education Teacher: No (03/23/2016 19:20:Elizabeth Mitchell RN) Living Will: No (03/23/2016 19:20:Elizabeth Mitchell RN) Organ Donor: No (03/23/2016 19:20:Elizabeth Mitchell RN) Pt Rights Information Given: Yes (03/23/2016 19:20:Elizabeth Mitchell RN) Pt Understands Pt Rights: Yes (03/23/2016 19:20:Elizabeth Mitchell RN) LEARNING ASSESSMENT Knowledge Level: Understands L_D Process; Understands Care Activities; Had Pre-Hospital Education; Understands Diagnosis (03/23/2016 19:20:Elizabeth Mitchell RN) Barriers to Learning: None (03/23/2016 19:20:Elizabeth Mitchell RN) Learning Readiness: Motivated (03/23/2016 19:20:Elizabeth Mitchell RN) Learns Best By: 1 to 1 Instruction (03/23/2016 19:20:Elizabeth Mitchell RN) Learning Needs: Labor and Delivery Process; Pain Management; Symptoms to Report; Treatment Plan; Medication; Diagnosis; Nutrition; Equipment; Infant Care; Community Resources (03/23/2016 19:20:Elizabeth Mitchell RN) DOMESTIC VIOLANCE SCREENING Dom Viol Threatened/Hurt: No (03/23/2016 19:20:Elizabeth Mitchell RN) Hx of Abuse/Neglect past 2yrs: No (03/23/2016 19:20:Elizabeth Mitchell RN) Feel Unsafe Going Home: No (03/23/2016 19:20:Elizabeth Mitchell RN) Addt'l Observ Indicating Abuse: No (03/23/2016 19:20:Elizabeth Mitchell RN) Reason Unable to Complete Screen: N/A, Screen Completed (03/23/2016 19:20:Elizabeth Mitchell RN) Considered Personal Harm/Suicide: No (03/23/2016 19:20:Elizabeth Mitchell RN) NUTRITIONAL/FUNCTIONAL SCREENING Problem with Appetite >5 Days: No (03/23/2016 19:20:Elizabeth Mitchell RN) Chew/Swallow Difficulties: No (03/23/2016 19:20:Elizabeth Mitchell RN) Inappropriate Wt Gain/Loss: No (03/23/2016 19:20:Elizabeth Mitchell RN) Presence Skin Breakdown/Ulcer: No (03/23/2016 19:20:Elizabeth Mitchell RN) Special Diet: No (03/23/2016 19:20:Elizabeth Mitchell RN) Pt Requests Cycle Liaison Visit: No (03/23/2016 19:20:Elizabeth Mitchell RN) Hx of Any of the Following?: N/A (03/23/2016 19:20:Elizabeth Mitchell RN) New Diagnosis of: N/A (03/23/2016 19:20:Elizabeth Mitchell RN) Requires Assist w/Ambulation: No (03/23/2016 19:20:Elizabeth Mitchell RN) Uses Assist Device to Ambulate: No (03/23/2016 19:20:Elizabeth Mitchell RN) Pt Requires Help w/ADL's: No (03/23/2016 19:20:Elizabeth Mitchell RN)
--- NOTE | 2016-03-30 06:29 | L&D General Admission ---
General Admit Datetime Report Generated by CPN: 03/30/2016 06:00 INFORMATION Patient Age: 25 (03/23/2016 18:29:QS system process) EDC: 03/15/2016 00:00 (03/23/2016 18:43:Jessica Rodrigo, RNC) : 1 (03/23/2016 18:43:Jessica Camp, RNC) Para: 0 (03/23/2016 18:43:Jessica Camp, RNC) Term: 0 (03/23/2016 18:43:Jessica Camp, RNC) : 0 (03/23/2016 18:43:Jessica Camp, RNC) Spontaneous Abortions: 0 (03/23/2016 18:43:Jessica Camp, RNC) Induced Abortions: 0 (03/23/2016 18:43:Jessica Camp, RNC) Livin (03/23/2016 18:43:Jessica Camp, RNC) Cesareans: 0 (03/23/2016 18:43:Jessica Wallace RNC) VBACs: 0 (03/23/2016 18:43:Jessica Camp, RNC) [facility]: [facility]2016 [facility] Multiple Births: 0 (03/23/2016 18:43:[facility]) Baby, Number in Womb: 1 (03/23/2016 [facility] CARE Primary End [facility]athe [facility] (03/23/2016 18:43:Elizabeth Mitchell RN) Month of 1st Visit: August (03/23/2016 18:43:Elizabeth Mitchell RN) Adequate Care: Yes (03/23/2016 18:43:Elizabeth Mitchell RN) Prepregnancy Weight (lb): 135 (03/23/2016 18:43:Elizabeth Mitchell RN) Prepregnancy Weight (kg): 61.4 (03/23/2016 18:43:QS system process) Height (in): 64 (03/26/2016 11:02:QS system process) ALLERGIES Medication Allergy: No (03/23/2016 18:43:Elizabeth Mitchell RN) Medication Allergies: No Known Allergies (03/23/2016) (03/23/2016 18:45:QS system process) Latex Allergy: No Latex Allergies (03/23/2016 18:43:Elizabeth Mitchell RN) Food Allergies: denies (03/23/2016 18:43:Elizabeth Mitchell RN) Environmental Allergies: denies (03/23/2016 18:43:Elizabeth Mitchell RN) COMMUNICATION Primary Language: Beninese (03/23/2016 18:43:Elizabeth Mitchell RN) Medical Tx Preferred Language: Beninese (Annotations: Data stored by [facility] on behalf of user) (03/23/2016 18:43:Francisca Gottlieb RN) Communication Barrier(s): None (03/23/2016 18:43:Elizabeth Mitchell RN) DEMOGRAPHICS Address: [address] [place] [address] (03/23/2016 18:29:QS system process) Zipcode: [address] (03/23/2016 18:29:QS system process) Home (03/23/2016 18:29:QS system process) N: [phone] (03/23/2016 18:29:QS system process) Next of Kin Name: GINO TUTTLE (03/23/2016 18:29:QS system process) Next of Kin (03/23/2016 18:29:QS system process) Next of Kin Relationship: OR (03/23/2016 18:29:QS system process) Date of : 1990 (03/23/2016 18:29:QS system process) Marital Status: Single (03/23/2016 18:29:QS system process) Sex: Female (03/23/2016 18:29:QS system process) Race: (03/23/2016 18:29:QS system process) Ethnicity: Non- or (03/23/2016 18:29:QS system process) Moravian: None (03/23/2016 18:29:QS system process) DRUG AND ALCOHOL USE Alcohol: No (03/23/2016 18:43:Elizabeth Mitchell RN) Cigarettes: Former Smoker. [id number] (03/23/2016 18:43:Elizabeth Mitchell RN) Marijuana: No (03/23/2016 18:43:Elizabeth Mitchell RN) Cocaine: No (03/23/2016 18:43:Elizabeth Mitchell RN) Other Illicit Drugs: No (03/23/2016 18:43:Elizabeth Mitchell RN) VACCINE HISTORY Influenza Vaccine: Yes (03/23/2016 18:43:Elizabeth Mitchell RN) Pneumococcal Vaccine: No (03/23/2016 18:43:Elizabeth Mitchell RN) Tetanus Vaccine: Yes (03/23/2016 18:43:Lola Schofield RN) Tdap Vaccine: Yes (03/23/2016 18:43:Elizabeth Mitchell RN) Hepatitis B Vaccine: Yes (03/23/2016 18:43:Elizabeth Mitchell RN) Cat And Dog Bather: [facility] (03/23/2016 18:43:Elizabeth Mitchell RN) Feeding Preference: Formula (03/23/2016 18:43:Elizabeth Mitchell RN) Benefit of Breast Feed Discussed: Yes (03/23/2016 18:43:Elizabeth Mitchell RN) Circumcision: N/A (03/23/2016 18:43:Elizabeth Mitchell RN) Classes Attended: No (03/23/2016 18:43:Elizabeth Mitchell RN) Tubal Ligation: No (03/23/2016 18:43:Elizabeth Mitchell RN) Consent: N/A (03/23/2016 18:43:Elizabeth Mitchell RN) Consent Signed: N/A (03/23/2016 18:43:Elizabeth Mitchell RN) Pain Management Plans: Epidural (03/23/2016 18:43:Elizabeth Mitchell RN) Plans for Labor and Delivery: None (03/23/2016 18:43:Elizabeth Mitchell RN) Support Person: Nacho Corado (03/23/2016 18:43:Elizabeth Mitchell RN) Support Person Relationship: Significant Other (03/23/2016 18:43:Elizabeth Mitchell RN) Cultural/Spritual Practice: No (03/23/2016 18:43:Elizabeth Mitchell RN) Spir/Cult Dietary Needs: No (03/23/2016 18:43:Elizabeth Mitchell RN) LIVING SITUATION/DISCHARGE PLAN Living Arrangements: House (03/23/2016 18:43:Elizabeth Mitchell RN) Adequate Access to:: Electric; Heat; Refrigeration; Plumbing/Running water; Phone; Transportation (03/23/2016 18:43:Elizabeth Mitchell RN) WIC Program: Yes (03/23/2016 18:43:Elizabeth Mitchell RN) Discharge Patient Registrar Person: Erik Corado (03/23/2016 18:43:Elizabeth Mitchell RN) Person to Help after Discharge: Erik Corado (03/23/2016 18:43:Elizabeth Mitchell RN) Currently Using Commun Resources: No (03/23/2016 18:43:Elizabeth Mitchell RN) Outside Agency/Banquet Attendant: No (03/23/2016 18:43:Elizabeth Mitchell RN) Car Seat for Discharge: No (03/23/2016 18:43:Elizabeth Mitchell RN) Need Help to Obtain Car Seat: will have prior to discharge (03/23/2016 18:43:Elizabeth Mitchell RN) Adoption Requested: No (03/23/2016 18:43:Elizabeth Mitchell RN) Pt Contact w/ Post : N/A (03/23/2016 18:43:Elizabeth Mitchell RN) LABS Blood Type: O Positive (03/23/2016 18:43:Elizabeth Mitchell RN) Antibody Screen: Negative (03/23/2016 18:43:Elizabeth Mitchell RN) Hemoglobin: 11.4 L (03/25/2016 06:53:QS system process) Hematocrit: 34.4 L (03/25/2016 06:53:QS system process) MCV: 92 (03/25/2016 06:53:QS system process) Group Beta Strep: POSITIVE (03/23/2016 18:43:Elizabeth Mitchell RN) Gonorrhea: Negative (03/23/2016 18:43:Elizabeth Mitchell RN) Chlamydia: Negative (03/23/2016 18:43:Elizabeth Mitchell RN) RPR/VDRL: Nonreactive (03/23/2016 18:43:Elizabeth Mitchell RN) HIV Exposure Test: Negative (03/23/2016 18:43:Elizabeth Mitchell RN) Hepatitis B: Negative (03/23/2016 18:43:Elizabeth Mitchell RN) Rubella: Immune (03/23/2016 18:43:Elizabeth Mitchell RN) Varicella: Non Susceptible (03/23/2016 18:43:Elizabeth Mitchell RN) OB/PREVIOUS HISTORY Previous Procedures: None (03/23/2016 18:43:Elizabeth Mitchell RN) Current Procedures: Ultrasound (03/23/2016 18:43:Elizabeth Mitchell RN) History of Previous : No (03/23/2016 18:43:Elizabeth Mitchell RN) History of Gestational Diabetes: No (03/23/2016 18:43:Elizabeth Mitchell RN) History of PIH: No (03/23/2016 18:43:Elizabeth Mitchell RN) History of Incompetent Cervix: No (03/23/2016 18:43:Elizabeth Mitchell RN) History of Placenta Previa/Abrup: No (03/23/2016 18:43:Elizabeth Mitchell RN) History of Macrosomia: No (03/23/2016 18:43:Elizabeth Mitchell RN) History of IUGR: No (03/23/2016 18:43:Elizabeth Mitchell RN) History of Hemorrhage: No (03/23/2016 18:43:Elizabeth Mitchell RN) History of Loss/Stillborn: No (03/23/2016 18:43:Elizabeth Mitchell RN) History of : No (03/23/2016 18:43:Elizabeth Mitchell RN) History of D (Rh) Sensitization: No (03/23/2016 18:43:Elizabeth Mitchell RN) History Recurrent Loss/Stillborn: No (03/23/2016 18:43:Elizabeth Mitchell RN) History Depression/PP Depression: No (03/23/2016 18:43:Elizabeth Mitchell RN) History of Uterine Anomaly/ANNA: No (03/23/2016 18:43:Elizabeth Mitchell RN) History of Infertility: No (03/23/2016 18:43:Elizabeth Mitchell RN) History of ART Treatment: No (03/23/2016 18:43:Elizabeth Mitchell RN) History of ANNA: No (03/23/2016 18:43:Elizabeth Mitchell RN) Comments Obstetrical History: G1-Current (03/23/2016 18:43:Jacy Morris RN) MEDICAL HISTORY Med Hx Diabetes: No (03/23/2016 18:43:Elizabeth Mitchell RN) Med Hx Hypertension: No (03/23/2016 18:43:Elizabeth Mitchell RN) Med Hx Heart Disease: No (03/23/2016 18:43:Elizabeth Mitchell RN) Med Hx Autoimmune Disorder: No (03/23/2016 18:43:Elizabeth Mitchell RN) Med Hx Kidney Disease/UTI: No (03/23/2016 18:43:Elizabeth Mitchell RN) Med Hx Neurologic/Epilepsy: No (03/23/2016 18:43:Elizabeth Mitchell RN) Med Hx Psychiatric Disorders: No (03/23/2016 18:43:Elizabeth Mitchell RN) Med Hx Hepatitis/Liver Disease: No (03/23/2016 18:43:Elizabeth Mitchell RN) Med Hx Varicosities/Phlebitis: No (03/23/2016 18:43:Elizabeth Mitchell RN) Med Hx Thyroid Dysfunction: No (03/23/2016 18:43:Elizabeth Mitchell RN) Med Hx Trauma/Violence: No (03/23/2016 18:43:Elizabeth Mitchell RN) Med Hx Blood Transfusion: No (03/23/2016 18:43:Elizabeth Mitchell RN) Med Hx Pulmonary (Asthma,TB): No (03/23/2016 18:43:Elizabeth Mitchell RN) Med Hx Breast: No (03/23/2016 18:43:Elizabeth Mitchell RN) Med Hx MEDICAL SALES CONSULTANT Surgery: No (03/23/2016 18:43:Elizabeth Mitchell RN) Med Hx Hospitalization/Surgery: No (03/23/2016 18:43:Elizabeth Mitchell RN) Med Hx Anesthetic Complications: No (03/23/2016 18:43:Elizabeth Mitchell RN) Med Hx Abnormal Pap Smear: No (03/23/2016 18:43:Elizabeth Mitchell RN) Other Medical Diseases: No (03/23/2016 18:43:Elizabeth Mitchell RN) Med Hx Significant Family Hx: No (03/23/2016 18:43:Elizabeth Mitchell RN) INFECTIOUS HISTORY Inf Hx Gonorrhea: No (03/23/2016 18:43:Elizabeth Mitchell RN) Inf Hx Chlamydia: No (03/23/2016 18:43:Elizabeth Mitchell RN) Inf Hx Syphilis: No (03/23/2016 18:43:Elizabeth Mitchell RN) Inf Hx HIV/AIDS: No (03/23/2016 18:43:Elizabeth Mitchell RN) Inf Hx Human Papilloma Virus: No (03/23/2016 18:43:Elizabeth Mitchell RN) Inf Hx Pt/Partner Genital Herpes: No (03/23/2016 18:43:Elizabeth Mitchell RN) Inf Hx Tuberculosis/Exposure: No (03/23/2016 18:43:Elizabeth Mitchell RN) Inf Hx Hepatitis B,C: No (03/23/2016 18:43:Elizabeth Mitchell RN) Inf Hx Rash or Viral Illness: No (03/23/2016 18:43:Elizabeth Mitchell RN) GENETIC HISTORY Gen Hx Age >=35 at [facility]: No (03/23/2016 18:43:Elizabeth Mitchell RN) Gen Hx Thalassemia: No (03/23/2016 18:43:Elizabeth Mitchell RN) Gen Hx Congenital Heart Defect: No (03/23/2016 18:43:Elizabeth Mitchell RN) Gen Hx Neural Tube Defect: No (03/23/2016 18:43:Elizabeth Mitchell RN) Gen Hx Down's Syndrome: No (03/23/2016 18:43:Elizabeth Mitchell RN) Gen Hx Jesus-Sachs: No (03/23/2016 18:43:Elizabeth Mitchell RN) Gen Hx Fredis: No (03/23/2016 18:43:Elizabeth Mitchell RN) Gen Hx Familial Dysautonomia: No (03/23/2016 18:43:Elizabeth Mitchell RN) Gen Hx Sickle Cell Disease/Trait: No (03/23/2016 18:43:Elizabeth Mitchell RN) Gen Hx Hemophilia/Blood Disorder: No (03/23/2016 18:43:Elizabeth Mitchell RN) Gen Hx Muscular Dystrophy: No (03/23/2016 18:43:Elizabeth Mitchell RN) Gen Hx Cystic Fibrosis: No (03/23/2016 18:43:Elizabeth Mitchell RN) Gen Hx Huntingtons Chorea: No (03/23/2016 18:43:Elizabeth Mitchell RN) Gen Hx Mental Retardation/Autism: No (03/23/2016 18:43:Elizabeth Mitchell RN) Gen Hx Tested for Fragile X: No (03/23/2016 18:43:Elizabeth Mitchell RN) Gen Hx Other Inher/Chromosomal: No (03/23/2016 18:43:Elizabeth Mitchell RN) Gen Hx Maternal Metabolic DO: No (03/23/2016 18:43:Elizbaeth Mitchell RN) Gen Hx Pt Father or FOB Defect: No (03/23/2016 18:43:Elizabeth Mitchell RN) Gen Hx Other Genetic History: No (03/23/2016 18:43:Elizabeht Mitchell RN) Gen Hx Drugs/Meds since LMP: No (03/23/2016 18:43:Elizabeth Mitchell RN)
--- NOTE | 2016-04-18 01:28 | Operative Report ---
Operative Report DATE OF SURGERY: 03/25/16 PREOPERATIVE DIAGNOSIS: 41week, Failure to Progress POSTOPERATIVE DIAGNOSIS: same, delivered OPERATION: Primary Low Transverse Section SURGEON: TONI GARSIA ANESTHESIA: GA - epidural converted to general anesthetic TISSUE REMOVED OR ALTERED: placenta COMPLICATIONS: none ESTIMATED BLOOD LOSS: 600cc INTRAOPERATIVE FINDINGS: viable female infant ap 8/9. placenta intact 3vc. normal anatomy PROCEDURE: After appropriate consents had been obtained, the patient was taken to the operating room where regional anesthesia was placed without difficulty. The patient was prepped and draped in the normal sterile fashion in the dorsal supine position with a leftward tilt. Time out procedure was performed. Anesthesia was determined to be adequate and a pfannenstiel incision was made through the prior scar. The fascia was nicked in the midline then extended bilaterally with Borjas scissors. The fascia was elevated and then the rectus muscles dissected off sharply. The rectus muscles were then in the midline and the peritonuem identified. The peritoneum was entered sharply and extended with good visualization of the bladder. Bladder blade was inserted and the bladder flap carefully dissected off the lower uterine segment. A transverse incision was made with the scalpel then extended bilaterally in an upward outward motion across the lower uterine segment. Amniotomy revealed clear fluid. The vertex was grasped and elevated easily through the incision followed by the remainder of the . The cord was doubly clamped and ligated. The was handed off the operative field to the waiting pediatric team. The placenta was then extracted manually intact. The uterus was exteriorized and cleansed of membranous tissue with a sponge on the marking machine operator's hand. The uterine incision was then repaired using 0 vicryl in a running locked fashion. A second layer of the same suture was used to imbricate for hemastasis. The uterus was then returned to the abdomen and gutters were cleared of clots and debris. The fascial incision was closed with 0 vicryl in a running fashion to the midline. The subcutaneous layer was closed with 0 plain in a running stitch. the skin was closed with boby. Sponge, lap and needle counts were correct. The patient was transferred to recovery in stable condition.
== END 2016-03-26 13:20 | disposition home or self-care (01) | DRG 766 ==
LOC: LR 18:29 → 2S 03-24 22:40 → 2N 03-25 16:04
PROVIDERS: ADMIT Obstetrics & Gynecology; ATTEND Obstetrics & Gynecology
PROC: 10D00Z1 Extraction of Products of Conception, Low, Open Approach (ICD-10-PCS; principal; 2016-03-25)
DX: O48.0 Post-term pregnancy (principal); Z37.0 Single live birth; Z3A.41 41 weeks gestation of pregnancy; O99.824 Streptococcus B carrier state complicating childbirth; O62.1 Secondary uterine inertia; O76 Abnormality in fetal heart rate and rhythm complicating labor and delivery; O99.334 Smoking (tobacco) complicating childbirth; F17.210 Nicotine dependence, cigarettes, uncomplicated
CPT/HCPCS: 1961; 36415; 80307; 81005; 85025; 85027; 86592; 86850; 86900; 86901; 88307; 94760; 94799; J0131; J0330; J0690; J1170; J1200; J1885; J2250; J2300; J2370; J2405; J2540; J2550; J2590; J3010; J3490; J7120

== ENCOUNTER 2017-07-01 10:53 | Emergency (ER) | payer OTHER, MEDICAID ==
--- NOTE | 2017-07-01 11:24 | ER Document Report ---
HPI - HPI Patient complains to provider of: right elbow pain Onset: Yesterday Onset/Duration: Sudden Quality of pain: Achy Severity: Severe Pain Level: 4 Context: Patient presents to the emergency department with complaints of right elbow pain. She reports she works at [employer]. She took a heavy blanket out of the dryer that was still running yesterday and since then her elbow has been hurting. She denies hitting the elbow on the side at the dryer. She denies history of elbow injury in the past. No obvious injury. She took advil before coming to the ED. No weakness, good ROM. Patient is right hand dominant. Associated Symptoms: None Exacerbated by: Denies Relieved by: Denies Similar symptoms previously: No Recently seen / treated by doctor: No - REPRODUCTIVE Reproductive: DENIES: : Past Medical History - General Information source: Patient Last Menstrual Period: 06/10/17 - Social History Smoking Status: Current Every Day Smoker Cigarette use (# per day): Yes Frequency of alcohol use: None Drug Abuse: None Occupation: [employer] Family History: Reviewed & Not Pertinent Patient has suicidal ideation: No Patient has homicidal ideation: No Pulmonary Medical History: Reports: Hx Asthma Psychiatric Medical History: Reports: Hx Bipolar Disorder - mood swings, Hx Depression Past Surgical History: Reports: Hx Section, Hx Oral Surgery - Immunizations Hx Diphtheria, Pertussis, Tetanus Vaccination: Yes Vertical Provider Document - CONSTITUTIONAL Agree With Documented VS: Yes Exam Limitations: No Limitations General Appearance: WD/WN, No Apparent Distress - INFECTION CONTROL TRAVEL OUTSIDE OF THE [place] IN LAST 30 DAYS: No - HEENT HEENT: Atraumatic, Normocephalic - NECK Neck: Supple - RESPIRATORY Respiratory: Breath Sounds Normal, No Respiratory Distress - CARDIOVASCULAR Cardiovascular: Regular Rate - MUSCULOSKELETAL/EXTREMETIES Musculoskeletal/Extremeties: MAEW, FROM, Tender - right elbow ttp, no erythema, no swelling, no obvious deformity, FROM, no weakness, strong toll collector bilaterally. good radial pulse, + cap refill - NEURO Level of Consciousness: Awake Motor/Sensory: No Motor Deficit Course - Re-evaluation Re-evalutation: 07/01/17 12:20 She instructed on negative x-ray. Instructed on sling for comfort ibuprofen as indicated for pain. Patient verbalized understanding all instructions. patient instructed to follow-up with orthopedics on Monday for continued pain. - Vital Signs Vital signs: Temp Pulse Resp BP Pulse Ox 97.7 F 94 153/71 H 99 07/01/17 10:57 07/01/17 10:57 07/01/17 10:57 07/01/17 10:57 - Diagnostic Test Radiology reviewed: Image reviewed, Reports reviewed - Clinical Info Memos Diagnostic report text EXAM DESCRIPTION: ELBOW RIGHT AP/LAT COMPLETED DATE/TIME: 07/01/2017 11:59 am REASON FOR STUDY: pain, injury COMPARISON: None. NUMBER OF VIEWS: Four views. TECHNIQUE: AP, lateral, and both oblique radiographic images acquired of the right elbow. LIMITATIONS: None. FINDINGS : MINERALIZATION: Normal. BONES: No acute fracture or dislocation. No worrisome bone lesions. JOINT: No effusion. SOFT TISSUES: No soft tissue swelling. No foreign body. OTHER: No other significant finding. IMPRESSION: NEGATIVE STUDY OF THE RIGHT ELBOW. NO RADIOGRAPHIC EVIDENCE OF ACUTE INJURY. Procedures - Immobilization Right Elbow Pre-Proc Neuro Vasc Exam: Normal Immobilizer type: Sling Performed by: PCT Post-Proc Neuro Vasc Exam: Unchanged from pre-exam Alignment checked and good: Yes Discharge - Discharge Clinical Impression: Elbow pain, right Condition: Stable Disposition: HOME, SELF-CARE Instructions: Use of [id number]-[id number]-Hfowljw Ibuprofen ([facility]), Ice & Elevation ([facility]), Temporary Sling ([facility]) Additional Instructions: *You have been evaluated for right elbow pain *Maintain the sling for comfort *Rest/Ice/Elevate your elbow *Follow up with orthopedics for continued pain -call for an appointment *Take ibuprofen as indicated for pain *Return to ED for worsening condition, changes, needs Monitor your blood pressure. Your blood pressure was elevated today. This may be because you were anxious, in pain or because you need medication. It is important to follow up with your primary care provider for full evaluation. Forms: Elevated Blood Pressure Referrals: LEOBARDO STAFFORD MD [Primary Care Provider] - Follow up as needed
--- NOTE | 2017-07-01 12:16 | RADIOLOGY REPORT (SQ) ---
EXAM DESCRIPTION: ELBOW RIGHT AP/LAT COMPLETED DATE/TIME: 07/01/2017 11:59 am REASON FOR STUDY: pain, injury COMPARISON: None. NUMBER OF VIEWS: Four views. TECHNIQUE: AP, lateral, and both oblique radiographic images acquired of the right elbow. LIMITATIONS: None. FINDINGS: MINERALIZATION: Normal. BONES: No acute fracture or dislocation. No worrisome bone lesions. JOINT: No effusion. SOFT TISSUES: No soft tissue swelling. No foreign body. OTHER: No other significant finding. IMPRESSION: NEGATIVE STUDY OF THE RIGHT ELBOW. NO RADIOGRAPHIC EVIDENCE OF ACUTE INJURY. TECHNICAL DOCUMENTATION: JOB ID: [id number] [employer]- All Rights Reserved Reading location - IP/workstation name: [email or web address]
[2017-07-01 12:40] VITALS: BP 121/68
== END 2017-07-01 12:40 | disposition home or self-care (01) ==
LOC: ER 10:53
DX: M25.521 Pain in right elbow (principal); X50.1XXA Overexertion from prolonged static or awkward postures, initial encounter; Y93.89 Activity, other specified; Y99.0 Civilian activity done for income or pay; F17.210 Nicotine dependence, cigarettes, uncomplicated; J45.909 Unspecified asthma, uncomplicated
CPT/HCPCS: 99283

== ENCOUNTER 2018-02-07 11:00 | Outpatient (CLI) | payer MEDICAID ==
--- NOTE | 2018-02-07 12:44 | Non Stress Test Report ---
Non Stress Test Datetime Report Generated by CPN: 02/07/2018 12:43 DEMOGRAPHIC EGA NST: 34.6 INDICATION Indication for Study: Diabetes Mellitus; Ordered by Provider VITAL SIGNS Temperature - NST: 97.5 Pulse - NST: 79 RESP - NST: 18 NBPSYS NST: 116 NBPDIA NST: 59 MONITORING Monitor Explained: Monitor Explained; Test Explained; Patient Verbalized Understanding Time on Monitor: 02/07/2018 11:09 Time off Monitor: 02/07/2018 12:36 NST Duration: 87 NST INTERVENTIONS NST Interventions: PO Hydration; Reposition Patient Physician Notified NST: N MEYER, CNM BABY A: [id number] BABY A Movement : Present Contraction Frequency : NONE FHR Baseline : 135 Accelerations : 15X15 Decelerations : None Variability : Moderate 6-25bpm NST Review: Meets Criteria for Reactive NST NST Review and Verified By : Jessica Wallace RNC NST Results: Reactive NST REPORT Report Trigger: Send Report
== END 2018-02-07 11:40 | disposition home or self-care (01) ==
LOC: LC 11:00
PROVIDERS: ATTEND Obstetrics & Gynecology Gynecology
PROC: 4A1HXCZ Monitoring of Products of Conception, Cardiac Rate, External Approach (ICD-10-PCS; principal; 2018-02-07)
DX: Z34.93 Encounter for supervision of normal pregnancy, unspecified, third trimester (principal)
CPT/HCPCS: 59025

== ENCOUNTER 2018-03-08 05:42 | Inpatient (IN) | payer MEDICAID ==
[2018-03-07 12:18] LABS: ABSOLUTE EOSINOPHILS # (AUTO) 0.1 10^3/uL (0.0-0.6); ABSOLUTE LYMPHOCYTES (AUTO) 1.7 10^3/uL (0.5-4.7); ABSOLUTE MONOCYTES (AUTO) 0.6 10^3/uL (0.1-1.4); ABSOLUTE NEUT (AUTO) 6.7 10^3/uL (1.7-8.2); BASOPHILS % (AUTO) 0.1 % (0-2); EOSINOPHILS % (AUTO) 0.8 % (0-6); HEMATOCRIT 40.2 % (36.0-47.0); HEMOGLOBIN 13.8 g/dL (12.0-15.5); LYMPHOCYTES % (AUTO) 18.3 % (13-45); MEAN CORPUSCULAR HEMOGLOBIN 30.7 pg (27.0-33.4); MEAN CORPUSCULAR HGB CONC 34.3 g/dL (32.0-36.0); MEAN CORPUSCULAR VOLUME 90 fl (80-97); MONOCYTES % (AUTO) 6.8 % (3-13); PLATELET COUNT 181 10^3/uL (150-450); RED BLOOD COUNT 4.49 10^6/uL (3.72-5.28); RED CELL DISTRIBUTION WIDTH 14.4 % (11.5-14.0); TOTAL CELLS COUNTED % (AUTO) 100 %; WHITE BLOOD COUNT 9.1 10^3/uL (4.0-10.5)
[2018-03-07 13:22] LABS: APPEARANCE,URINE CLOUDY; BILIRUBIN,URINE NEGATIVE (NEGATIVE); COLOR,URINE YELLOW; GLUCOSE, URINE NEGATIVE (NEGATIVE); KETONES,URINE NEGATIVE (NEGATIVE); LEUKOCYTE ESTERASE,URINE LARGE (NEGATIVE); NITRITE,URINE NEGATIVE (NEGATIVE); PROTEIN,URINE NEGATIVE (NEGATIVE); URINE SPECIFIC GRAVITY 1.014; UROBILINOGEN,URINE NEGATIVE mg/dL (<2.0)
[2018-03-07 13:39] LABS: URINE AMPHETAMINES SCREEN NEGATIVE; URINE BARBITURATES SCREEN NEGATIVE; URINE BENZODIAZEPINES SCREEN NEGATIVE; URINE COCAINE SCREEN NEGATIVE; URINE MARIJUANA (THC) SCREEN NEGATIVE; URINE METHADONE SCREEN NEGATIVE; URINE PHENCYCLIDINE SCREEN NEGATIVE
[2018-03-07 13:50] LABS: CHLAM PCR NOT DETECTED (NOT DETECT); GON PCR NOT DETECTED (NOT DETECT)
[~2018-03-08 05:42] MED LIST: RINGERS SOLUTION,LACTATED 1,000 ML IV PRN; RINGERS SOLUTION,LACTATED 800 ML IV ONE
[2018-03-08] MEDS ORDERED: CEFAZOLIN 1 GM/D5W RTU 2 GM/100 ML RTUPB IV ONE (06:19)
[2018-03-08] MEDS ORDERED: FENTANYL CITRATE INJ/PF 100 MCG/2 ML AMPUL ONE (07:38)
[2018-03-08] MEDS ORDERED: EPHEDRINE SULFATE INJ 50 MG/1 ML AMPULE ONE (07:38)
[2018-03-08] MEDS ORDERED: ACETAMINOPHEN 1,000 MG/100 ML RTUPB IV ONE (07:38)
[2018-03-08] MEDS ORDERED: OXYTOCIN 10 UNIT/ML VIAL ONE (07:38)
[2018-03-08] MEDS ORDERED: KETOROLAC TROMETHAMINE INJ/PF 30 MG/1 ML SDV ONE (07:38)
[2018-03-08] MEDS ORDERED: BUPIVACAINE HCL/DEX-WATER/PF 15 MG/2 ML AMPULE ONE (07:38)
[2018-03-08] MEDS ORDERED: ONDANSETRON HCL INJ/PF 4 MG/2 ML SDV ONE (07:38)
[2018-03-08] MEDS ORDERED: MIDAZOLAM 2 MG/2 ML INJ ONE (07:38)
[2018-03-08] MEDS ORDERED: KETAMINE HCL INJ 500 MG/10 ML VIAL ONE (08:24)
[2018-03-08] MEDS ORDERED: OXYCODONE-ACETAMINOPHEN 5-325 MG TABLET PO PRN ×3 (08:48→11:16)
[2018-03-08] MEDS ORDERED: ONDANSETRON HCL INJ/PF 4 MG/2 ML SDV IV PRN (08:48)
[2018-03-08] MEDS ORDERED: FENTANYL CITRATE INJ/PF 100 MCG/2 ML AMPUL IV PRN ×3 (08:48)
[2018-03-08] MEDS ORDERED: MEPERIDINE HCL/PF INJ 25 MG/1 ML DISP.SYRIN IV PRN (08:48)
[2018-03-08] MEDS ORDERED: PROMETHAZINE HCL INJ 25 MG/1 ML VIAL IV PRN ×3 (08:48→11:16)
[2018-03-08] MEDS ORDERED: DIPHENHYDRAMINE HCL 50 MG/ML VIAL IV PRN (08:48)
[2018-03-08] MEDS ORDERED: HYDROMORPHONE HCL INJ/PF 2 MG/ML AMPULE ONE ×3 (09:16→15:56)
[2018-03-08] MEDS ORDERED: MISOPROSTOL 0.2 MG TABLET ONE (09:30)
[2018-03-08] MEDS: OXYTOCIN/NORMAL SALINE 20 UNIT/1,000 ML RTUINJ ONE ×2 (10:11→10:20)
[2018-03-08] MEDS ORDERED: MISOPROSTOL 0.2 MG TABLET PR ONE (10:30)
[2018-03-08] MEDS ORDERED: HYDROMORPHONE HCL INJ/PF 2 MG/ML AMPULE IV ONE (10:53)
[2018-03-08] MEDS ORDERED: OXYTOCIN/NORMAL SALINE 20 UNIT/1,000 ML RTUINJ IV PRN (11:16)
[2018-03-08] MEDS ORDERED: ACETAMINOPHEN 325 MG TABLET PO PRN (11:16)
[2018-03-08] MEDS ORDERED: DIPH/PERTUSS(ACELL)/TETANUS VAC/PF 0.5 ML SYR (>=10YO) IM PRN (11:16)
[2018-03-08] MEDS ORDERED: RINGERS SOLUTION,LACTATED 1,000 ML IV PRN (11:16)
[2018-03-08] MEDS ORDERED: SIMETHICONE 80 MG TAB.CHEW PO PRN (11:16)
[2018-03-08] MEDS ORDERED: MEASLES,MUMPS&RUBELLA VACC/PF 0.5 ML VIAL SUBCUT PRN (11:16)
--- NOTE | 2018-03-08 11:26 | Brief Operative Note ---
BRIEF OPERATIVE REPORT DATE OF SURGERY: 03/08/18 TIME OF SURGERY: 08:30 PREOPERATIVE DIAGNOSIS: 39+0ega, , h/o section, declines TOLAC POSTOPERATIVE DIAGNOSIS: ALESIA - delivered SURGEON: YEYO SPAULDING FINDINGS: VFI delivered at 0826, weight 3545g (7#13oz), Apgars 8/9. Normal bilateral tubes/ovaries. Normal uterus, scarring of bladder to NARA and scarring of rectus muscles to subq and underlying omentum, IVF 1300ml, UOP 200ml COMPLICATIONS: None ESTIMATED BLOOD LOSS: 962ml TISSUE REMOVED OR ALTERED: placenta and cord not sent to pathology TECHNICAL PROCEDURE: Repeat section
--- NOTE | 2018-03-08 11:29 | PDOC DELIVERY SUMMARY ---
Delivery Summary - Maternal Hx : II Hx Para: I Hx # Term Pregnancies: 1 Hx # Pregnancies: 0 Hx Total # of Abortions (Sponateous & Elective): 0 Number of Living Children: 1 LIBERTAD: 03/14/18 Gestational Age: 39 Risk Factors: Previous Ruptured Membranes: AROM Fluids: Clear - Delivery Labor: Not In Labor Presentation: Vertex Heart Rate Monitoring: Done Pre-Operatively Support Person Present: Yes Location: OR : Scheduled Placenta: Within Normal Limits Placenta Description: normal Number of Vessels (Cord): 3 Nuchal Cord: No Delivery of Placenta Date: 03/08/18 Delivery of Placenta Time: 08:27 Delivery Quantitative Blood Loss (QBL): 962 - Medications Type of Anesthesia:: Spinal - Assess and Care Baby 1 Female Delivery of Infant Date: 03/08/18 Delivery of Infant Time: 08:26 at 1 minute: 8 at 5 minutes: 9 Preprinted Number On Band: [id number] Infant Skin to Skin: Yes Skin to Skin (Mins): 5 To Nursery At: 08:36 Mode of Transport: Bassinet Infant Delivery Weight: 3,545 Delivery Length: 20 in - Delivery Personnel Assembly Line Robot Operator: VERÓNICA CHAMBERLAIN RN: KAILYN HAYDEN RN: DAMASO TRIANA MD: YEYO SPAULDING
[2018-03-08] MEDS: OXYCODONE-ACETAMINOPHEN 5-325 MG TABLET PO PRN ×3 (12:42→21:41)
[2018-03-08] MEDS ORDERED: HYDROMORPHONE HCL INJ/PF 2 MG/ML AMPULE IV PRN (16:21)
[2018-03-08] MEDS: DOCUSATE SODIUM 100 MG CAPSULE PO SCH (17:35)
[2018-03-08] MEDS: IBUPROFEN 800 MG TABLET PO SCH (17:59)
[2018-03-08] MEDS ORDERED: ACETAMINOPHEN 1,000 MG/100 ML RTUPB IV PRN (18:00)
[2018-03-08] MEDS ORDERED: METRONIDAZOLE 500 MG/NS RTU 500 MG/100 ML RTUPB IV SCH (22:00)
[2018-03-08] MEDS ORDERED: CEFAZOLIN 1 GM/D5W RTU 1 GM/50 ML RTUPB IV SCH (22:00)
[2018-03-09] MEDS: OXYCODONE-ACETAMINOPHEN 5-325 MG TABLET PO PRN ×5 (03:10→23:56)
--- NOTE | 2018-03-09 03:45 | Operative Report ---
Operative Report DATE OF SURGERY: 03/08/18 PREOPERATIVE DIAGNOSIS: 39+0ega, , h/o section, declines TOLAC POSTOPERATIVE DIAGNOSIS: ALESIA - delivered OPERATION: Repeat section SURGEON: YEYO SPAULDING ANESTHESIA: Spinal TISSUE REMOVED OR ALTERED: placenta and cord not sent to pathology COMPLICATIONS: None ESTIMATED BLOOD LOSS: 962ml INTRAOPERATIVE FINDINGS: VFI delivered at 0826, weight 3545g (7#13oz), Apgars 8/9. Normal bilateral tubes/ovaries. Normal uterus, scarring of bladder to NARA and scarring of rectus muscles to subq and underlying omentum, IVF 1300ml, UOP 200ml PROCEDURE: Anesthesia provider: [Abad LEMUS, Marcelo Kilgore JAVASCRIPT ENGINEER] Urine output: [200ml] IV fluids: [1300ml] Indications: [27yo at 39+0ega presents for scheduled section. She has had a prior section and declines TOLAC. Prior section was due to arrest of dilation. She desires COCPs for contraception . The risks, benefits, alternatives were discussed with the patient and she desires to proceed with planned procedure.] Procedure: The patient was taken to the operating room where spinal anesthesia was obtained and found to be adequate. She was then prepped and draped in the normal sterile fashion and placed in the dorsal supine position with a leftward tilt. A Pfannenstiel skin incision was then made and carried through to the underlying layers of the fascia with the scalpel. The fascia was incised in the midline and the incision extended laterally with the Borjas scissors. The superior aspect of the fascial incision was then grasped with Oscar clamps elevated and the underlying rectus muscles dissected off [bluntly]. Attention was then turned to the inferior aspect of the fascial incision which in a similar fashion was grasped, tented up with Oscar clamps, and the rectus muscles dissected off [bluntly]. The rectus muscles were then in the midline and the peritoneum at the amount identified and entered [bluntly]. The peritoneal incision was then extended superiorly and inferiorly with good visualization of the bladder. The bladder blade was inserted and the vesicouterine peritoneum identified grasped with [place] pickups and entered sharply with the Metzenbaum scissors. This incision was then extended laterally with the Metzenbaum scissors and a bladder flap created digitally. The bladder blade was then reinserted and the lower uterine segment incised in a transverse fashion with the scalpel. The uterine incision was then extended bluntly. The bladder blade was removed and the 's head was delivered from cephalic presentation atraumatically. The nose and mouth were suctioned and the cord do ubly clamped and cut. And the was handed off to waiting pediatricians. The placenta was then delivered spontaneously and the uterus exteriorized and cleared of all clots and debris. The uterine incision was then repaired with 1- 0 Vicryl in a running locked fashion. A second layer of the same suture was used to obtain hemostasis via imbrication of the initial layer. The bladder flap was then repaired with 3-0 chromic in a running fashion. The uterus was returned to the patient's abdomen and Interceed was placed overlying the uterine incision to prevent adhesions. Surgicel was placed overlying the uterus and overlying rectus muscles. The gutters were cleared of all clots and debris. All operative sites were noted to be hemostatic. The fascia was reapproximated with 0 Vicryl in a running fashion from each lateral edge to the midline. The skin was closed with 3-0 Monocryl in a running subcuticular fashion with overlying Dermabond for additional dressing as well as wound closure. The patient tolerated the procedure well. Sponge lap needle and instrument counts are correct times 2. 2 g of Ancef were given prior to skin incision. The patient was taken to the recovery area awake and in stable condition.
[2018-03-09] MEDS: IBUPROFEN 800 MG TABLET PO SCH ×5 (05:43→23:53)
[2018-03-09 07:03] LABS: HEMATOCRIT 38.9 % (36.0-47.0); MEAN CORPUSCULAR HEMOGLOBIN 30.1 pg (27.0-33.4); MEAN CORPUSCULAR HGB CONC 33.6 g/dL (32.0-36.0); MEAN CORPUSCULAR VOLUME 90 fl (80-97); PLATELET COUNT 181 10^3/uL (150-450); RED BLOOD COUNT 4.33 10^6/uL (3.72-5.28); RED CELL DISTRIBUTION WIDTH 14.4 % (11.5-14.0); WHITE BLOOD COUNT 14.4 10^3/uL (4.0-10.5)
[2018-03-09] MEDS ORDERED: IBUPROFEN 800 MG TABLET ONE (07:50)
--- NOTE | 2018-03-09 09:27 | PDOC PROGRESS REPORT ---
Subjective-OB Progress Note for:: 03/09/18 Subjective: Doing well today, sitting on side of bed, passing gas, pain under control Physical Exam (OB) Vital Signs: Temp Pulse Resp BP Pulse Ox 98.9 F 103 H 18 136/70 H 96 03/09/18 07:39 03/09/18 07:39 03/09/18 07:39 03/09/18 07:39 03/09/18 07:39 Intake & Output 03/08/18 03/09/18 03/10/18 06:59 06:59 06:59 Intake Total 773 Output Total 2500 Balance -1727 Weight 96.615 kg - PIH/Pre-Eclampsia DTR's: 1 + Clonus: Negative Headache: Absent Epigastric Pain: No Visual Changes: No - Dressing Removed: No - dressing Incision: Well Approximated Closure Type: Surgical Glue - Lochia Lochia Amount: Small 10-25 ml Lochia Color: Rubra/Red - Abdomen Description: Soft, Round Hernia Present: No Fundal Description: Firm, Non-Midline Fundal Height: u/u - u/2 Objective-Diagnostic Laboratory: 03/09/18 06:37 03/09/18 06:37 WBC 14.4 H RBC 4.33 Hgb 13.0 Hct 38.9 MCV 90 MCH 30.1 MCHC 33.6 RDW 14.4 H Plt Count 181 Assessment and Plan(PN) - Assessment and Plan (1) S/P repeat low transverse Is this a current diagnosis for this admission?: Yes (2) GDM (gestational diabetes mellitus) Qualifiers: Gestational diabetes mellitus control: diet-controlled Is this a current diagnosis for this admission?: Yes (3) Positive GBS test Is this a current diagnosis for this admission?: Yes - Time Spent with Patient Time with patient: Less than 15 minutes Medications reviewed and adjusted accordingly: Yes - Disposition Anticipated Discharge: Home Within: within 24 hours
--- NOTE | 2018-03-09 09:31 | PDOC DISCHARGE SUMMARY ---
Final Diagnosis Discharge Date: 03/10/18 - Final Diagnosis (1) S/P repeat low transverse Is this a current diagnosis for this admission?: Yes (2) GDM (gestational diabetes mellitus) Is this a current diagnosis for this admission?: Yes (3) Positive GBS test Is this a current diagnosis for this admission?: Yes Discharge Data - Discharge Medication Prescriptions: Oxycodone HCl/Acetaminophen [Percocet 5-325 mg Tablet] 1 tab PO Q4HP PRN #20 tablet PRN Reason: Ibuprofen [Motrin 800 mg Tablet] 800 mg PO Q6 #60 tablet Home Medications: Pnv95/Iron Fum/Folic Acid [ Caplet] 1 each PO DAILY 03/23/16 Ibuprofen [Motrin 800 mg Tablet] 800 mg PO Q6 #60 tablet 03/09/18 Oxycodone HCl/Acetaminophen [Percocet 5-325 mg Tablet] 1 tab PO Q4HP PRN #20 tablet 03/09/18 Reason(s) for Admission: Ceasarean Section-Repeat, Gestional Diabetes Procedures: NST, Ultrasound Intrapartum Procedure(s): : Low Cervical, Transverse - Diagnosis Test Laboratory: Temp Pulse Resp BP Pulse Ox 98.9 F 103 H 18 136/70 H 96 03/09/18 07:39 03/09/18 07:39 03/09/18 07:39 03/09/18 07:39 03/09/18 07:39 03/07/18 03/07/18 03/09/18 11:27 11:39 06:37 RBC 4.49 4.33 Hgb 13.8 13.0 Hct 40.2 38.9 Urine Opiates Screen NEGATIVE - Discharge information/Instructions Discharge Activity: Activity As Tolerated, Balance Activity w/Rest, No Lifting Over 10 Pounds, No Lifting/Push/Pulling, Pelvic Rest Discharge Diet: As Tolerated, Regular Disposition: HOME, SELF-CARE Follow up with: [facility] in: 5, Days
[2018-03-09] MEDS: DOCUSATE SODIUM 100 MG CAPSULE PO SCH ×2 (11:07→17:47)
[2018-03-09] MEDS: PRENATAL VITAMIN W DHA CAPSULE PO SCH (11:07)
[2018-03-10] MEDS: IBUPROFEN 800 MG TABLET PO SCH ×2 (07:03→13:05)
[2018-03-10] MEDS: OXYCODONE-ACETAMINOPHEN 5-325 MG TABLET PO PRN (07:51)
--- NOTE | 2018-03-10 09:37 | PDOC PROGRESS REPORT ---
Subjective-OB Progress Note for:: 03/10/18 Subjective: Doing much better today, ready to go home, pain under control, passing gas Physical Exam (OB) Vital Signs: Temp Pulse Resp BP Pulse Ox 97.8 F 77 18 126/73 H 96 03/10/18 07:53 03/10/18 07:53 03/10/18 07:53 03/10/18 07:53 03/10/18 07:53 Intake & Output 03/09/18 03/10/18 03/11/18 06:59 06:59 06:59 Intake Total 773 Output Total 2500 Balance -1727 - PIH/Pre-Eclampsia DTR's: 1 + Clonus: Negative Headache: Absent Epigastric Pain: No Visual Changes: No - Dressing Removed: No - no dressing/surgical glue Incision: Well Approximated Closure Type: Surgical Glue - Lochia Lochia Amount: Small 10-25 ml Lochia Color: Rubra/Red - Abdomen Description: Soft, Round Hernia Present: No Fundal Description: Firm, Midline Fundal Height: u/u - u/2 Objective-Diagnostic Laboratory: 03/09/18 06:37 Assessment and Plan(PN) - Assessment and Plan (1) S/P repeat low transverse Is this a current diagnosis for this admission?: Yes (2) GDM (gestational diabetes mellitus) Qualifiers: Gestational diabetes mellitus control: diet-controlled Is this a current diagnosis for this admission?: Yes (3) Positive GBS test Is this a current diagnosis for this admission?: Yes - Time Spent with Patient Medications reviewed and adjusted accordingly: Yes - Disposition Anticipated Discharge: Home Within: within 24 hours
[2018-03-10] MEDS: DOCUSATE SODIUM 100 MG CAPSULE PO SCH (10:33)
[2018-03-10] MEDS: PRENATAL VITAMIN W DHA CAPSULE PO SCH (10:33)
[2018-03-10 11:50] VITALS: BP 132/70
== END 2018-03-10 13:44 | disposition home or self-care (01) | DRG 788 ==
LOC: 2S 05:42
PROVIDERS: ADMIT Student in an Organized Health Care Education/Training Program; ATTEND Student in an Organized Health Care Education/Training Program
PROC: 10D00Z1 Extraction of Products of Conception, Low, Open Approach (ICD-10-PCS; principal; 2018-03-08 07:45)
PROC: 3E0234Z Introduction of Serum, Toxoid and Vaccine into Muscle, Percutaneous Approach (ICD-10-PCS; 2018-03-10)
PROC: 3E0234Z Introduction of Serum, Toxoid and Vaccine into Muscle, Percutaneous Approach (ICD-10-PCS; 2018-03-10)
DX: O34.211 Maternal care for low transverse scar from previous cesarean delivery (principal); O24.420 Gestational diabetes mellitus in childbirth, diet controlled; O99.824 Streptococcus B carrier state complicating childbirth; N85.8 Other specified noninflammatory disorders of uterus; Z3A.38 38 weeks gestation of pregnancy; Z37.0 Single live birth; Z23 Encounter for immunization
CPT/HCPCS: 1961; 36415; 59025; 80307; 81001; 82962; 85025; 85027; 86850; 86900; 86901; 87491; 87591; 90471; 90686; 90715; 94799; C1765; G0008; J0131; J1170; J1885; J2250; J2405; J2590; J3010; J3490